=== PATIENT | male | born 1950 | race Caucasian/White ===

== ENCOUNTER → 2016-04-11 | Outpatient (CLI) | payer OTHER ==
[~2016-04-11] MED LIST: ALL300 PO; AMOX500C3 PO; B-COTAB18 PO; CEPH500C PO; CHOL400C10 PO; CITA20TA9 PO; DOXY100C76 PO; FRS/40 PO; IMD/2 PO; INSDGI SC; INSDGIPEN SC; INSU1INJ2 SQ; IRON1CAP2 PO; NVLGI SC; OMEG10007 PO; PANT1TAB48 PO; PEDI-100 PO; POTA20TA16 PO; TIMO0.2534 OPB; TMPOPS15 OPB; TRIA75TA53 PO; VITAMIN B1 PO
[2016-04-11 12:17] LABS: ESTIMATED AVERAGE GLUCOSE 143 mg/dl; HA1C FLAG Normal (Normal)
== END | disposition home or self-care (01) ==
LOC: C.LAB1850 10:06
PROVIDERS: ATTEND Internal Medicine Endocrinology, Diabetes & Metabolism
DX: E11.9 Type 2 diabetes mellitus without complications (principal)

== ENCOUNTER → 2016-04-22 | Outpatient (CLI) | payer OTHER ==
[2016-04-22 11:31] LABS: INR 1.1 (0.9-1.1); PROTHROMBIN TIME (PATIENT) 11.7 SECONDS (9.0-12.0)
[2016-04-22 11:33] LABS: ALT/SGPT 22 U/L (12-78); BLOOD UREA NITROGEN 10 mg/dl (7-18); CALCIUM 8.9 mg/dl (8.5-10.1); CARBON DIOXIDE 28 mmol/L (21-32); CHLORIDE 103 mmol/L (98-107); CREATININE 0.79 mg/dl (0.60-1.40); GLUCOSE 101 mg/dl (70-99); POTASSIUM 4.1 mmol/L (3.5-5.1); SODIUM 139 mmol/L (136-145)
[2016-04-22 11:35] LABS: ALB/GLOB RATIO 0.7 (0.9-2); ALKALINE PHOSPHATASE 92 U/L (45-117); AST/SGOT 28 U/L (15-37)
[2016-04-23 11:53] LABS: AFP TUMOR MARKER SERUM 3.3 NG/ML (<6.1)
== END | disposition home or self-care (01) ==
LOC: C.LAB1850 09:41
PROVIDERS: ATTEND Registered Nurse
DX: K70.30 Alcoholic cirrhosis of liver without ascites (principal); E72.20 Disorder of urea cycle metabolism, unspecified

== ENCOUNTER → 2016-04-28 | Outpatient (CLI) | payer OTHER ==
--- NOTE | 2016-04-28 09:44 | DIAGNOSTIC IMAGING REPORT ---
ABDOMINAL ULTRASOUND, RIGHT UPPER QUADRANT HISTORY: Hyperammonemia. Cirrhosis. COMPARISON: CT of the abdomen and pelvis February 21, 2012 and right upper quadrant ultrasound April 23, 2015. FINDINGS: This exam is significantly compromised by suboptimal penetration. There is coarsening of hepatic echotexture consistent with known cirrhosis. The sensitivity for detection of hepatic lesions is diminished on this exam but none are identified. The pancreas is obscured. Gallstones are noted within the gallbladder. There is no biliary ductal dilatation. No right hydronephrosis is present. Gallbladder wall thickness is at the upper limits of normal. IMPRESSION: 1. Cirrhosis. 2. Cholelithiasis. 3. Exam significantly compromised by suboptimal penetration. Obscured pancreas. Electronically signed by: Renan Fregoso M.D. 04/28/2016 9:42 AM Dictated Date/Time: 04/28/2016 9:35 AM
== END | disposition home or self-care (01) ==
LOC: C.ULTR 08:53
PROVIDERS: ATTEND Registered Nurse
DX: E72.20 Disorder of urea cycle metabolism, unspecified (principal); K74.60 Unspecified cirrhosis of liver; K80.20 Calculus of gallbladder without cholecystitis without obstruction

== ENCOUNTER → 2016-05-01 | Outpatient (CLI) | payer OTHER ==
[~2016-05-01] VITALS: Ht 180.3 cm; Wt 80.0 kg
[2016-05-01 14:31] VITALS: BP 142/83; PULSE 80; Ht 180.3 cm; Wt 80.0 kg
== END | disposition home or self-care (01) ==
LOC: C.NEUR 14:11
PROVIDERS: ATTEND Internal Medicine Pulmonary Disease
DX: G47.33 Obstructive sleep apnea (adult) (pediatric) (principal); G47.61 Periodic limb movement disorder

== ENCOUNTER → 2016-09-24 | Outpatient (CLI) | payer OTHER ==
[2016-09-24 12:43] LABS: ESTIMATED AVERAGE GLUCOSE 120 mg/dl; HA1C FLAG Normal (Normal)
[2016-09-24 12:46] LABS: CHOLESTEROL/HDL RATIO 1.5; THYROID STIMULATING HORMONE 1.79 uIu/ml (0.300-4.500)
== END | disposition home or self-care (01) ==
LOC: C.LAB1850 10:55
PROVIDERS: ATTEND Physician Assistant
DX: Z12.5 Encounter for screening for malignant neoplasm of prostate (principal); E11.9 Type 2 diabetes mellitus without complications; I10 Essential (primary) hypertension

== ENCOUNTER → 2016-10-13 | Outpatient (CLI) | payer OTHER ==
--- NOTE | 2016-10-13 09:04 | DIAGNOSTIC IMAGING REPORT ---
(LIVER) ABDOMEN LIMITED CLINICAL HISTORY: K70.30 Liver cirrhosis, [id number] COMPARISON STUDY: 04/28/2016 FINDINGS: The study is limited from a technical standpoint due to the patient's body habitus and limited acoustic windows. The liver measured 15.5 cm. Liver has a coarsened echotexture consistent with a clinical history of cirrhosis. No masses were identified. Multiple gallstones were visualized. There is no ductal dilatation. The common bile duct measured 6 mm. There is no right-sided hydronephrosis. Evaluation the pancreas was nondiagnostic. IMPRESSION: 1. Technically limited study 2. Coarsened hepatic echotexture consistent with cirrhosis 3. Cholelithiasis 4. Nonvisualization of the pancreas 5. No ductal dilatation Electronically signed by: Drake Zimmerman M.D. 10/13/2016 9:03 AM Dictated Date/Time: 10/13/2016 9:01 AM
== END | disposition home or self-care (01) ==
LOC: C.ULTR 08:35
PROVIDERS: ATTEND Registered Nurse
DX: K70.30 Alcoholic cirrhosis of liver without ascites (principal)

== ENCOUNTER 2016-11-30 13:35 | Emergency (ER) | payer OTHER ==
[~2016-11-30] VITALS: Ht 180.3 cm; Wt 122.6 kg
[~2016-11-30 13:35] MED LIST changes: -AMOX500C3 PO; -B-COTAB18 PO; -CEPH500C PO; -CHOL400C10 PO; -DOXY100C76 PO; -IMD/2 PO; -INSDGIPEN SC; -INSU1INJ2 SQ; -IRON1CAP2 PO; -PEDI-100 PO; -TMPOPS15 OPB
[2016-11-30 13:44] VITALS: TEMP 36.8; Ht 180.3 cm; Wt 122.6 kg
[2016-11-30] MEDS ORDERED: SODIUM CHLORIDE 0.9% 1000ML 1,000 ML IV STA (13:55)
[2016-11-30] MEDS ORDERED: LIDOCAINE/EPINEPHRINE 1% 20 ML VIAL INFIL STA (13:55)
[2016-11-30] MEDS ORDERED: MoRPHine SULFATE 4 MG/ML 1 ML CARP\\VIAL IV STA (13:55)
[2016-11-30] MEDS ORDERED: DIPHTHERIA/TETANUS/PERTUSSIS 0.5 ML SYR/VIAL IM. ONE (14:00)
[2016-11-30] MEDS ORDERED: PEDI-100 PO (14:22)
[2016-11-30] MEDS ORDERED: TMPOPS15 OPB (14:22)
[2016-11-30] MEDS ORDERED: CHOL400C10 PO (14:22)
[2016-11-30] MEDS ORDERED: B-COTAB18 PO (14:22)
[2016-11-30] MEDS ORDERED: IRON1CAP2 PO (14:22)
[2016-11-30] MEDS ORDERED: IMD/2 PO (14:22)
--- NOTE | 2016-11-30 14:24 | EMERGENCY ROOM VISIT NOTE ---
ED Visit Note First contact with patient: 13:51 This Patient was discussed with the physician portfolio assistant, Armand Hughes PA-C. The pertinent historical and physical exam findings were confirmed. I agree with the studies ordered and with the interpretations of these studies. I agree with the disposition and care plan.
[2016-11-30] MEDS ORDERED: INSU1INJ2 SQ (14:25)
[2016-11-30] MEDS ORDERED: INSDGIPEN SC (14:25)
[2016-11-30 14:34] LABS: ISTAT HEMOGLOBIN 15.3 g/dl (14.0-18.0); ISTAT IONIZED CALCIUM 1.11 mmol/l (1.12-1.32)
--- NOTE | 2016-11-30 14:44 | DIAGNOSTIC IMAGING REPORT ---
LEFT TIBIA/FIBULA 2 VIEWS ROUTINE CLINICAL HISTORY: 66 years-old Male presenting with Left distal/medial avila laceration s/p trauma. TECHNIQUE: Frontal and lateral views of the left lower leg were obtained. COMPARISON: None. FINDINGS: The laceration is not radiographically apparent. Tricompartmental degenerative changes in the knee joint with medial joint space loss. Knee joint congruent. Ankle mortise grossly congruent. No acute fracture. Bony spurring at the insertion of the Achilles tendon and origin of the plantar fascia. Atherosclerosis. Multiple phleboliths noted. Diffuse subcutaneous edema in the lower leg. IMPRESSION: No acute osseous injury in the left lower leg. Tricompartmental degenerative changes in the knee, most severe medially with joint space loss. Electronically signed by: Alec Mancilla M.D. 11/30/2016 2:43 PM Dictated Date/Time: 11/30/2016 2:40 PM
[2016-11-30] MEDS ORDERED: CEPHALEXIN 500MG HOME PACK 1 EA BTL PO STA (16:25)
--- NOTE | 2016-11-30 16:29 | EMERGENCY ROOM VISIT NOTE ---
ED Visit Note First contact with patient: 13:51 Chief Complaint: "Cut to leg". History of Present Illness: This patient is a 66-year-old male who presents to the Emergency Department via private vehicle for evaluation of their left lower leg laceration. Patient sustained the laceration while operating a mower, when it began to flip and the clutch pedal struck the medial aspect of his left distal avila causing a laceration. They report a large amount of bleeding initially. They deny any numbness or tingling into the distal extremity. Patient rates his current discomfort as a 0/10. Patient's Tetanus status is not currently up-to-date. Medications: As noted below Allergies: Adhesives, sulfa antibiotics PMH: Diabetes SHx: Patient lives locally with stepson ROS: All pertinent positive and negative review of systems are appropriately documented in the History of Present Illness. Physical Exam: VITAL SIGNS - Vital signs and nursing notes were reviewed. Stable. GENERAL -66-year-old male appearing his stated age who is in no acute distress. Communicates well with provider and answers questions appropriately. SKIN - There is a 18 cm long laceration noted in a V shape with a slight avulsion at the left medial aspect of the distal left avila. The edges gape apart with traction. No foreign bodies appreciated. Upon further examination there are no deep structures including vessel, tendon, or bony structures appreciated. There is no active bleeding noted. MUSCULOSKELETAL -full range of motion noted. There is tenderness to palpation. NEUROLOGIC - Spinothalamic tract was found to be intact with ability to discriminate sharp versus dull sensation. No sensory defects of the dorsal column were appreciated utilizing light touch for evaluation. VASCULAR - Capillary refill was brisk. IMAGING: LEFT TIBIA/FIBULA 2 VIEWS ROUTINE CLINICAL HISTORY: 66 years-old Male presenting with Left distal/medial avila laceration s/p trauma. TECHNIQUE: Frontal and lateral views of the left lower leg were obtained. COMPARISON: None. FINDINGS: The laceration is not radiographically apparent. Tricompartmental degenerative changes in the knee joint with medial joint space loss. Knee joint congruent. Ankle mortise grossly congruent. No acute fracture. Bony spurring at the insertion of the Achilles tendon and origin of the plantar fascia. Atherosclerosis. Multiple phleboliths noted. Diffuse subcutaneous edema in the lower leg. IMPRESSION: No acute osseous injury in the left lower leg. Tricompartmental degenerative changes in the knee, most severe medially with joint space loss. Electronically signed by: Alec Mancilla M.D. 11/30/2016 2:43 PM Dictated Date/Time: 11/30/2016 2:40 PM ED Course: Patient was seen and evaluated by myself. Risks and benefits of performing primary wound closure versus no repair were discussed with the patient who verbalizes understanding. Radiograph was obtained with results as above. No acute fracture. Incidentals discussed with patient. He was given morphine for his pain. Verbal consent was obtained prior to performing the procedure. 8 cc of 1% buffered lidocaine with epinephrine was used to anesthetize the 18 cm laceration. The wound was cleansed and prepped in the typical sterile fashion utilizing normal saline and Betadine. The wound was sterilely draped. Once proper anesthetization was established, the wound was further examined and demonstrated deep involvement, but not involving the bone or muscle. The wound was copiously irrigated with normal saline and Betadine. The RuckPack pulse-a- vac irrigation system was used to irrigate the wound fully. The wound was closed using 3 simple, 4-0 Vicryl sutures as well as 19 simple, 4-0 nylon sutures with the wound edges being well approximated. Patient tolerated the procedure well. No complications were met. The wound was cleansed and dressed with a dry dressing. I-STAT was initially obtained to rule out significant blood loss. He is hemodynamically stable. His sodium was slightly low, he was given 1 L of fluid here as a bolus. He was given Keflex for infection prophylaxis was also educated upon his high risk of infection. He is to follow with his family doctor for recheck later this week of his wound healing progress. He is to return for worsening. His glucose is high, but he is diabetic. He is to follow-up with his family doctor to have basic blood work rechecked. He is to return with worsening. Patient received their Adacel vaccination. Patient educated on worrisome symptoms for return visit to the Emergency Department. Patient discharged to home in good condition. In evaluation treatment this patient the following differential diagnoses were entertained: Fracture, avulsion, open fracture, among others. The patient was also seen by the attending physician. Problem List Medical Problems: (1) Pedroza's esophagus Status: Chronic (2) Current drinker of alcohol Status: Chronic (3) Deep venous thrombosis of lower extremity Status: Chronic (4) Diabetes mellitus type 2 Status: Chronic (5) Diverticular disease of colon Status: Chronic (6) Dyslipidemia Status: Chronic (7) Gastroesophageal reflux disease Status: Chronic (8) Gout Status: Chronic (9) Hypokalemia Status: Resolved (10) Paroxysmal supraventricular tachycardia Status: Resolved Current/Historical Medications Scheduled Allopurinol (Allopurinol), 300 MG PO QAM B-Complex Vitamins (Vitamin B Complex), 1 TAB PO DAILY Cephalexin Monohydrate (Keflex), 500 MG PO TID Cholecalciferol (Vitamin D 400), 800 MG PO DAILY Citalopram Hydrobromide (Celexa), 20 MG PO QAM Insulin Aspart (Novolog Penfill), 6-8 UNITS SQ TIDM Insulin Glargine (Lantus Solostar), 28 UNITS SC QPM Iron Combinations (Iron Complex), 65 MG PO DAILY Pantoprazole (Protonix), 40 MG PO QAM Pediatric Multiple Vitamin W/ (Multivitamin Childrens), 2 TAB PO DAILY Timolol Maleate (Timolol 0.5% Oph Soln 15 Ml), 1 DROP OPB QAM Triamterene/Hctz (Maxzide 75MG/50MG), 1 TAB PO QAM Scheduled PRN Furosemide (Lasix), 40 MG PO DAILY PRN for Fluid Retention Loperamide Hcl (Imodium), 6 MG PO DAILY PRN for Diarrhea Potassium Ext Rel (Klor-Con), 20 MEQ PO DAILY PRN for When Lasix Is Taken Allergies Coded Allergies: Sulfa Antibiotics (Verified Allergy, Unknown, NAUSEA AND VOMITING, 11/30/16 ) Adhesives (Verified Adverse Reaction, Unknown, REDNESS, TAPE WILSON, ) Vital Signs Date Time Temp Pulse Resp B/P (MAP) Pulse Ox O2 Delivery O2 Flow Rate FiO2 11/30/16 16:46 66 16 124/72 98 11/30/16 14:54 16 119/60 100 Room Air 11/30/16 13:44 36.8 87 18 143/81 97 Room Air Laboratory Results Test 11/30/16 14:21 Bedside Hemoglobin 15.3 g/dl (14.0-18.0) Bedside Hematocrit 45 % (42-52) Bedside Sodium 131 mEq/L (135-144) Bedside Potassium 3.6 mEq/L (3.3-5.0) Bedside Chloride 87 mEq/L (101-112) Bedside Total CO2 27 mEq/l (24-31) Anion Gap 21.0 mmol/L (16-25) Bedside Blood Urea Nitrogen 7 mg/dl (7-18) Bedside Creatinine 1.0 mg/dl (0.6-1.3) Bedside Glucose (other) 294 mg/dl (70-99) Bedside Ionized Calcium (Nicol) 1.11 mmol/l (1.12-1.32) Medications Administered Medications (Trade) Dose Ordered Sig/Huy Route Start Time Stop Time Status Last Admin Dose Admin Sodium Chloride 1,000 ml @ 200 mls/hr Q5H STAT IV 11/30/16 13:55 11/30/16 18:27 DC 11/30/16 14:15 200 MLS/HR Morphine Sulfate (MoRPHine SULFATE INJ) 4 mg NOW STAT IV 11/30/16 13:55 11/30/16 13:57 DC 11/30/16 14:16 4 MG Diphtheria/ Pertussis/Tetanus Vacc (Adacel Inj) 0.5 ml ONCE ONCE IM. 11/30/16 14:00 11/30/16 14:01 DC 11/30/16 14:35 0.5 ML Cephalexin Monohydrate (Keflex 500MG Home Pack) 1 homepack NOW STAT PO 11/30/16 16:25 11/30/16 16:27 DC 11/30/16 16:25 1 HOMEPACK Departure Information Impression Primary Impression: Laceration Dispostion Home / Self-Care Condition GOOD Prescriptions Cephalexin Monohydrate (Keflex) 500 Mg Cap 500 MG PO TID for 7 Days, #21 CAP Prov: Armand Hughes PA-C 11/30/16 Referrals Karmen Nichols M.D. (PCP) Patient Instructions My [facility] Additional Instructions Discharge Instructions: You have received 19 sutures on your leg. These sutures are NOT dissolvable and WILL need to be removed by a health care provider in 14 days. You can return to the Emergency Department or contact your Primary Care Provider to have the sutures removed. Please call your family doctor to schedule follow-up regarding today's visit later this week for recheck of your wound. These return sooner for signs of infection. Keflex (antibiotic) every 8 hours for infection prevention. Remainder is at pharmacy for pickup. Proper wound care is essential for adequate wound healing and infection prevention. You can shower and clean the wound with soap and water. Do not scour over the wound, pat dry with a towel. Do not submerse the wound (i.e. bathe or dish wash) until the sutures have been removed. You can use an antibiotic ointment with a dressing over the wound for the next 3-4 days. After this time you may leave the wound dry and open to the air. If crust develops over the wound you can use a Q-tip to apply a 1:1 peroxide:water solution to clean the wound. Look for signs of infection of the wound including: increased pain, swelling, foul discharge, streaking, or increased temperature. If any of these are noticed you should return to the Emergency Department for further assessment and treatment. As with any laceration you may have received nerve damage to the surrounding tissues. This damage may or may not be permanent. You should keep the area covered with sunscreen for the first 6 months to 1 year when at risk for exposure to help minimize scarring. You can also use scar reducing creams or Vitamin E oil to help minimize scarring. For pain control, you can use the following [id number] medicines: - Regular strength (325mg/tab) Tylenol (acetaminophen) 2 tabs every 4-6 hours as needed. Do not exceed 12 tablets in a 24 hour period. Avoid taking more than 3 grams (3000 mg) of Tylenol per day. This includes any other sources of acetaminophen you may take on a regular basis. Return to the emergency department if your symptoms worsen despite treatment course outlined above.
[2016-11-30] MEDS ORDERED: CEPH500C PO (16:35)
[2016-11-30 16:46] VITALS: BP 124/72; PULSE 66; O2SAT 98
[2016-12-15] MEDS ORDERED: DOXY100C76 PO (07:53)
[2016-12-15] MEDS ORDERED: AMOX500C3 PO (07:53)
== END 2016-11-30 16:46 | disposition home or self-care (01) ==
LOC: C.EDB 13:36 → C.EDA 16:46
DX: S81.812A Laceration without foreign body, left lower leg, initial encounter (principal); W45.8XXA Other foreign body or object entering through skin, initial encounter; Y92.89 Other specified places as the place of occurrence of the external cause; E11.9 Type 2 diabetes mellitus without complications; Z86.718 Personal history of other venous thrombosis and embolism; E78.5 Hyperlipidemia, unspecified; K21.9 Gastro-esophageal reflux disease without esophagitis; M10.9 Gout, unspecified; K57.32 Diverticulitis of large intestine without perforation or abscess without bleeding; K22.70 Barrett's esophagus without dysplasia; Z79.4 Long term (current) use of insulin; Z79.899 Other long term (current) drug therapy

== ENCOUNTER → 2017-02-17 | Outpatient (CLI) | payer OTHER ==
[~2017-02-17] MED LIST changes: +B-COTAB18 PO; +CHOL400C10 PO; +IMD/2 PO; -INSDGI SC; +INSDGIPEN SC; +INSU1INJ2 SQ; +IRON1CAP2 PO; -NVLGI SC; -OMEG10007 PO; +PEDI-100 PO; -TIMO0.2534 OPB; +TMPOPS15 OPB; -VITAMIN B1 PO
[2017-02-17 09:58] LABS: ESTIMATED AVERAGE GLUCOSE 131 mg/dl; HA1C FLAG Normal (Normal)
[2017-02-17 10:25] LABS: ALT/SGPT 31 U/L (12-78); AST/SGOT 46 U/L (15-37); BLOOD UREA NITROGEN 6 mg/dl (7-18); BUN/CREATININE RATIO 8.7 (10-20); CALCIUM 8.5 mg/dl (8.5-10.1); CARBON DIOXIDE 29 mmol/L (21-32); CHLORIDE 99 mmol/L (98-107); CREATININE 0.64 mg/dl (0.60-1.40); GLUCOSE 132 mg/dl (70-99); POTASSIUM 3.3 mmol/L (3.5-5.1); SODIUM 134 mmol/L (136-145)
[2017-02-17 10:27] LABS: ALB/GLOB RATIO 0.6 (0.9-2); ALKALINE PHOSPHATASE 119 U/L (45-117)
== END | disposition home or self-care (01) ==
LOC: C.LAB1850 08:33
PROVIDERS: ATTEND Physician Assistant
DX: E11.9 Type 2 diabetes mellitus without complications (principal); Z79.4 Long term (current) use of insulin; Z98.84 Bariatric surgery status

== ENCOUNTER → 2017-04-13 | Day surgery (SDC) | payer OTHER ==
[2017-04-02 12:03] VITALS: Ht 188 cm; Wt 130.4 kg
[~2017-04-13] VITALS: Ht 188 cm; Wt 130.4 kg
[~2017-04-13] MED LIST changes: +500ML BSS 0.3ML EPI 1:1000PF IRRIG ONE; +ACETAMINOPHEN 325 MG TAB PO PRN; +AMVISC PLUS 0.8ML SYRINGE INT OCU ONE; +ATROPINE SULFATE 0.1 MG/ML 5ML SYR IV PRN; +BRIMONIDINE TART 0.2% OP SOLN PER DROP CHARGE ONE; +BSS FLUSH ONE; +ENDOCOAT 0.85ML SYRINGE INT OCU ONE; +EpHEDrine SULFATE INJ 50 MG/ML AMP IV PRN; +EpINEphrine INJ 1MG/ML AMP 1 MG/ML AMP ONE; +LACTATED RINGER'S 1000ML 1,000 ML IV SCH; +LIDOCAINE 4% OP SOLN DROP CHARGE ONE; +LIDOCAINE 4% OP SOLN DROP CHARGE OPL SCH; +LIDOCAINE HCL 1% MPF 2 ML VIAL ONE; +MIDAZOLAM HCL 1 MG/ML 2ML VIAL ONE; +MOXIFLOXACIN OPH SOLN PER DROP CHARGE ONE; +ONDANSETRON INJ 2 MG/ML 2 ML VIAL IV PRN; +PANT1TAB3 PO; -PANT1TAB48 PO; +POVIDONE-IODINE OP SOLN 30 ML BTL ONE; +PROPARACAINE 0.5% OP SOLN PER DROP CHARGE OPL SCH; -TMPOPS15 OPB; +TOBRAMYCIN/DEXAMETHASONE OPH OINT PER APPLN CHARGE ONE
[2017-04-13] MEDS: PHENYLEPHRINE HCL 2.5% OP SOLN PER DROP CHARGE OPL SCH ×2 (10:00→10:05)
[2017-04-13] MEDS: TROPICAMIDE 1% OP SOLN PER DROP CHARGE OPL SCH ×2 (10:01→10:06)
[2017-04-13] MEDS: CYCLOPENTOLATE HCL 1% OP SOLN PER DROP CHARGE OPL SCH ×2 (10:02→10:07)
[2017-04-13] MEDS: KETOROLAC 0.5% OP SOLN PER DROP CHARGE OPL SCH ×2 (10:03→10:08)
[2017-04-13] MEDS: MOXIFLOXACIN OPH SOLN PER DROP CHARGE OPL SCH ×2 (10:04→10:09)
--- NOTE | 2017-04-13 10:54 | History & Physical Bridge - SC ---
H&P Re-Evaluation Bridge Note: I have examined the patient, reviewed the History & Physical and in the interval since the performance of the History & Physical I have noted the following changes of clinical significance: No changes noted
--- NOTE | 2017-04-13 11:22 | [facility] Operative Report ---
Operative Report Operative Date Apr 13, 2017. Pre-Operative Diagnosis Left Eye Cataract Post-Operative Diagnosis Same Procedure(s) Performed Left Cataract Phacoemulsification With Intraocular Lens Implant Surgeon Dr. Kasey Payne Associate Professor Plant Pathology Surgeon(s) None Estimated Blood Loss 0 Findings cataract left eye Fluids (cc crystalloids) see anesthesia record Specimens None Drains none Anesthesia local with sedation Complication(s) None Disposition Recovery Room / PACU Implants [id number] 18.0 Indications decreased vision left eye Description of Procedure After informed consent was obtained in the holding area the patient was wheeled back to the operating room where cardiac monitoring leads and oxygen by nasal cannula was administered by Anesthesia. Gentle IV sedation was given, and the patient's left eye was prepped and draped in usual sterile fashion. A wire lid speculum was placed into the left eye and the operating microscope was swung into position. Using 0.12 forceps and a Supersharp blade a paracentesis port was made 2 o'clock hours away from the 3 o'clock position of the patient's left eye. 1% non-preserved Lidocaine was then injected into the anterior chamber for anesthesia. A 2.0 mm keratotome blade was then used to make a shelved clear corneal incision at the 3 o'clock position of the left eye. Amvisc was injected into the anterior chamber and a cystotome and Utrata forceps were used to perform a curvilinear capsulorrhexis. BSS on a hydrodissection cannula was used to hydrodissect the lens nucleus away from the capsular bag. The phacoemulsification handpiece was then used in a stop and chop fashion to remove the lens nucleus. The irrigation and aspiration handpiece was then used to remove the residual cortical material. Amvisc was injected into the capsular bag and anterior chamber and a [employer]ch [employer] Lomb MX60 18.0 Diopter intraocular lens was injected into the capsular bag. Irrigation and aspiration handpiece was used to remove the residual viscoelastic material. The wounds were hydrated and noted to be watertight. The wire lid speculum was removed from the eye. Vigamox, Brimonidine, and TobraDex ointment were placed on the eye and it was shielded. It should be noted that EndoCoat was used extensively during the case to protect the cornea endothelium. DISPOSITION: The patient tolerated the procedure well and was wheeled to the post anesthesia care unit in stable condition. I attest to the content of the Intraoperative Record and any orders documented therein. Any exceptions are noted below. I attest to the content of the Intraoperative Record and any orders documented therein. Any exceptions are noted below.
--- NOTE | 2017-04-13 11:24 | Discharge Instructions-SurgCtr ---
Discharge Instructions Date of Service Apr 13, 2017. Visit Reason for Visit: Cataract Left Eye Discharge Discharge Diagnosis / Problem: cataract left eye Discharge Goals Goal(s): Improve function Medications Stopped Medications Name(s): had half insulin dose Activity Recommendations Activity Limitations: per Instructions/Follow-up section Lifting Limitations: no more than 5 pounds Anesthesia . Post Anesthesia Instructions: If you have had General Anesthesia or IV Sedation: * Do not drive today. * Resume driving when surgeon permits. * Do not make important decisions or sign legal documents today. * Call surgeon for: 1. Temperature elevations greater than 101 degrees F. 2. Uncontrollable pain. 3. Excessive bleeding. 4. Persistent nausea and vomiting. 5. Medication intolerance (nausea, vomiting or rash). * For nausea and vomiting use only clear liquids such as: tea, soda, bouillon until nausea subsides, then gradually increase diet as tolerated. * If you have any concerns or questions, call your surgeon's office. If physician is unavailable and it is an emergency, call 911 or go to the nearest emergency room. . Instructions / Follow-Up Instructions / Follow-Up ACTIVITY RECOMMENDATIONS: * Light activities * You may walk outside, read, watch television. * Mild irritation and blurred vision are common for the first few days, redness around the white part of the eye is common. MEDICATIONS: Resume previous medications unless instructed otherwise by your surgeon. Eye drops (today and tomorrow): Cipro - one drop in operative eye every 2 hours while awake Prednisolone 1% - one drop in operative eye every 2 hours while awake Bromfenac - one drop in operative eye once daily SPECIAL CARE INSTRUCTIONS: * If any problems or concerns, please call Dr. Payne's office at . * Keep plastic shield taped over eye to sleep at night. * Keep plastic shield taped over eye except to administer eye drops. * Keep plastic shield on until office visit the following day. FOLLOW UP VISIT: Follow-up with Dr. Payne in the [place] office as scheduled. If not already scheduled, please call the office at . Diet Recommendations Home Diet: resume previous diet Procedures Procedures Performed: Left Cataract Phacoemulsification With Intraocular Lens Implant Pending Studies Studies pending at discharge: no Medical Emergencies . Who to Call and When: Medical Emergencies: If at any time you feel your situation is an emergency, please call 911 immediately. . Non-Emergent Contact Non-Emergency issues call your: Instrument Shop Supervisor . . "Provider Documentation" section prepared by Segundo Payne. .
[2017-04-13 11:27] VITALS: TEMP 36.7
[2017-04-13 11:59] VITALS: BP 121/79; PULSE 82; O2SAT 97
--- NOTE | 2017-04-13 12:03 | Anesthesia Progress Nt - [facility] ---
Anesthesia Post Op Note Date & Time Apr 13, 2017 at 12:03 Vital Signs Pain Intensity: 0 Vital Signs Past 12 Hours Date Time Temp Pulse Resp B/P (MAP) Pulse Ox O2 Delivery O2 Flow Rate FiO2 04/13/17 11:59 82 16 121/79 (93) 97 Room Air 04/13/17 11:27 36.7 71 20 132/80 (97) 98 Room Air 04/13/17 09:46 36.8 80 16 114/76 (89) 96 Room Air Notes Mental Status: alert / awake / arousable, participated in evaluation Pt Amnestic to Procedure: Yes Nausea / Vomiting: adequately controlled Pain: adequately controlled Airway Patency, RR, SpO2: stable & adequate BP & HR: stable & adequate Hydration State: stable & adequate Anesthetic Complications: no major complications apparent
== END | disposition home or self-care (01) ==
LOC: X.SURG 08:40
PROVIDERS: ATTEND Ophthalmology
DX: E11.36 Type 2 diabetes mellitus with diabetic cataract (principal); E11.22 Type 2 diabetes mellitus with diabetic chronic kidney disease; N18.9 Chronic kidney disease, unspecified; I10 Essential (primary) hypertension; F32.9 Major depressive disorder, single episode, unspecified; E66.9 Obesity, unspecified; Z88.2 Allergy status to sulfonamides; Z79.899 Other long term (current) drug therapy; Z98.84 Bariatric surgery status

== ENCOUNTER → 2017-05-01 | Outpatient (CLI) | payer OTHER ==
[~2017-05-01] VITALS: Ht 181.6 cm; Wt 137.9 kg
[~2017-05-01] MED LIST changes: -500ML BSS 0.3ML EPI 1:1000PF IRRIG ONE; -ACETAMINOPHEN 325 MG TAB PO PRN; -AMVISC PLUS 0.8ML SYRINGE INT OCU ONE; -ATROPINE SULFATE 0.1 MG/ML 5ML SYR IV PRN; -BRIMONIDINE TART 0.2% OP SOLN PER DROP CHARGE ONE; -BSS FLUSH ONE; -ENDOCOAT 0.85ML SYRINGE INT OCU ONE; -EpHEDrine SULFATE INJ 50 MG/ML AMP IV PRN; -EpINEphrine INJ 1MG/ML AMP 1 MG/ML AMP ONE; -LACTATED RINGER'S 1000ML 1,000 ML IV SCH; -LIDOCAINE 4% OP SOLN DROP CHARGE ONE; -LIDOCAINE 4% OP SOLN DROP CHARGE OPL SCH; -LIDOCAINE HCL 1% MPF 2 ML VIAL ONE; -MIDAZOLAM HCL 1 MG/ML 2ML VIAL ONE; -MOXIFLOXACIN OPH SOLN PER DROP CHARGE ONE; -ONDANSETRON INJ 2 MG/ML 2 ML VIAL IV PRN; -POVIDONE-IODINE OP SOLN 30 ML BTL ONE; -PROPARACAINE 0.5% OP SOLN PER DROP CHARGE OPL SCH; -TOBRAMYCIN/DEXAMETHASONE OPH OINT PER APPLN CHARGE ONE
[2017-05-01 12:41] VITALS: BP 137/78; PULSE 103; Ht 181.6 cm; Wt 137.9 kg
== END | disposition home or self-care (01) ==
LOC: C.NEUR 12:25
PROVIDERS: ATTEND Internal Medicine Pulmonary Disease
DX: G47.30 Sleep apnea, unspecified (principal); Z88.2 Allergy status to sulfonamides; Z88.8 Allergy status to other drugs, medicaments and biological substances

== ENCOUNTER → 2017-05-19 | Outpatient (CLI) | payer OTHER ==
[~2017-05-19] MED LIST changes: +BCTRO; +BCTROWC EXT; +CFT250 PO; +CHOL1TAB76 PO; +LIDO4GEL3 TOP; +NRN600 PO; +XYLG2 EXT
[2017-05-19 13:17] LABS: INR 1.1 (0.9-1.1)
[2017-05-19 13:32] LABS: HEMATOCRIT 36.1 % (42-52); HEMOGLOBIN 13.3 g/dL (14.0-18.0); MEAN CELL VOLUME 85.7 fL (80-100); MEAN CORPUSCULAR HEMOGLOBIN 31.6 pg (25-34); MEAN CORPUSCULAR HGB CONC 36.8 g/dl (32-36); MEAN PLATELET VOLUME 9.8 fL (7.4-10.4); PLATELET COUNT 70 K/uL (130-400); RED CELL DISTRIBUTION WIDTH CV 13.9 % (11.5-14.5); RED CELL DISTRIBUTION WIDTH SD 43.2 fL (36.4-46.3); WHITE BLOOD COUNT 5.79 K/uL (4.8-10.8)
[2017-05-19 13:33] LABS: BASO % 0.5 %; BASO ABS # 0.03 K/uL (0-0.2); EOS ABS # 0.29 K/uL (0-0.5); IG# 0.01 K/uL (0.00-0.02); LYMPH % 17.3 %; MONO ABS # 0.52 K/uL (0.11-0.59); NEUT ABS # 3.94 K/uL (1.4-6.5)
[2017-05-19 13:53] LABS: ALBUMIN 3.1 gm/dl (3.4-5.0); ALT/SGPT 33 U/L (12-78); BLOOD UREA NITROGEN 7 mg/dl (7-18); CALCIUM 8.7 mg/dl (8.5-10.1); CARBON DIOXIDE 33 mmol/L (21-32); CREATININE 0.84 mg/dl (0.60-1.40); GLUCOSE 194 mg/dl (70-99); POTASSIUM 2.8 mmol/L (3.5-5.1); SODIUM 126 mmol/L (136-145)
[2017-05-19 13:54] LABS: HEMOGLOBIN A1C 6.4 % (4.5-5.6)
[2017-05-19 13:57] LABS: ALKALINE PHOSPHATASE 117 U/L (45-117); AST/SGOT 57 U/L (15-37); TOTAL PROTEIN 7.7 gm/dl (6.4-8.2)
== END | disposition home or self-care (01) ==
LOC: C.LAB1850 11:43
PROVIDERS: ATTEND Registered Nurse
DX: K62.5 Hemorrhage of anus and rectum (principal); E11.9 Type 2 diabetes mellitus without complications; K70.30 Alcoholic cirrhosis of liver without ascites

== ENCOUNTER 2017-05-20 22:52 | Inpatient (IN) | payer OTHER ==
[~2017-05-20] VITALS: Ht 180.3 cm; Wt 136.9 kg
[~2017-05-20 22:52] MED LIST changes: -BCTRO; -BCTROWC EXT; -CFT250 PO; -CHOL1TAB76 PO; -LIDO4GEL3 TOP; -NRN600 PO; -XYLG2 EXT
[2017-05-20] MEDS ORDERED: PANTOprazole INJ 80 MG in SYRINGE 0 ML IV ONE (23:15)
--- NOTE | 2017-05-20 23:33 | EMERGENCY ROOM VISIT NOTE ---
History Report prepared by Carter: Cher Contreras Under the Supervision of: Dr. Juan Francisco Taylor M.D. (Cher Contreras) First contact with patient: 23:07 Chief Complaint: RECTAL BLEEDING Stated Complaint: GI BLEED Nursing Triage Summary: Patient started with abdominal pain and rectal bleeding starting Thursday. Tonight patient stood up and was incontient of blood stool. Saw Pat LOREDO with Dr Bill , scheduled for colonoscopy. Denies pain. Drank about 12 beers. Patient also notes his daughter Thursday and today was the . History of Present Illness The patient is a 66 year old male who presents to the Emergency Room with complaints of constant rectal bleeding bleeding on Thursday, three days ago. The patient states his rectal bleeding has acutely worsened today. He notes bright red blood in his stool. The patient was seen by Pat LOREDO with Dr Bill yesterday and was scheduled for colonoscopy next week on 05/26. The patient reports he drank about 12 beers tonight. He denies any abdominal pain, loss of consciousness, lightheadedness, shortness of breath, chest pain, or headache. The patient states he drinks a "couple beers" daily. He denies any drug use or recent falls or injuries. The patient is not on any blood thinners. The patient has a history of diabetes. He reports he did not take his insulin today. The patient also notes his daughter Thursday and today was the . The patient has a history of a gastric bypass. He also has a history of polyps which he has had about 5 colonoscopies for previously. Source of History: patient Onset: three days ago Position: other (rectal) Quality: other (bleeding) Timing: constant Associated Symptoms: No LOC, No chest pain, No SOB, No abdominal pain Review of Systems See HPI for pertinent positives & negatives. A total of 10 systems reviewed and were otherwise negative. Past Medical & Surgical Medical Problems: (1) Pedroza's esophagus (2) Current drinker of alcohol (3) Deep venous thrombosis of lower extremity (4) Diabetes mellitus type 2 (5) Diverticular disease of colon (6) Dyslipidemia (7) Gastroesophageal reflux disease (8) Gout (9) Hypokalemia (10) Pancytopenia (11) Paroxysmal supraventricular tachycardia Family History No pertinent family history Social History Smoking Status: Never Smoker Alcohol Use: occasionally Drug Use: none Marital Status: Housing Status: lives with family Occupation Status: employed Current/Historical Medications Scheduled B-Complex Vitamins (Vitamin B Complex), 1 TAB PO DAILY Cholecalciferol (Vitamin D 400), 800 MG PO DAILY Citalopram Hydrobromide (Celexa), 20 MG PO QAM Insulin Aspart (Novolog Penfill), 6-8 UNITS SQ TIDM Insulin Glargine (Lantus Solostar), 31 UNITS SC QAM Iron Combinations (Iron Complex), 65 MG PO DAILY Pantoprazole (Protonix), 40 MG PO QAM Pediatric Multiple Vitamin W/ (Multivitamin Childrens), 1 TAB PO DAILY Triamterene/Hctz (Maxzide 75MG/50MG), 1 TAB PO QAM Scheduled PRN Furosemide (Lasix), 40 MG PO DAILY PRN for Fluid Retention Loperamide Hcl (Imodium), 6 MG PO DAILY PRN for Diarrhea Potassium Ext Rel (Klor-Con), 20 MEQ PO DAILY PRN for When Lasix Is Taken Allergies Coded Allergies: Sulfa Antibiotics (Verified Adverse Reaction, Intermediate, NAUSEA AND VOMITING, 04/13/17) Adhesives (Verified Adverse Reaction, Mild, REDNESS, TAPE WILSON, 04/13/17) Physical Exam Vital Signs Date Time Temp Pulse Resp B/P (MAP) Pulse Ox O2 Delivery O2 Flow Rate FiO2 05/21/17 01:00 134/83 05/21/17 00:57 100 23 97 Room Air 05/21/17 00:31 133/73 05/21/17 00:27 81 14 05/21/17 00:22 86 21 97 Room Air 05/21/17 00:00 116/65 05/20/17 23:52 76 22 97 Room Air 05/20/17 23:30 124/59 05/20/17 23:22 82 18 98 Room Air 05/20/17 23:10 81 05/20/17 23:00 132/67 05/20/17 22:59 36.5 83 18 142/76 99 Room Air Physical Exam GENERAL: Patient is well appearing and in no acute distress. He is moderately intoxicated and smells of alcohol. HEENT: No acute trauma, normocephalic atraumatic, mucous membranes moist, no nasal congestion, no scleral icterus. NECK: No stridor, no adenopathy, no meningismus, trachea is midline. LUNGS: No dyspnea. Clear to auscultation and equal bilaterally. No wheeze, no rhonchi. HEART: Regular rate and rhythm. No murmurs, rubs, gallops appreciated. ABDOMEN: Old abdominal scarring consistent with gastric bypass. Soft, nontender , bowel sounds positive, no masses appreciated, no peritonitis. BACK: No midline tenderness, no CVA tenderness EXTREMITIES: Normal motion all extremities, no cyanosis, no edema. NEUROLOGIC: Alert and oriented, no acute motor or sensory deficits, no focal weakness, cranial nerves grossly intact. SKIN: No rash, no jaundice, no diaphoresis. RECTAL: Dark black/bloody stool. Medical Decision & Procedures Laboratory Results 05/20/17 23:50 Red Blood Count 3.87, Mean Corpuscular Volume 86.0, Mean Corpuscular Hemoglobin 31.5, Mean Corpuscular Hemoglobin Concent 36.6, Mean Platelet Volume 9.3, Neutrophils (%) (Auto) 49.7, Lymphocytes (%) (Auto) 31.8, Monocytes (%) (Auto) 8.5, Eosinophils (%) (Auto) 8.5, Basophils (%) (Auto) 1.5, Neutrophils # (Auto) 2.00, Lymphocytes # (Auto) 1.28, Monocytes # (Auto) 0.34, Eosinophils # (Auto) 0.34, Basophils # (Auto) 0.06 05/20/17 23:50 Test 05/20/17 23:15 05/20/17 23:50 Urine Color YELLOW Urine Appearance CLOUDY (CLEAR) Urine pH 5.0 (4.5-7.5) Urine Specific [place] 1.005 (1.000-1.030) Urine Protein NEG (NEG) Urine Glucose (UA) NEG (NEG) Urine Ketones NEG (NEG) Urine Occult Blood TRACE (NEG) Urine Nitrite NEG (NEG) Urine Bilirubin NEG (NEG) Urine Urobilinogen NEG (NEG) Urine Leukocyte Esterase LARGE (NEG) Urine WBC (Auto) >30 /hpf (0-5) Urine RBC (Auto) 5-10 /hpf (0-4) Urine Hyaline Casts (Auto) 0 /lpf (0-5) Urine Epithelial Cells (Auto) 0-5 /lpf (0-5) Urine Bacteria (Auto) 1+ (NEG) Urine Opiates Screen NEG (NEG) Urine Methadone, Qualitative NEG (NEG) Urine Barbiturates NEG (NEG) Urine Phencyclidine (PCP) Level NEG (NEG) Ur Amphetamine/Methamphetamine NEG (NEG) MDMA (Ecstasy) Screen NEG (NEG) Urine Benzodiazepines Screen NEG (NEG) Urine Cocaine Metabolite NEG (NEG) Urine Marijuana (THC) NEG (NEG) White Blood Count 4.02 K/uL (4.8-10.8) Red Blood Count 3.87 M/uL (4.7-6.1) Hemoglobin 12.2 g/dL (14.0-18.0) Hematocrit 33.3 % (42-52) Mean Corpuscular Volume 86.0 fL (80-100) Mean Corpuscular Hemoglobin 31.5 pg (25-34) Mean Corpuscular Hemoglobin Concent 36.6 g/dl (32-36) Platelet Count 54 K/uL (130-400) Mean Platelet Volume 9.3 fL (7.4-10.4) Neutrophils (%) (Auto) 49.7 % Lymphocytes (%) (Auto) 31.8 % Monocytes (%) (Auto) 8.5 % Eosinophils (%) (Auto) 8.5 % Basophils (%) (Auto) 1.5 % Neutrophils # (Auto) 2.00 K/uL (1.4-6.5) Lymphocytes # (Auto) 1.28 K/uL (1.2-3.4) Monocytes # (Auto) 0.34 K/uL (0.11-0.59) Eosinophils # (Auto) 0.34 K/uL (0-0.5) Basophils # (Auto) 0.06 K/uL (0-0.2) RDW Standard Deviation 43.3 fL (36.4-46.3) RDW Coefficient of Variation 13.9 % (11.5-14.5) Immature Granulocyte % (Auto) 0.0 % Immature Granulocyte # (Auto) 0.00 K/uL (0.00-0.02) Large Platelets 1+ Prothrombin Time 11.4 SECONDS (9.0-12.0) Prothromb Time International Ratio 1.1 (0.9-1.1) Activated Partial Thromboplast Time 25.0 SECONDS (21.0-31.0) Partial Thromboplastin Ratio 1.0 Anion Gap 8.0 mmol/L (3-11) Est Creatinine Clear Calc Drug Dose 146.5 ml/min Estimated GFR () 114.3 Estimated GFR (Non- 98.6 BUN/Creatinine Ratio 10.8 (10-20) Calcium Level 8.3 mg/dl (8.5-10.1) Magnesium Level 1.7 mg/dl (1.8-2.4) Total Bilirubin 1.6 mg/dl (0.2-1) Direct Bilirubin 0.9 mg/dl (0-0.2) Aspartate Amino Transf (AST/SGOT) 41 U/L (15-37) Alanine Aminotransferase (ALT/SGPT) 29 U/L (12-78) Alkaline Phosphatase 102 U/L (45-117) Troponin I < 0.015 ng/ml (0-0.045) Total Protein 7.1 gm/dl (6.4-8.2) Albumin 2.8 gm/dl (3.4-5.0) Lipase 84 U/L (73-393) Ethyl Alcohol mg/dL 185.4 mg/dl (0-3) Laboratory results as reviewed by me. Medications Administered Medications (Trade) Dose Ordered Sig/Huy Route Start Time Stop Time Status Last Admin Dose Admin Pantoprazole Sodium 80 mg/ Syringe 20 ml @ 5 mls/min NOW ONCE IV 05/20/17 23:15 05/20/17 23:18 DC 05/20/17 23:53 5 MLS/MIN Multivitamins 10 ml/Thiamine HCl 100 mg/Folic Acid 1 mg/Sodium Chloride 1,011.2 ml @ 500 mls/ hr Q2H2M ONCE IV 05/21/17 00:30 05/21/17 02:31 DC 05/21/17 00:59 500 MLS/HR Potassium Chloride 10 meq/ Prmx 100 ml @ 100 mls/hr Q1H IV 05/21/17 00:45 05/21/17 02:44 DC 05/21/17 01:55 100 MLS/HR Potassium Chloride (Klor-Con M10) 40 meq NOW STAT PO 05/21/17 01:00 05/21/17 01:01 DC 05/21/17 01:25 40 MEQ ED Course 2310: The patient was evaluated in room B9. A complete history and physical exam was performed. 0028: On reassessment, the patient has no complaints. He is still moderately intoxicated. His vital signs are stable. I advised the patient to come into the hospital for further work up and he is agreeable. 0035: Discussed the patient's case with Dr. Self. The patient will be evaluated for further treatment and disposition. Medical Decision Differential: Diverticulitis, AVM, Coagulopathy, Colitis, Malignancy, Upper GI bleed, Fissure, Hemorrhoids, amongst other pathologies entertained. 66 yr old diabetic male who drinks regularly and has history of Gastric Bypass and multiple colonic polyps arrives for several days increasing rectal bleeding. Hemodynamically stable on arrival and moderately intoxicated. No anticoagulants and INR OK here. Suspect lower GI source, however with his GB I think it is reasonable to start protonix as give amount of bleeding he clearly needs to come in for monitoring. In addition he has multiple electrolyte abnormalities which will need to be addressed as well. His HgB has dropped about 3 grams from baseline though I do not feel he meets criteria for transfusion at this time. He has no abdominal pain, TTP nor other evidence to suggest need for CT abdo at this time. UA with questionable infection though he denies urinary symptoms thus will hold on abx. K is quite low and replacement started. No suggestion this is variceal bleed at this time. Hospitalist consulted for further work-up and management. Given the low Na will start banana bag but hold on other fluid resus for now. Medication Reconcilliation Current Medication List: was personally reviewed by me Blood Pressure Screening Patient's blood pressure: Normal blood pressure Consults Time Called: 29 Consulting Physician: Dr. Self Returned Call: [phone] Discussed the patient's case with Dr. Self. The patient will be evaluated for further treatment and disposition. Impression Primary Impression: Acute GI bleeding Additional Impressions: Hypokalemia Hyponatremia Alcohol intoxication Scribe Attestation The scribe's documentation has been prepared under my direction and personally reviewed by me in its entirety. I confirm that the note above accurately reflects all work, treatment, procedures, and medical decision making performed by me. Departure Information Dispostion Being Evaluated By Hospitalist Referrals Karmen Nichols M.D. (PCP) Patient Instructions [facility] Problem Qualifiers
[2017-05-21] VITALS (10 sets, daily range): BP systolic 107–131; BP diastolic 58–76; PULSE 75–96; TEMP 36.3–36.8; O2SAT 95–100; Ht 180.3 cm; Wt 136.9 kg
[2017-05-21 00:01] LABS: HEMATOCRIT 33.3 % (42-52); HEMOGLOBIN 12.2 g/dL (14.0-18.0); MEAN CORPUSCULAR HEMOGLOBIN 31.5 pg (25-34); MEAN CORPUSCULAR HGB CONC 36.6 g/dl (32-36); RED CELL DISTRIBUTION WIDTH CV 13.9 % (11.5-14.5); RED CELL DISTRIBUTION WIDTH SD 43.3 fL (36.4-46.3); WHITE BLOOD COUNT 4.02 K/uL (4.8-10.8)
[2017-05-21 00:14] LABS: INR 1.1 (0.9-1.1)
[2017-05-21 00:24] LABS: BASO % 1.5 %; BASO ABS # 0.06 K/uL (0-0.2); EOS % 8.5 %; EOS ABS # 0.34 K/uL (0-0.5); LYMPH % 31.8 %; LYMPH ABS # 1.28 K/uL (1.2-3.4); MEAN PLATELET VOLUME 9.3 fL (7.4-10.4); MONO % 8.5 %; MONO ABS # 0.34 K/uL (0.11-0.59); NEUT % 49.7 %; PLATELET COUNT 54 K/uL (130-400)
[2017-05-21 00:28] LABS: ALBUMIN 2.8 gm/dl (3.4-5.0); ALKALINE PHOSPHATASE 102 U/L (45-117); ALT/SGPT 29 U/L (12-78); AST/SGOT 41 U/L (15-37); BLOOD UREA NITROGEN 8 mg/dl (7-18); CALCIUM 8.3 mg/dl (8.5-10.1); CARBON DIOXIDE 33 mmol/L (21-32); CREATININE 0.72 mg/dl (0.60-1.40); GLUCOSE 170 mg/dl (70-99); LIPASE 84 U/L (73-393); POTASSIUM 2.5 mmol/L (3.5-5.1); SODIUM 126 mmol/L (136-145); TOTAL PROTEIN 7.1 gm/dl (6.4-8.2)
[2017-05-21] MEDS ORDERED: POTASSIUM CHLR 20 MEQ / WTR 20 MEQ in PREMIXED WATER 100 ML IV STA (00:29)
[2017-05-21] MEDS ORDERED: MULTI-VITAMIN INFUSION INJ 10 ML, THIAMINE HCL INJ 100 MG, FoLIC ACID INJ 1 MG in SODIU... IV ONE ×2 (00:30→10:00)
[2017-05-21] MEDS: POTASSIUM CHLR 10MEQ / WTR IV SCH ×2 (00:58→01:55)
[2017-05-21] MEDS ORDERED: POTASSIUM CHLORIDE 10 MEQ TABCR PO STA (01:00)
[2017-05-21] MEDS ORDERED: GLUCOSE 40% GEL 15 GM TUBE PO PRN (02:15)
[2017-05-21] MEDS ORDERED: ACETAMINOPHEN 500 MG TAB PO PRN (02:15)
[2017-05-21] MEDS ORDERED: POLYETHYLENE (MIRALAX) 17 GM PACK PO PRN (02:15)
[2017-05-21] MEDS ORDERED: GLUCAGON FOR INJ 1 MG VIAL SQ PRN (02:15)
[2017-05-21] MEDS ORDERED: DEXTROSE 50% 50 ML SYR IV PRN (02:15)
[2017-05-21] MEDS ORDERED: ONDANSETRON INJ 2 MG/ML 2 ML VIAL IV PRN (02:15)
[2017-05-21] MEDS ORDERED: GLUCOSE 10 TABS/TUBE PO PRN (02:15)
--- NOTE | 2017-05-21 02:32 | History and Physical ---
History & Physical Date & Time of Service: May 21, 2017 at 02:14 Chief Complaint: Gi Bleed Primary Care Physician: Karmen Nichols M.D. History of Present Illness Source: patient, clinic records, hospital records The patient is a 66-year-old alcoholic male who presents to the emergency room with complaints of constant rectal bleeding since 3 days ago. He states his rectal bleeding has been worsened today and he has had to shower multiple times because of the bleeding. The patient is scheduled for colonoscopy next week with Dr. Bill. He recently lost his daughter to an overdose in the last couple of days, and reports drinking 12 beers earlier this evening. He is a chronic alcoholic with a history of cirrhosis. He reports drinking 2-4 beers nightly since 2003. 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 He currently denies any abdominal pain lightheadedness shortness of breath chest pain headache, diarrhea. He denies a history of GI bleeding. He reports tolerating p.o. but does not eat much. He has a history of gastric bypass. He reports noncompliance with multiple medications for the last 2 days. In the ER vital signs were stable with blood pressure 142/76 and a pulse in the 80s. He is afebrile and oxygenating well on room air physical exam was unremarkable including a soft nontender abdomen with positive bowel sounds and no signs of peritonitis. Rectal exam revealed dark black bloody stool. Lab results revealed an H&H of 12 and 33 with a white count of 4000 and a platelet count of 54,000. Sodium was 126 potassium was 2.5 magnesium 1.7. Renal function was normal. The patient was intoxicated upon arrival to the ER. A Protonix drip was started. Past Medical/Surgical History Medical Problems: (1) Alcoholic cirrhosis of liver Status: Chronic (2) Pedroza's esophagus Status: Chronic (3) Current drinker of alcohol Status: Chronic (4) Deep venous thrombosis of lower extremity Status: Chronic (5) Diabetes mellitus type 2 Status: Chronic (6) Diverticular disease of colon Status: Chronic (7) Dyslipidemia Status: Chronic (8) Gastroesophageal reflux disease Status: Chronic (9) Gout Status: Chronic (10) HTN (hypertension) Status: Chronic (11) Hypokalemia Status: Resolved (12) MARILYN on CPAP Status: Chronic (13) Paroxysmal supraventricular tachycardia Status: Resolved (14) Psoriasis Status: Chronic (15) Statin intolerance Status: Chronic Surgical Problems: (1) S/P gastric bypass Permanent Comment: 2002 Status: Chronic Family History FH: CAD (coronary artery disease) BROTHER Social History Smoking Status: Never Smoker Smokeless Tobacco Use: No Alcohol Use: heavy Drug Use: none Marital Status: Housing status: lives alone Occupational Status: employed Immunizations History of Influenza Vaccine: Yes Influenza Vaccine Date: Nov 07, 2016 History of Tetanus Vaccine?: Yes Tetanus Immunization Date: Nov 30, 2016 History of Pneumococcal: Yes Pneumococcal Date: Dec 07, 2011 History of Hepatitis B Vaccine: No Allergies Coded Allergies: Sulfa Antibiotics (Verified Adverse Reaction, Intermediate, NAUSEA AND VOMITING, 04/13/17) Adhesives (Verified Adverse Reaction, Mild, REDNESS, TAPE WILSON, 04/13/17) Home Medications Scheduled B-Complex Vitamins (Vitamin B Complex), 1 TAB PO DAILY Cholecalciferol (Vitamin D 400), 800 MG PO DAILY Citalopram Hydrobromide (Celexa), 20 MG PO QAM Insulin Aspart (Novolog Penfill), 6-8 UNITS SQ TIDM Insulin Glargine (Lantus Solostar), 31 UNITS SC QAM Iron Combinations (Iron Complex), 65 MG PO DAILY Pantoprazole (Protonix), 40 MG PO QAM Pediatric Multiple Vitamin W/ (Multivitamin Childrens), 1 TAB PO DAILY Triamterene/Hctz (Maxzide 75MG/50MG), 1 TAB PO QAM Scheduled PRN Furosemide (Lasix), 40 MG PO DAILY PRN for Fluid Retention Loperamide Hcl (Imodium), 6 MG PO DAILY PRN for Diarrhea Potassium Ext Rel (Klor-Con), 20 MEQ PO DAILY PRN for When Lasix Is Taken Review of Systems At least 10 systems were reviewed and negative except as indicated in HPI. Physical Exam Vital Signs Date Time Temp Pulse Resp B/P (MAP) Pulse Ox O2 Delivery O2 Flow Rate FiO2 05/21/17 01:32 79 17 97 Room Air 05/21/17 01:27 87 17 97 Room Air 05/21/17 01:00 134/83 05/21/17 00:57 100 23 97 Room Air 05/21/17 00:31 133/73 05/21/17 00:27 81 14 3/8/18 00:22 86 21 97 Room Air 05/21/17 00:00 116/65 05/20/17 23:52 76 22 97 Room Air 05/20/17 23:30 124/59 05/20/17 23:22 82 18 98 Room Air 05/20/17 23:10 81 05/20/17 23:00 132/67 05/20/17 22:59 36.5 83 18 142/76 99 Room Air General Appearance: no apparent distress, + obese Head: normocephalic, atraumatic Eyes: normal inspection, PERRL, sclerae normal ENT: pharynx normal, + pertinent finding (Mucous membranes were moist) Neck: supple, no adenopathy, no JVD, trachea midline Respiratory/Chest: chest non-tender, lungs clear, normal breath sounds, no respiratory distress, no accessory muscle use Cardiovascular: regular rate, rhythm, no edema, no gallop, no JVD, no murmur, normal peripheral pulses Abdomen/GI: normal bowel sounds, non tender, soft, no organomegaly Back: normal inspection Extremities/Musculoskelatal: normal inspection, no calf tenderness, no pedal edema, normal range of motion Neurologic/Psych: continuum of care manager II-XII nml as tested, alert, normal mood/affect, oriented x 3, + pertinent finding (Appears intoxicated) Skin: normal color, warm/dry Diagnostics Laboratory Results 05/20/17 23:50 Red Blood Count 3.87, Mean Corpuscular Volume 86.0, Mean Corpuscular Hemoglobin 31.5, Mean Corpuscular Hemoglobin Concent 36.6, Mean Platelet Volume 9.3, Neutrophils (%) (Auto) 49.7, Lymphocytes (%) (Auto) 31.8, Monocytes (%) (Auto) 8.5, Eosinophils (%) (Auto) 8.5, Basophils (%) (Auto) 1.5, Neutrophils # (Auto) 2.00, Lymphocytes # (Auto) 1.28, Monocytes # (Auto) 0.34, Eosinophils # (Auto) 0.34, Basophils # (Auto) 0.06 05/20/17 23:50 Test 05/20/17 23:15 05/20/17 23:50 Urine Color YELLOW Urine Appearance CLOUDY (CLEAR) Urine pH 5.0 (4.5-7.5) Urine Specific [place] 1.005 (1.000-1.030) Urine Protein NEG (NEG) Urine Glucose (UA) NEG (NEG) Urine Ketones NEG (NEG) Urine Occult Blood TRACE (NEG) Urine Nitrite NEG (NEG) Urine Bilirubin NEG (NEG) Urine Urobilinogen NEG (NEG) Urine Leukocyte Esterase LARGE (NEG) Urine WBC (Auto) >30 /hpf (0-5) Urine RBC (Auto) 5-10 /hpf (0-4) Urine Hyaline Casts (Auto) 0 /lpf (0-5) Urine Epithelial Cells (Auto) 0-5 /lpf (0-5) Urine Bacteria (Auto) 1+ (NEG) Urine Opiates Screen NEG (NEG) Urine Methadone, Qualitative NEG (NEG) Urine Barbiturates NEG (NEG) Urine Phencyclidine (PCP) Level NEG (NEG) Ur Amphetamine/Methamphetamine NEG (NEG) MDMA (Ecstasy) Screen NEG (NEG) Urine Benzodiazepines Screen NEG (NEG) Urine Cocaine Metabolite NEG (NEG) Urine Marijuana (THC) NEG (NEG) White Blood Count 4.02 K/uL (4.8-10.8) Red Blood Count 3.87 M/uL (4.7-6.1) Hemoglobin 12.2 g/dL (14.0-18.0) Hematocrit 33.3 % (42-52) Mean Corpuscular Volume 86.0 fL (80-100) Mean Corpuscular Hemoglobin 31.5 pg (25-34) Mean Corpuscular Hemoglobin Concent 36.6 g/dl (32-36) Platelet Count 54 K/uL (130-400) Mean Platelet Volume 9.3 fL (7.4-10.4) Neutrophils (%) (Auto) 49.7 % Lymphocytes (%) (Auto) 31.8 % Monocytes (%) (Auto) 8.5 % Eosinophils (%) (Auto) 8.5 % Basophils (%) (Auto) 1.5 % Neutrophils # (Auto) 2.00 K/uL (1.4-6.5) Lymphocytes # (Auto) 1.28 K/uL (1.2-3.4) Monocytes # (Auto) 0.34 K/uL (0.11-0.59) Eosinophils # (Auto) 0.34 K/uL (0-0.5) Basophils # (Auto) 0.06 K/uL (0-0.2) RDW Standard Deviation 43.3 fL (36.4-46.3) RDW Coefficient of Variation 13.9 % (11.5-14.5) Immature Granulocyte % (Auto) 0.0 % Immature Granulocyte # (Auto) 0.00 K/uL (0.00-0.02) Large Platelets 1+ Prothrombin Time 11.4 SECONDS (9.0-12.0) Prothromb Time International Ratio 1.1 (0.9-1.1) Activated Partial Thromboplast Time 25.0 SECONDS (21.0-31.0) Partial Thromboplastin Ratio 1.0 Anion Gap 8.0 mmol/L (3-11) Est Creatinine Clear Calc Drug Dose 146.5 ml/min Estimated GFR () 114.3 Estimated GFR (Non- 98.6 BUN/Creatinine Ratio 10.8 (10-20) Calcium Level 8.3 mg/dl (8.5-10.1) Magnesium Level 1.7 mg/dl (1.8-2.4) Total Bilirubin 1.6 mg/dl (0.2-1) Direct Bilirubin 0.9 mg/dl (0-0.2) Aspartate Amino Transf (AST/SGOT) 41 U/L (15-37) Alanine Aminotransferase (ALT/SGPT) 29 U/L (12-78) Alkaline Phosphatase 102 U/L (45-117) Troponin I < 0.015 ng/ml (0-0.045) Total Protein 7.1 gm/dl (6.4-8.2) Albumin 2.8 gm/dl (3.4-5.0) Lipase 84 U/L (73-393) Ethyl Alcohol mg/dL 185.4 mg/dl (0-3) Date/Time Source Procedure Growth Status 05/20/17 23:15 Urine , Clean Catch Urine Culture Pending Received Results Past 24 Hours Test 05/20/17 23:15 05/20/17 23:50 Range/Units Urine Color YELLOW Urine Appearance CLOUDY CLEAR Urine pH 5.0 4.5-7.5 Urine Specific [place] 1.005 1.000-1.030 Urine Protein NEG NEG Urine Glucose (UA) NEG NEG Urine Ketones NEG NEG Urine Occult Blood TRACE NEG Urine Nitrite NEG NEG Urine Bilirubin NEG NEG Urine Urobilinogen NEG NEG Urine Leukocyte Esterase LARGE NEG Urine WBC (Auto) >30 0-5 /hpf Urine RBC (Auto) 5-10 0-4 /hpf Urine Hyaline Casts (Auto) 0 0-5 /lpf Urine Epithelial Cells (Auto) 0-5 0-5 /lpf Urine Bacteria (Auto) 1+ NEG Urine Opiates Screen NEG NEG Urine Methadone, Qualitative NEG NEG Urine Barbiturates NEG NEG Urine Phencyclidine (PCP) Level NEG NEG Ur Amphetamine/Methamphetamine NEG NEG MDMA (Ecstasy) Screen NEG NEG Urine Benzodiazepines Screen NEG NEG Urine Cocaine Metabolite NEG NEG Urine Marijuana (THC) NEG NEG White Blood Count 4.02 4.8-10.8 K/uL Red Blood Count 3.87 4.7-6.1 M/uL Hemoglobin 12.2 14.0-18.0 g/dL Hematocrit 33.3 42-52 % Mean Corpuscular Volume 86.0 80-100 fL Mean Corpuscular Hemoglobin 31.5 25-34 pg Mean Corpuscular Hemoglobin Concent 36.6 32-36 g/dl Platelet Count 54 130-400 K/uL Mean Platelet Volume 9.3 7.4-10.4 fL Neutrophils (%) (Auto) 49.7 % Lymphocytes (%) (Auto) 31.8 % Monocytes (%) (Auto) 8.5 % Eosinophils (%) (Auto) 8.5 % Basophils (%) (Auto) 1.5 % Neutrophils # (Auto) 2.00 1.4-6.5 K/uL Lymphocytes # (Auto) 1.28 1.2-3.4 K/uL Monocytes # (Auto) 0.34 0.11-0.59 K/uL Eosinophils # (Auto) 0.34 0-0.5 K/uL Basophils # (Auto) 0.06 0-0.2 K/uL RDW Standard Deviation 43.3 36.4-46.3 fL RDW Coefficient of Variation 13.9 11.5-14.5 % Immature Granulocyte % (Auto) 0.0 % Immature Granulocyte # (Auto) 0.00 0.00-0.02 K/uL Large Platelets 1+ Prothrombin Time 11.4 9.0-12.0 SECONDS Prothromb Time International Ratio 1.1 0.9-1.1 Activated Partial Thromboplast Time 25.0 21.0-31.0 SECONDS Partial Thromboplastin Ratio 1.0 Sodium Level 126 136-145 mmol/L Potassium Level 2.5 3.5-5.1 mmol/L Chloride Level 85 98-107 mmol/L Carbon Dioxide Level 33 21-32 mmol/L Anion Gap 8.0 3-11 mmol/L Blood Urea Nitrogen 8 7-18 mg/dl Creatinine 0.72 0.60-1.40 mg/dl Est Creatinine Clear Calc Drug Dose 146.5 ml/min Estimated GFR () 114.3 Estimated GFR (Non- 98.6 BUN/Creatinine Ratio 10.8 10-20 Random Glucose 170 70-99 mg/dl Calcium Level 8.3 8.5-10.1 mg/dl Magnesium Level 1.7 1.8-2.4 mg/dl Total Bilirubin 1.6 0.2-1 mg/dl Direct Bilirubin 0.9 0-0.2 mg/dl Aspartate Amino Transf (AST/SGOT) 41 15-37 U/L Alanine Aminotransferase (ALT/SGPT) 29 12-78 U/L Alkaline Phosphatase 102 45-117 U/L Troponin I < 0.015 0-0.045 ng/ml Total Protein 7.1 6.4-8.2 gm/dl Albumin 2.8 3.4-5.0 gm/dl Lipase 84 73-393 U/L Ethyl Alcohol mg/dL 185.4 0-3 mg/dl Microbiology Results 05/20/17 Urine Culture, Received Pending Diagnostic Radiology CHEST ONE VIEW PORTABLE CLINICAL HISTORY: GI bleeding. Intoxication. Possible aspiration. COMPARISON STUDY: 06/27/2014 FINDINGS: The cardiac and mediastinal contours are normal. There is no evidence of focal pulmonary consolidation. There is no evidence of failure. No pleural effusions are visualized.[ IMPRESSION: No active disease in the chest EKG SR76 , 1 AVB Impression Assessment and Plan 66-year-old alcoholic male presents with acute GI bleeding for several days. 1. Acute GI bleeding-H&H is stable. Patient is hemodynamically stable; IV fluids and banana bag started. Risk factor for GI bleeding includes heavy alcohol use and h/o polyps. Protonix drip was started. Trend H&H in a.m. Gastroenterology consult placed. Clear liquid diet was continued. 2. Thrombocytopenia-likely secondary to cirrhosis. DVT prophylaxis contraindicated. 3. hypokalemia-likely secondary to alcohol use, poor p.o. intake, and diuretics. Holding diuretics at this time. Replacing IV and p.o. Repeat PRP in a.m. Of note magnesium is also low. 4. Hypomagnesemia-replace IV. Recheck PRP and mag level in a.m. 5. Heavy alcohol use-currently intoxicated, consider withdrawal protocol when patient more alert 6. Type 2 diabetes-continue Lantus and insulin sliding scale while hospitalized. A1c in a.m. 7. History of gastric bypass 8. MARILYN-on CPAP mask 9. Depression-patient on Celexa at baseline and recently lost daughter to an overdose. 10. alcoholic cirrhosis DVT prophylaxis contraindicated, SCDs Full code Disposition-Rahel Zayas DO [facility] Hospitalist Resuscitation Status VTE Prophylaxis Will order VTE Prophylaxis: No Reason for no VTE drug order: Contraindicated Reason no Mechanical VTE Order: Treatment not indicated
[2017-05-21] MEDS ORDERED: PANTOprazole INJ 40 MG in DEXTROSE 5% 100ML IV SCH (02:45)
[2017-05-21] MEDS: POTASSIUM CHLR 10 MEQ / WTR 10 MEQ in PREMIXED WATER 100 ML IV SCH ×6 (04:07→15:59)
[2017-05-21] MEDS: MAGNESIUM SULFATE 1GM / D5W 1 GM in PREMIXED IN D5W 100 ML IV SCH ×2 (04:07→06:04)
[2017-05-21] MEDS ORDERED: SODIUM CHLORIDE 0.9% 1000ML 1,000 ML IV SCH (05:00)
[2017-05-21] MEDS: CEFTRIAXONE SOD INJ 1 GM in DEXTROSE 5% ADD-VANTAGE 50ML 50 ML IV SCH (05:39)
[2017-05-21 05:44] LABS: HEMATOCRIT 32.6 % (42-52); HEMOGLOBIN 11.8 g/dL (14.0-18.0); MEAN CELL VOLUME 86.7 fL (80-100); MEAN CORPUSCULAR HEMOGLOBIN 31.4 pg (25-34); MEAN CORPUSCULAR HGB CONC 36.2 g/dl (32-36); MEAN PLATELET VOLUME 9.4 fL (7.4-10.4); PLATELET COUNT 54 K/uL (130-400); RED CELL DISTRIBUTION WIDTH CV 13.8 % (11.5-14.5); RED CELL DISTRIBUTION WIDTH SD 43.3 fL (36.4-46.3); WHITE BLOOD COUNT 3.55 K/uL (4.8-10.8)
[2017-05-21 06:10] LABS: CALCIUM 7.9 mg/dl (8.5-10.1); CREATININE 0.65 mg/dl (0.60-1.40); POTASSIUM 2.6 mmol/L (3.5-5.1)
--- NOTE | 2017-05-21 06:31 | DIAGNOSTIC IMAGING REPORT ---
CHEST ONE VIEW PORTABLE CLINICAL HISTORY: GI bleeding. Intoxication. Possible aspiration. COMPARISON STUDY: 06/27/2014 FINDINGS: The cardiac and mediastinal contours are normal. There is no evidence of focal pulmonary consolidation. There is no evidence of failure. No pleural effusions are visualized.[ IMPRESSION: No active disease in the chest. Electronically signed by: Drake Zimmerman M.D. 05/21/2017 6:29 AM Dictated Date/Time: 05/21/2017 6:29 AM
[2017-05-21 08:55] LABS: HEMOGLOBIN A1C 6.3 % (4.5-5.6)
[2017-05-21] MEDS ORDERED: INSULIN GLARGINE SOLOSTAR 100 UNITS/ML 3 ML PEN SC SCH ×2 (09:00→22:00)
[2017-05-21] MEDS ORDERED: POTASSIUM CHLORIDE 20 MEQ TABCR PO STA (09:18)
[2017-05-21] MEDS ORDERED: LORAZEPAM 1 MG TAB PO PRN (09:30)
[2017-05-21] MEDS ORDERED: NSS + 20MEQ KCL 1000ML 1,000 ML IV SCH (09:30)
[2017-05-21] MEDS ORDERED: GABAPENTIN 600 MG TAB PO SCH (10:00)
--- NOTE | 2017-05-21 10:12 | Progress Note ---
Medicine Progress Note Date & Time of Visit: May 21, 2017 at 09:56. Subjective seen resting in bed, comfortable states he feels ok today, did not sleep well due to blood draws had 1 BM since admission, this AM, brown/black denies abdominal pain, nausea, tolerated clears this AM no chest pain, dyspnea, dizziness, weakness, palpitations no tremors, hallucinations Objective Last 8 Hrs Date Time Temp Pulse Resp B/P (MAP) Pulse Ox O2 Delivery O2 Flow Rate FiO2 05/21/17 08:15 36.4 75 16 107/58 (74) 98 Room Air 05/21/17 05:54 98 CPAP 05/21/17 02:46 96 98 05/21/17 02:32 36.8 81 16 130/72 98 CPAP 05/21/17 02:31 36.8 81 16 130/72 (91) 96 Room Air 05/21/17 02:07 92 21 Room Air 05/21/17 02:00 136/80 Physical Exam: General-oriented x3, not in distress, speaks in sentences with no effort Head- atraumatic Eyes- PERRL, EOMI, anicteric ENT- oropharynx clear Neck- supple, no JVD, no adenopathy, no thyromegaly; carotids +2/2 Lungs- clear breath sounds bilaterally, no rales/wheezes Heart- regular rhythm; no murmur, normal rate Abdomen- normal bowel sounds, soft, nontender, non distended Extremities- trace pretibial edema, no calf tenderness; peripheral pulses intact Neuro- alert, oriented x 3; no gross focal deficits Skin- warm & dry Laboratory Results: Last 24 Hours Test 05/20/17 23:15 05/20/17 23:50 05/21/17 05:01 05/21/17 08:20 Urine Color YELLOW Urine Appearance CLOUDY Urine pH 5.0 Urine Specific [place] 1.005 Urine Protein NEG Urine Glucose (UA) NEG Urine Ketones NEG Urine Occult Blood TRACE Urine Nitrite NEG Urine Bilirubin NEG Urine Urobilinogen NEG Urine Leukocyte Esterase LARGE Urine WBC (Auto) >30 /hpf Urine RBC (Auto) 5-10 /hpf Urine Hyaline Casts (Auto) 0 /lpf Urine Epithelial Cells (Auto) 0-5 /lpf Urine Bacteria (Auto) 1+ Urine Opiates Screen NEG Urine Methadone, Qualitative NEG Urine Barbiturates NEG Urine Phencyclidine (PCP) Level NEG Ur Amphetamine/Methamphetamine NEG MDMA (Ecstasy) Screen NEG Urine Benzodiazepines Screen NEG Urine Cocaine Metabolite NEG Urine Marijuana (THC) NEG White Blood Count 4.02 K/uL 3.55 K/uL Red Blood Count 3.87 M/uL 3.76 M/uL Hemoglobin 12.2 g/dL 11.8 g/dL Hematocrit 33.3 % 32.6 % Mean Corpuscular Volume 86.0 fL 86.7 fL Mean Corpuscular Hemoglobin 31.5 pg 31.4 pg Mean Corpuscular Hemoglobin Concent 36.6 g/dl 36.2 g/dl Platelet Count 54 K/uL 54 K/uL Mean Platelet Volume 9.3 fL 9.4 fL Neutrophils (%) (Auto) 49.7 % Lymphocytes (%) (Auto) 31.8 % Monocytes (%) (Auto) 8.5 % Eosinophils (%) (Auto) 8.5 % Basophils (%) (Auto) 1.5 % Neutrophils # (Auto) 2.00 K/uL Lymphocytes # (Auto) 1.28 K/uL Monocytes # (Auto) 0.34 K/uL Eosinophils # (Auto) 0.34 K/uL Basophils # (Auto) 0.06 K/uL RDW Standard Deviation 43.3 fL 43.3 fL RDW Coefficient of Variation 13.9 % 13.8 % Immature Granulocyte % (Auto) 0.0 % Immature Granulocyte # (Auto) 0.00 K/uL Large Platelets 1+ Prothrombin Time 11.4 SECONDS Prothromb Time International Ratio 1.1 Activated Partial Thromboplast Time 25.0 SECONDS Partial Thromboplastin Ratio 1.0 Sodium Level 126 mmol/L 129 mmol/L Potassium Level 2.5 mmol/L 2.6 mmol/L Chloride Level 85 mmol/L 90 mmol/L Carbon Dioxide Level 33 mmol/L 32 mmol/L Anion Gap 8.0 mmol/L 7.0 mmol/L Blood Urea Nitrogen 8 mg/dl 7 mg/dl Creatinine 0.72 mg/dl 0.65 mg/dl Est Creatinine Clear Calc Drug Dose 146.5 ml/min 162.3 ml/min Estimated GFR () 114.3 119.2 Estimated GFR (Non- 98.6 102.8 BUN/Creatinine Ratio 10.8 10.3 Random Glucose 170 mg/dl 214 mg/dl Calcium Level 8.3 mg/dl 7.9 mg/dl Magnesium Level 1.7 mg/dl Total Bilirubin 1.6 mg/dl Direct Bilirubin 0.9 mg/dl Aspartate Amino Transf (AST/SGOT) 41 U/L Alanine Aminotransferase (ALT/SGPT) 29 U/L Alkaline Phosphatase 102 U/L Troponin I < 0.015 ng/ml Total Protein 7.1 gm/dl Albumin 2.8 gm/dl Lipase 84 U/L Ethyl Alcohol mg/dL 185.4 mg/dl Estimated Average Glucose 134 mg/dl Hemoglobin A1c 6.3 % Bedside Glucose 229 mg/dl Date/Time Source Procedure Growth Status 05/20/17 23:15 Urine , Clean Catch Urine Culture Pending Received Assessment & Plan 66 year old male with history of GERD, Diverticular Disease, Alcoholism, DM, HTN , DVT, MARILYN, PSVT presenting with rectal bleeding. RECTAL BLEEDING Hg decreased to 11 seems to be subsiding discussed with GI, Colonoscopy in AM clear liquids, then NPO post midnight d/c Protonix continue IV fluids monitor H&H ALCOHOL INTOXICATION ALCOHOLISM HISTORY no signs of active withdrawal so far institute Alc With Protocol- Gabapentin taper and PRN Ativan Banana Bag HYPOKALEMIA K still at 2.5 replete with IV and PO K monitor HYPOMAG replete and monitor DM hold Insulin regimen at home ISS, Pharm Gly Cx HTN hold Triam/HCTZ monitor HISTORY OF DVT lovenox/heparin contraindicated for GI bleed, thrombocytopenia MARILYN use CPAP PSVT monitor electrolytes Disposition anticipate d/c home when medically stable 66-year-old alcoholic male presents with acute GI bleeding for several days. 1. Acute GI bleeding-H&H is stable. Patient is hemodynamically stable; IV fluids and banana bag started. Risk factor for GI bleeding includes heavy alcohol use and h/o polyps. Protonix drip was started. Trend H&H in a.m. Gastroenterology consult placed. Clear liquid diet was continued. 2. Thrombocytopenia-likely secondary to cirrhosis. DVT prophylaxis contraindicated. 3. hypokalemia-likely secondary to alcohol use, poor p.o. intake, and diuretics. Holding diuretics at this time. Replacing IV and p.o. Repeat PRP in a.m. Of note magnesium is also low. 4. Hypomagnesemia-replace IV. Recheck PRP and mag level in a.m. 5. Heavy alcohol use-currently intoxicated, consider withdrawal protocol when patient more alert 6. Type 2 diabetes-continue Lantus and insulin sliding scale while hospitalized. A1c in a.m. 7. History of gastric bypass 8. MARILYN-on CPAP mask 9. Depression-patient on Celexa at baseline and recently lost daughter to an overdose. 10. alcoholic cirrhosis DVT prophylaxis contraindicated, SCDs Full code Disposition-[facility] Angeles Zayas DO [facility] hospitalist Current Inpatient Medications: Current Inpatient Medications Medications (Trade) Dose Ordered Sig/Huy Route Start Time Stop Time Status Last Admin Dose Admin Ceftriaxone Sodium 1 gm/ Dextrose 50 ml @ 100 mls/hr Q24H IV 05/21/17 04:00 05/31/17 03:59 05/21/17 05:39 100 MLS/HR Thiamine HCl (Vitamin B-1 Tab) 100 mg QAM PO 05/21/17 09:00 06/20/17 08:59 Acetaminophen (Tylenol Tab) 500 mg Q6H PRN PO 05/21/17 02:15 06/20/17 02:14 Polyethylene (Miralax Powder Packet) 17 gm DAILY PRN PO 05/21/17 02:15 06/20/17 02:14 Ondansetron HCl (Zofran Inj) 4 mg Q6H PRN IV 05/21/17 02:15 06/20/17 02:14 Insulin Aspart (novoLOG ASPART) SLIDING SCALE If C... ACHS SC 05/21/17 07:00 06/20/17 06:59 Glucose (Glucose 40% Gel) 15-30 GRAMS 15 GRAMS... UD PRN PO 05/21/17 02:15 06/20/17 02:14 Glucose (Glucose Chew Tab) 4-8 Tablets 4 Tabl... UD PRN PO 05/21/17 02:15 06/20/17 02:14 Dextrose (Dextrose 50% 50ML Syringe) 25-50ML OF 50% DW IV FOR... UD PRN IV 05/21/17 02:15 06/20/17 02:14 Glucagon (Glucagon Inj) 1 mg UD PRN SQ 05/21/17 02:15 06/20/17 02:14 Citalopram Hydrobromide (celeXA TAB) 20 mg QAM PO 05/21/17 09:00 06/20/17 08:59 Pantoprazole Sodium 40 mg/ Dextrose 100 ml @ 20 mls/hr Q5H IV 05/21/17 02:45 06/20/17 02:44 05/21/17 05:10 20 MLS/HR Potassium Chloride 10 meq/ Prmx 100 ml @ 100 mls/hr Q1H IV 05/21/17 09:30 05/21/17 13:29 Potassium Chloride/Sodium Chloride 1,000 ml @ 125 mls/hr Q8H IV 05/21/17 09:30 06/20/17 09:29 Multivitamins 10 ml/Thiamine HCl 100 mg/Folic Acid 1 mg/Sodium Chloride 1,011.2 ml @ 500 mls/ hr Q2H2M ONCE IV 05/21/17 10:00 05/21/17 12:01 Lorazepam (Ativan Tab) 1 mg ONE PRN PO 05/21/17 09:30 Gabapentin (Neurontin Tab) 1,200 mg 1000 PO 05/21/17 10:00 05/21/17 10:01
--- NOTE | 2017-05-21 10:13 | Gastrointestinal Consultation ---
Gastrointestinal Consultation Date of Consultation: May 21, 2017 Attending Physician: Gordon Consulting Physician: Hussein Reason for Consultation: GIB History of Present Illness Patient is a 66 year old male w/ history of cirrhosis, obesity s/p RYGB and others listed below who presents to the ED following OP GI clinic appt with [facility] for persistent BRBPR. Pt was seen and evaluated - GI was consulted, [facility] coverage for [facility]. Pt notes he has had painless, rectal bleeding x 3 days. He was evaluated in the office as an OP with stable labs and arranged for an OP colonoscopy early next week. In the meanline, pt noted persistent rectal bleeding which worsened so he went to the ED. Noted 1-2 episodes of BRBPR daily. Notes there is no formed stool. Just passing blood w/ clots. From time to time he can have a black stool, but he is on iron. No nausea , vomiting. No report of coffee ground emesis or hematemesis. He does have cirrhosis and continues to drink ETOH. Most recent EGD was 2 years ago without any evidence of varices. He lost his daughter earlier this week to an overdose and had to bury her yesterday. Is feeling down. Denies thoughts of SI, HI. No fever, chills, lightheadness, dizziness, CP, SOB Diagnosis: Cirrhosis, continues to drink ETOH (2-3 beers daily but yesterday had 12 beers) Decompensations Ascites: none HE: none Varices: none Screenings Varices: due, will suggest OP EGD w/ Dr. Bill HCC: status unknown, suggest continued OP follow up with Dr. Bill Immunizations: status unknown, suggest Hep A Hep B immunity check Past Medical/Surgical History Medical Problems: (1) Acute GI bleeding Status: Acute (2) Alcohol intoxication Status: Acute (3) Hypokalemia Status: Acute (4) Hyponatremia Status: Acute (5) Laceration Status: Acute Past Medical History: T2DM, gout, su's, diverticulosis, dyslipidemia, GERD, psoriasis, ETOH abuse , hx DVT, MARILYN Past Surgical History: EGD, colonoscopy, RYGB Family History FH: CAD (coronary artery disease) BROTHER Social History Smoking Status: Never Smoker Alcohol Use: occasionally Drug Use: none Marital Status: Housing Status: lives with family Occupation Status: employed Allergies Coded Allergies: Sulfa Antibiotics (Verified Adverse Reaction, Intermediate, NAUSEA AND VOMITING, 04/13/17) Adhesives (Verified Adverse Reaction, Mild, REDNESS, TAPE WILSON, 04/13/17) Current Medications Home Meds and Scripts Medications Dose Route/Sig Max Daily Dose Days Date Category Dose Instructions Lantus Solostar (Insulin Glargine) 100 Unit/Ml Inj 31 Units SC QAM 11/30/16 Reported Novolog Penfill (Insulin Aspart) 100 Unit/Ml Inj 6-8 Units SQ TIDM 11/30/16 Reported SLIDING SCALE Iron Complex (Iron Combinations) 1 Cap Cap 65 Mg PO DAILY 11/30/16 Reported Imodium (Loperamide HCl) 2 Mg Cap 6 Mg PO DAILY PRN 11/30/16 Reported Vitamin D 400 (Cholecalciferol) 400 Unit Chw 800 Mg PO DAILY 11/30/16 Reported Multivitamin Childrens (Pediatric Multiple Vitamin W/) 1 Chw Chw 1 Tab PO DAILY 11/30/16 Reported Vitamin B Complex (B-Complex Vitamins) 1 Tab Tab 1 Tab PO DAILY 11/30/16 Reported Klor-Con (Potassium Chloride) 20 Meq Tabcr 20 Meq PO DAILY PRN 03/17/14 Reported Maxzide 75MG/50MG (Triamterene/HCTZ) Tab 1 Tab PO QAM 03/17/14 Reported TAKES WHEN HE REMEMBERS Protonix (Pantoprazole) 40 Mg Tab 40 Mg PO QAM 03/17/14 Reported Celexa (Citalopram Hydrobromide) 20 Mg Tab 20 Mg PO QAM 08/24/11 Reported Lasix (Furosemide) 40 Mg Tab 40 Mg PO DAILY PRN 06/04/11 Reported Review of Systems Constitutional: No fever, No chills, No weight loss, No weakness, No fatigue Respiratory: No cough, No shortness of breath Cardiac: No chest pain, No edema Abdomen: + diarrhea, + GI bleeding, No pain, No nausea, No vomiting, No constipation, No dysphagia, No odynophagia, No acolic stools, No jaundice, No dark urine Skin: No rash, No itch, No color change, No bleeding Physical Exam Date Time Temp Pulse Resp B/P (MAP) Pulse Ox O2 Delivery O2 Flow Rate FiO2 05/21/17 08:15 36.4 75 16 107/58 (74) 98 Room Air 05/21/17 05:54 98 CPAP 05/21/17 02:46 96 98 05/21/17 02:32 36.8 81 16 130/72 98 CPAP 05/21/17 02:31 36.8 81 16 130/72 (91) 96 Room Air 05/21/17 02:07 92 21 Room Air 05/21/17 02:00 136/80 05/21/17 01:37 78 16 97 Room Air 05/21/17 01:32 79 17 97 Room Air 05/21/17 01:27 87 17 97 Room Air 05/21/17 01:00 134/83 05/21/17 00:57 100 23 97 Room Air 05/21/17 00:31 133/73 05/21/17 00:27 81 14 05/21/17 00:22 86 21 97 Room Air 05/21/17 00:00 116/65 05/20/17 23:52 76 22 97 Room Air 05/20/17 23:30 124/59 05/20/17 23:22 82 18 98 Room Air 05/20/17 23:10 81 05/20/17 23:00 132/67 05/20/17 22:59 36.5 83 18 142/76 99 Room Air General Appearance: no apparent distress Eyes: PERRL ENT: hearing grossly normal Neck: supple, trachea midline Respiratory/Chest: lungs clear, normal breath sounds, no respiratory distress, no accessory muscle use Cardiovascular: regular rate, rhythm, no gallop, no JVD Abdomen: normal bowel sounds, non tender, soft, no organomegaly Neurologic/Psych: alert, normal mood/affect, oriented x 3 Skin: normal color, warm/dry, no rash Laboratory Results Last 24 Hours Test 05/20/17 23:15 05/20/17 23:50 05/21/17 05:01 05/21/17 08:20 Urine Color YELLOW Urine Appearance CLOUDY Urine pH 5.0 Urine Specific [place] 1.005 Urine Protein NEG Urine Glucose (UA) NEG Urine Ketones NEG Urine Occult Blood TRACE Urine Nitrite NEG Urine Bilirubin NEG Urine Urobilinogen NEG Urine Leukocyte Esterase LARGE Urine WBC (Auto) >30 /hpf Urine RBC (Auto) 5-10 /hpf Urine Hyaline Casts (Auto) 0 /lpf Urine Epithelial Cells (Auto) 0-5 /lpf Urine Bacteria (Auto) 1+ Urine Opiates Screen NEG Urine Methadone, Qualitative NEG Urine Barbiturates NEG Urine Phencyclidine (PCP) Level NEG Ur Amphetamine/Methamphetamine NEG MDMA (Ecstasy) Screen NEG Urine Benzodiazepines Screen NEG Urine Cocaine Metabolite NEG Urine Marijuana (THC) NEG White Blood Count 4.02 K/uL 3.55 K/uL Red Blood Count 3.87 M/uL 3.76 M/uL Hemoglobin 12.2 g/dL 11.8 g/dL Hematocrit 33.3 % 32.6 % Mean Corpuscular Volume 86.0 fL 86.7 fL Mean Corpuscular Hemoglobin 31.5 pg 31.4 pg Mean Corpuscular Hemoglobin Concent 36.6 g/dl 36.2 g/dl Platelet Count 54 K/uL 54 K/uL Mean Platelet Volume 9.3 fL 9.4 fL Neutrophils (%) (Auto) 49.7 % Lymphocytes (%) (Auto) 31.8 % Monocytes (%) (Auto) 8.5 % Eosinophils (%) (Auto) 8.5 % Basophils (%) (Auto) 1.5 % Neutrophils # (Auto) 2.00 K/uL Lymphocytes # (Auto) 1.28 K/uL Monocytes # (Auto) 0.34 K/uL Eosinophils # (Auto) 0.34 K/uL Basophils # (Auto) 0.06 K/uL RDW Standard Deviation 43.3 fL 43.3 fL RDW Coefficient of Variation 13.9 % 13.8 % Immature Granulocyte % (Auto) 0.0 % Immature Granulocyte # (Auto) 0.00 K/uL Large Platelets 1+ Prothrombin Time 11.4 SECONDS Prothromb Time International Ratio 1.1 Activated Partial Thromboplast Time 25.0 SECONDS Partial Thromboplastin Ratio 1.0 Sodium Level 126 mmol/L 129 mmol/L Potassium Level 2.5 mmol/L 2.6 mmol/L Chloride Level 85 mmol/L 90 mmol/L Carbon Dioxide Level 33 mmol/L 32 mmol/L Anion Gap 8.0 mmol/L 7.0 mmol/L Blood Urea Nitrogen 8 mg/dl 7 mg/dl Creatinine 0.72 mg/dl 0.65 mg/dl Est Creatinine Clear Calc Drug Dose 146.5 ml/min 162.3 ml/min Estimated GFR () 114.3 119.2 Estimated GFR (Non- 98.6 102.8 BUN/Creatinine Ratio 10.8 10.3 Random Glucose 170 mg/dl 214 mg/dl Calcium Level 8.3 mg/dl 7.9 mg/dl Magnesium Level 1.7 mg/dl Total Bilirubin 1.6 mg/dl Direct Bilirubin 0.9 mg/dl Aspartate Amino Transf (AST/SGOT) 41 U/L Alanine Aminotransferase (ALT/SGPT) 29 U/L Alkaline Phosphatase 102 U/L Troponin I < 0.015 ng/ml Total Protein 7.1 gm/dl Albumin 2.8 gm/dl Lipase 84 U/L Ethyl Alcohol mg/dL 185.4 mg/dl Estimated Average Glucose 134 mg/dl Hemoglobin A1c 6.3 % Bedside Glucose 229 mg/dl Impression Patient is a 66 year old male w/ history of obesity s/p RYGB, cirrhosis w/ continued ETOH abuse who presented to [facility] for rectal bleeding x 3 days. Moving his bowels 1-2 times daily, no stool, just blood, BRB w/ clots. Denies abd pain , cramping, pressure or rectal pain. His BUN/[facility] are unelevated, he has not had any evidence of melena, coffee ground emesis or hematemesis. He did not have varices on his last screening EGD. His VSS w/ HGB 12. Differentials: likely UGI bleed as BUN is non-elevated and pt VSS remain stable despite report of BRBPR x 3 days. His HGB is stable at 12. Plan - Ok to D/C PPI drip - Trend H&H - Transfuse PRN - Monitor all BM - Clear liquid diet today - OP colonoscopy with Dr. Bill as scheduled - Cirrhosis Management w/ Dr. Bill - OP EGD - OP HCC screen - OP Hep A and Hep B immunization - ETOH cessation Thank you for this consult, additional recommendations pending results. Pt will need OP follow up with Dr. Bill Attg add: I interviewed and examined pt, reviewed chart and labs. Pt with mod volue bright red rectal bleeding with BM that started this week. Denies Abd pain. H/o heavy alcohol. Exam was difficult because of pain, but he appeared to have an acute midline fissure. Labs show stable hgb, BUN. Will re-examine tomorrow, ideallly with pain medication. No need for inpt cscopy. Can adv diet.
[2017-05-21] MEDS: CITALOPRAM 20 MG TAB PO SCH (10:45)
[2017-05-21] MEDS: THIAMINE HCL 100 MG TAB PO SCH (10:45)
[2017-05-21] MEDS: INSULIN ASPART 100 UNITS/ML 3 ML PEN SC SCH ×4 (10:55→22:36)
[2017-05-21 13:16] LABS: HEMATOCRIT 34.8 % (42-52); HEMOGLOBIN 12.5 g/dL (14.0-18.0)
[2017-05-21 13:35] LABS: CREATININE 0.74 mg/dl (0.60-1.40); POTASSIUM 3.4 mmol/L (3.5-5.1)
[2017-05-21] MEDS ORDERED: POTASSIUM CHLORIDE 20 MEQ TABCR PO ONE (15:00)
[2017-05-21] MEDS: GABAPENTIN 600MG Q6H DOSE PO SCH ×2 (16:18→22:38)
[2017-05-21] MEDS ORDERED: NURSING VERBAL MED ORDER ONE (18:15)
[2017-05-21] MEDS: LORAZEPAM 0.5 MG TAB PO PRN (20:07)
[2017-05-21] MEDS ORDERED: PHARMACY GLYCEMIC MGMT CONSULT PRN (21:45)
--- NOTE | 2017-05-21 21:53 | Pharmacy Progress Note ---
Glycemic: Assessment & Plan Date of Service May 21, 2017. Assessment & Plan Item Value Date Time Bedside Glucose 330 mg/dl H 05/21/17 2054 Bedside Glucose 188 mg/dl H 05/21/17 1709 Bedside Glucose 236 mg/dl H 05/21/17 1237 Bedside Glucose 229 mg/dl H 05/21/17 0820 Hemoglobin A1c 6.3 % H 05/21/17 0501 Reported Home Diabetes Regimen: * Lantus 31 units sq qPM--pt reports he did not take his Lantus dose last evening (05/20/17) * Novolog 6-8 units sq TIDm * Total insulin ~55 units/day, A1c 6.3% In-Patient Diabetes Regimen: * Basal insulin: Will restart home dose Lantus 31 units every PM * Correctional Insulin: Novolog Correction per scale ACHS & 0200 "tightened" Goal Range: Low 120 mg/dL - High 160 mg/dL "tightened" Correction Factor: 20 mg/dL/unit This is based on his home TDD 55 units/day * Prandial insulin: "tightened" carb ratio of 1 unit per 7 grams CHO consumed This is based on his home TDD 55 units/day Pharmacy will continue to monitor patient daily and write orders per [facility] inpatient glycemic control protocol. Thanks. * Please note that the plan above was derived based on current level of insulin resistance and hospital stress. These recommendations are appropriate for inpatient admission only. Plan of care upon discharge will need to be reassessed to avoid potential outpatient hypo/hyperglycemia.
[2017-05-21] MEDS: LIDOCAINE HCL 2% JELLY 30 ML TUBE EXT SCH (22:38)
[2017-05-22 00:18] VITALS: BP 118/72; PULSE 74; TEMP 36.4; O2SAT 96
[2017-05-22 00:20] VITALS: O2SAT 96
[2017-05-22] MEDS ORDERED: INSULIN ASPART 100 UNITS/ML 3 ML PEN SC SCH (02:00)
[2017-05-22] MEDS: CEFTRIAXONE SOD INJ 1 GM in DEXTROSE 5% ADD-VANTAGE 50ML 50 ML IV SCH (04:20)
[2017-05-22] MEDS: GABAPENTIN 600MG Q8H DOSE PO SCH ×2 (05:36→13:35)
[2017-05-22 07:47] LABS: HEMATOCRIT 32.7 % (42-52); HEMOGLOBIN 11.6 g/dL (14.0-18.0); MEAN CELL VOLUME 88.6 fL (80-100); MEAN CORPUSCULAR HEMOGLOBIN 31.4 pg (25-34); MEAN CORPUSCULAR HGB CONC 35.5 g/dl (32-36); RED CELL DISTRIBUTION WIDTH SD 45.3 fL (36.4-46.3)
[2017-05-22 07:56] LABS: MEAN PLATELET VOLUME 9.7 fL (7.4-10.4); PLATELET COUNT 58 K/uL (130-400)
[2017-05-22 08:12] LABS: CALCIUM 7.7 mg/dl (8.5-10.1); CREATININE 0.64 mg/dl (0.60-1.40); POTASSIUM 3.8 mmol/L (3.5-5.1)
[2017-05-22 08:17] LABS: BASO % 0.9 %; BASO ABS # 0.03 K/uL (0-0.2); EOS % 8.8 %; EOS ABS # 0.29 K/uL (0-0.5); LYMPH % 25.2 %; LYMPH ABS # 0.83 K/uL (1.2-3.4); MONO % 10.9 %; MONO ABS # 0.36 K/uL (0.11-0.59); NEUT % 54.2 %; NEUT ABS # 1.79 K/uL (1.4-6.5)
[2017-05-22 08:19] VITALS: BP 131/81; PULSE 77; O2SAT 95
[2017-05-22] MEDS: LIDOCAINE HCL 2% JELLY 30 ML TUBE EXT SCH (09:10)
[2017-05-22] MEDS: THIAMINE HCL 100 MG TAB PO SCH (09:10)
[2017-05-22] MEDS: CITALOPRAM 20 MG TAB PO SCH (09:10)
[2017-05-22] MEDS: LORAZEPAM 0.5 MG TAB PO PRN ×2 (09:10→15:17)
[2017-05-22] MEDS: INSULIN ASPART 100 UNITS/ML 3 ML PEN SC SCH ×3 (09:15→17:58)
--- NOTE | 2017-05-22 09:48 | Gastroenterology Progress Note ---
Progress Note Date of Service: May 22, 2017 Subjective Pt evaluation today including: conversation w/ patient, physical exam, chart review, lab review Pt was seen and evaluated, chart reviewed. ESTRELLA yesterday preformed by Dr. Savage w/ concern of fissure. Pt was started on rectal lidocaine jelly w/ relief. Notes he has improvement of his symptoms. No rectal pain. No BM since yesterday. No rectal bleeding since yesterday. No abd pain. No nausea, vomiting. Tolerating diet. No fever, chills, CP, SOB. Pt was not agreeable to repeat rectal exam to be preformed this AM, he tells me Dr. Savage can preform rectal exam later this afternoon. Diagnosis: Cirrhosis, continues to drink ETOH (2-3 beers daily but yesterday had 12 beers) Decompensations Ascites: none HE: none Varices: none Screenings Varices: due, will suggest OP EGD w/ Dr. Bill HCC: status unknown, suggest continued OP follow up with Dr. Bill Immunizations: status unknown, suggest Hep A Hep B immunity check Review of Systems Constitutional: No fever, No chills, No weakness, No fatigue ENT: No hearing loss, No unusual epistaxis, No sore throat, No tinnitus Respiratory: No cough, No wheezing, No shortness of breath, No hemoptysis Cardiac: No chest pain, No edema, No palpitations Abdomen: No pain, No nausea, No vomiting, No diarrhea, No constipation, No GI bleeding, No dysphagia, No odynophagia Skin: No rash, No itch, No bleeding, No jaundice Medications Current Inpatient Medications Medications (Trade) Dose Ordered Sig/Huy Route Start Time Stop Time Status Last Admin Dose Admin Ceftriaxone Sodium 1 gm/ Dextrose 50 ml @ 100 mls/hr Q24H IV 05/21/17 04:00 05/31/17 03:59 05/22/17 04:20 100 MLS/HR Thiamine HCl (Vitamin B-1 Tab) 100 mg QAM PO 05/21/17 09:00 06/20/17 08:59 05/22/17 09:10 100 MG Acetaminophen (Tylenol Tab) 500 mg Q6H PRN PO 05/21/17 02:15 06/20/17 02:14 Polyethylene (Miralax Powder Packet) 17 gm DAILY PRN PO 05/21/17 02:15 06/20/17 02:14 Ondansetron HCl (Zofran Inj) 4 mg Q6H PRN IV 05/21/17 02:15 06/20/17 02:14 Insulin Aspart (novoLOG ASPART) SLIDING SCALE If C... ACHS SC 05/21/17 07:00 06/20/17 06:59 05/22/17 09:15 11 UNITS Glucose (Glucose 40% Gel) 15-30 GRAMS 15 GRAMS... UD PRN PO 05/21/17 02:15 06/20/17 02:14 Glucose (Glucose Chew Tab) 4-8 Tablets 4 Tabl... UD PRN PO 05/21/17 02:15 06/20/17 02:14 Dextrose (Dextrose 50% 50ML Syringe) 25-50ML OF 50% DW IV FOR... UD PRN IV 05/21/17 02:15 06/20/17 02:14 Glucagon (Glucagon Inj) 1 mg UD PRN SQ 05/21/17 02:15 06/20/17 02:14 Citalopram Hydrobromide (celeXA TAB) 20 mg QAM PO 05/21/17 09:00 06/20/17 08:59 05/22/17 09:10 20 MG Gabapentin (Neurontin Tab) 600 mg Q8H PO 05/22/17 06:00 05/22/17 22:01 05/22/17 05:36 600 MG Gabapentin (Neurontin Tab) 600 mg Q12H PO 05/23/17 10:00 05/23/17 22:01 Gabapentin (Neurontin Tab) 600 mg Q24H PO 05/24/17 22:00 05/24/17 22:01 Lorazepam (Ativan Tab) 0.5 mg Q6H PRN PO 05/21/17 10:00 06/20/17 09:59 05/22/17 09:10 0.5 MG Lidocaine HCl (Xylocaine Jelly 2%) 15 ml BID EXT 05/21/17 21:00 06/20/17 20:59 05/22/17 09:10 15 ML Miscellaneous Information (Consult Glycemic Management Pharmacy) 1 ea UD PRN N/A 05/21/17 21:45 06/20/17 21:44 Insulin Glargine (Lantus Solostar Pen) 31 units HS SC 05/21/17 22:00 06/20/17 21:59 05/21/17 22:37 31 UNITS Objective Vital Signs Date Time Temp Pulse Resp B/P (MAP) Pulse Ox O2 Delivery O2 Flow Rate FiO2 05/22/17 08:19 77 19 131/81 (98) 95 05/22/17 00:20 96 Room Air 05/22/17 00:18 36.4 74 16 118/72 (87) 96 Room Air 05/21/17 23:36 89 97 05/21/17 20:00 36.3 80 18 125/76 (92) 100 Room Air 05/21/17 16:09 36.4 76 20 131/76 (94) 98 Room Air 05/21/17 16:00 98 Room Air Physical Exam General Appearance: no apparent distress Eyes: PERRL ENT: hearing grossly normal Neck: supple, trachea midline Respiratory/Chest: lungs clear, normal breath sounds Cardiovascular: regular rate, rhythm, no gallop, no JVD Abdomen: normal bowel sounds, non tender, soft, no organomegaly Neurologic/Psych: alert, normal mood/affect, oriented x 3 Skin: normal color, no jaundice Laboratory Results Last 24 Hours Test 05/21/17 12:37 05/21/17 12:57 05/21/17 17:09 05/21/17 20:54 Bedside Glucose 236 mg/dl 188 mg/dl 330 mg/dl Hemoglobin 12.5 g/dL Hematocrit 34.8 % Sodium Level 130 mmol/L Potassium Level 3.4 mmol/L Chloride Level 93 mmol/L Carbon Dioxide Level 32 mmol/L Anion Gap 5.0 mmol/L Blood Urea Nitrogen 6 mg/dl Creatinine 0.74 mg/dl Est Creatinine Clear Calc Drug Dose 142.5 ml/min Estimated GFR () 113.0 Estimated GFR (Non- 97.5 BUN/Creatinine Ratio 8.2 Random Glucose 223 mg/dl Calcium Level 8.0 mg/dl Magnesium Level 2.0 mg/dl Test 05/22/17 02:06 05/22/17 07:32 Bedside Glucose 161 mg/dl White Blood Count 3.30 K/uL Red Blood Count 3.69 M/uL Hemoglobin 11.6 g/dL Hematocrit 32.7 % Mean Corpuscular Volume 88.6 fL Mean Corpuscular Hemoglobin 31.4 pg Mean Corpuscular Hemoglobin Concent 35.5 g/dl Platelet Count 58 K/uL Mean Platelet Volume 9.7 fL Neutrophils (%) (Auto) 54.2 % Lymphocytes (%) (Auto) 25.2 % Monocytes (%) (Auto) 10.9 % Eosinophils (%) (Auto) 8.8 % Basophils (%) (Auto) 0.9 % Neutrophils # (Auto) 1.79 K/uL Lymphocytes # (Auto) 0.83 K/uL Monocytes # (Auto) 0.36 K/uL Eosinophils # (Auto) 0.29 K/uL Basophils # (Auto) 0.03 K/uL RDW Standard Deviation 45.3 fL RDW Coefficient of Variation 14.0 % Immature Granulocyte % (Auto) 0.0 % Immature Granulocyte # (Auto) 0.00 K/uL Sodium Level 132 mmol/L Potassium Level 3.8 mmol/L Chloride Level 99 mmol/L Carbon Dioxide Level 28 mmol/L Anion Gap 6.0 mmol/L Blood Urea Nitrogen 6 mg/dl Creatinine 0.64 mg/dl Est Creatinine Clear Calc Drug Dose 164.8 ml/min Estimated GFR () 119.9 Estimated GFR (Non- 103.5 BUN/Creatinine Ratio 8.9 Random Glucose 173 mg/dl Calcium Level 7.7 mg/dl Magnesium Level 2.0 mg/dl Assessment and Plan Patient is a 66 year old male w/ history of obesity s/p RYGB, cirrhosis w/ continued ETOH abuse who presented to [facility] for rectal bleeding x 3 days. Moving his bowels 1-2 times daily, no stool, just blood, BRB w/ clots. Denies abd pain , cramping, pressure or rectal pain. His BUN/GARAGE HELPER are unelevated, he has not had any evidence of melena, coffee ground emesis or hematemesis. He did not have varices on his last screening EGD. His VSS w/ HGB 12. Rectal exam yesterday performed by Dr. Savage w/ evidence of anal fissure , started on lidocaine jelly w/ great relief - No role for PPI drip - Trend H&H - Transfuse PRN - Monitor all BM - Diet as tolerated - OP colonoscopy with Dr. Bill as scheduled - Cirrhosis Management w/ Dr. Bill - OP EGD - OP HCC screen - OP Hep A and Hep B immunization - ETOH cessation GI to sign off. No GI contraindication to discharge.
--- NOTE | 2017-05-22 14:21 | Pharmacy Progress Note ---
Pharmacy Glycemic Short Note 2 Date of Service May 22, 2017. OUTPATIENT ANTIDIABETIC REGIMEN: * Lantus 31 units sq qPM--pt reports he did not take his Lantus dose on 05/20/17 * Novolog 6-8 units sq TIDm * Total insulin ~55 units/day, A1c 6.3% Test 05/21/17 17:09 05/21/17 20:54 05/22/17 02:06 05/22/17 07:32 Bedside Glucose 188 mg/dl (70-99) 330 mg/dl (70-99) 161 mg/dl (70-99) Random Glucose 173 mg/dl (70-99) Test 05/22/17 11:46 Bedside Glucose 262 mg/dl (70-99) ASSESSMENT: * 66 year old male type 2 diabetic admitted with GI Bleed and hyperglycemia d/t missing dose of Lantus 05/20. * Blood sugars looking better today, rising from breakfast to lunch, will further tighten CF and CR. * Blood sugars stable overnight after being corrected to goal, will continue Lantus at home dose at this time. * Tighten goal range for non-critically ill patient and A1c at goal. PLAN FOR INPATIENT GLYCEMIC CONTROL: * Basal insulin * Lantus 31 units SQ HS * Bolus insulin * NovoLog per scale ACHS or Q6hrs while NPO * CHANGE: Goal Range: Low 110 mg/dL - High 140 mg/dL * TIGHTEN: Correction Factor: 18 mg/dL/unit * TIGHTEN: Nutritional / Prandial insulin per carb ratio of 1 unit per 6 grams CHO consumed PLAN FOR DISCHARGE: * A1c at goal, no changes unless pt is having hypoglycemia at night
[2017-05-22 15:03] VITALS: BP 127/77; PULSE 78; TEMP 36.6; O2SAT 98
--- NOTE | 2017-05-22 17:51 | Progress Note ---
Medicine Progress Note Date & Time of Visit: May 22, 2017 at 17:39. Subjective seen resting in bed, comfortable states he feels better overall had 1 normal BM today, no bleeding/melena less pain on his rectum denies dizziness, headache, chest pain, dyspnea, palpitations ambulating with no problems denies tremors, hallucinations no other symptoms Objective Last 8 Hrs Date Time Temp Pulse Resp B/P (MAP) Pulse Ox O2 Delivery O2 Flow Rate FiO2 05/22/17 15:03 36.6 78 19 127/77 (94) 98 Room Air Physical Exam: General-oriented x3, not in distress, speaks in sentences with no effort Head- atraumatic Eyes- PERRL, EOMI, anicteric ENT- oropharynx clear Neck- supple, no JVD, no adenopathy, no thyromegaly; carotids +2/2 Lungs- clear breath sounds bilaterally, no rales/wheezes Heart- regular rhythm; no murmur, normal rate Abdomen- normal bowel sounds, soft, nontender, non distended Extremities- trace pretibial edema, no calf tenderness; peripheral pulses intact Neuro- alert, oriented x 3; no gross focal deficits Skin- warm & dry Laboratory Results: Last 24 Hours Test 05/21/17 20:54 05/22/17 02:06 05/22/17 07:32 05/22/17 08:17 Bedside Glucose 330 mg/dl 161 mg/dl 166 mg/dl White Blood Count 3.30 K/uL Red Blood Count 3.69 M/uL Hemoglobin 11.6 g/dL Hematocrit 32.7 % Mean Corpuscular Volume 88.6 fL Mean Corpuscular Hemoglobin 31.4 pg Mean Corpuscular Hemoglobin Concent 35.5 g/dl Platelet Count 58 K/uL Mean Platelet Volume 9.7 fL Neutrophils (%) (Auto) 54.2 % Lymphocytes (%) (Auto) 25.2 % Monocytes (%) (Auto) 10.9 % Eosinophils (%) (Auto) 8.8 % Basophils (%) (Auto) 0.9 % Neutrophils # (Auto) 1.79 K/uL Lymphocytes # (Auto) 0.83 K/uL Monocytes # (Auto) 0.36 K/uL Eosinophils # (Auto) 0.29 K/uL Basophils # (Auto) 0.03 K/uL RDW Standard Deviation 45.3 fL RDW Coefficient of Variation 14.0 % Immature Granulocyte % (Auto) 0.0 % Immature Granulocyte # (Auto) 0.00 K/uL Sodium Level 132 mmol/L Potassium Level 3.8 mmol/L Chloride Level 99 mmol/L Carbon Dioxide Level 28 mmol/L Anion Gap 6.0 mmol/L Blood Urea Nitrogen 6 mg/dl Creatinine 0.64 mg/dl Est Creatinine Clear Calc Drug Dose 164.8 ml/min Estimated GFR () 119.9 Estimated GFR (Non- 103.5 BUN/Creatinine Ratio 8.9 Random Glucose 173 mg/dl Calcium Level 7.7 mg/dl Magnesium Level 2.0 mg/dl Vitamin B12 Level 1259 pg/mL Folate 12.96 ng/mL Test 05/22/17 11:46 Bedside Glucose 262 mg/dl Assessment & Plan 66 year old male with history of GERD, Diverticular Disease, Alcoholism, DM, HTN , DVT, MARILYN, PSVT presenting with rectal bleeding. RECTAL BLEEDING, from ANAL FISSURE? Hg remained at 11-12 bleeding resolved evaluated by GI Dr. Savage/NAIDA Woody recommend to keep appointment for Colonoscopy on Thursday PRN Lidocaine Jelly ALCOHOL INTOXICATION ALCOHOLISM HISTORY no signs of active withdrawal while inpatient placed on Alc With Protocol- Gabapentin taper and PRN Ativan finish Gabapentin taper x 2 more days advised alcohol cessation HYPOKALEMIA K on admission 2.5 repleted with IV and PO K has history of gastric bypass surgery, also on diuretics GI losses may also have contributed will try K 40 meqs in AM and 20 meqs in PM advised to eat K rich foods as well repeat K on Thursday05/25/17 HYPOMAG repleted, resolved monitor DM A1c 6.3 continue Insulin regimen HISTORY OF DVT lovenox/heparin contraindicated for GI bleed, thrombocytopenia MARILYN use CPAP PSVT monitor electrolytes THROMBOCYTOPENIA likely from Alcoholism monitor CBC as outpatient Disposition d/c home Colonoscopy on Thursday next week c/o Dr. Bill ff up with Dr. Karmen Nichols on next week Current Inpatient Medications: Current Inpatient Medications Medications (Trade) Dose Ordered Sig/Huy Route Start Time Stop Time Status Last Admin Dose Admin Ceftriaxone Sodium 1 gm/ Dextrose 50 ml @ 100 mls/hr Q24H IV 05/21/17 04:00 05/31/17 03:59 05/22/17 04:20 100 MLS/HR Thiamine HCl (Vitamin B-1 Tab) 100 mg QAM PO 05/21/17 09:00 06/20/17 08:59 05/22/17 09:10 100 MG Acetaminophen (Tylenol Tab) 500 mg Q6H PRN PO 05/21/17 02:15 06/20/17 02:14 Polyethylene (Miralax Powder Packet) 17 gm DAILY PRN PO 05/21/17 02:15 06/20/17 02:14 Ondansetron HCl (Zofran Inj) 4 mg Q6H PRN IV 05/21/17 02:15 06/20/17 02:14 Insulin Aspart (novoLOG ASPART) SLIDING SCALE If C... ACHS SC 05/21/17 07:00 06/20/17 06:59 05/22/17 13:37 19 UNITS Glucose (Glucose 40% Gel) 15-30 GRAMS 15 GRAMS... UD PRN PO 05/21/17 02:15 06/20/17 02:14 Glucose (Glucose Chew Tab) 4-8 Tablets 4 Tabl... UD PRN PO 05/21/17 02:15 06/20/17 02:14 Dextrose (Dextrose 50% 50ML Syringe) 25-50ML OF 50% DW IV FOR... UD PRN IV 05/21/17 02:15 06/20/17 02:14 Glucagon (Glucagon Inj) 1 mg UD PRN SQ 05/21/17 02:15 06/20/17 02:14 Citalopram Hydrobromide (celeXA TAB) 20 mg QAM PO 05/21/17 09:00 06/20/17 08:59 05/22/17 09:10 20 MG Gabapentin (Neurontin Tab) 600 mg Q8H PO 05/22/17 06:00 05/22/17 22:01 05/22/17 13:35 600 MG Gabapentin (Neurontin Tab) 600 mg Q12H PO 05/23/17 10:00 05/23/17 22:01 Gabapentin (Neurontin Tab) 600 mg Q24H PO 05/24/17 22:00 05/24/17 22:01 Lorazepam (Ativan Tab) 0.5 mg Q6H PRN PO 05/21/17 10:00 06/20/17 09:59 3/9/18 15:17 0.5 MG Lidocaine HCl (Xylocaine Jelly 2%) 15 ml BID EXT 05/21/17 21:00 06/20/17 20:59 05/22/17 09:10 15 ML Miscellaneous Information (Consult Glycemic Management Pharmacy) 1 ea UD PRN N/A 05/21/17 21:45 06/20/17 21:44 Insulin Glargine (Lantus Solostar Pen) 31 units HS SC 05/21/17 22:00 06/20/17 21:59 05/21/17 22:37 31 UNITS Mupirocin (Bactroban 2% Oint) 1 appln BID EXT 05/22/17 21:00 06/21/17 20:59
[2017-05-22] MEDS ORDERED: CEFUROXIME AXETIL 250 MG TAB PO ONE (18:00)
[2017-05-22] MEDS ORDERED: POTASSIUM CHLORIDE 20 MEQ TABCR PO ONE (18:00)
[2017-05-22] MEDS ORDERED: POTA20TA16 PO (18:01)
[2017-05-22] MEDS ORDERED: NRN600 PO (18:01)
[2017-05-22] MEDS ORDERED: BCTRO (18:01)
[2017-05-22] MEDS ORDERED: CFT250 PO ×2 (18:01→18:11)
[2017-05-22] MEDS ORDERED: XYLG2 EXT (18:01)
--- NOTE | 2017-05-22 18:06 | Discharge Instructions ---
Discharge Instructions Date of Service May 22, 2017. Admission Reason for Admission: Acute Gi Bleed Discharge Discharge Diagnosis / Problem: RECTAL BLEEDING, POSSIBLY FROM ANAL FISSURE Discharge Goals Goal(s): Diagnostic testing, Therapeutic intervention Activity Recommendations Activity Limitations: as noted below (NO HEAVY EXERTION UNTIL RE-EVALUATED BY PRIMARY CARE PHYSICIAN) Lifting Limitations: until after follow-up appointment Exercise/Sports Limitations: until after follow-up appointment . Instructions / Follow-Up Instructions / Follow-Up PLEASE REVIEW YOUR NEW MEDICATION LIST AND FOLLOW INSTRUCTIONS CAREFULLY. DO NOT CONSUME ALCOHOL WHILE TAKING GABAPENTIN. EAT POTASSIUM RICH FOODS DAILY- BANANA, ORANGE, TOMATO. DO NOT TAKE NSAIDS LIKE ASPIRIN, IBUPROFEN, NAPROXEN, ETC. CALL PRIMARY CARE PHYSICIAN OR RETURN TO THE ER IMMEDIATELY IF WITH RECURRENCE OF SYMPTOMS, FATIGUE, MUSCLE WEAKNESS, FEVER/CHILLS, ABDOMINAL PAIN, PROBLEMS WITH URINATION, DIARRHEA. REPEAT BLOODWORK ON Thursday05/25/17. KEEP YOUR APPOINTMENT FOR COLONOSCOPY ON THURSDAY NEXT WEEK. FOLLOW UP WITH DR. SUMAYA RIOS ON MAY 27, 2017 AT 9:40AM Current Hospital Diet Patient's current hospital diet: Diabetes Type 2 Diet Discharge Diet Recommended Diet: Diabetes Type 2 Diet Procedures Procedures Performed: CHEST XRAY Pending Studies Studies pending at discharge: yes List of pending studies: REPEAT BLOOD WORK ON 05/24/17 Laboratory Results Hemoglobin A1c Test 05/21/17 05:01 Range/Units Estimated Average Glucose 134 mg/dl Hemoglobin A1c 6.3 H 4.5-5.6 % Medical Emergencies . Who to Call and When: Medical Emergencies: If at any time you feel your situation is an emergency, please call 911 immediately. . Non-Emergent Contact Non-Emergency issues call your: Primary Care Provider, International Recruiter Call Non-Emergent contact if: you have a fever, your pain is not controlled, your pain is worsening, you have any medication questions . . "Provider Documentation" section prepared by Jamie Leyva. .
--- NOTE | 2017-05-22 18:21 | Discharge Summary ---
Discharge Summary Date of Service May 22, 2017. Discharge Summary Admission Date: May 21, 2017 at 01:20 Discharge Date: May 22, 2017 Discharge Disposition: Home Principal Diagnosis: RECTAL BLEEDING, from ANAL FISSURE? Secondary Diagnoses/Problems: PLEASE REFER TO HOSPITAL COURSE BELOW. Procedures: CHEST ONE VIEW PORTABLE CLINICAL HISTORY: GI bleeding. Intoxication. Possible aspiration. COMPARISON STUDY: 06/27/2014 FINDINGS: The cardiac and mediastinal contours are normal. There is no evidence of focal pulmonary consolidation. There is no evidence of failure. No pleural effusions are visualized.[ IMPRESSION: No active disease in the chest. Consultations: GASTRO DR. CASANOVA Pending Studies/Follow-Up: PLEASE REFER TO HOSPITAL COURSE BELOW. Medication Reconciliation New Medications: Mupirocin (Bactroban Nasal) 1 Gm Oint 1 TUBE NA UD for 5 Days, #5 TUBE 0 Refills Approximately one-half of the ointment from the single-use tube should be applied into one nostril and the other half into the other nostril twice daily (morning and evening) Cefuroxime Axetil (Cefuroxime Axetil) 250 Mg Tab 250 MG PO BID for 5 Days, #10 TAB 0 Refills Gabapentin (Gabapentin) 600 Mg Tab 600 MG PO UD for 3 Days, #3 TAB 0 Refills may 23, 2017: take 1 tablet orally twice a day, then may 24, 2017: take 1 tablet orally then STOP Lidocaine HCl (Lidocaine HCl Jelly) 30 Ml Gel 15 ML EXT BID PRN for rectal pain for 7 Days Changed Medications: Potassium Ext Rel (Klor-Con) 20 Meq Tabcr 20 MEQ PO UD for 30 Days, TAB (Changed from: DAILY; Removed Reason) take 2 tablets in the morning, and take 1 tablet in the evening Continued Medications: B-Complex Vitamins (Vitamin B Complex) 1 Tab Tab 1 TAB PO DAILY Cholecalciferol (Vitamin D 400) 400 Unit Chw 800 MG PO DAILY Citalopram Hydrobromide (Celexa) 20 Mg Tab 20 MG PO QAM, TAB Furosemide (Lasix) 40 Mg Tab 40 MG PO DAILY PRN for Fluid Retention Insulin Aspart (Novolog Penfill) 100 Unit/Ml Inj 6-8 UNITS SQ TIDM SLIDING SCALE Insulin Glargine (Lantus Solostar) 100 Unit/Ml Inj 31 UNITS SC PM, PEN Iron Combinations (Iron Complex) 1 Cap Cap 65 MG PO DAILY Loperamide Hcl (Imodium) 2 Mg Cap 6 MG PO DAILY PRN for Diarrhea, CAP Pantoprazole (Protonix) 40 Mg Tab 40 MG PO QAM, TAB Pediatric Multiple Vitamin W/ (Multivitamin Childrens) 1 Chw Chw 1 TAB PO DAILY Triamterene/Hctz (Maxzide 75MG/50MG) Tab 1 TAB PO QAM, TAB TAKES WHEN HE REMEMBERS Admission Information HPI (per Admitting provider): The patient is a 66-year-old alcoholic male who presents to the emergency room with complaints of constant rectal bleeding since 3 days ago. He states his rectal bleeding has been worsened today and he has had to shower multiple times because of the bleeding. The patient is scheduled for colonoscopy next week with Dr. Bill. He recently lost his daughter to an overdose in the last couple of days, and reports drinking 12 beers earlier this evening. He is a chronic alcoholic with a history of cirrhosis. He reports drinking 2-4 beers nightly since 2003. 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 He currently denies any abdominal pain lightheadedness shortness of breath chest pain headache, diarrhea. He denies a history of GI bleeding. He reports tolerating p.o. but does not eat much. He has a history of gastric bypass. He reports noncompliance with multiple medications for the last 2 days. In the ER vital signs were stable with blood pressure 142/76 and a pulse in the 80s. He is afebrile and oxygenating well on room air physical exam was unremarkable including a soft nontender abdomen with positive bowel sounds and no signs of peritonitis. Rectal exam revealed dark black bloody stool. Lab results revealed an H&H of 12 and 33 with a white count of 4000 and a platelet count of 54,000. Sodium was 126 potassium was 2.5 magnesium 1.7. Renal function was normal. The patient was intoxicated upon arrival to the ER. A Protonix drip was started. Physical Exam (per Admitting): General Appearance: no apparent distress, + obese Head: normocephalic, atraumatic Eyes: normal inspection, PERRL, sclerae normal ENT: pharynx normal, + pertinent finding (Mucous membranes were moist) Neck: supple, no adenopathy, no JVD, trachea midline Respiratory/Chest: chest non-tender, lungs clear, normal breath sounds, no respiratory distress, no accessory muscle use Cardiovascular: regular rate, rhythm, no edema, no gallop, no JVD, no murmur , normal peripheral pulses Abdomen/GI: normal bowel sounds, non tender, soft, no organomegaly Back: normal inspection Extremities/Musculoskelatal: normal inspection, no calf tenderness, no pedal edema, normal range of motion Neurologic/Psych: 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 RECTAL BLEEDING, from ANAL FISSURE? Hg remained at 11-12 bleeding resolved evaluated by GI Dr. Casanova/NAIDA Woody recommend to keep appointment for Colonoscopy on Thursday PRN Lidocaine Jelly ALCOHOL INTOXICATION ALCOHOLISM HISTORY no signs of active withdrawal while inpatient placed on Alc With Protocol- Gabapentin taper and PRN Ativan finish Gabapentin taper x 2 more days advised alcohol cessation HYPOKALEMIA K on admission 2.5 repleted with IV and PO K has history of gastric bypass surgery, also on diuretics GI losses may also have contributed will try K 40 meqs in AM and 20 meqs in PM advised to eat K rich foods as well repeat K on Thursday05/25/17 HYPOMAG repleted, resolved monitor E COLI UTI Urine culture (+) E coli, pansensitive received Ceftri IV X 2 days Cefuroxime x 5 more days NASAL MRSA Mupirocin ointment nasally x 5 days DM A1c 6.3 continue Insulin regimen HISTORY OF DVT lovenox/heparin contraindicated for GI bleed, thrombocytopenia MARILYN use CPAP PSVT monitor electrolytes THROMBOCYTOPENIA likely from Alcoholism monitor CBC as outpatient Disposition d/c home Colonoscopy on Thursday next week c/o Dr. Bill ff up with Dr. Sumaya Nichols on next Total time spent on discharge = 50 minutes This includes examination of the patient, discharge planning, medication reconciliation, and communication with other providers. Discharge Instructions Discharge Instructions Date of Service May 22, 2017. Admission Reason for Admission: Acute Gi Bleed Discharge Discharge Diagnosis / Problem: RECTAL BLEEDING, POSSIBLY FROM ANAL FISSURE Discharge Goals Goal(s): Diagnostic testing, Therapeutic intervention Activity Recommendations Activity Limitations: as noted below (NO HEAVY EXERTION UNTIL RE-EVALUATED BY PRIMARY CARE PHYSICIAN) Lifting Limitations: until after follow-up appointment Exercise/Sports Limitations: until after follow-up appointment . Instructions / Follow-Up Instructions / Follow-Up PLEASE REVIEW YOUR NEW MEDICATION LIST AND FOLLOW INSTRUCTIONS CAREFULLY. DO NOT CONSUME ALCOHOL WHILE TAKING GABAPENTIN. EAT POTASSIUM RICH FOODS DAILY- BANANA, ORANGE, TOMATO. DO NOT TAKE NSAIDS LIKE ASPIRIN, IBUPROFEN, NAPROXEN, ETC. CALL PRIMARY CARE PHYSICIAN OR RETURN TO THE ER IMMEDIATELY IF WITH RECURRENCE OF SYMPTOMS, FATIGUE, MUSCLE WEAKNESS, FEVER/CHILLS, ABDOMINAL PAIN, PROBLEMS WITH URINATION, DIARRHEA. REPEAT BLOODWORK ON Thursday05/25/17. KEEP YOUR APPOINTMENT FOR COLONOSCOPY ON THURSDAY NEXT WEEK. FOLLOW UP WITH DR. SUMAYA NICHOLS ON MAY 27, 2017 AT 9:40AM [facility] Diet Patient's current hospital diet: Diabetes Type 2 Diet Discharge Diet Recommended Diet: Diabetes Type 2 Diet Procedures Procedures Performed: CHEST XRAY Pending Studies Studies pending at discharge: yes List of pending studies: REPEAT BLOOD WORK ON 05/24/17 Laboratory Results Hemoglobin A1c Test 05/21/17 05:01 Range/Units Estimated Average Glucose 134 mg/dl Hemoglobin A1c 6.3 H 4.5-5.6 % Medical Emergencies . Who to Call and When: Medical Emergencies: If at any time you feel your situation is an emergency, please call 911 immediately. . Non-Emergent Contact Non-Emergency issues call your: Primary Care Provider, Milanese Knitting Machine Operator Call Non-Emergent contact if: you have a fever, your pain is not controlled, your pain is worsening, you have any medication questions . . "Provider Documentation" section prepared by Jamie Leyva. .
[2017-05-22 18:27] VITALS: BP 127/77; PULSE 78; TEMP 36.6; O2SAT 98
[2017-05-22] MEDS ORDERED: MUPIROCIN 2% OINT 22 GM TUBE EXT SCH (21:00)
[2017-05-23] MEDS ORDERED: GABAPENTIN 600MG Q12H DOSE PO SCH (10:00)
[2017-05-24] MEDS ORDERED: GABAPENTIN 600MG X1 DOSE PO SCH (22:00)
[2017-05-25] MEDS ORDERED: CHOL1TAB76 PO (12:58)
[2017-05-25] MEDS ORDERED: BCTROWC EXT (12:58)
[2017-05-25] MEDS ORDERED: POTA20TA16 PO (12:58)
[2017-05-25] MEDS ORDERED: LIDO4GEL3 TOP (12:58)
== END 2017-05-22 19:22 | disposition home or self-care (01) | DRG 394 ==
LOC: EDBD 22:52 → C.EDB 22:53 → C.MSN 05-21 01:20 → EDBEDREQ 05-21 01:23 → ENRESERV 05-21 01:45
PROVIDERS: ADMIT Hospitalist; ATTEND Internal Medicine
DX: K60.0 Acute anal fissure (principal); K62.5 Hemorrhage of anus and rectum; N39.0 Urinary tract infection, site not specified; Z68.41 Body mass index [BMI] 40.0-44.9, adult; B96.20 Unspecified Escherichia coli [E. coli] as the cause of diseases classified elsewhere; J01.90 Acute sinusitis, unspecified; B95.62 Methicillin resistant Staphylococcus aureus infection as the cause of diseases classified elsewhere; D69.59 Other secondary thrombocytopenia; E87.6 Hypokalemia; E83.42 Hypomagnesemia; T50.2X5A Adverse effect of carbonic-anhydrase inhibitors, benzothiadiazides and other diuretics, initial encounter; F10.229 Alcohol dependence with intoxication, unspecified; E11.65 Type 2 diabetes mellitus with hyperglycemia; Z91.14 Patient's other noncompliance with medication regimen; I10 Essential (primary) hypertension; G47.33 Obstructive sleep apnea (adult) (pediatric); F32.9 Major depressive disorder, single episode, unspecified; K70.30 Alcoholic cirrhosis of liver without ascites; K21.9 Gastro-esophageal reflux disease without esophagitis; E66.9 Obesity, unspecified; Z86.718 Personal history of other venous thrombosis and embolism; Z86.79 Personal history of other diseases of the circulatory system; Z98.84 Bariatric surgery status; Z86.010 Personal history of colon polyps; Z79.4 Long term (current) use of insulin; Z79.899 Other long term (current) drug therapy; Z88.2 Allergy status to sulfonamides; Z91.048 Other nonmedicinal substance allergy status; Z82.49 Family history of ischemic heart disease and other diseases of the circulatory system

== ENCOUNTER → 2017-05-26 | Day surgery (SDC) | payer OTHER ==
[2017-05-25 13:00] VITALS: Ht 188 cm; Wt 133.2 kg
[~2017-05-26] VITALS: Ht 188 cm; Wt 133.2 kg
[~2017-05-26] MED LIST changes: -ALL300 PO; +BCTROWC EXT; +CHOL1TAB76 PO; -CHOL400C10 PO; +LIDO4GEL3 TOP; +LIDOCAINE HCL 2% 2 ML VIAL (20MG/ML) ONE; -PANT1TAB3 PO; +PROPOFOL IV EMULSION 10 MG/ML 20 ML VIAL IV ONE; +SODIUM CHLORIDE 0.9% 500ML 500 ML IV ONE
--- NOTE | 2017-05-26 09:42 | Endo History and Physical ---
History & Physical Date of Service: May 26, 2017. Chief Complaint: rectal bleeding Referring Physician: Dr. Karmen Nichols History of Present Illness 55 yo CM who presents for colonoscopy secondary to rectal bleeding. Past Medical History Diabetes, Glaucoma, Sleep Apnea, Thrombophlebitis, Liver Disease Past Surgical History Hx Cardiac Surgery: No Hx Internal Defibrillator: No Hx Pacemaker: No Hx Abdominal Surgery: Yes (GASTRIC BYPASS-2002) Hx of Implantable Prosthesis: No Hx Post-Op Nausea and Vomiting: No Hx Cancer Surgery: No Hx Thoracic Surgery: No Hx Orthopedic: No Hx Urinary Tract Surgery: Yes (CYSTOSCOPY) Family History None Social History Smoking Status: Never Smoker Hx Substance Use: No Hx Alcohol Use: Yes (3 BEERS/DAY) Allergies Coded Allergies: Sulfa Antibiotics (Verified Adverse Reaction, Intermediate, NAUSEA AND VOMITING, 05/25/17) Adhesives (Verified Adverse Reaction, Mild, REDNESS, TAPE WILSON, 05/25/17) Uncoded Allergies: JEWELRY (Allergy, Unknown, RASH, 05/25/17) Current Medications Reported Home Medications Medications Dose Route/Sig Max Daily Dose Days Date Category Dose Instructions Topicaine 5 (Lidocaine (Anorectal)) 5 % Gel 1 Dose TOP UD 05/25/17 Reported Bactroban 2% Oint (Mupirocin) 66 Appln/22 Gm Oint 1 Appln EXT UD 05/25/17 Reported Klor-Con (Potassium Chloride) 20 Meq Tabcr 3 Tabs PO UD 05/25/17 Reported 2 TABS IN AM 1 TAB IN PM D 2000 (Cholecalciferol) 2,000 Unit Tab 1 Tab PO DAILY 05/25/17 Reported Lantus Solostar (Insulin Glargine) 100 Unit/Ml Inj 31 Units SC QAM 11/30/16 Reported Novolog Penfill (Insulin Aspart) 100 Unit/Ml Inj 6-8 Units SQ TIDM 11/30/16 Reported SLIDING SCALE Iron Complex (Iron Combinations) 1 Cap Cap 65 Mg PO DAILY 11/30/16 Reported Imodium (Loperamide HCl) 2 Mg Cap 6 Mg PO QAM 11/30/16 Reported Multivitamin Childrens (Pediatric Multiple Vitamin W/) 1 Chw Chw 1 Tab PO DAILY 11/30/16 Reported Vitamin B Complex (B-Complex Vitamins) 1 Tab Tab 1 Tab PO DAILY 11/30/16 Reported Maxzide 75MG/50MG (Triamterene/HCTZ) Tab 1 Tab PO QAM 03/17/14 Reported Celexa (Citalopram Hydrobromide) 20 Mg Tab 20 Mg PO QAM 08/24/11 Reported Lasix (Furosemide) 40 Mg Tab 40 Mg PO DAILY PRN 06/04/11 Reported Vital Signs Weight (Kilograms): 133.18 Height (Feet): 6 Height (Inches): 2 Date Time Temp Pulse Resp B/P (MAP) Pulse Ox O2 Delivery O2 Flow Rate FiO2 05/26/17 09:17 36.8 77 20 124/81 (95) 99 Room Air Physical Exam General Appearance: WD/WN, no apparent distress Respiratory/Chest: Auscultation: breath sounds normal Cardiovascular: Heart Auscultation: RRR Abdomen: Bowel Sounds: normal Inspection & Palpation: soft, non-distended, no tenderness, guarding & rebound Assessment and Plan Assessment: 55 yo CM who presents for colonoscopy secondary to rectal bleeding. Plan: Proceed with colonoscopy.
--- NOTE | 2017-05-26 10:12 | GI REPORT ---
Procedure Date: 05/26/2017 9:30 AM Procedure: Colonoscopy Indications: Rectal bleeding Medicines: Monitored Anesthesia Care Complications: No immediate complications. Estimated Blood Loss: Estimated blood loss: none. Procedure: Pre-Anesthesia Assessment: - Prior to the procedure, a History and Physical was performed, and patient medications and allergies were reviewed. The patient's tolerance of previous anesthesia was also reviewed. The risks and benefits of the procedure and the sedation options and risks were discussed with the patient. All questions were answered, and informed consent was obtained. Prior Anticoagulants: The patient has taken no previous anticoagulant or antiplatelet agents. ASA Grade Assessment: III - A patient with severe systemic disease. After reviewing the risks and benefits, the patient was deemed in satisfactory condition to undergo the procedure. After I obtained informed consent, the scope was passed under direct vision. Throughout the procedure, the patient's blood pressure, pulse, and oxygen saturations were monitored continuously. The scope was introduced through the anus with the intention of advancing to the ileum. The scope was advanced to the transverse colon before the procedure was aborted. Medications were given. The colonoscopy was performed without difficulty. The patient tolerated the procedure well. The quality of the bowel preparation was poor. The rectum was photographed. Findings: The perianal and digital rectal examinations were normal. A large amount of solid stool was found in the rectum, in the sigmoid colon, in the descending colon and in the transverse colon. Non-bleeding internal hemorrhoids were found during retroflexion. The hemorrhoids were small. Impression: - Preparation of the colon was poor. - Stool in the rectum, in the sigmoid colon, in the descending colon and in the transverse colon. - Non-bleeding internal hemorrhoids. - No specimens collected. Recommendation: - Resume previous diet. - Continue present medications. - Repeat colonoscopy in 3 months because the bowel preparation was poor. - Return to primary care physician as previously scheduled. Obdulio Bill DO 05/26/2017 10:11:18 AM This report has been signed electronically. Note Initiated On: 05/26/2017 9:30 AM I attest to the content of the Intraoperative Record and orders documented therein, exceptions below
--- NOTE | 2017-05-26 10:22 | Discharge Instructions ---
Endoscopy Patient Instructions Date / Procedure(s) Performed May 26, 2017. Colonoscopy Allergy Information Coded Allergies: Sulfa Antibiotics (Verified Adverse Reaction, Intermediate, NAUSEA AND VOMITING, 05/25/17) Adhesives (Verified Adverse Reaction, Mild, REDNESS, TAPE WILSON, 05/25/17) Uncoded Allergies: JEWELRY (Allergy, Unknown, RASH, 05/25/17) Discharge Date / Findings May 26, 2017. Poor bowel prep Internal hemorrhoids Medication Instructions Stopped Medication(s): told not to take any meds today OK to resume all medications today as prescribed Reported Home Medications Medications Dose Route/Sig Max Daily Dose Days Date Category Dose Instructions Topicaine 5 (Lidocaine (Anorectal)) 5 % Gel 1 Dose TOP UD 05/25/17 Reported Bactroban 2% Oint (Mupirocin) 66 Appln/22 Gm Oint 1 Appln EXT UD 05/25/17 Reported Klor-Con (Potassium Chloride) 20 Meq Tabcr 3 Tabs PO UD 05/25/17 Reported 2 TABS IN AM 1 TAB IN PM D 2000 (Cholecalciferol) 2,000 Unit Tab 1 Tab PO DAILY 05/25/17 Reported Lantus Solostar (Insulin Glargine) 100 Unit/Ml Inj 31 Units SC QAM 11/30/16 Reported Novolog Penfill (Insulin Aspart) 100 Unit/Ml Inj 6-8 Units SQ TIDM 11/30/16 Reported SLIDING SCALE Iron Complex (Iron Combinations) 1 Cap Cap 65 Mg PO DAILY 11/30/16 Reported Imodium (Loperamide HCl) 2 Mg Cap 6 Mg PO QAM 11/30/16 Reported Multivitamin Childrens (Pediatric Multiple Vitamin W/) 1 Chw Chw 1 Tab PO DAILY 11/30/16 Reported Vitamin B Complex (B-Complex Vitamins) 1 Tab Tab 1 Tab PO DAILY 11/30/16 Reported Maxzide 75MG/50MG (Triamterene/HCTZ) Tab 1 Tab PO QAM 03/17/14 Reported Celexa (Citalopram Hydrobromide) 20 Mg Tab 20 Mg PO QAM 08/24/11 Reported Lasix (Furosemide) 40 Mg Tab 40 Mg PO DAILY PRN 06/04/11 Reported Provider Instructions Activity Restrictions - No exercising or heavy lifting for 24 hours. - Do not drink alcohol the day of the procedure. - Do not drive a car or operate machinery until the day after the procedure. - Do not make any important decisions or sign important papers in 24 hours after the procedure. Following Day: - Return to full activity which may include returning to work/school. Diet Start your diet with liquids and light foods (jello, soup, juice, toast). Then eat your usual diet if not nauseated. Treatment For Common After Affects For mild abdominal pain, bloating, or excessive gas: - Rest - Eat lightly - Lie on right side Follow-Up Information Follow-up with Dr. Karmen Nichols as scheduled Anesthesia Information What You Should Know You have had a procedure that required some medicine to reduce anxiety and discomfort. This treatment is called moderate sedation. After receiving the treatment, you may be sleepy, but you will be able to breathe on your own. The effects of the treatment may last for several hours. Follow these instructions along with Activity/Diet recommendations noted above: * Do NOT do anything where dizziness or clumsiness would be dangerous. * Rest quietly at home today, then you can be up and about tomorrow. * Have a responsible person stay with you the rest of today. * You may have had an I.V. today. If so, you may take the dressing off later today. Recommendations Call your doctor if: * Trouble breathing * Continuous vomiting for more than 24 hours * Temperature above 101 degrees * Severe abdominal pain or bloating * Pain not relieved by pain medicine ordered * There is increased drainage or redness from any incision * A large amount of rectal bleeding greater than 2-3 tablespoons. (If you had a polyp/s removed or have hemorrhoids, a small amount of blood - from the rectum is to be expected.) * You have any unanswered questions or concerns. IN THE EVENT OF A SERIOUS EMERGENCY, GO TO THE NEAREST EMERGENCY ROOM Your discharge instructions were prepared by provider Obdulio Bill. Patient Instructions Signature Page Juan Francisco Bliss Patient (or Guardian) Signature/Date: I have read and understand the instructions given to me by my caregivers. Caregiver/RN/Doctor Signature/Date: The above-named patient and/or guardian has received patient instructions on this date. + Original Patient Signature Page (only) stays with chart. Please make copy for patient.
[2017-05-26 10:38] VITALS: BP 124/63; PULSE 72; O2SAT 98
--- NOTE | 2017-05-26 12:58 | Anesthesiology Progress Note ---
Anesthesia Post Op Note Date & Time May 26, 2017 at 12:58 Vital Signs Pain Intensity: 0 Vital Signs Past 12 Hours Date Time Temp Pulse Resp B/P (MAP) Pulse Ox O2 Delivery O2 Flow Rate FiO2 05/26/17 10:38 72 16 124/63 (83) 98 Room Air 05/26/17 10:23 70 16 122/67 (85) 99 Room Air 05/26/17 10:08 36.8 70 16 112/66 (81) 97 Room Air 05/26/17 09:17 36.8 77 20 124/81 (95) 99 Room Air Notes Mental Status: alert / awake / arousable, participated in evaluation Pt Amnestic to Procedure: Yes Nausea / Vomiting: adequately controlled Pain: adequately controlled Airway Patency, RR, SpO2: stable & adequate BP & HR: stable & adequate Hydration State: stable & adequate Anesthetic Complications: no major complications apparent
== END | disposition home or self-care (01) ==
LOC: C.GI 08:41
PROVIDERS: ATTEND Internal Medicine
DX: K62.5 Hemorrhage of anus and rectum (principal); K64.8 Other hemorrhoids; H40.9 Unspecified glaucoma; M10.9 Gout, unspecified; E11.9 Type 2 diabetes mellitus without complications; F32.9 Major depressive disorder, single episode, unspecified; G47.33 Obstructive sleep apnea (adult) (pediatric); Z98.84 Bariatric surgery status; Z68.38 Body mass index [BMI] 38.0-38.9, adult; E66.9 Obesity, unspecified; Z88.2 Allergy status to sulfonamides; Z79.4 Long term (current) use of insulin; Z79.899 Other long term (current) drug therapy

== ENCOUNTER 2018-11-12 14:51 | Inpatient (IN) ==
[2018-11-12 15:40] LABS: Hematocrit (blood only) 28.2 % (42-52); Mean Corpuscular Hemoglobin 25.3 pg (25-34); Mean Corpuscular Hgb Conc 31.9 g/dL (32-36); Mean Corpuscular Volume 79.2 fL (80-100); RDW Coefficient of Variation 17.7 % (11.5-14.5); RDW Standard Deviation 51.4 fL (36.4-46.3); Red Blood Count 3.56 M/uL (4.7-6.1); White Blood Count 2.47 K/uL (4.8-10.8)
[2018-11-12 15:43] LABS: Appearance Urine Clear (Clear); Bacteria Urine Automated Negative (Negative); Bilirubin Urine Negative (Negative); Blood Urine Negative (Negative); Color Urine Yellow; Glucose Urine UA Negative (Negative); Ketones Urine Negative (Negative); Leukocyte Esterase Urine Trace (Negative); Nitrite Urine Negative (Negative); Protein Urine Negative (Negative); RBC Urine Automated 0-4 /hpf (0-4); Specific Gravity Urine 1.012 (1.000-1.030); Urobilinogen Urine Negative (Negative)
[2018-11-12 15:52] LABS: Alanine Aminotransferase 17 U/L (12-78); Albumin Level 2.1 gm/dl (3.4-5.0); Aspartate Aminotransferase 26 U/L (15-37); BUN Creatinine Ratio 15.5 (10-20); Blood Urea Nitrogen 13 mg/dl (7-18); Calcium 8.2 mg/dl (8.5-10.1); Carbon Dioxide 35 mmol/L (21-32); Chloride 90 mmol/L (98-107); Creatinine Clr Calc Pharmacy 130.5 ml/min; Est GFR (African American) 105.2; Est GFR (Non-African American) 90.8; Glucose 69 mg/dl (70-99); Magnesium 1.6 mg/dl (1.8-2.4); Potassium 3.1 mmol/L (3.5-5.1); Sodium 130 mmol/L (136-145)
--- NOTE | 2018-11-12 15:54 | XRay Report ---
XR chest 1V portable CLINICAL HISTORY: weakness dyspnea COMPARISON STUDY: 09/23/2018 FINDINGS: Interval development of a left pleural effusion. Mild stable cardiomegaly. Lungs otherwise appear clear. IMPRESSION: Interval development of a small left pleural effusion. The above report was generated using voice recognition software. It may contain grammatical, syntax or spelling errors. Electronically signed by: Phil Rossi M.D. 11/12/2018 3:53 PM
[2018-11-12 16:00] LABS: Mean Platelet Volume 9.2 fL (7.4-10.4); Platelet Count 66 K/uL (130-400)
[2018-11-12 16:12] LABS: Basophils # (auto) 0.03 K/uL (0-0.2); Basophils % (auto) 1.2 %; Eosinophils # (auto) 0.04 K/uL (0-0.5); Eosinophils % (auto) 1.6 %; Giant Platelets 1+; Hypochromasia Present; Lymphocytes % (auto) 20.2 %; Monocytes # (auto) 0.28 K/uL (0.11-0.59); Monocytes % (auto) 11.3 %; Neutrophils # (auto) 1.62 K/uL (1.4-6.5); Neutrophils % (auto) 65.7 %
[2018-11-12] MEDS ORDERED: MAGNESIUM OXIDE 400 MG TAB PO STA (16:13)
[2018-11-12] MEDS ORDERED: POTASSIUM CHLORIDE PWD 20 MEQ PACK PO STA (16:17)
[2018-11-12 16:35] LABS: Albumin Globulin Ratio 0.4 (0.9-2); Alkaline Phosphatase 78 U/L (45-117); Bilirubin,Total 1.7 mg/dl (0.2-1); Globulin 5.4 gm/dl (2.5-4.0); NT Pro B Type Natriuretic Pept 506 pg/ml (0-900); Total Protein 7.5 gm/dl (6.4-8.2); Troponin I < 0.015 ng/ml (0-0.045)
--- NOTE | 2018-11-12 16:37 | Ultrasound Report ---
US venous doppler LE LT CLINICAL HISTORY: 68 years-old Male presenting with calf pain, LE edema. TECHNIQUE: Real-time grayscale and color and spectral Doppler ultrasound imaging of the veins of the left lower extremity was performed. Compression and augmentation were also utilized. COMPARISON: 09/23/2018. FINDINGS: LEFT: Common femoral vein: Patent. Greater saphenous vein (superficial): Patent. Deep femoral vein: Patent. Femoral vein: Patent. Popliteal vein: Patent. Calf veins: Limited visualization secondary to subcutaneous edema. Other: Subcutaneous edema evident in the leg a heterogeneously hypoechoic mass in the posterior knee measuring 2.5 x 5.1 x 1.9 cm is similar to prior exam and may represent a cyst. IMPRESSION: 1. No evidence of deep venous thrombosis allowing for limited visualization of the calf veins. 2. Left lower extremity subcutaneous edema. 3. Suspected left popliteal cyst. Electronically signed by: Alec Mancilla M.D. 11/12/2018 4:35 PM
[2018-11-12 16:47] LABS: T4 Free Thyroxine 1.17 ng/dl (0.8-1.6)
[2018-11-12] MEDS ORDERED: POTASSIUM CHLORIDE 20 MEQ TABCR PO STA (17:08)
[2018-11-12] MEDS ORDERED: POLYETHYLENE (MIRALAX) 17 GM PACK PO PRN (19:13)
[2018-11-12] MEDS ORDERED: ACETAMINOPHEN 325 MG TAB PO PRN (19:13)
[2018-11-12] MEDS ORDERED: MAGNESIUM HYDROXIDE SUSP 30 ML UDC PO PRN (19:13)
--- NOTE | 2018-11-12 20:36 | Emergency Department Note ---
Entered by Alyssa Bryson acting as a scribe for Maury Fitch MD History of Present Illness General Chief complaint: Swelling/Edema to Extremity Stated complaint: EDEMA TO LEGS Time Seen by Provider: 11/12/18 14:54 Source: patient History of Present Illness Provider complaint: Swelling/ Edema to Extremity Onset (ago): day(s) 2 Location: lower extremity Pain Consistency: + constant Maximum Pain Intensity: 4 Current Pain Intensity: 4 Associated symptoms: + denies other symptoms (Chest Pain); no shortness of breath The patient is a 68 year old white male w/ PMHx of a colon cancer, SVT, diabetes, alcohol abuse, and gastric bypass surgery who presents to the ED w/ CC of constant swelling/edema of his lower extremities that began 2 days prior. The patient reports the pain is a 4/10 in severity. The patient states his legs have been swollen since his previous visit on 09/23/2018 and the patient's in home nurse told him to come to the ED. The patient denies any chest pain or SOB. The patient mentions he has been experiencing frequent falls and has not been great about taking his medications. Home Medications Home Medications Medication Instructions Recorded Confirmed Type Novolog U-100 Insulin aspart 6 - 8 unit SUBCUT AC 02/14/18 11/12/18 History citalopram 20 mg PO QAM 02/14/18 11/12/18 History potassium chloride 20 meq PO BID 04/26/18 11/12/18 History torsemide 20 mg tablet 40 mg PO BID tab 09/14/18 11/12/18 History insulin NPH isoph U-100 human 24 units SQ QAM 11/12/18 11/12/18 History [Novolin N NPH U-100 Insulin] Allergies Allergy/AdvReac Type Severity Reaction Status Date / Time Sulfa (Sulfonamide AdvReac Intermediate NAUSEA AND Verified 11/12/18 15:18 Antibiotics) VOMITING adhesive AdvReac Mild REDNESS, Verified 11/12/18 15:18 TAPE WILSON JEWELRY Allergy Unknown RASH Uncoded 11/12/18 15:18 Past Med/Surg History Medical History Tubular adenoma of colon (Acute) Pseudogynecomastia (Acute) Paroxysmal supraventricular tachycardia (Acute) Panniculitis (Acute) Pancytopenia (Acute) Obesity (Acute) Hyperammonemia (Acute) Glaucoma (Acute) Diabetic neuropathy (Acute) Diabetes mellitus with insulin therapy (Acute) Bilateral edema of lower extremity (Acute) Benign prostatic hyperplasia with urinary obstruction (Acute) Pedroza's esophagus (Acute) Anal ulceration (Acute) Alcoholic cirrhosis of liver (Chronic) Cervical spinal stenosis (Chronic) Depression (Chronic) Diabetes (Chronic) Gout (Chronic) HLD (hyperlipidemia) (Chronic) HTN (hypertension) (Chronic) MARILYN on CPAP (Chronic) Psoriasis (Chronic) Splenomegaly (Chronic) Statin intolerance (Chronic) T2DM (type 2 diabetes mellitus) (Chronic) Thrombocytopenia (Chronic) Bleeding ulcer (Resolved) Bright red rectal bleeding (Resolved) Infected sebaceous cyst (Resolved) Intertrigo (Resolved) Skin tear of lower leg without complication (Resolved) Cervical spinal stenosis Surgical History S/P gastric bypass (Chronic) "2003" H/O gastric bypass (Resolved) History of cataract extraction (Resolved) Family History Father Cancer Lung disease Brother Brain cancer Diabetes Overdose Daughter , age 29 Overdose Suicide Unknown Cancer Hypertension Diabetes Heart disease Social History Preferred Language: South African Communication Ability: Effective 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 Beliefs That Will Affect Care: Protestant Protestant Beliefs: Taoism marital status: Single marital status details: has, "lady friend" Current Living Situation: Other Current Living Situation Comment: own home, step-son, Randy, lives there 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 and A total of 10 systems reviewed and were otherwise negative Physical Exam Vital Signs Vital Signs - 24 hr 11/12/18 14:52 11/12/18 15:30 11/12/18 15:34 Temperature 36.8 C Temperature Source Oral Sepsis Recent Fever Within 48 Hours No Sepsis New/Unexplained Change in Mental Status No Sepsis Action Taken by Nursing No Action Required Pulse Rate 120 H Pulse Rate [Left Finger] 94 H Respiratory Rate 15 20 Respiratory Effort / Characteristics Non-Labored Non-Labored Respiratory Depth Normal Normal Respiratory Pattern Regular Regular Blood Pressure 119/70 Blood Pressure [Left Arm] 108/63 Blood Pressure Mean 86 Blood Pressure Mean [Left Arm] 78 Pulse Oximetry 98 97 96 Oxygen Delivery Method Room Air Room Air Room Air 11/12/18 16:58 11/12/18 18:55 Temperature Temperature Source Sepsis Recent Fever Within 48 Hours Sepsis New/Unexplained Change in Mental Status Sepsis Action Taken by Nursing Pulse Rate Pulse Rate [Left Finger] 105 H 94 H Respiratory Rate 20 19 Respiratory Effort / Characteristics Non-Labored Respiratory Depth Normal Respiratory Pattern Regular Blood Pressure Blood Pressure [Left Arm] 107/76 120/80 Blood Pressure Mean Blood Pressure Mean [Left Arm] 86 93 Pulse Oximetry 98 96 Oxygen Delivery Method Room Air Room Air GENERAL: Well appearing, well nourished, Mild distress, non-toxic. Obese. Tremulous. Foul smelling. Feces present on body. EYE EXAM: Normal conjunctiva. PERRL, no anisocoria and EOM's grossly intact w/o pain. OROPHARYNX: Dry mucous membranes. No exudate, posterior pharynx is clear, no tonsillar/uvular deviation or swelling. NECK: Supple, no nuchal rigidity, no adenopathy, non-tender. No signs of meningismus. LUNGS: Clear to auscultation. Normal chest wall mechanics. HEART: NSR, no MRG. ABDOMEN: Abdomen soft, non-tender, normo-active bowel sounds, no masses, no rebound or guarding. Extensive abdomen scarring from previous surgery. BACK: No CVA TTP. SKIN: No rashes and no bruising. UPPER EXTREMITIES: Ecchymotic in all extremities. Healing small lacerations on both upper extremities. LOWER EXTREMITIES: Lower extremity 4+ edema past the knee. Tenderness to palpation of left calf greater than right calf. NEURO EXAM: A&O x3, cranial nerves II-XII grossly intact, normal speech, [5/5 strength throughout, no sensory deficits, good finger to nose, no pronator drift], moves all 4 extremities on command w/o issue. Course 1500: Past medical records reviewed. The patient was evaluated in room C03. A complete history and physical exam was performed. 1630: I reevaluated the patient and discussed the results with him. The patient is resting comfortably. 1754: I spoke with Dr. Heath- Hospitalist about the patient's case and he will accept the patient. Administered Medications Discontinued Medications Magnesium Oxide (Mag-Ox) 400 mg PO NOW STA Stop: 11/12/18 16:14 Last Admin: 11/12/18 16:46 Dose: 400 mg Documented by: [id number] Potassium Chloride (Klor-Con Pwd) 40 meq PO NOW STA Stop: 11/12/18 16:18 Last Admin: 11/12/18 17:15 Dose: Not Given Documented by: [id number] Potassium Chloride (Klor-Con M20) 40 meq PO NOW STA Stop: 11/12/18 17:09 Last Admin: 11/12/18 17:19 Dose: 40 meq Documented by: [id number] Medical Decision Making Differential Diagnosis Differential Diagnosis includes but is not limited to dehydration, stroke, anemia, hypoglycemia, hyponatremia, hypernatremia, urinary tract infection, pneumonia, bronchitis, sepsis, gastroenteritis, additional abdominal pathology, metabolic abnormalities and infections. Medical Records Attestation: I reviewed the patient's medical records. Home Medications Current Medication List: was personally reviewed by me Laboratory Data Attestation: I reviewed the patient's lab results. Result diagrams: 11/12/18 15:15 11/12/18 15:15 Lab Results 11/12/18 11/12/18 11/12/18 Range/Units 15:15 15:15 15:30 WBC 2.47 L (4.8-10.8) K/uL RBC 3.56 L (4.7-6.1) M/uL Hgb 9.0 L (14.0-18.0) g/dL Hct 28.2 L (42-52) % MCV 79.2 L (80-100) fL MCH 25.3 (25-34) pg MCHC 31.9 L (32-36) g/dL RDW Std Deviation 51.4 H (36.4-46.3) fL RDW Coeff of Santiago 17.7 H (11.5-14.5) % Plt Count 66 L (130-400) K/uL MPV 9.2 (7.4-10.4) fL Immature Gran % (Auto) 0.0 % Neut % (Auto) 65.7 % Lymph % (Auto) 20.2 % [place] % (Auto) 11.3 % Eos % (Auto) 1.6 % Baso % (Auto) 1.2 % Immature Gran # (Auto) 0.00 (0.00-0.02) K/uL Neut # (Auto) 1.62 (1.4-6.5) K/uL Lymph # (Auto) 0.50 L (1.2-3.4) K/uL [place] # (Auto) 0.28 (0.11-0.59) K/uL Eos # (Auto) 0.04 (0-0.5) K/uL Baso # (Auto) 0.03 (0-0.2) K/uL Giant Platelets 1+ Hypochromasia Present Sodium 130 L (136-145) mmol/L Potassium 3.1 L (3.5-5.1) mmol/L Chloride 90 L (98-107) mmol/L Carbon Dioxide 35 H (21-32) mmol/L Anion Gap 4.0 (3-11) BUN 13 (7-18) mg/dl Creatinine 0.85 (0.6-1.4) mg/dl Est Cr Clr Drug Dosing 130.5 ml/min Est GFR ( Amer) 105.2 Est GFR (Non-Af Amer) 90.8 BUN/Creatinine Ratio 15.5 (10-20) Glucose 69 L (70-99) mg/dl POC Glucose (70-99) Calcium 8.2 L (8.5-10.1) mg/dl Magnesium 1.6 L (1.8-2.4) mg/dl Total Bilirubin 1.7 H (0.2-1) mg/dl AST 26 (15-37) U/L ALT 17 (12-78) U/L Alkaline Phosphatase 78 (45-117) U/L Ammonia (11-32) umol/L Troponin I < 0.015 (0-0.045) ng/ml NT-Pro-B Natriuret Pep 506 (0-900) pg/ml Total Protein 7.5 (6.4-8.2) gm/dl Albumin 2.1 L (3.4-5.0) gm/dl Globulin 5.4 H (2.5-4.0) gm/dl Albumin/Globulin Ratio 0.4 L (0.9-2) TSH 6.310 H (0.300-4.500) uIu/ml Free T4 1.17 (0.8-1.6) ng/dl Urine Color Yellow Urine Appearance Clear (Clear) Urine pH 5.0 (4.5-7.5) Ur Specific [place] 1.012 (1.000-1.030) Urine Protein Negative (Negative) Urine Glucose (UA) Negative (Negative) Urine Ketones Negative (Negative) Urine Blood Negative (Negative) Urine Nitrite Negative (Negative) Urine Bilirubin Negative (Negative) Urine Urobilinogen Negative (Negative) Ur Leukocyte Esterase Trace H (Negative) Urine WBC (Auto) 1-5 (0-5) /hpf Urine RBC (Auto) 0-4 (0-4) /hpf U Hyaline Cast (Auto) 1-5 (0-5) /lpf U Epithel Cells (Auto) 5-10 H (0-5) /lpf Urine Bacteria (Auto) Negative (Negative) Ethyl Alcohol mg/dL (0-3) mg/dl 11/12/18 11/12/18 11/12/18 Range/Units 15:45 15:48 17:11 WBC (4.8-10.8) K/uL RBC (4.7-6.1) M/uL Hgb (14.0-18.0) g/dL Hct (42-52) % MCV (80-100) fL MCH (25-34) pg MCHC (32-36) g/dL RDW Std Deviation (36.4-46.3) fL RDW Coeff of Santiago (11.5-14.5) % Plt Count (130-400) K/uL MPV (7.4-10.4) fL Immature Gran % (Auto) % Neut % (Auto) % Lymph % (Auto) % [place] % (Auto) % Eos % (Auto) % Baso % (Auto) % Immature Gran # (Auto) (0.00-0.02) K/uL Neut # (Auto) (1.4-6.5) K/uL Lymph # (Auto) (1.2-3.4) K/uL [place] # (Auto) (0.11-0.59) K/uL Eos # (Auto) (0-0.5) K/uL Baso # (Auto) (0-0.2) K/uL Giant Platelets Hypochromasia Sodium (136-145) mmol/L Potassium (3.5-5.1) mmol/L Chloride (98-107) mmol/L Carbon Dioxide (21-32) mmol/L Anion Gap (3-11) BUN (7-18) mg/dl Creatinine (0.6-1.4) mg/dl Est Cr Clr Drug Dosing ml/min Est GFR ( Amer) Est GFR (Non-Af Amer) BUN/Creatinine Ratio (10-20) Glucose (70-99) mg/dl POC Glucose 103 H (70-99) Calcium (8.5-10.1) mg/dl Magnesium (1.8-2.4) mg/dl Total Bilirubin (0.2-1) mg/dl AST (15-37) U/L ALT (12-78) U/L Alkaline Phosphatase (45-117) U/L Ammonia 35.0 H (11-32) umol/L Troponin I (0-0.045) ng/ml NT-Pro-B Natriuret Pep (0-900) pg/ml Total Protein (6.4-8.2) gm/dl Albumin (3.4-5.0) gm/dl Globulin (2.5-4.0) gm/dl Albumin/Globulin Ratio (0.9-2) TSH (0.300-4.500) uIu/ml Free T4 (0.8-1.6) ng/dl Urine Color Urine Appearance (Clear) Urine pH (4.5-7.5) Ur Specific [place] (1.000-1.030) Urine Protein (Negative) Urine Glucose (UA) (Negative) Urine Ketones (Negative) Urine Blood (Negative) Urine Nitrite (Negative) Urine Bilirubin (Negative) Urine Urobilinogen (Negative) Ur Leukocyte Esterase (Negative) Urine WBC (Auto) (0-5) /hpf Urine RBC (Auto) (0-4) /hpf U Hyaline Cast (Auto) (0-5) /lpf U Epithel Cells (Auto) (0-5) /lpf Urine Bacteria (Auto) (Negative) Ethyl Alcohol mg/dL < 3.0 (0-3) mg/dl Imaging Data Radiologist's Impression: Radiology results as stated below per my review and the radiologist's interpretation: US venous doppler LE LT CLINICAL HISTORY: 68 years-old Male presenting with calf pain, LE edema. TECHNIQUE: Real-time grayscale and color and spectral Doppler ultrasound imaging of the veins of the left lower extremity was performed. Compression and augmentation were also utilized. COMPARISON: 09/23/2018. FINDINGS: LEFT: Common femoral vein: Patent. Greater saphenous vein (superficial): Patent. Deep femoral vein: Patent. Femoral vein: Patent. Popliteal vein: Patent. Calf veins: Limited visualization secondary to subcutaneous edema. Other: Subcutaneous edema evident in the leg a heterogeneously hypoechoic mass in the posterior knee measuring 2.5 x 5.1 x 1.9 cm is similar to prior exam and may represent a cyst. IMPRESSION: 1. No evidence of deep venous thrombosis allowing for limited visualization of the calf veins. 2. Left lower extremity subcutaneous edema. 3. Suspected left popliteal cyst. Electronically signed by: Alec Mancilla M.D. 11/12/2018 4:35 PM XR chest 1V portable CLINICAL HISTORY: weakness dyspnea COMPARISON STUDY: 09/23/2018 FINDINGS: Interval development of a left pleural effusion. Mild stable cardiomegaly. Lungs otherwise appear clear. IMPRESSION: Interval development of a small left pleural effusion. The above report was generated using voice recognition software. It may contain grammatical, syntax or spelling errors. Electronically signed by: Phil Rossi M.D. 11/12/2018 3:53 PM ECG Data Attestation: I personally reviewed and interpreted this ECG as follows: Indication: other (Swelling of lower extremity ) Rate (beats per minute): 78 Rhythm: sinus rhythm Findings: + other (Normal QSR holiness), + 1st degree AV block and + left axis deviation; no acute ischemic change Blood Pressure Blood Pressure Findings: Normal blood pressure Blood Pressure Disposition: further management by hospitalist [facility] Narrative The patient is a 68 year old white male w/ PMHx of a colon cancer, SVT, diabetes, alcohol abuse, and gastric bypass surgery who presents to the ED w/ CC of constant swelling/edema of his lower extremities that began 2 days prior. Patient was seen and evaluated the bedside after being seen and evaluated by the resident physician. The patient does have multiple medical comorbidities including alcohol abuse and cirrhosis. Patient was presenting with lower extremity edema. Patient does have a past history of medical noncompliance. Patient's blood work does show some mild electrolyte abnormalities which are likely related to the patient's history of cirrhosis as well as his diuretics. The patient does have some issues with his living situation. I did speak with the transplant case manager in order to try and arrange rehab placement today. Unfortunately she is unable to be accomplished to the resident speak with the on-call hospitalist agreed to further evaluate treat the patient. Patient was admitted to the medicine service. Impression & Plan Edema, Cirrhosis, Hypokalemia, Hypomagnesemia, Localized swelling of both lower legs Discharge Plan Visit Data Chief Complaint: Swelling/Edema to Extremity Stated Complaint: EDEMA TO LEGS ED Provider: Maury Fitch Discharge Problem: Edema, Cirrhosis, Hypokalemia, Hypomagnesemia, Localized swelling of both lower legs Patient Disposition: Being Evaluated by Hospitalist Discharge Instructions Interventions: ED Discharge Assessment Last Done: 11/12/18 20:05 The scribe's documentation has been prepared under my direction and personally reviewed by me in its entirety. I confirm that the note above accurately reflects all work, treatment, procedures, and medical decision making performed by me.
[2018-11-12] MEDS ORDERED: NSS + 20MEQ KCL 20 MEQ/1,000 ML BAG IV SCH (20:45)
[2018-11-12] MEDS ORDERED: ENOXAPARIN INJ 40 MG/0.4 ML SYR SQ SCH (21:00)
[2018-11-12] MEDS ORDERED: PHARMACY GLYCEMIC MGMT CONSULT PRN (21:21)
[2018-11-12] MEDS ORDERED: GLUCOSE 10 TABS/TUBE PO PRN (22:00)
[2018-11-12] MEDS ORDERED: GLUCOSE 40% GEL 15 GM TUBE PO PRN (22:00)
[2018-11-12] MEDS ORDERED: DEXTROSE 50% 50 ML SYRINGE IV PRN (22:00)
[2018-11-12] MEDS ORDERED: CARBOHYDRATES FOR HYPOGLYCEMIA PO PRN (22:00)
[2018-11-12] MEDS ORDERED: GLUCAGON FOR INJ 1 MG VIAL IM PRN (22:00)
--- NOTE | 2018-11-12 22:01 | History & Physical Report ---
Date of Service November 12, 2018 Assessment & Plan (1) Cirrhosis: Admit to PCU telemetry Appears to be combination of alcohol abuse and morbid obesity. Vital signs every 4 hours Bumex 1 mg IV twice daily Liver sono pending and for evaluation of ascites. PT/INR Consult GI Hepatitis panel CMP every 8 for hyponatremia and hypokalemia reversal. Strict in and out Daily weight Restrict p.o. fluids to 1000 Repeat BNP Echocardiogram to rule out diastolic cardiac failure Meld score 20 points, 90 days mortality 3 to 4% DVT prophylaxis not indicated since patient has platelets of only 66. Full code Present on Admission?: Yes (2) Hypokalemia: Monitor potassium and magnesium and replenish daily as needed. Present on Admission?: Yes (3) Hypomagnesemia: As the above (4) Hyperammonemia: Check ammonia level daily, started lactulose 30 g p.o. twice daily CT scan for hepatic encephalopathy pending Present on Admission?: Yes (5) Diabetes mellitus with insulin therapy: Accu-Cheks before meals and at bedtime Glycemic control per pharmacy consult Present on Admission?: Yes (6) Thrombocytopenia: Monitor platelets -at this point 66. No signs of internal or external bleeding. Whole body evaluated there is no ecchymosis or bruising. Present on Admission?: Yes History of Present Illness Chief Complaint: Frequent falls Primary Care Provider: Florencio Kapoor MD Patient is a 68 years old male with past medical history of congestive heart failure, liver cirrhosis, chronic anemia, obstructive sleep apnea, BPH, alcohol abuse who presents to the emergency room with a complaint of frequent falls and swelling of his lower extremities in the past several weeks. Patient denies any fall when he injured his head or has had any kind of fracture. Patient does not appear having wounds on his body. His lower extremities all up until nail pinedo are extremely swollen. Patient said he consumes approximately 3 beers per day. Patient denies fever chills headache chest pain shortness of breath abdominal pain frequency urgency he reports a weight gain possibly 10 to 20 pounds. From review of patient's chart it is visible that since November 2016 patient has decreased number of platelets in the range of 70-66, he also has chronic anemia with decreased hemoglobin/hematocrit to 9/28, his INR is elevated 1.5, his Albumin is decreased to 2.1, he has hyponatremia since June 2018 in the range of 133 now 130, his potassium is also low now 3.1, his magnesium was low 1.6, his bilirubin is elevated to 1.7, his AST and ALT are normal 26 and 17, his ammonia level are mildly elevated to 35, his TSH is also elevated 6.31 but his T4 is normal 1.70. Blood alcohol level pending. Urine tox pending. With nose Doppler show no evidence of deep Raynaud's thrombosis. Left lower extremity subcutaneous edema. Suspected left popliteal cyst. Chest x-rays showed small left pleural effusion. Mild stable cardiomegaly lungs otherwise appear clear. Decision was made to admit patient for further observation and treatment to PCU telemetry. Allergies Allergy/AdvReac Type Severity Reaction Status Date / Time Uuaddqy-Lgv-Aje Reductase Allergy Unknown Verified 11/12/18 21:09 Inhibitor Sulfa (Sulfonamide AdvReac Intermediate NAUSEA AND Verified 11/12/18 15:18 Antibiotics) VOMITING adhesive AdvReac Mild REDNESS, Verified 11/12/18 15:18 TAPE WILSON JEWELRY Allergy Unknown RASH Uncoded 11/12/18 15:18 Home Medications Home Medications Medication Instructions Recorded Confirmed Type Novolog U-100 Insulin aspart 6 - 8 unit SUBCUT AC 02/14/18 11/12/18 History citalopram 20 mg PO QAM 02/14/18 11/12/18 History potassium chloride 20 meq PO BID 04/26/18 11/12/18 History torsemide 20 mg tablet 40 mg PO BID tab 09/14/18 11/12/18 History insulin NPH isoph U-100 human 24 units SQ QAM 11/12/18 11/12/18 History [Novolin N NPH U-100 Insulin] Past Med/Surg History Medical History Tubular adenoma of colon (Acute) Pseudogynecomastia (Acute) Paroxysmal supraventricular tachycardia (Acute) Panniculitis (Acute) Pancytopenia (Acute) Obesity (Acute) Hyperammonemia (Acute) Glaucoma (Acute) Diabetic neuropathy (Acute) Diabetes mellitus with insulin therapy (Acute) Bilateral edema of lower extremity (Acute) Benign prostatic hyperplasia with urinary obstruction (Acute) Pedroza's esophagus (Acute) Anal ulceration (Acute) Alcoholic cirrhosis of liver (Chronic) Cervical spinal stenosis (Chronic) Depression (Chronic) Diabetes (Chronic) Gout (Chronic) HLD (hyperlipidemia) (Chronic) HTN (hypertension) (Chronic) MARILYN on CPAP (Chronic) Psoriasis (Chronic) Splenomegaly (Chronic) Statin intolerance (Chronic) T2DM (type 2 diabetes mellitus) (Chronic) Thrombocytopenia (Chronic) Bleeding ulcer (Resolved) Bright red rectal bleeding (Resolved) Infected sebaceous cyst (Resolved) Intertrigo (Resolved) Skin tear of lower leg without complication (Resolved) Cervical spinal stenosis Surgical History S/P gastric bypass (Chronic) "2003" H/O gastric bypass (Resolved) History of cataract extraction (Resolved) Family History Father Cancer Lung disease Brother Brain cancer Diabetes Overdose Daughter , age 29 Overdose Suicide Unknown Cancer Hypertension Diabetes Heart disease Social History Preferred Language: Sudanese Communication Ability: Effective 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 Beliefs That Will Affect Care: None marital status: Single marital status details: has, "lady friend" Current Living Situation: Alone Current Living Situation Comment: own home, step-son, Randy, lives there 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 Other Information That Helps Us Care for You: No Feels Safe at Home: Yes Smoking Status: Current every day smoker Tobacco Type: cigarettes ; Cigarettes Per Day: 1 can snuff a week ; Do You Dip or Chew Tobacco: Yes ; Second Hand Exposure: Yes ; Tobacco Cessation Education Requested by Patient: Yes Hx Alcohol Use: Yes Alcohol type: beer Hx Substance Use: No Review of Systems Review of Systems: All systems reviewed & are unremarkable except as noted in HPI & below Physical Exam Constitutional: WD/WN, vitals as above well developed and + morbidly obese Eyes: PERRL, conjunctivae normal, anicteric sclerae ENMT: external ear and nose normal, oropharynx normal Neck: trachea midline, no thyromegaly Respiratory: normal respiratory effort, lungs clear to auscultation Cardiovascular: Heart Sounds: normal S1 and normal S2 Palpation: + palpable S3 Bilateral lower extremity edema 3+,anasarca Chest (Breasts): Additional Comments: gynecomastia-bilateral Gastrointestinal (Abdomen): Percussion/Palpation: + hepatomegaly and + fluid wave Abdomen distended , dullness to percussion soft nontender distended Skin: + dry skin Neurologic: patellar DTR's 2+ bilat, sensation intact Psychiatric: Alert and oriented but poor judgment Results & Data Vital Signs (Past 12 Hours) Vital Signs Temp Pulse Pulse Resp BP BP BP 11/12/18 20:45 36.9 C 98 H 18 129/76 11/12/18 19:57 95 H 18 120/72 11/12/18 18:55 94 H 19 120/80 11/12/18 16:58 105 H 20 107/76 11/12/18 15:34 11/12/18 15:30 94 H 20 108/63 11/12/18 14:52 36.8 C 120 H 15 119/70 Pulse Ox 11/12/18 20:45 98 11/12/18 19:57 98 11/12/18 18:55 96 11/12/18 16:58 98 11/12/18 15:34 96 11/12/18 15:30 97 11/12/18 14:52 98 Code Status & VTE Plan Code Status Full code VTE Prophylaxis Plan VTE Prophylaxis will be ordered: No PG Care Time/CCT Total # of Minutes Spent Total Time Spent with Patient: Total time spent is greater than 50% in co ordination of care (as documented) at patient's floor/unit and/or counseling patient: (1) Cirrhosis Ascites presence: unspecified Hepatic cirrhosis type: unspecified hepatic cirrhosis Qualified Code(s): K74.60 - Unspecified cirrhosis of liver
[2018-11-12] MEDS ORDERED: cefTRIAXone SODIUM 2,000 MG in DEXTROSE 5% 50 ML IV SCH (23:00)
[2018-11-12 23:01] LABS: Albumin Level 1.9 gm/dl (3.4-5.0); BUN Creatinine Ratio 15.5 (10-20); Calcium 7.9 mg/dl (8.5-10.1); Creatinine Clr Calc Pharmacy 123.2 ml/min; Est GFR (African American) 102.8; Est GFR (Non-African American) 88.7; Potassium 3.2 mmol/L (3.5-5.1)
[2018-11-12 23:04] LABS: Albumin Globulin Ratio 0.4 (0.9-2); Bilirubin,Total 1.3 mg/dl (0.2-1); Globulin 4.9 gm/dl (2.5-4.0); Total Protein 6.8 gm/dl (6.4-8.2)
[2018-11-12] MEDS: INSULIN ASPART 100 UNITS/ML 3 ML PEN SC SCH (23:31)
[2018-11-13] MEDS: POTASSIUM CHLORIDE 10 MEQ TABCR PO SCH ×3 (00:09→20:20)
[2018-11-13] MEDS: BUMETANIDE 1 MG in SYRINGE 0 ML IV SCH ×3 (00:09→17:40)
[2018-11-13] MEDS: LACTULOSE SYRUP 30 GM/45 ML UDP PO SCH ×2 (00:09→07:42)
[2018-11-13 00:19] LABS: Amphetamines+Metham, Urine Neg (Neg); Barbiturates, Urine Neg (Neg); Benzodiazepine, Urine Neg (Neg); Cocaine, Urine Neg (Neg); MDMA (Ecstacy), Urine Neg (Neg); Methadone, Urine Neg (Neg); Opiate, Urine Neg (Neg); Phencyclidine, Urine Neg (Neg)
--- NOTE | 2018-11-13 05:50 | CT Scan Report ---
CT head/brain wo con CLINICAL HISTORY: 68 years-old Male presenting with confusion. TECHNIQUE: Multidetector CT imaging of the head was performed without the use of intravenous contrast . IV contrast: None. One or more dose lowering techniques were used consistent with the principles of ALARA (as low as reasonably achievable), including automatic exposure control, mA or kV adjustment t o individual patient size, and/or use of iterative reconstruction. COMPARISON: 02/14/2018. CT DOSE (mGy.cm): The estimated cumulative dose is 691.05 mGy.cm. 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 Ventricles and sulci normal in size. No hemorrhage. Periventricular and subcortical white matter hypo attenuation, nonspecific but likely indicative of chronic small vessel ischemic change. No acute terr itorial infarct. No mass effect or midline shift. No extra-axial fluid collection. Paranasal sinuses and mastoid air cells clear. Calvarium intact. IMPRESSION: 1. Chronic small vessel ischemic change. No acute intracranial abnormality. Electronically signed by: Alec Mancilla M.D. 11/13/2018 5:49 AM
[2018-11-13 06:28] LABS: Hematocrit (blood only) 25.2 % (42-52); Mean Corpuscular Hemoglobin 25.3 pg (25-34); Mean Corpuscular Hgb Conc 31.7 g/dL (32-36); Mean Corpuscular Volume 79.7 fL (80-100); RDW Coefficient of Variation 17.8 % (11.5-14.5); RDW Standard Deviation 52.3 fL (36.4-46.3); Red Blood Count 3.16 M/uL (4.7-6.1); White Blood Count 2.18 K/uL (4.8-10.8)
[2018-11-13 06:33] LABS: Platelet Count 57 K/uL (130-400)
[2018-11-13] MEDS: MAGNESIUM SULFATE / D5W 1 GM/100 ML BAG IV SCH ×2 (06:33→07:40)
[2018-11-13 06:55] LABS: Albumin Level 1.8 gm/dl (3.4-5.0); BUN Creatinine Ratio 16.7 (10-20); Calcium 7.9 mg/dl (8.5-10.1); Creatinine Clr Calc Pharmacy 138.8 ml/min; Est GFR (African American) 107.9; Est GFR (Non-African American) 93.1; Magnesium 1.5 mg/dl (1.8-2.4); Potassium 3.4 mmol/L (3.5-5.1)
--- NOTE | 2018-11-13 06:55 | Ultrasound Report ---
US liver CLINICAL HISTORY: 68 years-old Male presenting with liver cirrhosis. TECHNIQUE: Real-time grayscale and limited color Doppler ultrasound imaging of the abdomen limited to the right upper quadrant was performed. COMPARISON: 05/26/2018. FINDINGS: Pancreas: Largely obscured due to overlying bowel gas. Liver: Nodular contour with hyperechogenic parenchyma and heterogeneous echotexture, consistent with cirrhosis. The liver measures 15.3 cm in maximal sagittal dimension. No sonographic evidence of hepat ic mass. Main portal vein patent with normal directional flow. Biliary: No intrahepatic biliary ductal dilatation. Common bile duct measures up to 3 mm in diameter. Gallbladder: Decompressed. Questionable hyperechogenic intraluminal contents though no posterior shad owing to suggest gallstones. No evidence of pericholecystic fluid or inflammatory change. Sonographic Doan's sign negative. Right kidney: Normal in appearance without evidence of hydronephrosis. Ascites: Large volume simple appearing ascites.. Other: None. IMPRESSION: Cirrhosis with ascites. Electronically signed by: Alec Mancilla M.D. 11/13/2018 6:54 AM
[2018-11-13 06:56] LABS: Basophils # (auto) 0.03 K/uL (0-0.2); Basophils % (auto) 1.4 %; Eosinophils # (auto) 0.08 K/uL (0-0.5); Eosinophils % (auto) 3.7 %; Giant Platelets 1+; Lymphocytes # (auto) 0.62 K/uL (1.2-3.4); Lymphocytes % (auto) 28.4 %; Microcytosis Present; Monocytes # (auto) 0.33 K/uL (0.11-0.59); Monocytes % (auto) 15.1 %; Neutrophils # (auto) 1.12 K/uL (1.4-6.5); Neutrophils % (auto) 51.4 %
[2018-11-13 07:00] LABS: Albumin Globulin Ratio 0.4 (0.9-2); Bilirubin,Total 1.3 mg/dl (0.2-1); Globulin 4.3 gm/dl (2.5-4.0); Total Protein 6.1 gm/dl (6.4-8.2)
[2018-11-13] MEDS ORDERED: NON-FORMULARY MEDICATION (Insulin Aspart Per Unit 0 UNITS) SQ SCH (07:30)
[2018-11-13] MEDS: CITALOPRAM 20 MG TAB PO SCH (07:42)
[2018-11-13 08:27] LABS: Hepatitis B Surface Ab Quant < 3.10 mIU/mL (>or=10mIU/mL Immune); Hepatitis B Surface Antibody Non-Immune
[2018-11-13] MEDS: INSULIN ASPART 100 UNITS/ML 3 ML PEN SC SCH ×4 (08:35→20:22)
[2018-11-13 08:38] LABS: Hepatitis B Surface Antigen Neg (Neg)
[2018-11-13] MEDS ORDERED: INSULIN NPH ISOPH U HUMAN SQ SCH (09:00)
--- NOTE | 2018-11-13 09:03 | History & Physical Report ---
Date of Service November 13, 2018 History of Present Illness Chief Complaint: Frequent Falls Lower extremity edema Primary Care Provider: Florencio Kapoor MD 68 yo male with a history of htn, hl, type 2 diabetes, reported chf, marilyn, admitted through the ED for frequent falls and lower extremity edema. Drinks 3 beers daily reportedly, still drinking. Workup in ED showed panctyopenia, low na, low ca, low mg, CT head negative, abd karen showing cirrhosis with ascites, patent vessels. This morning without any acute complaints. He knows where he is and who he is. Allergies Allergy/AdvReac Type Severity Reaction Status Date / Time Eeawzqi-Oyr-Sjp Reductase Allergy Unknown Verified 11/12/18 21:09 Inhibitor Sulfa (Sulfonamide AdvReac Intermediate NAUSEA AND Verified 11/12/18 15:18 Antibiotics) VOMITING adhesive AdvReac Mild REDNESS, Verified 11/12/18 15:18 TAPE WILSON JEWELRY Allergy Unknown RASH Uncoded 11/12/18 15:18 Home Medications Home Medications Medication Instructions Recorded Confirmed Type Novolog U-100 Insulin aspart 6 - 8 unit SUBCUT AC 02/14/18 11/12/18 History citalopram 20 mg PO QAM 02/14/18 11/12/18 History potassium chloride 20 meq PO BID 04/26/18 11/12/18 History torsemide 20 mg tablet 40 mg PO BID tab 09/14/18 11/12/18 History insulin NPH isoph U-100 human 24 units SQ QAM 11/12/18 11/12/18 History [Novolin N NPH U-100 Insulin] Past Med/Surg History Medical History Tubular adenoma of colon (Acute) Pseudogynecomastia (Acute) Paroxysmal supraventricular tachycardia (Acute) Panniculitis (Acute) Pancytopenia (Acute) Obesity (Acute) Hyperammonemia (Acute) Glaucoma (Acute) Diabetic neuropathy (Acute) Diabetes mellitus with insulin therapy (Acute) Bilateral edema of lower extremity (Acute) Benign prostatic hyperplasia with urinary obstruction (Acute) Pedroza's esophagus (Acute) Anal ulceration (Acute) Alcoholic cirrhosis of liver (Chronic) Cervical spinal stenosis (Chronic) Depression (Chronic) Diabetes (Chronic) Gout (Chronic) HLD (hyperlipidemia) (Chronic) HTN (hypertension) (Chronic) MARILYN on CPAP (Chronic) Psoriasis (Chronic) Splenomegaly (Chronic) Statin intolerance (Chronic) T2DM (type 2 diabetes mellitus) (Chronic) Thrombocytopenia (Chronic) Bleeding ulcer (Resolved) Bright red rectal bleeding (Resolved) Infected sebaceous cyst (Resolved) Intertrigo (Resolved) Skin tear of lower leg without complication (Resolved) Cervical spinal stenosis Surgical History S/P gastric bypass (Chronic) "2002" H/O gastric bypass (Resolved) History of cataract extraction (Resolved) Family History Father Cancer Lung disease Brother Brain cancer Diabetes Overdose Daughter , age 29 Overdose Suicide Unknown Cancer Hypertension Diabetes Heart disease Social History Preferred Language: Georgian Communication Ability: Effective Colorist Required: No Beliefs That Will Affect Care: None marital status: Single marital status details: has, "lady friend" Current Living Situation: Alone Current Living Situation Comment: own home, step-son, Randy, lives there 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 [employer] Other Information That Helps Us Care for You: No Feels Safe at Home: Yes Smoking Status: Current every day smoker Tobacco Type: cigarettes ; Cigarettes Per Day: 1 can snuff a week ; Do You Dip or Chew Tobacco: Yes ; Second Hand Exposure: Yes ; Tobacco Cessation Education Requested by Patient: Yes Hx Alcohol Use: Yes Alcohol type: beer Hx Substance Use: No Review of Systems All systems reviewed & are unremarkable except as noted in HPI & below Physical Exam Physical Exam: Disheveled white male in nad Eyes: PERRL, conjunctivae normal, anicteric sclerae Respiratory: normal respiratory effort, lungs clear to auscultation Gastrointestinal (Abdomen): normal bowel sounds, soft, nontender, no hepatosplenomegaly Results & Data Vital Signs (Past 12 Hours) Vital Signs Temp Pulse Pulse Resp BP Pulse Ox 11/13/18 07:22 36.8 C 93 H 18 101/57 L 97 11/13/18 04:21 36.7 C 79 18 92/48 L 96 11/12/18 23:25 36.7 C 87 19 104/65 97 11/12/18 22:25 77 11/12/18 22:14 36.9 C 98 H 18 129/76 98 11/12/18 21:02 94 H Labs reviewed Meld sendy 10 driven by INR and Na (Na 133, INR 1.5, Cr 0.8, TB 1.3) Ast/ALT normal depite drinking reviewed abd karen and doppler Chronic microcytic anemia Code Status & VTE Plan VTE Prophylaxis Plan VTE Prophylaxis will be ordered: No Supervising Physician Co-Signing Physician Notes 68 yo male with a history of htn, hl, type 2 dm, alcohol use, admitted with frequent falls and lower leg swelling. imaging c/w cirrhosis and ascites. Etiology- ?cardiac versus alcohol use. Lab parameters indicating no evidence of alcoholic hepaitis. MELD sendy 10. Would correct electrolytes. Low dose diuretics (lasix 20, aldactone 50) when electrolytes are repleted. He will need outpatient egd/colon for chronic microctyic anemia- would check iron studies. Alcohol cessation is highly recommended for him. Diagnostic tap fo ascites with calculated saag and total protein could determine etiology of cirrhosis (if saag less than 1.1 and total protein less than 2.5 more likely cirrhosis from intrinisic liver disease). He can have outpatient hepatology follow-up in 2-[address] Decker with GI. Last colon per [facility] records in was in 2018 with poor prep. Last egd in 2008.
[2018-11-13 09:06] LABS: Hepatitis C IgG 13Yrs+Old_Rflx Neg (Neg)
[2018-11-13] MEDS ORDERED: PERFLUTREN LIPID MICROSPHERE (DEFINITY) IV ONE (09:52)
--- NOTE | 2018-11-13 10:12 | Pharmacy Report ---
Pharmacy Glycemic Short Note 2 - Date of Service November 13, 2018 - Glycemic Short BSG Results (Last 24 hours): 11/12/18 11/12/18 11/12/18 15:15 17:11 22:33 Glucose 69 L 119 H POC Glucose 103 H 11/12/18 11/13/18 11/13/18 23:26 06:11 07:25 Glucose 103 H POC Glucose 121 H 167 H OUTPATIENT ANTIDIABETIC REGIMEN: * NPH 24 units sq qAM + Novolog 6-8 units AC * A1c = 5.1% 06/17/18 ASSESSMENT: * 68 yr old T2DM male admitted through the ED for frequent falls and lower extremity edema. * Pt has demonstrated good glycemic control since time of admission. He is on a combination of NPH + novolog at home and this will be continued during his stay. No significant risk factors for hyperglycemia at this time. * I have ordered a reduced dose of basal insulin for day 1. Will titrate to home dose as appropriate. PLAN FOR INPATIENT GLYCEMIC CONTROL: * Basal insulin * NPH 18 units SQ qAM * Bolus insulin * NovoLog per scale ACHS or Q6hrs while NPO * Goal Range: Low 110 mg/dL - High 140 mg/dL * Correction Factor: 20 mg/dL/unit * Nutritional / Prandial insulin per carb ratio of 1 unit per 7 grams CHO consumed PLAN FOR DISCHARGE: * A1c of 5.1% indicates excellent glyemic control * Continue current outpatient regimen
[2018-11-13] MEDS: INSULIN HUMAN NPH SC SCH (11:02)
--- NOTE | 2018-11-13 17:40 | Cardiology Consultation ---
Date of Consultation November 13, 2018 Assessment & Plan (1) Edema: Suspect the patient significant lower extremity edema is related to his hypoalbuminemia from his chronic liver disease. He does demonstrate left ventricular hypertrophy and evidence of diastolic dysfunction on his echocardiog yasmine. This may also be a contributing factor to his hypervolemia. (2) LVH (left ventricular hypertrophy): Mild left ventricle hypertrophy noted on his current echocardiogram. He also has evidence of diastolic dysfunction. (3) Diastolic dysfunction: As above, his diastolic dysfunction could be a factor in his hypervolemia. (4) Cirrhosis: Suspect his hypo albuminemia is a major cause of his lower extremity edema. Agree with aggressive diuresis. History of Present Illness Attending Physician: Brayan Serna, History of Present Illness The patient is a 68-year-old male admitted yesterday with significant hypervolemia. This consultation was order to assistance management. The patient is symptoms began 6-12 months ago. He began to note progressive lower extremity edema, however, this has progressed more rapidly over the last 4-6 weeks. This has also made ambulation difficult and he has had several falls. He presented to the emergency room for further care. The patient has been diagnosed with alcoholic cirrhosis, and continues to drink on a daily basis. The patient has never experienced exertional chest pain or limiting dyspnea. He further denies syncope, presyncope, PND, orthopnea, palpitations, and claudication. Currently, patient is resting comfortably in bed without complaints. We have discussed results of his echocardiogram which noted normal left ventricular systolic function. Past medical and surgical history 1. Hypertension 2. Paroxysmal SVT 3. Diabetes mellitus 4. Morbid obesity 5. Obstructive sleep apnea 6. Gastric bypass surgery-2002 7. Alcoholic cirrhosis 8. GERD 9. Pedroza's esophagus 10. Cervical spinal DJD 11. Psoriasis 12. BPH 13. Depression 14. Gout 15. Glaucoma 16. History DVT Social history , lives alone Currently on disability No tobacco Three beers every day Family history Father at 67 from a carcinoma Mother in her 80s of old age. Review of systems A 10 point review of systems was undertaken and negative except for that described above. Allergies Allergy/AdvReac Type Severity Reaction Status Date / Time Kccphzf-Idu-Lmv Reductase Allergy Unknown Verified 11/12/18 21:09 Inhibitor Sulfa (Sulfonamide AdvReac Intermediate NAUSEA AND Verified 11/12/18 15:18 Antibiotics) VOMITING adhesive AdvReac Mild REDNESS, Verified 11/12/18 15:18 TAPE WILSON JEWELRY Allergy Unknown RASH Uncoded 11/12/18 15:18 Home Medications Home Medications Medication Instructions Recorded Confirmed Type Novolog U-100 Insulin aspart 6 - 8 unit SUBCUT AC 02/14/18 11/12/18 History citalopram 20 mg PO QAM 02/14/18 11/12/18 History potassium chloride 20 meq PO BID 04/26/18 11/12/18 History torsemide 20 mg tablet 40 mg PO BID tab 09/14/18 11/12/18 History insulin NPH isoph U-100 human 24 units SQ QAM 11/12/18 11/12/18 History [Novolin N NPH U-100 Insulin] Patient History Medical History Tubular adenoma of colon (Acute) Pseudogynecomastia (Acute) Paroxysmal supraventricular tachycardia (Acute) Panniculitis (Acute) Pancytopenia (Acute) Obesity (Acute) Hyperammonemia (Acute) Glaucoma (Acute) Diabetic neuropathy (Acute) Diabetes mellitus with insulin therapy (Acute) Bilateral edema of lower extremity (Acute) Benign prostatic hyperplasia with urinary obstruction (Acute) Pedroza's esophagus (Acute) Anal ulceration (Acute) Alcoholic cirrhosis of liver (Chronic) Cervical spinal stenosis (Chronic) Depression (Chronic) Diabetes (Chronic) Gout (Chronic) HLD (hyperlipidemia) (Chronic) HTN (hypertension) (Chronic) MARILYN on CPAP (Chronic) Psoriasis (Chronic) Splenomegaly (Chronic) Statin intolerance (Chronic) T2DM (type 2 diabetes mellitus) (Chronic) Thrombocytopenia (Chronic) Bleeding ulcer (Resolved) Bright red rectal bleeding (Resolved) Infected sebaceous cyst (Resolved) Intertrigo (Resolved) Skin tear of lower leg without complication (Resolved) Cervical spinal stenosis Surgical History S/P gastric bypass (Chronic) "2002" H/O gastric bypass (Resolved) History of cataract extraction (Resolved) Family History Father Cancer Lung disease Brother Brain cancer Diabetes Overdose Daughter , age 29 Overdose Suicide Unknown Cancer Hypertension Diabetes Heart disease Social History Preferred Language: Bhutanese Communication Ability: Effective Material Handler Required: No Beliefs That Will Affect Care: None marital status: Single marital status details: has, "lady friend" Current Living Situation: Alone Current Living Situation Comment: own home, step-son, Randy, lives there 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 HEENT exam is negative. Neck is supple with full carotid upstrokes. No carotid bruits. Jugular venous pressure is flat at 90 degrees. There is no thyromegaly. Cardiovascular exam reveals a regular rhythm with a normal S1 and S2. Heart sounds are distant. No obvious murmurs. Lungs note decreased breath sounds at the bases but no rales, rhonchi, or wheezes. Abdomen is obese without bruits. Extremities reveal 3+ pitting edema distal to the knee. 2+ thigh edema is noted. Results & Data Vital Signs (Past 12 Hours) Vital Signs Temp Pulse Resp BP Pulse Ox 11/13/18 15:05 36.8 C 78 18 111/63 97 11/13/18 11:50 36.8 C 110 H 18 93/62 L 96 11/13/18 07:22 36.8 C 93 H 18 101/57 L 97 Laboratory Results CBC notes a hemoglobin 8.0, hematocrit 25.2, white count 2.18, [place] [address]. Electrolytes noted sodium 133, potassium 3.4, chloride 94, bicarb 36, BUN 3, creatinine 0.8, and glucose of 103. BNP is 900 75. TSH is elevated at 6.31. Albumin is significant lead decreased at 1.8. Diagnostic Findings EKG notes sinus rhythm with first-degree AV block, left axis deviation, and poor R-wave progression across the anterior precordium. Chest x-ray notes cardiomegaly and left-sided pleural effusion. Echocardiogram notes normal left ventricular systolic function with ejection fraction of 65-70 percent. There is mild LVH and evidence of diastolic dysfunction. PG Care Time/CCT Total # of Minutes Spent Total Time Spent with Patient: Total time spent is greater than 50% in coordination of care (as documented) at patient's floor/unit and/or counseling patient: (1) Edema Edema type: unspecified Qualified Code(s): R60.9 - Edema, unspecified (2) Cirrhosis Ascites presence: unspecified Hepatic cirrhosis type: unspecified hepatic cirrhosis Qualified Code(s): K74.60 - Unspecified cirrhosis of liver
[2018-11-13] MEDS ORDERED: POTASSIUM CHLORIDE 20 MEQ TABCR PO ONE (19:00)
[2018-11-13] MEDS: MAGNESIUM OXIDE 400 MG TAB PO SCH (20:19)
--- NOTE | 2018-11-13 22:10 | Family Medicine Progress Note ---
Date of Service November 13, 2018 Assessment & Plan (1) Edema: Juan Francisco Weathers is a 68 year old man with a history of alcohol abuse and alcoholic cirrhosis (With probable NAFLD/GIORDANO contributing with history of poorly controlled diabetes). He presents with failure to thrive and multiple falls at home and largely edematous lower extremity edema. Failure to thrive Primary issue, patient is not functioning at home Not able to walk around home without falling, arms covered in bruises patient found by home nursing covered in own feces. Due to difficulty getting to bathroom patient has not been taking his diuretic medication and his swelling has gotten worse. Patient needs rehabilitation and possible biology intern assisted living as he has progressive liver cirrhosis without hope for transplant as he continues to drink. PT/OT ordered Lower extremity edema Secondary to cirrhosis, hypoalbuminemia, immobility and not taking his prescribed torsemide and aldactone I think this is very unlikely to be cardiac related. GI consulted Will give bumex IV and continue to monitor volume status Will try to get patient stronger through rehab so he is able to ambulate and use his diuretics at home Doppler negative BNP negative on admission Hypokalemia Back up to 3.4 this morning Will continue to monitor and replete as needed Hypomagnesemia 1.5 this morning Patient on Mag Ox 400 mg Will continue to monitor and replete as needed Anemia GI recommending outpatient scope for chronic microcytic anemia Will order iron studies at this time Diabetes Pharmacy consulted on sliding scale Hypoglycemia this morning doing better now. THrombocytopenia chronic and stable at 68 currently will continue to monitor DVT PPx not indicated with thrombocytopenia F/E/N: Low sodium diabetic diet Dispo: Med-Surg (2) Cirrhosis: (3) Ascites: Supervising Physician Co-Signing Physician Notes I personally examined the patient and verified all olivarez points of history and exam, discussed case, and agree with decision making with Dr Gusman. Biggest problem is just weakness. Relates weakness to worsening edema. No other new complaints. Would like to go to rehab. Vitals noted, in general he is awake and alert pleasant no distress. HEENT normocephalic atraumatic mucous membranes moist. Breathing unlabored no accessory muscle use good effort. Skin shows no rashes no pallor or icterus. Diffuse edema. Weaknessseems to be deconditioning plus edema (likely from back pressure from ascites) making his legs have you are making it harder to walk. PT/OT eval and treat. Stable for medical. Otherwise as above. Subjective Juan Francisco Bliss is resting comfortably this morning watching football. He has no concerns at the present time other than wanting to get some physical therapy and rehab. He does not endorse any pain or discomfort Review of Systems Review of Systems: All systems reviewed & are unremarkable except as noted in HPI & below Physical Exam Constitutional: + obese, cooperative, comfortable, + overweight and + e dematous; no acute distress Eyes: PERRL, conjunctivae normal, anicteric sclerae Respiratory: normal respiratory effort, lungs clear to auscultation Cardiovascular: Rate/Rhythm: regular rate and regular rhythm Heart Sounds: normal S1 and normal S2; no click, no gallop, no murmur and no cardiac rub Extremities: + edema (3+ pitting edema bilaterally to knee) Results & Data Vital Signs (Past 12 Hours) Vital Signs Temp Pulse Resp BP Pulse Ox 11/13/18 15:05 36.8 C 78 18 111/63 97 11/13/18 11:50 36.8 C 110 H 18 93/62 L 96 PG Care Time/CCT Total # of Minutes Spent Total Time Spent with Patient: Total time spent is greater than 50% in coordination of care (as documented) at patient's floor/unit and/or counseling patient: Resident Activity Tracking Resident Involvement: Resident Care Provided Care Provided: Adult Hospital Medicine
[2018-11-14] MEDS ORDERED: MICONAZOLE NITRATE POWDER 43 GM EXT PRN (05:52)
[2018-11-14 06:01] LABS: Hematocrit (blood only) 24.3 % (42-52); Hemoglobin 7.6 g/dL (14.0-18.0); Mean Corpuscular Hemoglobin 25.2 pg (25-34); Mean Corpuscular Hgb Conc 31.3 g/dL (32-36); Mean Corpuscular Volume 80.5 fL (80-100); RDW Standard Deviation 53.3 fL (36.4-46.3); Red Blood Count 3.02 M/uL (4.7-6.1); White Blood Count 2.53 K/uL (4.8-10.8)
[2018-11-14 06:03] LABS: Mean Platelet Volume 9.1 fL (7.4-10.4); Platelet Count 57 K/uL (130-400)
[2018-11-14 06:39] LABS: Basophils # (auto) 0.03 K/uL (0-0.2); Basophils % (auto) 1.2 %; Eosinophils # (auto) 0.09 K/uL (0-0.5); Eosinophils % (auto) 3.6 %; Giant Platelets 1+; Hypochromasia Present; Lymphocytes # (auto) 0.61 K/uL (1.2-3.4); Lymphocytes % (auto) 24.1 %; Monocytes # (auto) 0.35 K/uL (0.11-0.59); Monocytes % (auto) 13.8 %; Neutrophils # (auto) 1.45 K/uL (1.4-6.5); Neutrophils % (auto) 57.3 %
[2018-11-14 06:42] LABS: BUN Creatinine Ratio 16.9 (10-20); Calcium 7.5 mg/dl (8.5-10.1); Creatinine Clr Calc Pharmacy 144.2 ml/min; Est GFR (African American) 109.6; Est GFR (Non-African American) 94.6; Magnesium 1.6 mg/dl (1.8-2.4); Potassium 3.1 mmol/L (3.5-5.1)
[2018-11-14] MEDS: MAGNESIUM OXIDE 400 MG TAB PO SCH ×2 (07:58→21:02)
[2018-11-14] MEDS: POTASSIUM CHLORIDE 10 MEQ TABCR PO SCH (07:58)
[2018-11-14] MEDS: CITALOPRAM 20 MG TAB PO SCH (07:58)
[2018-11-14] MEDS: BUMETANIDE 1 MG in SYRINGE 0 ML IV SCH ×2 (07:59→17:29)
[2018-11-14] MEDS: INSULIN HUMAN NPH SC SCH (08:20)
[2018-11-14] MEDS ORDERED: POTASSIUM CHLORIDE 20 MEQ TABCR PO STA (08:28)
[2018-11-14] MEDS: INSULIN ASPART 100 UNITS/ML 3 ML PEN SC SCH ×4 (08:41→21:08)
--- NOTE | 2018-11-14 10:02 | Gastroenterology Progress Note ---
Date of Service November 14, 2018 Supervising Physician Co-Signing Physician Notes 68 yo male with chf, cirrhosis (presumably espinosa versus cardiogenic), admitted with falls and lower leg edema. Being diuresed. Would ensure electrolytes are repleted. Diagnostic tap with saag and total protein would be beneficial. MELD labs daily. Limit tylenol to less than 2 grams daily and also salt to less than 2 grams daily Slighty downtrend in hgb but likely from diuresis as no signs of overt gi bleeding. Subjective No acute complaints Just finished breakfast Moved to the 4th floor Seen by cardiology- getting diuresed Review of Systems Review of Systems: All systems reviewed & are unremarkable except as noted in HPI & below Physical Exam Physical Exam: Elderly male lying in bed in no acute distress Eyes: PERRL, conjunctivae normal, anicteric sclerae Gastrointestinal (Abdomen): Distended abdomen but not tight, +bs Results & Data Vital Signs (Past 12 Hours) Vital Signs Temp Pulse Resp BP Pulse Ox 11/14/18 08:00 36.8 C 76 20 95/58 L 97 11/13/18 22:42 36.8 C 84 20 141/66 H 97 Labs reviewed MELD sendy stable
[2018-11-14] MEDS ORDERED: MAGNESIUM OXIDE 400 MG TAB PO STA (12:01)
--- NOTE | 2018-11-14 12:21 | Family Medicine Progress Note ---
Date of Service November 14, 2018 Assessment & Plan (1) Edema: Juan Francisco Weathers is a 68 year old man with a history of alcohol abuse and alcoholic cirrhosis (With probable NAFLD/GIORDANO contributing with history of poorly controlled diabetes). He presents with failure to thrive and multiple falls at home and largely edematous lower extremity edema. Failure to thrive Primary issue, patient is not functioning at home Not able to walk around home without falling, arms covered in bruises patient f ound by home nursing covered in own feces. Due to difficulty getting to bathroom patient has not been taking his diuretic medication and his swelling has gotten worse. Patient needs rehabilitation and possible [facility] assisted [facility] as he has progressive liver cirrhosis without hope for transplant as he continues to drink. Patient today tells me that he will finally give up drinking completely. PT/OT ordered awaiting input on need for rehab placement Lower extremity edema Secondary to cirrhosis, hypoalbuminemia, immobility and not taking his prescribed torsemide and aldactone I think this is very unlikely to be cardiac related, cards consulted by admitting provider and is in agreement Will give bumex IV and continue to monitor volume status Will try to get patient stronger through rehab so he is able to ambulate and use his diuretics at home Doppler negative BNP negative on admission Hypokalemia Potassium 3.1 this morning Will continue to monitor and replete as needed Hypomagnesemia 1.6 this morning Patient on Mag Ox 400 mg BID Gave extra 200 mg today Will continue to monitor and replete as needed Anemia GI recommending outpatient scope for chronic microcytic anemia Will order iron studies at this time Diabetes Pharmacy consulted on sliding scale Hypoglycemia this morning doing better now. THrombocytopenia chronic and stable at 68 currently will continue to monitor DVT PPx not indicated with thrombocytopenia F/E/N: Low sodium diabetic diet Dispo: Med-Surg (2) Cirrhosis: (3) Ascites: Supervising Physician Co-Signing Physician Notes I personally examined the patient and verified all olivarez points of history and exam, discussed case, and agree with decision making with Dr Gusman. No new complaints or issues. Edema about the same. Hoping to go to rehab tomorrow. Vitals noted, in general he is awake and alert pleasant no distress. HEENT normocephalic atraumatic mucous membranes moist. Breathing unlabored no accessory muscle use good effort. Skin shows no rashes no pallor or icterus. Diffuse edema bilateral lower extremities, visible ascites.. Weaknessseems to be deconditioning plus edema (likely from back pressure from ascites) making his legs heavier and thereby making it harder to walk. PT/OT eval and treat. Hopefully rehab placement once it can be arranged Subjective Juan Francisco Bliss feels the same, continues to feel too weak to function at home, eagerly awaiting physical therapy. Swollen legs remain problematic. No pain or discomfort this morning. Review of Systems Review of Systems: All systems reviewed & are unremarkable except as noted in HPI & below Physical Exam Constitutional: + obese, cooperative, comfortable, + overweight and + edematous; no acute distress Eyes: PERRL, conjunctivae normal, anicteric sclerae Respiratory: normal respiratory effort, lungs clear to auscultation Cardiovascular: Rate/Rhythm: regular rate and regular rhythm Heart Sounds: normal S1 and normal S2; no click, no gallop, no murmur and no cardiac rub Extremities: + edema (3+ pitting edema bilaterally to knee) Results & Data Vital Signs (Past 12 Hours) Vital Signs Temp Pulse Resp BP Pulse Ox 11/14/18 08:00 36.8 C 76 20 95/58 L 97 PG Care Time/CCT Total # of Minutes Spent Total Time Spent with Patient: Total time spent is greater than 50% in coordination of care (as documented) at patient's floor/unit and/or counseling patient: Resident Activity Tracking Resident Involvement: Resident Care Provided Care Provided: Adult Hospital Medicine
--- NOTE | 2018-11-14 14:48 | Pharmacy Report ---
Pharmacy Glycemic Short Note 2 - Date of Service November 14, 2018 - Glycemic Short BSG Results (Last 24 hours): 11/13/18 11/13/18 11/14/18 16:23 19:49 05:35 Glucose 80 POC Glucose 71 141 H 11/14/18 11/14/18 08:22 11:41 Glucose POC Glucose 90 140 H OUTPATIENT ANTIDIABETIC REGIMEN: * NPH 24 units sq qAM + Novolog 6-8 units AC * A1c = 5.1% 06/17/18 ASSESSMENT: 11/14: * Mr. Bliss has displayed excellent glycemic control over the past 24 hours. He received 39 units of insulin on 11/13. * Fasting BSG is at goal, however I will decrease NPH by 16% due to dinner BSG of 71 mg/dL yesterday. * Of note, patient did not receive reduced dose of NPH today due to back order clerk error. First dose will be given 9/2 AM. Extra BSG check with coverage has been added for midnight incase BSGs would start to trend up. 11/13: * 68 yr old T2DM male admitted through the ED for frequent falls and lower extremity edema. * Pt has demonstrated good glycemic control since time of admission. He is on a combination of NPH + novolog at home and this will be continued during his stay. No significant risk factors for hyperglycemia at this time. * I have ordered a reduced dose of basal insulin for day 1. Will titrate to home dose as appropriate. PLAN FOR INPATIENT GLYCEMIC CONTROL: * Basal insulin - decrease * NPH 15 units SQ qAM * Bolus insulin * NovoLog per scale ACHS or Q6hrs while NPO * Goal Range: Low 110 mg/dL - High 140 mg/dL * Correction Factor: 20 mg/dL/unit * Nutritional / Prandial insulin per carb ratio of 1 unit per 7 grams CHO consumed PLAN FOR DISCHARGE: * A1c of 5.1% indicates excellent glyemic control * Continue current outpatient regimen
[2018-11-14 21:46] LABS: Ferritin 36.3 ng/ml (8-388)
[2018-11-15] MEDS ORDERED: INSULIN ASPART 100 UNITS/ML 3 ML PEN SC SCH
[2018-11-15 06:15] LABS: Hematocrit (blood only) 23.9 % (42-52); Hemoglobin 7.5 g/dL (14.0-18.0); Mean Corpuscular Hemoglobin 25.7 pg (25-34); Mean Corpuscular Hgb Conc 31.4 g/dL (32-36); Mean Corpuscular Volume 81.8 fL (80-100); RDW Coefficient of Variation 18.2 % (11.5-14.5); RDW Standard Deviation 54.8 fL (36.4-46.3); Red Blood Count 2.92 M/uL (4.7-6.1)
[2018-11-15 06:24] LABS: Mean Platelet Volume 8.8 fL (7.4-10.4); Platelet Count 56 K/uL (130-400)
[2018-11-15 06:39] LABS: Basophils # (auto) 0.04 K/uL (0-0.2); Basophils % (auto) 1.7 %; Eosinophils # (auto) 0.12 K/uL (0-0.5); Lymphocytes # (auto) 0.65 K/uL (1.2-3.4); Lymphocytes % (auto) 27.1 %; Monocytes # (auto) 0.35 K/uL (0.11-0.59); Monocytes % (auto) 14.6 %; Neutrophils # (auto) 1.24 K/uL (1.4-6.5); Neutrophils % (auto) 51.6 %; RBC Morphology Unremarkable
[2018-11-15 06:53] LABS: BUN Creatinine Ratio 17.2 (10-20); Calcium 7.8 mg/dl (8.5-10.1); Creatinine Clr Calc Pharmacy 133.7 ml/min; Est GFR (African American) 106.3; Est GFR (Non-African American) 91.7; Magnesium 1.7 mg/dl (1.8-2.4); Potassium 3.7 mmol/L (3.5-5.1)
[2018-11-15] MEDS: CITALOPRAM 20 MG TAB PO SCH (08:24)
[2018-11-15] MEDS: MAGNESIUM OXIDE 400 MG TAB PO SCH ×2 (08:24→21:22)
[2018-11-15] MEDS: INSULIN ASPART 100 UNITS/ML 3 ML PEN SC SCH ×4 (08:25→21:23)
[2018-11-15] MEDS: INSULIN HUMAN NPH SC SCH (08:25)
[2018-11-15] MEDS: BUMETANIDE 1 MG in SYRINGE 0 ML IV SCH ×2 (08:25→18:14)
[2018-11-15] MEDS: ALUMINUM/MAGNESIUM SUSP 30 ML UDC PO PRN (08:31)
--- NOTE | 2018-11-15 09:35 | Gastroenterology Progress Note ---
Date of Service November 15, 2018 Supervising Physician Co-Signing Physician Notes 68 yo male with cirrhosis unclear etiology. ? espinosa versus cardiac. Diuresing given lower leg swelling and ascites. Labs tolerating it tho slight downtrend in hgb. Would still consider diagnostic tap (if saag greater than 1.1 and total protein, more likely etiology to cirrhosis and presumably espinosa). Low MELD. He will need outpt hepatology follow-up in 4 weeks. Subjective No acute complaints Diuresing Review of Systems Review of Systems: All systems reviewed & are unremarkable except as noted in HPI & below Physical Exam Physical Exam: Sitting in bed in no acute distress, eating lunch Eyes: PERRL, conjunctivae normal, anicteric sclerae Respiratory: normal respiratory effort, lungs clear to auscultation Cardiovascular: RRR, no murmur, no edema Gastrointestinal (Abdomen): normal bowel sounds, soft, nontender, no hepatosplenomegaly Distended Results & Data Vital Signs (Past 12 Hours) Vital Signs Temp Pulse Pulse Resp BP Pulse Ox 11/15/18 07:29 36.7 C 75 16 107/63 96 11/14/18 23:29 89 18 98 11/14/18 23:00 36.7 C 71 20 102/59 L 100 Labs reviewed- slight down trend in hgb but no bun rise, suspect this is from diuresis WBC 2.4/hgb 7.5/Hct 23.9/plt56 INR 1.5 Na 137/K3.7/Cl97/C0235/Bun14/Cr 0.83 TB 1.3
--- NOTE | 2018-11-15 15:39 | Family Medicine Progress Note ---
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 He presents with failure to thrive and multiple falls at home and largely edematous lower extremity edema. Failure to thrive -concern about functionality at home -difficulty with bathroom ambulation, falls, hygiene -rehab needed/[facility] assisted living as he has progressive liver cirrhosis without hope for transplant as he continues to drink. -wants to stop drinking -PT/OT ordered -appreciate recs Lower extremity edema -Likely secondary to cirrhosis, hypoalbuminemia, immobility and noncompliance with torsemide and aldactone -Less likely cardiac cause -continue bumex IV -continue to monitor volume status Hypokalemia/Hypomag -Will continue to monitor and replete as needed Anemia -Iron studies ordered -GI recommending outpatient scope for chronic microcytic anemia Diabetes Pharmacy consulted on sliding scale Appreciate recs Thrombocytopenia -chronic and stable -will continue to monitor DVT PPx: not indicated with thrombocytopenia F/E/N: Low sodium diabetic diet Dispo: Med-Surg (2) Cirrhosis: (3) Ascites: Supervising Physician Co-Signing Physician Notes I personally examined the patient and verified all olivarez points of history and exam, discussed case, and agree with decision making with Dr Gusman. complains about the food. "i'm sick of you guys starving me with this ___ ____ restricted diet! i'm sick of having to have people bring me in food so i can get enough to eat!" no other physical complaints Vitals noted, in general he is awake and alert and in no distress sitting in the chair next to his bed, tray in front of him, having eaten the entirety of his meal except for green beans and one small piece of chicken appearing to be a bone with breading on it. HEENT normocephalic atraumatic mucous membranes moist. Breathing unlabored no accessory muscle use good effort. Skin shows no rashes no pallor or icterus. Diffuse edema bilateral lower extremities, visible ascites.. Weaknessseems to be deconditioning plus edema (likely from back pressure from ascites) making his legs heavier and thereby making it harder to walk. for rehab hopefully tomorrow cirrhosis w ascites - stable for outpt w/u in this regard. agree w GI plan, if he's not able to be discharged to rehab tomorrow would proceed w elective diagnostic tap then, otherwise would do so after d/c. otherwise as above Subjective Mr. Bliss was doing well this AM. Requested a change to his diet. Review of Systems Review of Systems: All systems reviewed & are unremarkable except as noted in HPI & below Physical Exam Physical Exam: General: Alert, oriented. No acute distress HEENT: NC/AT, PERRLA, EOMI, oropharynx moist. Chest: Nontender to palpation. CV: RRR, Normal s1, s2. No murmurs appreciated Resp: Breath sounds clear bilaterally, no increased effort of breathing. No cr ackles/rhonchi/rales. Abdomen: Soft, nontender, nondistended. No guarding. No organomegaly appreciated. Results & Data Vital Signs (Past 12 Hours) Vital Signs Temp Pulse Resp BP Pulse Ox 11/15/18 15:29 36.9 C 80 16 105/63 96 11/15/18 07:29 36.7 C 75 16 107/63 96 Laboratory Results Laboratory Results - last 24 hr 11/14/18 11/14/18 11/14/18 05:35 16:30 21:05 WBC RBC Hgb Hct MCV MCH MCHC RDW Std Deviation RDW Coeff of Santiago Plt Count MPV Immature Gran % (Auto) Neut % (Auto) Lymph % (Auto) Bullock % (Auto) Eos % (Auto) Baso % (Auto) Immature Gran # (Auto) Neut # (Auto) Lymph # (Auto) Bullock # (Auto) Eos # (Auto) Baso # (Auto) RBC Morphology Sodium Potassium Chloride Carbon Dioxide Anion Gap BUN Creatinine Est Cr Clr Drug Dosing Est GFR ( Amer) Est GFR (Non-Af Amer) BUN/Creatinine Ratio Glucose POC Glucose 126 H 125 H Calcium Magnesium Iron 26 L TIBC 230 L Transferrin 148 L Ferritin 36.3 11/15/18 11/15/18 11/15/18 00:18 06:00 06:00 WBC 2.40 L RBC 2.92 L Hgb 7.5 L Hct 23.9 L MCV 81.8 MCH 25.7 MCHC 31.4 L RDW Std Deviation 54.8 H RDW Coeff of Santiago 18.2 H Plt Count 56 L MPV 8.8 Immature Gran % (Auto) 0.0 Neut % (Auto) 51.6 Lymph % (Auto) 27.1 Bullock % (Auto) 14.6 Eos % (Auto) 5.0 Baso % (Auto) 1.7 Immature Gran # (Auto) 0.00 Neut # (Auto) 1.24 L Lymph # (Auto) 0.65 L Bullock # (Auto) 0.35 Eos # (Auto) 0.12 Baso # (Auto) 0.04 RBC Morphology Unremarkable Sodium 137 Potassium 3.7 D Chloride 97 L Carbon Dioxide 35 H Anion Gap 4.0 BUN 14 Creatinine 0.83 Est Cr Clr Drug Dosing 133.7 Est GFR ( Amer) 106.3 Est GFR (Non-Af Amer) 91.7 BUN/Creatinine Ratio 17.2 Glucose 127 H POC Glucose 146 H Calcium 7.8 L Magnesium 1.7 L Iron TIBC Transferrin Ferritin 11/15/18 11/15/18 07:51 11:41 WBC RBC Hgb Hct MCV MCH MCHC RDW Std Deviation RDW Coeff of Santiago Plt Count MPV Immature Gran % (Auto) Neut % (Auto) Lymph % (Auto) Bullock % (Auto) Eos % (Auto) Baso % (Auto) Immature Gran # (Auto) Neut # (Auto) Lymph # (Auto) Bullock # (Auto) Eos # (Auto) Baso # (Auto) RBC Morphology Sodium Potassium Chloride Carbon Dioxide Anion Gap BUN Creatinine Est Cr Clr Drug Dosing Est GFR ( Amer) Est GFR (Non-Af Amer) BUN/Creatinine Ratio Glucose POC Glucose 139 H 176 H Calcium Magnesium Iron TIBC Transferrin Ferritin Medications Administered Home Medications Novolog U-100 Insulin aspart 6 - 8 unit SUBCUT AC 02/14/18 [History Confirmed 11/12/18] citalopram 20 mg PO QAM 02/14/18 [History Confirmed 11/12/18] potassium chloride 20 meq PO BID 04/26/18 [History Confirmed 11/12/18] torsemide 20 mg tablet 40 mg PO BID tab 09/14/18 [History Confirmed 11/12/18] insulin NPH isoph U-100 human [Novolin N NPH U-100 Insulin] 24 units SQ QAM 11/12/18 [History Confirmed 11/12/18] Active Medications Al Hydrox/Mg Hydrox/Simethicone (Maalox) 15 ml PO Q4H PRN PRN Reason: Dyspepsia Stop: 12/12/18 19:12 Last Admin: 11/15/18 08:31 Dose: 15 ml Documented by: Citalopram Hydrobromide (Celexa) 20 mg PO QAM [facility] Stop: 12/13/18 08:59 Last Admin: 11/15/18 08:24 Dose: 20 mg Documented by: Dextrose (Dextrose 50%) 25 - 50 ml IV UD PRN; Protocol PRN Reason: Hypoglycemia Protocol Stop: 12/12/18 21:59 Glucagon (Glucagen) 1 mg IM UD PRN; Protocol PRN Reason: Hypoglycemia Protocol Stop: 12/12/18 21:59 Glucose (Glucose 40%) 15 - 30 gm PO UD PRN; Protocol PRN Reason: Hypoglycemia Protocol Stop: 12/12/18 21:59 Glucose (Dex4 Glucose) 4 - 8 tabs PO UD PRN; Protocol PRN Reason: Hypoglycemia Protocol Stop: 12/12/18 21:59 Bumetanide 1 mg/ Syringe 4 mls @ 4 mls/min IV DAILY@0900,1700 [facility] Stop: 12/12/18 22:59 Last Admin: 11/15/18 08:25 Dose: 4 mls/min Documented by: Insulin Aspart (Novolog Flexpen) 0 units SC ACHS [facility] Stop: 12/12/18 21:59 Last Admin: 11/15/18 12:19 Dose: 13 units Documented by: Insulin Human NPH (Novolin N Nph) 15 units SC QDB [facility] Stop: 12/15/18 07:29 Last Admin: 11/15/18 08:25 Dose: 15 units Documented by: Magnesium Hydroxide (Milk Of Magnesia) 30 ml PO Q12H PRN PRN Reason: Constipation Stop: 12/12/18 19:12 Magnesium Oxide (Mag-Ox) 400 mg PO BID [facility] Stop: 12/13/18 20:59 Last Admin: 11/15/18 08:24 Dose: 400 mg Documented by: Miconazole Nitrate (Desenex) 1 appln EXT PRN PRN PRN Reason: Affected Skin Folds Stop: 12/14/18 05:51 Miscellaneous (Carbohydrates For Hypoglycemia) 15 - 30 gm PO UD PRN PRN Reason: Hypoglycemia Treatment Stop: 12/12/18 21:59 Miscellaneous Information (Consult Glycemic Management Pharmacy) 1 ea N/A UD PRN PRN Reason: Consult Stop: 12/12/18 21:20 Polyethylene Glycol (Miralax Powder Packet) 17 gm PO DAILY PRN PRN Reason: Constipation Stop: 12/12/18 19:12 Zolpidem Tartrate (Ambien) 5 mg PO HS PRN PRN Reason: Sleep Stop: 12/12/18 19:12 PG Care Time/CCT Total # of Minutes Spent Total Time Spent with Patient: Total time spent is greater than 50% in coordination of care (as documented) at patient's floor/unit and/or counseling patient: Resident Activity Tracking Resident Involvement: Resident Care Provided Care Provided: Adult Hospital Medicine
[2018-11-16] MEDS ORDERED: ACETAMINOPHEN 325 MG TAB PO PRN (01:09)
[2018-11-16] MEDS: ZOLPIDEM TARTRATE 5 MG TAB PO PRN ×2 (01:20→03:53)
[2018-11-16] MEDS ORDERED: TRAMADOL HCL 50 MG TABLET PO STA (04:01)
[2018-11-16] MEDS ORDERED: ALUMINUM/MAGNESIUM SUSP 30 ML UDC PO STA (04:01)
[2018-11-16 06:26] LABS: Hematocrit (blood only) 23.1 % (42-52); Hemoglobin 7.3 g/dL (14.0-18.0); Mean Corpuscular Hemoglobin 25.8 pg (25-34); Mean Corpuscular Hgb Conc 31.6 g/dL (32-36); Mean Corpuscular Volume 81.6 fL (80-100); RDW Standard Deviation 54.8 fL (36.4-46.3); Red Blood Count 2.83 M/uL (4.7-6.1); White Blood Count 2.68 K/uL (4.8-10.8)
[2018-11-16 06:39] LABS: Mean Platelet Volume 9.4 fL (7.4-10.4); Platelet Count 64 K/uL (130-400)
[2018-11-16 06:59] LABS: BUN Creatinine Ratio 19.1 (10-20); Calcium 7.6 mg/dl (8.5-10.1); Creatinine Clr Calc Pharmacy 119.4 ml/min; Est GFR (African American) 98.8; Est GFR (Non-African American) 85.2; Magnesium 1.7 mg/dl (1.8-2.4); Potassium 3.7 mmol/L (3.5-5.1)
[2018-11-16 07:28] LABS: Basophils # (auto) 0.04 K/uL (0-0.2); Basophils % (auto) 1.5 %; Eosinophils # (auto) 0.13 K/uL (0-0.5); Eosinophils % (auto) 4.9 %; Giant Platelets 1+; Lymphocytes # (auto) 0.76 K/uL (1.2-3.4); Lymphocytes % (auto) 28.4 %; Monocytes # (auto) 0.41 K/uL (0.11-0.59); Monocytes % (auto) 15.3 %; Neutrophils # (auto) 1.34 K/uL (1.4-6.5); Neutrophils % (auto) 49.9 %
[2018-11-16] MEDS: MAGNESIUM OXIDE 400 MG TAB PO SCH ×2 (07:45→21:10)
[2018-11-16] MEDS: BUMETANIDE 1 MG in SYRINGE 0 ML IV SCH ×2 (07:45→17:59)
[2018-11-16] MEDS: CITALOPRAM 20 MG TAB PO SCH (07:45)
[2018-11-16] MEDS: INSULIN HUMAN NPH SC SCH (08:17)
[2018-11-16] MEDS: INSULIN ASPART 100 UNITS/ML 3 ML PEN SC SCH ×4 (08:18→21:13)
[2018-11-16 08:38] LABS: Hepatitis A Antibody IgM NON-REACTIVE (NON-REACTIVE)
--- NOTE | 2018-11-16 08:42 | Gastroenterology Progress Note ---
Date of Service November 16, 2018 Assessment & Plan (1) Cirrhosis: 68 year old male with cirrhosis, etiology unclear admitted w/ failure to thrive, weakness, volume overload tolerating diuresis No ETOH Less than 2G tylenol if using Low NA diet, less than 2 OP EGD/Colon OP hep follow up Continue diuresis as tolerated Would recommend diagnostic paracentesis w/ SAAG score Thank you for allowing us to participate in the care of this patient. Please call with any acute changes, questions or concerns. Please see addendum below with additional recommendation from my supervising physician. Present on Admission?: Yes Supervising Physician Co-Signing Physician Notes Attending attestation I have seen, examined this patient, and agree with the findings and above by our mid-level provider RAJIV Morales, with the following additions -Known cirrhotic who follows with Dr. Bill. Admitted with volume overload. Improved since admission. Continue gentle diuresis as well as monitoring of electrolytes, Dr. Bill will return tomorrow for further recommendations. Subjective Pt was seen and evaluated, chart reviewed. Completed 100% tray this AM Only concern is that he did not receive oxycodone last night for his chronic pain No abd pain but notes abd tightness No nausea, vomiting Moving bowels Denies any black or bloody stools Review of Systems Constitutional: no fever, no chills and no fatigue Respiratory: no cough, no dyspnea and no wheezing Cardiovascular: no chest pain, no radiating jaw, neck or arm pain and no dyspnea on exertion Gastrointestinal: no abdominal pain, no belching, no coffee ground emesis, no hematemesis, no blood in stools and no melena Physical Exam Constitutional: no acute distress Neck: trachea midline Respiratory: normal respiratory effort; no respiratory distress Cardiovascular: Rate/Rhythm: regular rate and regular rhythm Extremities: + edema (bilat lower) Gastrointestinal (Abdomen): normal bowel sounds, soft, nontender, no hepatosplenomegaly Skin: no rashes, warm and dry Results & Data Vital Signs (Past 12 Hours) Vital Signs Temp Pulse Resp BP Pulse Ox 11/16/18 07:04 36.4 C L 77 20 106/67 95 Laboratory Results 11/16/18 11/16/18 11/16/18 Range/Units 07:56 05:48 05:48 WBC 2.68 L (4.8-10.8) K/uL RBC 2.83 L (4.7-6.1) M/uL Hgb 7.3 L (14.0-18.0) g/dL Hct 23.1 L (42-52) % MCV 81.6 (80-100) fL MCH 25.8 (25-34) pg MCHC 31.6 L (32-36) g/dL RDW Std Deviation 54.8 H (36.4-46.3) fL RDW Coeff of Santiago 18.0 H (11.5-14.5) % Plt Count 64 L (130-400) K/uL MPV 9.4 (7.4-10.4) fL Immature Gran % (Auto) 0.0 % Neut % (Auto) 49.9 % Lymph % (Auto) 28.4 % Rogers % (Auto) 15.3 % Eos % (Auto) 4.9 % Baso % (Auto) 1.5 % Immature Gran # (Auto) 0.00 (0.00-0.02) K/uL Neut # (Auto) 1.34 L (1.4-6.5) K/uL Lymph # (Auto) 0.76 L (1.2-3.4) K/uL Rogers # (Auto) 0.41 (0.11-0.59) K/uL Eos # (Auto) 0.13 (0-0.5) K/uL Baso # (Auto) 0.04 (0-0.2) K/uL Giant Platelets 1+ Sodium 136 (136-145) mmol/L Potassium 3.7 (3.5-5.1) mmol/L Chloride 96 L (98-107) mmol/L Carbon Dioxide 34 H (21-32) mmol/L Anion Gap 6.0 (3-11) BUN 18 (7-18) mg/dl Creatinine 0.93 (0.6-1.4) mg/dl Est Cr Clr Drug Dosing 119.4 ml/min Est GFR ( Amer) 98.8 Est GFR (Non-Af Amer) 85.2 BUN/Creatinine Ratio 19.1 (10-20) Glucose 131 H (70-99) mg/dl POC Glucose 157 H (70-99) Calcium 7.6 L (8.5-10.1) mg/dl Magnesium 1.7 L (1.8-2.4) mg/dl Tumor Marker AFP (<6.1) NG/ML Hepatitis A IgM Ab (NON-REACTIVE) 11/15/18 11/15/18 11/15/18 Range/Units 20:21 16:50 11:41 WBC (4.8-10.8) K/uL RBC (4.7-6.1) M/uL Hgb (14.0-18.0) g/dL Hct (42-52) % MCV (80-100) fL MCH (25-34) pg MCHC (32-36) g/dL RDW Std Deviation (36.4-46.3) fL RDW Coeff of Santiago (11.5-14.5) % Plt Count (130-400) K/uL MPV (7.4-10.4) fL Immature Gran % (Auto) % Neut % (Auto) % Lymph % (Auto) % Rogers % (Auto) % Eos % (Auto) % Baso % (Auto) % Immature Gran # (Auto) (0.00-0.02) K/uL Neut # (Auto) (1.4-6.5) K/uL Lymph # (Auto) (1.2-3.4) K/uL Rogers # (Auto) (0.11-0.59) K/uL Eos # (Auto) (0-0.5) K/uL Baso # (Auto) (0-0.2) K/uL Giant Platelets Sodium (136-145) mmol/L Potassium (3.5-5.1) mmol/L Chloride (98-107) mmol/L Carbon Dioxide (21-32) mmol/L Anion Gap (3-11) BUN (7-18) mg/dl Creatinine (0.6-1.4) mg/dl Est Cr Clr Drug Dosing ml/min Est GFR ( Amer) Est GFR (Non-Af Amer) BUN/Creatinine Ratio (10-20) Glucose (70-99) mg/dl POC Glucose 243 H 161 H 176 H (70-99) Calcium (8.5-10.1) mg/dl Magnesium (1.8-2.4) mg/dl Tumor Marker AFP (<6.1) NG/ML Hepatitis A IgM Ab (NON-REACTIVE) 11/13/18 Range/Units 06:11 WBC (4.8-10.8) K/uL RBC (4.7-6.1) M/uL Hgb (14.0-18.0) g/dL Hct (42-52) % MCV (80-100) fL MCH (25-34) pg MCHC (32-36) g/dL RDW Std Deviation (36.4-46.3) fL RDW Coeff of Santiago (11.5-14.5) % Plt Count (130-400) K/uL MPV (7.4-10.4) fL Immature Gran % (Auto) % Neut % (Auto) % Lymph % (Auto) % Rogers % (Auto) % Eos % (Auto) % Baso % (Auto) % Immature Gran # (Auto) (0.00-0.02) K/uL Neut # (Auto) (1.4-6.5) K/uL Lymph # (Auto) (1.2-3.4) K/uL Rogers # (Auto) (0.11-0.59) K/uL Eos # (Auto) (0-0.5) K/uL Baso # (Auto) (0-0.2) K/uL Giant Platelets Sodium (136-145) mmol/L Potassium (3.5-5.1) mmol/L Chloride (98-107) mmol/L Carbon Dioxide (21-32) mmol/L Anion Gap (3-11) BUN (7-18) mg/dl Creatinine (0.6-1.4) mg/dl Est Cr Clr Drug Dosing ml/min Est GFR ( Amer) Est GFR (Non-Af Amer) BUN/Creatinine Ratio (10-20) Glucose (70-99) mg/dl POC Glucose (70-99) Calcium (8.5-10.1) mg/dl Magnesium (1.8-2.4) mg/dl Tumor Marker AFP 2.0 (<6.1) NG/ML Hepatitis A IgM Ab NON-REACTIVE (NON-REACTIVE)
--- NOTE | 2018-11-16 11:50 | Family Medicine Progress Note ---
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 He presents with failure to thrive and multiple f alls at home and largely edematous lower extremity edema. Awaiting placement at either [facility], [facility] (currently no beds) or [facility]. Failure to thrive -concern about functionality at home -difficulty with bathroom ambulation, falls, hygiene -rehab needed/[facility] assisted living as he has progressive liver cirrhosis without hope for transplant as he continues to drink. -wants to stop drinking -PT/OT ordered -appreciate recs Lower extremity edema -Likely secondary to cirrhosis, hypoalbuminemia, immobility and noncompliance with torsemide and aldactone -Less likely cardiac cause -continue bumex IV -continue to monitor volume status Hypokalemia/Hypomag -Will continue to monitor and replete as needed Anemia -Iron studies ordered -GI recommending outpatient scope for chronic microcytic anemia Diabetes Pharmacy consulted on sliding scale Appreciate recs Thrombocytopenia -chronic and stable -will continue to monitor Back Pain -tramadol prn -will follow up on home meds for pain DVT PPx: not indicated with thrombocytopenia F/E/N: Low sodium diabetic diet Dispo: Med-Surg Supervising Physician Co-Signing Physician Notes I personally examined the patient and verified all olivarez points of history and exam, discussed case, and agree with decision making with Dr Wayne. Feeling about the same. Friend present. Asks a lot of good questions, with the patient's permission I answer all questions to the best of my ability and to patient/friend satisfaction. Unfortunately it appears there is no hope of getting rehab approved today, as we are still waiting on a slow insurance process, since they were not open for several days in spite of the fact that there patients would be in a hospital setting and possibly in need of further care during that time. Vitals noted, in general he is awake and alert and in no distress sitting in the chair next to his bed, tray in front of him, having eaten the entirety of his meal except for green beans and one small piece of chicken appearing to be a bone with breading on it. HEENT normocephalic atraumatic mucous membranes moist. Breathing unlabored no accessory muscle use good effort. Skin shows no rashes no pallor or icterus. Diffuse edema bilateral lower extremities, visible ascites.. Weaknessseems to be deconditioning plus edema (likely from back pressure from ascites) making his legs heavier and thereby making it harder to walk. Still waiting on rehab approval. Fortunately he has not suffered a healthcare associated infection related to his insurance delay induced increased time in the hospital. Unfortunately I would suspect that deconditioning would be worse. cirrhosis w ascites - stable for outpt w/u in this regard. However, since his current stay seems to be fairly open ended to due to insurance issues, we will proceed with a diagnostic and therapeutic paracentesis in the morning. I applauded him yet again on his decision to quit drinking. otherwise as above Subjective Mr. Weathers required use of tramadol overnight for his back pain. Review of Systems Review of Systems: All systems reviewed & are unremarkable except as noted in HPI & below Physical Exam Physical Exam: General: Alert, oriented. No acute distress HEENT: NC/AT, PERRLA, EOMI, oropharynx moist. Chest: Nontender to palpation. CV: RRR, Normal s1, s2. No murmurs appreciated Resp: Breath sounds clear bilaterally, no increased effort of breathing. No crackles/rhonchi/rales. Abdomen: Soft, nontender, nondistended. No guarding. No organomegaly appreciated. Results & Data Vital Signs (Past 12 Hours) Vital Signs Temp Pulse Resp BP Pulse Ox 11/16/18 07:04 36.4 C L 77 20 106/67 95 Laboratory Results Laboratory Results - last 24 hr 11/13/18 11/15/18 11/15/18 06:11 16:50 20:21 WBC RBC Hgb Hct MCV MCH MCHC RDW Std Deviation RDW Coeff of Santiago Plt Count MPV Immature Gran % (Auto) Neut % (Auto) Lymph % (Auto) School[place] % (Auto) Eos % (Auto) Baso % (Auto) Immature Gran # (Auto) Neut # (Auto) Lymph # (Auto) [place] # (Auto) Eos # (Auto) Baso # (Auto) Giant Platelets Sodium Potassium Chloride Carbon Dioxide Anion Gap BUN Creatinine Est Cr Clr Drug Dosing Est GFR ( Amer) Est GFR (Non-Af Amer) BUN/Creatinine Ratio Glucose POC Glucose 161 H 243 H Calcium Magnesium Tumor Marker AFP 2.0 Hepatitis A IgM Ab NON-REACTIVE 11/16/18 11/16/18 11/16/18 05:48 05:48 07:56 WBC 2.68 L RBC 2.83 L Hgb 7.3 L Hct 23.1 L MCV 81.6 MCH 25.8 MCHC 31.6 L RDW Std Deviation 54.8 H RDW Coeff of Santiago 18.0 H Plt Count 64 L MPV 9.4 Immature Gran % (Auto) 0.0 Neut % (Auto) 49.9 Lymph % (Auto) 28.4 Schoolcraft % (Auto) 15.3 Eos % (Auto) 4.9 Baso % (Auto) 1.5 Immature Gran # (Auto) 0.00 Neut # (Auto) 1.34 L Lymph # (Auto) 0.76 L Schoolcraft # (Auto) 0.41 Eos # (Auto) 0.13 Baso # (Auto) 0.04 Giant Platelets 1+ Sodium 136 Potassium 3.7 Chloride 96 L Carbon Dioxide 34 H Anion Gap 6.0 BUN 18 Creatinine 0.93 Est Cr Clr Drug Dosing 119.4 Est GFR ( Amer) 98.8 Est GFR (Non-Af Amer) 85.2 BUN/Creatinine Ratio 19.1 Glucose 131 H POC Glucose 157 H Calcium 7.6 L Magnesium 1.7 L Tumor Marker AFP Hepatitis A IgM Ab Medications Administered Home Medications Novolog U-100 Insulin aspart 6 - 8 unit SUBCUT AC 02/14/18 [History Confirmed 11/12/18] citalopram 20 mg PO QAM 02/14/18 [History Confirmed 11/12/18] potassium chloride 20 meq PO BID 04/26/18 [History Confirmed 11/12/18] torsemide 20 mg tablet 40 mg PO BID tab 09/14/18 [History Confirmed 11/12/18] insulin NPH isoph U-100 human [Novolin N NPH U-100 Insulin] 24 units SQ QAM 11/12/18 [History Confirmed 11/12/18] Active Medications Acetaminophen (Tylenol) 650 mg PO Q4H PRN PRN Reason: Pain Stop: 12/16/18 01:08 Al Hydrox/Mg Hydrox/Simethicone (Maalox) 15 ml PO Q4H PRN PRN Reason: Dyspepsia Stop: 12/12/18 19:12 Last Admin: 11/15/18 08:31 Dose: 15 ml Documented by: Citalopram Hydrobromide (Celexa) 20 mg PO QAM [facility] Stop: 12/13/18 08:59 Last Admin: 11/16/18 07:45 Dose: 20 mg Documented by: Dextrose (Dextrose 50%) 25 - 50 ml IV UD PRN; Protocol PRN Reason: Hypoglycemia Protocol Stop: 12/12/18 21:59 Glucagon (Glucagen) 1 mg IM UD PRN; Protocol PRN Reason: Hypoglycemia Protocol Stop: 12/12/18 21:59 Glucose (Glucose 40%) 15 - 30 gm PO UD PRN; Protocol PRN Reason: Hypoglycemia Protocol Stop: 12/12/18 21:59 Glucose (Dex4 Glucose) 4 - 8 tabs PO UD PRN; Protocol PRN Reason: Hypoglycemia Protocol Stop: 12/12/18 21:59 Bumetanide 1 mg/ Syringe 4 mls @ 4 mls/min IV DAILY@0900,1700 [facility] Stop: 12/12/18 22:59 Last Admin: 11/16/18 07:45 Dose: 4 mls/min Documented by: Insulin Aspart (Novolog Flexpen) 0 units SC ACHS [facility] Stop: 12/12/18 21:59 Last Admin: 11/16/18 08:18 Dose: 8 units Documented by: Insulin Human NPH (Novolin N Nph) 15 units SC QDB [facility] Stop: 12/15/18 07:29 Last Admin: 11/16/18 08:17 Dose: 15 units Documented by: Magnesium Hydroxide (Milk Of Magnesia) 30 ml PO Q12H PRN PRN Reason: Constipation Stop: 12/12/18 19:12 Magnesium Oxide (Mag-Ox) 400 mg PO BID [facility] Stop: 12/13/18 20:59 Last Admin: 11/16/18 07:45 Dose: 400 mg Documented by: Miconazole Nitrate (Desenex) 1 appln EXT PRN PRN PRN Reason: Affected Skin Folds Stop: 12/14/18 05:51 Miscellaneous (Carbohydrates For Hypoglycemia) 15 - 30 gm PO UD PRN PRN Reason: Hypoglycemia Treatment Stop: 12/12/18 21:59 Miscellaneous Information (Consult Glycemic Management Pharmacy) 1 ea N/A UD PRN PRN Reason: Consult Stop: 12/12/18 21:20 Polyethylene Glycol (Miralax Powder Packet) 17 gm PO DAILY PRN PRN Reason: Constipation Stop: 12/12/18 19:12 Zolpidem Tartrate (Ambien) 5 mg PO HS PRN PRN Reason: Sleep Stop: 12/12/18 19:12 Last Admin: 11/16/18 03:53 Dose: 5 mg Documented by: PG Care Time/CCT Total # of Minutes Spent Total Time Spent with Patient: Total time spent is greater than 50% in coordi nation of care (as documented) at patient's floor/unit and/or counseling patient: Resident Activity Tracking Resident Involvement: Resident Care Provided Care Provided: Adult Hospital Medicine
[2018-11-16] MEDS: OXYCODONE HCL IR 5 MG TAB (IMMEDIATE RELEASE) PO PRN (21:10)
[2018-11-17] MEDS: OXYCODONE HCL IR 5 MG TAB (IMMEDIATE RELEASE) PO PRN ×2 (03:24→17:32)
[2018-11-17 07:02] LABS: Hematocrit (blood only) 28.5 % (42-52); Hemoglobin 8.8 g/dL (14.0-18.0); Mean Corpuscular Hemoglobin 25.2 pg (25-34); Mean Corpuscular Hgb Conc 30.9 g/dL (32-36); Mean Corpuscular Volume 81.7 fL (80-100); RDW Coefficient of Variation 18.3 % (11.5-14.5); RDW Standard Deviation 54.3 fL (36.4-46.3); Red Blood Count 3.49 M/uL (4.7-6.1); White Blood Count 2.49 K/uL (4.8-10.8)
[2018-11-17 07:16] LABS: INR 1.2 (0.9-1.1); Partial Thromboplastin Ratio 1.1; Partial Thromboplastin Time 28.5 Seconds (21.0-31.0); Prothrombin Time 12.1 Seconds (9.0-12.0)
[2018-11-17 07:26] LABS: Mean Platelet Volume 9.4 fL (7.4-10.4); Platelet Count 67 K/uL (130-400)
[2018-11-17 07:36] LABS: Basophils # (auto) 0.05 K/uL (0-0.2); Eosinophils # (auto) 0.15 K/uL (0-0.5); Giant Platelets 2+; Lymphocytes # (auto) 0.64 K/uL (1.2-3.4); Lymphocytes % (auto) 25.7 %; Monocytes # (auto) 0.25 K/uL (0.11-0.59); Neutrophils % (auto) 56.3 %
[2018-11-17 07:39] LABS: BUN Creatinine Ratio 17.5 (10-20); Calcium 7.9 mg/dl (8.5-10.1); Creatinine Clr Calc Pharmacy 99.8 ml/min; Est GFR (African American) 78.9; Est GFR (Non-African American) 68.1; Magnesium 1.8 mg/dl (1.8-2.4); Potassium 3.4 mmol/L (3.5-5.1)
[2018-11-17] MEDS: INSULIN HUMAN NPH SC SCH ×2 (08:22→08:47)
[2018-11-17] MEDS: INSULIN ASPART 100 UNITS/ML 3 ML PEN SC SCH ×4 (08:39→21:21)
[2018-11-17] MEDS: BUMETANIDE 1 MG in SYRINGE 0 ML IV SCH ×2 (08:47→17:22)
[2018-11-17] MEDS: MAGNESIUM OXIDE 400 MG TAB PO SCH ×2 (08:47→21:20)
[2018-11-17] MEDS: CITALOPRAM 20 MG TAB PO SCH (08:47)
--- NOTE | 2018-11-17 10:22 | Gastroenterology Progress Note ---
Date of Service November 17, 2018 Assessment & Plan (1) Ascites: (2) Cirrhosis: (3) Edema: (4) Alcohol abuse: (5) Hepatic encephalopathy: 1. Await fluid studies as ordered from paracentesis today. 2. Continue Bumex 1 mg daily. 3. Add Aldactone 100 mg daily. 3. Strict alcohol avoidance. Recommend consideration of inpatient/outpatient alcohol treatment. 4. 2 g sodium restricted diet. 5. Resume Xifaxan 550 mg BID. Do not recommend you operate a motor vehicle. 6. Reinforced the importance of medication adherence. 7. Ongoing outpatient follow up for routine disease surveillance. Supervising Physician Co-Signing Physician Notes Agree with RAJIV Lopez as above Abd: Soft, NT, ND, +BS Continue current therapy No evidence of SBP Discussed with patient the need for medical compliance in the care of his chronic medical condition. Subjective Patient s/p therapeutic and diagnostic paracentesis. Fluid studies pending. Reports significant improvement in abdominal distention after paracentesis. Denies any fevers or chills, abdominal pain, n/v, or confusion. + BLE edema. Reports last alcoholic beverage was 5 days ago. Reports desire to stop drinking alcohol. Remains on 1 mg Bumex daily. Aldactone was stopped by patient and not resumed on admission. Review of Systems Constitutional: as per Subjective / HPI Respiratory: no cough and no dyspnea Cardiovascular: no chest pain and no palpitations Gastrointestinal: as per Subjective / HPI Genitourinary: no problem reported Musculoskeletal: as per Subjective / HPI Neurologic: as per Subjective / HPI Hematologic / Lymphatic: + easy bruising Physical Exam Constitutional: WD/WN, vitals as above Respiratory: normal respiratory effort Auscultation: + diminished lung sounds (bases) Cardiovascular: Rate/Rhythm: regular rate and regular rhythm Gastrointestinal (Abdomen): Inspection/Auscultation: + abdomen distended, normal bowel sounds and + significant pannus Percussion/Palpation: abdomen soft and + fluid wave; abdomen nontender Musculoskeletal: 3+ BLE edema with associated erythema Psychiatric: A+Ox3, euthymic affect Results & Data Vital Signs (Past 12 Hours) Vital Signs Temp Pulse Resp BP Pulse Ox 11/17/18 10:15 36.7 C 90 18 117/73 97 11/17/18 10:00 36.7 C 88 18 112/70 100 11/17/18 07:21 36.7 C 81 18 114/68 95 11/16/18 22:52 36.5 C 84 16 112/71 97 Laboratory Results Abnormal lab results 11/16/18 11/16/18 11/16/18 Range/Units 11:55 16:37 20:05 WBC (4.8-10.8) K/uL RBC (4.7-6.1) M/uL Hgb (14.0-18.0) g/dL Hct (42-52) % MCHC (32-36) g/dL RDW Std Deviation (36.4-46.3) fL RDW Coeff of Santiago (11.5-14.5) % Plt Count (130-400) K/uL Lymph # (Auto) (1.2-3.4) K/uL PT (9.0-12.0) Seconds INR (0.9-1.1) Potassium (3.5-5.1) mmol/L Chloride (98-107) mmol/L BUN (7-18) mg/dl Glucose (70-99) mg/dl POC Glucose 141 H 131 H 138 H (70-99) Calcium (8.5-10.1) mg/dl 11/16/18 11/17/18 11/17/18 Range/Units 23:40 06:30 06:30 WBC 2.49 L (4.8-10.8) K/uL RBC 3.49 L (4.7-6.1) M/uL Hgb 8.8 L (14.0-18.0) g/dL Hct 28.5 L (42-52) % MCHC 30.9 L (32-36) g/dL RDW Std Deviation 54.3 H (36.4-46.3) fL RDW Coeff of Santiago 18.3 H (11.5-14.5) % Plt Count 67 L (130-400) K/uL Lymph # (Auto) 0.64 L (1.2-3.4) K/uL PT (9.0-12.0) Seconds INR (0.9-1.1) Potassium 3.4 L (3.5-5.1) mmol/L Chloride 96 L (98-107) mmol/L BUN 20 H (7-18) mg/dl Glucose 188 H (70-99) mg/dl POC Glucose 154 H (70-99) Calcium 7.9 L (8.5-10.1) mg/dl 11/17/18 11/17/18 Range/Units 06:30 07:59 WBC (4.8-10.8) K/uL RBC (4.7-6.1) M/uL Hgb (14.0-18.0) g/dL Hct (42-52) % MCHC (32-36) g/dL RDW Std Deviation (36.4-46.3) fL RDW Coeff of Santiago (11.5-14.5) % Plt Count (130-400) K/uL Lymph # (Auto) (1.2-3.4) K/uL PT 12.1 H (9.0-12.0) Seconds INR 1.2 H (0.9-1.1) Potassium (3.5-5.1) mmol/L Chloride (98-107) mmol/L BUN (7-18) mg/dl Glucose (70-99) mg/dl POC Glucose 187 H (70-99) Calcium (8.5-10.1) mg/dl PG Care Time/CCT Total # of Minutes Spent Total Time Spent with Patient: Total time spent is greater than 50% in coordination of care (as documented) at patient's floor/unit and/or counseling patient:
[2018-11-17] MEDS: SPIRONOLACTONE 100 MG TAB PO SCH (10:44)
[2018-11-17 11:29] LABS: Appearance Peritoneal Fluid HAZY; Color Peritoneal Fluid YELLOW; Mononuclear WBC Peritoneal 85.7 %; Polynuclear WBC Peritoneal 14.3 %; RBC Peritoneal Fluid (A) < 3000 /uL; WBC Peritoneal Fluid (A) 66 /ul (0-300)
[2018-11-17 11:33] LABS: Albumin Peritoneal Fluid 0.6 g/dl; Total Protein Peritoneal Fluid 1.6 g/dl
--- NOTE | 2018-11-17 11:35 | Ultrasound Report ---
PARACENTESIS UNDER ULTRASOUND GUIDANCE CLINICAL HISTORY: Cirrhosis and ascites. COMPARISON STUDY: Abdominal ultrasound dated 11/13/2018. PROCEDURE: The risks, benefits, and alternatives to the procedure were discussed with the patient who voiced understanding. Written informed consent was obtained. Following real-time ultrasound localiza tion of a suitable pocket of fluid in the left lower quadrant, the abdomen was prepped and draped in the usual sterile fashion. The skin and soft tissues were anesthetized with 1% lidocaine. The sheathe d paracentesis needle was inserted and approximately 4 liters of straw-colored ascitic fluid was kortney ranjan by vacuum suction. The procedure was well tolerated and without immediate complication. The patie nt left the department in satisfactory condition. IMPRESSION: Successful ultrasound-guided paracentesis with removal of approximately 4 liters of ascit ic fluid. Electronically signed by: Zion Conrad M.D. 11/17/2018 11:34 AM
--- NOTE | 2018-11-17 13:58 | Pharmacy Report ---
Pharmacy Glycemic Short Note 2 - Date of Service November 17, 2018 - Glycemic Short BSG Results (Last 24 hours): 11/16/18 11/16/18 11/16/18 16:37 20:05 23:40 Glucose POC Glucose 131 H 138 H 154 H 11/17/18 11/17/18 11/17/18 06:30 07:59 11:49 Glucose 188 H POC Glucose 187 H 204 H OUTPATIENT ANTIDIABETIC REGIMEN: * NPH 24 units sq qAM + Novolog 6-8 units AC * A1c = 5.1% 06/17/18 ASSESSMENT: 11/17: * Patient received 46 units of insulin yesterday, of which 15 units were NPH * BSGs well controlled yesterday / all within range, continue same CF/CR this AM * Fasting higher this AM at 187 mg/dL - will increase NPH to 17 units daily (home dose is 24 units) * Lunchtime BSG remains unchanged, slightly higher - will tighten CR PLAN FOR INPATIENT GLYCEMIC CONTROL: * Basal insulin - increase * NPH 17 units SQ qAM * Bolus insulin - tighten * NovoLog per scale ACHS or Q6hrs while NPO * Goal Range: Low 110 mg/dL - High 140 mg/dL * Correction Factor: 20 mg/dL/unit * Nutritional / Prandial insulin per carb ratio of 1 unit per 6 grams CHO consumed
--- NOTE | 2018-11-17 14:12 | Family Medicine Progress Note ---
Date of Service November 17, 2018 Assessment & Plan (1) Cirrhosis: Juan Francisco Weathers is a 68 year old man with a history of alcohol abuse and alcoholic cirrhosis who presented with failure to thrive and multiple falls at home and largely edematous lower extremity edema. Awaiting placement at either [facility], [facility] (currently no beds) or [facility]. Failure to thrive -concern about functionality at home -difficulty with bathroom ambulation, falls, hygiene -rehab needed/[facility] assisted living as he has progressive liver cirrhosis without hope for transplant as he continues to drink. -wants to stop drinking -PT/OT ordered -appreciate recs Lower extremity edema -Likely secondary to cirrhosis, hypoalbuminemia, immobility and noncompliance with torsemide and aldactone -Less likely cardiac cause -continue bumex IV -continue to monitor volume status Hypokalemia/Hypomag -Will continue to monitor and replete as needed Anemia -Iron studies ordered -GI recommending outpatient scope for chronic microcytic anemia Diabetes Pharmacy consulted on sliding scale Appreciate recs Thrombocytopenia -chronic and stable -will continue to monitor Back Pain -tramadol prn -will follow up on home meds for pain Hx of cirrhosis/Ascites -s/p therapuetic tap on 11/16 -per GI, appreciate recs: -". Await fluid studies as ordered from paracentesis today. 2. Continue Bumex 1 mg daily. 3. Add Aldactone 100 mg daily. 3. Strict alcohol avoidance. Recommend consideration of inpatient/outpatient alcohol treatment. 4. 2 g sodium restricted diet. 5. Resume Xifaxan 550 mg BID. Do not recommend you operate a motor vehicle. 6. Reinforced the importance of medication adherence. 7. Ongoing outpatient follow up for routine disease surveillance." -will continue to monitor DVT PPx: not indicated with thrombocytopenia F/E/N: Low sodium diabetic diet Dispo: Med-Surg Supervising Physician Co-Signing Physician Notes I personally examined the patient and verified all olivarez points of history and exam, discussed case, and agree with decision making with Dr Wayne. no new issues. Vitals noted, in general he is awake and alert and in no distress sitting in the chair next to his bed, breathing unlabored no accessory muscle use good effort. Weaknessseems to be deconditioning plus edema (likely from back pressure from ascites) making his legs heavier and thereby making it harder to walk. Astoundingly still waiting on rehab approval. It does appear that his insurance companies unbelievable delay in decision making for his disposition may be making his sacral ulcer at least hurt worse, if not be worse, given that we are not able to do the degree of therapy that he requires here. Fortunately it does not yet appear infected, we have ongoing wound care, but I do believe that this now working on 6-day delay in approval for rehab has the potential to cause him at least a degree of harm. cirrhosis w ascites - stable for outpt w/u in this regard. Paracentesis done and noted otherwise as above Subjective Pt seen this AM, and states that he has been feeling very tired. S/p paracentesis. Denies VERDE, chest pain, palps, SOB, N/V, abd pain. Review of Systems Review of Systems: All systems reviewed & are unremarkable except as noted in HPI & below Physical Exam Physical Exam: General: Alert, oriented. No acute distress HEENT: NC/AT, PERRLA, EOMI, oropharynx moist. Chest: Nontender to palpation. CV: RRR, Normal s1, s2.Blowing murmur appreciated today. Resp: Breath sounds decreased bilaterally. Abdomen: Soft, nontender, distended. No guarding. No organomegaly appreciated. Results & Data Vital Signs (Past 12 Hours) Vital Signs Temp Pulse Resp BP Pulse Ox 11/17/18 12:15 36.5 C 78 18 112/66 100 11/17/18 11:45 37.1 C 92 H 18 106/65 100 11/17/18 11:15 36.6 C 79 18 104/64 100 11/17/18 10:45 36.6 C 79 18 105/68 100 11/17/18 10:15 36.7 C 90 18 117/73 97 11/17/18 10:00 36.7 C 88 18 112/70 100 11/17/18 07:21 36.7 C 81 18 114/68 95 Laboratory Results Laboratory Results - last 24 hr 11/16/18 11/16/18 11/16/18 16:37 20:05 23:40 WBC RBC Hgb Hct MCV MCH MCHC RDW Std Deviation RDW Coeff of Santiago Plt Count MPV Immature Gran % (Auto) Neut % (Auto) Lymph % (Auto) [place] % (Auto) Eos % (Auto) Baso % (Auto) Immature Gran # (Auto) Neut # (Auto) Lymph # (Auto) [place] # (Auto) Eos # (Auto) Baso # (Auto) Giant Platelets PT INR APTT PTT Ratio Sodium Potassium Chloride Carbon Dioxide Anion Gap BUN Creatinine Est Cr Clr Drug Dosing Est GFR ( Amer) Est GFR (Non-Af Amer) BUN/Creatinine Ratio Glucose POC Glucose 131 H 138 H 154 H Calcium Magnesium Peritoneal Color Peritoneal Appearance Peritoneal WBC Peritoneal RBC Mononuclear WBCs % Polynuclear WBCs % Peritoneal Tot Protein Peritoneal Albumin Peritoneal LDH Peritoneal Glucose 11/17/18 11/17/18 11/17/18 06:30 06:30 06:30 WBC 2.49 L RBC 3.49 L Hgb 8.8 L Hct 28.5 L MCV 81.7 MCH 25.2 MCHC 30.9 L RDW Std Deviation 54.3 H RDW Coeff of Santiago 18.3 H Plt Count 67 L MPV 9.4 Immature Gran % (Auto) 0.0 Neut % (Auto) 56.3 Lymph % (Auto) 25.7 [place] % (Auto) 10.0 Eos % (Auto) 6.0 Baso % (Auto) 2.0 Immature Gran # (Auto) 0.00 Neut # (Auto) 1.40 Lymph # (Auto) 0.64 L [place] # (Auto) 0.25 Eos # (Auto) 0.15 Baso # (Auto) 0.05 Giant Platelets 2+ PT 12.1 H INR 1.2 H APTT 28.5 PTT Ratio 1.1 Sodium 137 Potassium 3.4 L Chloride 96 L Carbon Dioxide 32 Anion Gap 9.0 BUN 20 H Creatinine 1.12 Est Cr Clr Drug Dosing 99.8 Est GFR ( Amer) 78.9 Est GFR (Non-Af Amer) 68.1 BUN/Creatinine Ratio 17.5 Glucose 188 H POC Glucose Calcium 7.9 L Magnesium 1.8 Peritoneal Color Peritoneal Appearance Peritoneal WBC Peritoneal RBC Mononuclear WBCs % Polynuclear WBCs % Peritoneal Tot Protein Peritoneal Albumin Peritoneal LDH Peritoneal Glucose 11/17/18 11/17/18 11/17/18 07:59 11:49 Unknown WBC RBC Hgb Hct MCV MCH MCHC RDW Std Deviation RDW Coeff of [place] Plt Count MPV Immature Gran % (Auto) Neut % (Auto) Lymph % (Auto) [place] % (Auto) Eos % (Auto) Baso % (Auto) Immature Gran # (Auto) Neut # (Auto) Lymph # (Auto) [place] # (Auto) Eos # (Auto) Baso # (Auto) Giant Platelets PT INR APTT PTT Ratio Sodium Potassium Chloride Carbon Dioxide Anion Gap BUN Creatinine Est Cr Clr Drug Dosing Est GFR ( Amer) Est GFR (Non-Af Amer) BUN/Creatinine Ratio Glucose POC Glucose 187 H 204 H Calcium Magnesium Peritoneal Color Peritoneal Appearance Peritoneal WBC Peritoneal RBC Mononuclear WBCs % Polynuclear WBCs % Peritoneal Tot Protein 1.6 Peritoneal Albumin 0.6 Peritoneal LDH 52 Peritoneal Glucose 172 11/17/18 11/17/18 11/17/18 Unknown Unknown Unknown WBC RBC Hgb Hct MCV MCH MCHC RDW Std Deviation RDW Coeff of [place] Plt Count MPV Immature Gran % (Auto) Neut % (Auto) Lymph % (Auto) [place] % (Auto) Eos % (Auto) Baso % (Auto) Immature Gran # (Auto) Neut # (Auto) Lymph # (Auto) [place] # (Auto) Eos # (Auto) Baso # (Auto) Giant Platelets PT INR APTT PTT Ratio Sodium Potassium Chloride Carbon Dioxide Anion Gap BUN Creatinine Est Cr Clr Drug Dosing Est GFR ( Amer) Est GFR (Non-Af Amer) BUN/Creatinine Ratio Glucose POC Glucose Calcium Magnesium Peritoneal Color YELLOW Peritoneal Appearance HAZY Peritoneal WBC 66 Peritoneal RBC < 3000 Mononuclear WBCs % 85.7 Polynuclear WBCs % 14.3 Peritoneal Tot Protein Peritoneal Albumin Peritoneal LDH Cancelled Peritoneal Glucose Cancelled 11/17/18 Unknown WBC RBC Hgb Hct MCV MCH MCHC RDW Std Deviation RDW Coeff of [place] Plt Count MPV Immature Gran % (Auto) Neut % (Auto) Lymph % (Auto) [place] % (Auto) Eos % (Auto) Baso % (Auto) Immature Gran # (Auto) Neut # (Auto) Lymph # (Auto) [place] # (Auto) Eos # (Auto) Baso # (Auto) Giant Platelets PT INR APTT PTT Ratio Sodium Potassium Chloride Carbon Dioxide Anion Gap BUN Creatinine Est Cr Clr Drug Dosing Est GFR ( Amer) Est GFR (Non-Af Amer) BUN/Creatinine Ratio Glucose POC Glucose Calcium Magnesium Peritoneal Color Peritoneal Appearance Peritoneal WBC Peritoneal RBC Mononuclear WBCs % Polynuclear WBCs % Peritoneal Tot Protein Cancelled Peritoneal Albumin Peritoneal LDH Peritoneal Glucose Medications Administered Home Medications Novolog U-100 Insulin aspart 6 - 8 unit SUBCUT AC 02/14/18 [History Confirmed 11/12/18] citalopram 20 mg PO QAM 02/14/18 [History Confirmed 11/12/18] potassium chloride 20 meq PO BID 04/26/18 [History Confirmed 11/12/18] torsemide 20 mg tablet 40 mg PO BID tab 09/14/18 [History Confirmed 11/12/18] insulin NPH isoph U-100 human [Novolin N NPH U-100 Insulin] 24 units SQ QAM 11/12/18 [History Confirmed 11/12/18] Active Medications Acetaminophen (Tylenol) 650 mg PO Q4H PRN PRN Reason: Pain Stop: 12/16/18 01:08 Al Hydrox/Mg Hydrox/Simethicone (Maalox) 15 ml PO Q4H PRN PRN Reason: Dyspepsia Stop: 12/12/18 19:12 Last Admin: 11/15/18 08:31 Dose: 15 ml Documented by: Citalopram Hydrobromide (Celexa) 20 mg PO QAM [facility] Stop: 12/13/18 08:59 Last Admin: 11/17/18 08:47 Dose: 20 mg Documented by: Dextrose (Dextrose 50%) 25 - 50 ml IV UD PRN; Protocol PRN Reason: Hypoglycemia Protocol Stop: 12/12/18 21:59 Glucagon (Glucagen) 1 mg IM UD PRN; Protocol PRN Reason: Hypoglycemia Protocol Stop: 12/12/18 21:59 Glucose (Glucose 40%) 15 - 30 gm PO UD PRN; Protocol PRN Reason: Hypoglycemia Protocol Stop: 12/12/18 21:59 Glucose (Dex4 Glucose) 4 - 8 tabs PO UD PRN; Protocol PRN Reason: Hypoglycemia Protocol Stop: 12/12/18 21:59 Bumetanide 1 mg/ Syringe 4 mls @ 4 mls/min IV DAILY@0900,1700 [facility] Stop: 12/12/18 22:59 Last Admin: 11/17/18 08:47 Dose: 4 mls/min Documented by: Insulin Aspart (Novolog Flexpen) 0 units SC ACHS [facility] Stop: 12/12/18 21:59 Last Admin: 11/17/18 12:34 Dose: 17 units Documented by: Insulin Human NPH (Novolin N Nph) 17 units SC QDB [facility] Stop: 12/17/18 07:59 Last Admin: 11/17/18 08:47 Dose: 17 units Documented by: Magnesium Hydroxide (Milk Of Magnesia) 30 ml PO Q12H PRN PRN Reason: Constipation Stop: 12/12/18 19:12 Magnesium Oxide (Mag-Ox) 400 mg PO BID [facility] Stop: 12/13/18 20:59 Last Admin: 11/17/18 08:47 Dose: 400 mg Documented by: Miconazole Nitrate (Desenex) 1 appln EXT PRN PRN PRN Reason: Affected Skin Folds Stop: 12/14/18 05:51 Miscellaneous (Carbohydrates For Hypoglycemia) 15 - 30 gm PO UD PRN PRN Reason: Hypoglycemia Treatment Stop: 12/12/18 21:59 Miscellaneous Information (Consult Glycemic Management Pharmacy) 1 ea N/A UD PRN PRN Reason: Consult Stop: 12/12/18 21:20 Oxycodone HCl (Roxicodone Immediate Rel) 5 mg PO Q6H PRN PRN Reason: Pain Stop: 11/30/18 13:48 Last Admin: 11/17/18 03:24 Dose: 5 mg Documented by: Polyethylene Glycol (Miralax Powder Packet) 17 gm PO DAILY PRN PRN Reason: Constipation Stop: 12/12/18 19:12 Rifaximin (Xifaxan) 550 mg PO BID [facility] Stop: 12/17/18 20:59 Spironolactone (Aldactone) 100 mg PO QAM [facility] Stop: 12/17/18 10:29 Last Admin: 11/17/18 10:44 Dose: 100 mg Documented by: Zolpidem Tartrate (Ambien) 5 mg PO HS PRN PRN Reason: Sleep Stop: 12/12/18 19:12 Last Admin: 11/16/18 03:53 Dose: 5 mg Documented by: PG Care Time/CCT Total # of Minutes Spent Total Time Spent with Patient: Total time spent is greater than 50% in coordination of care (as documented) at patient's floor/unit and/or counseling patient: Resident Activity Tracking Resident Involvement: Resident Care Provided Care Provided: Adult Hospital Medicine
[2018-11-17] MEDS ORDERED: POTASSIUM CHLORIDE 20 MEQ TABCR PO STA (20:55)
[2018-11-17] MEDS: RIFAXIMIN 550 MG TABLET PO SCH (21:20)
[2018-11-18 07:25] LABS: Creatinine Clr Calc Pharmacy 118.7 ml/min; Est GFR (African American) 102.8; Est GFR (Non-African American) 88.7
[2018-11-18] MEDS: RIFAXIMIN 550 MG TABLET PO SCH ×2 (08:08→20:32)
[2018-11-18] MEDS: SPIRONOLACTONE 100 MG TAB PO SCH (08:08)
[2018-11-18] MEDS: MAGNESIUM OXIDE 400 MG TAB PO SCH ×2 (08:09→20:32)
[2018-11-18] MEDS: CITALOPRAM 20 MG TAB PO SCH (08:09)
[2018-11-18] MEDS: BUMETANIDE 1 MG in SYRINGE 0 ML IV SCH ×2 (08:12→16:38)
[2018-11-18] MEDS: OXYCODONE HCL IR 5 MG TAB (IMMEDIATE RELEASE) PO PRN ×2 (08:12→18:36)
[2018-11-18] MEDS: INSULIN HUMAN NPH SC SCH (08:23)
[2018-11-18] MEDS: INSULIN ASPART 100 UNITS/ML 3 ML PEN SC SCH ×4 (08:25→20:42)
--- NOTE | 2018-11-18 10:11 | Gastroenterology Progress Note ---
Date of Service November 18, 2018 Assessment & Plan (1) Ascites: (2) Cirrhosis: (3) Edema: (4) Alcohol abuse: (5) Hepatic encephalopathy: 1. No SBP from fluid studies yesterday. 2. Continue Bumex 1 mg daily. 3. Continue Aldactone 100 mg daily. 3. Strict alcohol avoidance. 4. 2 g sodium restricted diet. 5. Continue Xifaxan 550 mg BID. Do not recommend you operate a motor vehicle. 6. Reinforced the importance of medication adherence. 7. Patient awaiting transfer to SNF. Will sign off at this time. Patient to continue outpatient management/follow up. Supervising Physician Co-Signing Physician Notes Agree with RAJIV Lopez as above Abd: Soft, Distended, NT Continue supportive care Continue current therapy Awaiting SNF bed Subjective Patient reports feeling well today. Denies any abdominal pain, n/v, or overt GIB symptoms. VSS. Patient s/p paracentesis with removal of 4 liters. Remains on Bumex and Aldactone. Review of Systems Constitutional: + fatigue Respiratory: no cough and no dyspnea Cardiovascular: no chest pain and no palpitations Gastrointestinal: as per Subjective / HPI Musculoskeletal: + swelling Physical Exam Constitutional: WD/WN, vitals as above Respiratory: normal respiratory effort Auscultation: + diminished lung sounds (bases) Cardiovascular: Rate/Rhythm: regular rate and regular rhythm Gastrointestinal (Abdomen): Inspection/Auscultation: + abdomen distended, normal bowel sounds and + significant pannus Percussion/Palpation: + ascites; abdomen nontender Psychiatric: A+Ox3, euthymic affect Results & Data Vital Signs (Past 12 Hours) Vital Signs Temp Pulse Resp BP Pulse Ox 11/18/18 07:13 36.4 C L 86 19 109/65 96 11/17/18 23:04 36.8 C 88 16 102/61 96 PG Care Time/CCT Total # of Minutes Spent Total Time Spent with Patient: Total time spent is greater than 50% in coordination of care (as documented) at patient's floor/unit and/or counseling patient:
[2018-11-18] MEDS: ALUMINUM/MAGNESIUM SUSP 30 ML UDC PO PRN (13:12)
--- NOTE | 2018-11-18 20:41 | Hospitalist Progress Note ---
Date of Service November 18, 2018 Results & Data Vital Signs (Past 12 Hours) Vital Signs Temp Pulse Resp BP Pulse Ox 11/18/18 15:00 98.2 F 84 18 119/73 100 PG Care Time/CCT Total # of Minutes Spent Total Time Spent with Patient: Total time spent is greater than 50% in coordination of care (as documented) at patient's floor/unit and/or counseling patient:
[2018-11-18 23:18] VITALS: TEMP 97.5
[2018-11-19] MEDS: OXYCODONE HCL IR 5 MG TAB (IMMEDIATE RELEASE) PO PRN ×2 (00:59→09:17)
[2018-11-19 07:06] VITALS: BP 105/60; O2SAT 97
[2018-11-19 07:30] LABS: Hematocrit (blood only) 23.2 % (42-52); Hemoglobin 7.4 g/dL (14.0-18.0); Mean Corpuscular Hgb Conc 31.9 g/dL (32-36); Mean Corpuscular Volume 81.4 fL (80-100); RDW Coefficient of Variation 18.3 % (11.5-14.5); RDW Standard Deviation 54.7 fL (36.4-46.3); Red Blood Count 2.85 M/uL (4.7-6.1); White Blood Count 2.07 K/uL (4.8-10.8)
[2018-11-19] MEDS ORDERED: INSULIN HUMAN NPH SC SCH (07:30)
[2018-11-19 07:57] LABS: Basophils # (auto) 0.05 K/uL (0-0.2); Basophils % (auto) 2.4 %; Eosinophils # (auto) 0.13 K/uL (0-0.5); Eosinophils % (auto) 6.3 %; Lymphocytes # (auto) 0.58 K/uL (1.2-3.4); Mean Platelet Volume 9.2 fL (7.4-10.4); Monocytes % (auto) 9.7 %; Neutrophils # (auto) 1.11 K/uL (1.4-6.5); Neutrophils % (auto) 53.6 %; Platelet Count 59 K/uL (130-400); Platelet Estimate Decreased (Normal)
[2018-11-19 08:00] LABS: Albumin Level 1.6 gm/dl (3.4-5.0); BUN Creatinine Ratio 20.2 (10-20); Calcium 7.6 mg/dl (8.5-10.1); Creatinine Clr Calc Pharmacy 121.5 ml/min; Est GFR (African American) 103.7; Est GFR (Non-African American) 89.5
[2018-11-19 08:04] LABS: Albumin Globulin Ratio 0.4 (0.9-2); Bilirubin,Total 0.9 mg/dl (0.2-1); Globulin 4.2 gm/dl (2.5-4.0); Total Protein 5.8 gm/dl (6.4-8.2)
--- NOTE | 2018-11-19 08:34 | Pharmacy Report ---
Glycemic Control Progress Note - Date of Service November 19, 2018 - Scope Glycemic Pharmacist consulted for glycemic control to write orders per [facility] inpatient glycemic control protocol. - Objective Accuchecks BSG(last 24 hours):: 11/18/18 11/18/18 11/18/18 08:21 11:55 17:06 Glucose POC Glucose 122 H 168 H 258 H 11/18/18 11/19/18 11/19/18 20:40 07:08 08:05 Glucose 164 H POC Glucose 196 H 164 H - Recent Pertinent Medications The patient is currently receiving: * Basal insulin: NPH 20 units every 24 hours * Correctional Insulin: Novolog Correction per scale ACHS Goal Range: Low 110 mg/dL - High 140 mg/dL Correction Factor: 20 mg/dL/unit * Prandial insulin: Per carb ratio of 1 unit per 6 grams CHO consumed - Outpatient Anti-Diabetic Meds NPH 24 units daily plus Novolog 6-8 units with meals - Assessment & Plan ASSESSMENT: * See progress note from 11/13/18 for more background info, in short: * Pt receiving SQ basal bolus insulin regimen for hyperglycemia secondary to baseline DM (outpatient regimen on hold). * Patient is currently receiving an average of 50 units of insulin per day * 17 units of basal insulin * 33 units of prandial/correctional insulin * BSGs ranging 122 - 258 mg/dl over the past 24hrs * Changes needed to insulin regimen: * AM Fasting BSG = 164 mg/dl. This is slightly above goal range for patient based on inpatient targets and co-morbidities. Therefore Basal insulin will be increased slightly to 20 units. * Post-prandial BSGs are elevated/BSGs rise throughout the day therefore need to tighten CF/CR. Patient's regimen is currently bolus heavy. Will attempt to decrease increasing BSGs with a little more basal insulin first. * Total daily dose = ~50-60 units. PLAN FOR INPATIENT GLYCEMIC CONTROL: * Increasing NPH to 24 units SQ qAM * Continuing correction factor to 20 mg/dl/unit * Continuing carb ratio of 1 unit per 6 grams CHO consumed * Continuing goal range of Low 110 mg/dL - High 140 mg/dL RECOMMENDATIONS FOR DISCHARGE: * HBA1C PENDING - FURTHER DISCHARGE INSTRUCTIONS PER THIS RECOMMENDATION HOWEVER PATIENT APPEARS STABLE WITH * NPH 20 UNITS DAILY * NOVOLOG 8 UNITS WITH BREAKFAST; 15 UNITS WITH LUNCH; 8 UNITS WITH DINNER * Please note that the plan above was derived based on current level of insulin resistance and hospital stress. These recommendations are appropriate for inpatient admission only. Plan of care upon discharge will need to be reassessed to avoid potential outpatient hypo/hyperglycemia. Thank you.
[2018-11-19] MEDS ORDERED: POTASSIUM CHLORIDE 20 MEQ TABCR PO SCH (09:00)
[2018-11-19] MEDS ORDERED: BUMETANIDE 1 MG TAB PO SCH (09:00)
[2018-11-19] MEDS: SPIRONOLACTONE 100 MG TAB PO SCH (09:08)
[2018-11-19] MEDS: MAGNESIUM OXIDE 400 MG TAB PO SCH (09:08)
[2018-11-19] MEDS: CITALOPRAM 20 MG TAB PO SCH (09:09)
[2018-11-19] MEDS: RIFAXIMIN 550 MG TABLET PO SCH (09:09)
[2018-11-19] MEDS: INSULIN ASPART 100 UNITS/ML 3 ML PEN SC SCH ×2 (09:15→12:50)
[2018-11-19] MEDS: ALUMINUM/MAGNESIUM SUSP 30 ML UDC PO PRN (09:17)
[2018-11-19 09:37] LABS: Estimated Average Glucose 80 mg/dl; Hemoglobin A1C 4.4 % (4.5-5.6)
--- NOTE | 2018-11-19 09:58 | Discharge Summary ---
Date of Service November 19, 2018 Admission HPI Per Admitting Provider Patient is a 68 years old male with past medical history of congestive heart failure, liver cirrhosis, chronic anemia, obstructive sleep apnea, BPH, alcohol abuse who presents to the emergency room with a complaint of frequent falls and swelling of his lower extremities in the past several weeks. Patient denies any fall when he injured his head or has had any kind of fracture. Patient does not appear having wounds on his body. His lower extremities all up until nail pinedo are extremely swollen. Patient said he consumes approximately 3 beers per day. Patient denies fever chills headache chest pain shortness of breath abdominal pain frequency urgency he reports a weight gain possibly 10 to 20 pounds. From review of patient's chart it is visible that since November 2016 patient has decreased number of platelets in the range of 70-66, he also has chronic anemia with decreased hemoglobin/hematocrit to 9/28, his INR is elevated 1.5, his Albumin is decreased to 2.1, he has hyponatremia since June 2018 in the range of 133 now 130, his potassium is also low now 3.1, his magnesium was low 1.6, his bilirubin is elevated to 1.7, his AST and ALT are normal 26 and 17, his ammonia level are mildly elevated to 35, his TSH is also elevated 6.31 but his T4 is normal 1.70. Blood alcohol level pending. Urine tox pending. With nose Doppler show no evidence of deep Raynaud's thrombosis. Left lower extr emity subcutaneous edema. Suspected left popliteal cyst. Chest x-rays showed small left pleural effusion. Mild stable cardiomegaly lungs otherwise appear clear. Decision was made to admit patient for further observation and treatment to PCU telemetry. Admission Exam Per Admitting Provider Constitutional: WD/WN, vitals as above well developed and + morbidly obese Eyes: PERRL, conjunctivae normal, anicteric sclerae ENMT: external ear and nose normal, oropharynx normal Neck: trachea midline, no thyromegaly Respiratory: normal respiratory effort, lungs clear to auscultation Cardiovascular: Heart Sounds: normal S1 and normal S2 Palpation: + palpable S3 Bilateral lower extremity edema 3+,anasarca Chest (Breasts): Additional Comments: gynecomastia-bilateral Gastrointestinal (Abdomen): Percussion/Palpation: + hepatomegaly and + fluid wave Abdomen distended , dullness to percussion soft nontender distended Skin: + dry skin Neurologic: patellar DTR's 2+ bilat, sensation intact Psychiatric: Alert and oriented but poor judgment Principal Diagnosis Ascites, Liver Cirrhosis, Failure to Thrive Discharge Exam Constitutional cooperative and comfortable; no acute distress Respiratory normal respiratory effort, lungs clear to auscultation Cardiovascular Rate/Rhythm: regular rate and regular rhythm Extremities: + edema (bilat lower) Gastrointestinal (Abdomen) Inspection/Auscultation: + abdomen distended Percussion/Palpation: abdomen soft; abdomen nontender Psychiatric A+Ox3, euthymic affect Discharge Data Allergies Allergy/AdvReac Type Severity Reaction Status Date / Time Wdxvvrx-Mps-Pdy Reductase Allergy Unknown Verified 11/12/18 21:09 Inhibitor Sulfa (Sulfonamide AdvReac Intermediate NAUSEA AND Verified 11/12/18 15:18 Antibiotics) VOMITING adhesive AdvReac Mild REDNESS, Verified 11/12/18 15:18 TAPE WILSON JEWELRY Allergy Unknown RASH Uncoded 11/12/18 15:18 Consultations 11/12/18 18:46 ED Decision to Admit Stat 11/12/18 22:46 Consult Gastroenterology Routine 11/12/18 22:56 Consult Cardiology Routine 11/15/18 08:43 Consult Case Management - Discharge Planning Routine Ordered Studies 11/12/18 15:15 US venous doppler LE LT Stat 11/12/18 21:47 CT head/brain wo con Urgent 11/13/18 22:12 US liver Stat 11/17/18 19:29 US paracentesis abd w/image Routine Hospital Course (1) Cirrhosis: Mr. Weathers is a 68 year old man with a history of alcohol abuse and alcoholic cirrhosis who presented with failure to thrive and multiple falls at home and largely edematous lower extremity edema. Failure to thrive -concern about functionality at home -difficulty with bathroom ambulation, falls, hygiene -rehab needed/[facility] assisted living as he has progressive liver cirrhosis without hope for transplant as he continues to drink. -has recently expressed desire to stop drinking -PT/OT ordered - recommended continued inpatient rehab -> pt discharged to [facility] Lower extremity edema -Likely secondary to cirrhosis, hypoalbuminemia, immobility and noncompliance with torsemide and aldactone -Less likely cardiac cause -> patient had echo completed while in the hospital, showing an ejection fraction of 65 to 70%, with no regional wall motion abnormalities. Patient does have grade 1 diastolic dysfunction. Hx of cirrhosis/Ascites -Tested negative for hepatitis A, B and C -s/p paracentesis on 11/17 with removal of 4L of fluid -GI following: -> no SBP noted on ascitic fluid -> Continue Bumex 1 mg daily and Aldactone 100 mg daily. -> 2 g sodium restricted diet. -> Resume Xifaxan 550 mg BID. Do not recommend operating a motor vehicle. AMS -pt with waxing and waning confusion - neurological examination normal, ammonia slightly elevated at 53 -suspect related to delirium in the setting of prolonged hospital stay, narcotic use and lack of sleep -recommend judicious use of narcotics - pt was receiving 5mg oxycodone bid for chronic pain while in the hospital Hypokalemia/Hypomagmesemia -discharged with daily supplementation Anemia/Thrombocytopenia/Leukopenia -chronic, stable -no signs or symptoms of bleeding -GI recommending outpatient scope for chronic microcytic anemia Diabetes -Hgb A1c 4.4% -continue home insulin regimen Total Time Total Time Spent Total Time Spent (In Minutes): <30 Discharge Plan Discharge Items Patient Disposition: Transfer Half-Way Fac Reason For Visit: HYPONATREMIA Discharge Diagnosis: weakness related to cirrhosis/ascites Discharge Goals: Decrease discomfort, Improve disease control, Improve function, Increase independence and Improve nutritional status Activity: Resume your previous activity Non-emergency contact: Primary Care Provider Call non-emergency contact if: your symptoms worsen and you have a fever Follow-up/Referrals: Florencio Kapoor III, MD [Primary Care Provider] - Diet: Heart Healthy and Low Sodium (2gm) Addtl Provider Instructions: Mr. Juan Francisco Bliss is a 68yo man with a PMHx significant for history of alcohol abuse, alcoholic cirrhosis, CHF, chronic anemia, MARILYN, BPH who presented from home for FTT and the complaint of multiple falls at home with lower extremity swelling. He was admitted on Nov 12 2018 and discharged on November 19, 2018. Has a hx of being seen by home nursing but functionality has continued to decline, requiring an escalation of care. Failure to thrive -concern about functionality at home -difficulty with bathroom ambulation, falls, hygiene (was found by home nursing covered in his feces) -alcoholic rehab/help needed as he has progressive liver cirrhosis without hope for transplant as he continues to drink. -does report that he wants to stop drinking -inpatient physical rehab also needed as pt is significantly below baseline in terms of functionality. -PT/OT ordered while hospitalized-recommended continued PT after discharge. -pt discharged to [facility] for this reason. Ascites/Liver Cirrhosis -s/p paracentesis on 11/17 with removal of 4 L of fluid -Ascitic fluid did not reveal SBP -GI recommends a 2g sodium restricted diet, and the addition of rifaximin 550 mg twice daily -torsemide discontinued in favor of bumex, and aldactone added to medication re gimen AMS -pt with waxing and waning confusion - neurological examination normal, ammonia slightly elevated at 53 -suspect related to delirium in the setting of prolonged hospital stay, narcotic use and lack of sleep -recommend judicious use of narcotics - pt was receiving 5mg oxycodone bid for chronic pain while in the hospital Lower extremity edema -Likely secondary to cirrhosis, hypoalbuminemia, immobility and noncompliance with torsemide and aldactone -Less likely cardiac cause -continue fluid restriction Hypokalemia/Hypomagnesemia -monitored and repleted as needed -> daily magnesium and potassium supplementation prescribed Anemia/thrombocytopenia/Leukopenia -chronic. Possible MDS? -Iron studies ordered- Fe, TIBC, transferrin low with ferritin of 38 (very low normal). -GI recommending outpatient scope for chronic microcytic anemia -levels stable on discharge, with WCC of 2.07, Hgb of 7.4, Plts of 59 DMII -HgA1c 4.4% -in the hospital, patient had been receiving -> NPH 20 units daily -> NOVOLOG 3-17 units with meals -> pharmacy recommended novolog 8 units with breakfast, 15 with lunch and 8 with dinner Prescriptions: New Xifaxan 550 mg Tablet 550 mg PO BID 30 Days Qty: 60 RF: 0 spironolactone 100 mg Tablet 100 mg PO QAM Qty: 30 RF: 0 magnesium oxide 400 mg (241.3 mg magnesium) Tablet 400 mg PO BID Qty: 30 RF: 0 bumetanide 1 mg Tablet 1 mg PO QAM Qty: 30 RF: 0 Continued citalopram 20 mg Tablet 20 mg PO QAM RF: 0 Novolog U-100 Insulin aspart 100 unit/mL Solution 6 - 8 unit SUBCUT AC RF: 0 potassium chloride 10 mEq capsule, extended release 20 meq PO BID RF: 0 Novolin N NPH U-100 Insulin 100 unit/mL suspension 24 units SQ QAM RF: 0 Discontinued torsemide 20 mg tablet 40 mg PO BID RF: 0 Stand-Alone Forms: [facility] Discharge Orders: Discharge Order (Routine); Ordered 11/19/18 Ordered By: Jerrica Hughes Skilled Items Patient informed of condition?: Yes DNR: No Discharge Level of Care: Skilled Communicable Disease: No Discharge Prognosis: Stable Admission Data Admit Date/Time: 11/12/18 19:08 Attending Provider: Brayan Serna Admit Provider: Tabby Heath Primary Care Provider: Florencio Kapoor III Other Providers: Tabby Heath ; Obdulio Bill ; Ildefonso Angel Service: Medical Other Interventions: Discharge Summary Assessment (RN) Last Done: 11/19/18 12:04 DC Date/Time DO NOT enter until pt leaves facility: 11/19/18 13:21 Supervising Physician Co-Signing Physician Notes I personally examined the patient and verified all olivarez points of history and exam, discussed case, and agree with decision making with Dr Hughes. Little bit confused this morning. Assessed. He has back pain with movement. He does note however, that he still feels good enough that he would very much like to get rehabbing today. No other new complaints. Vitals noted, in general he is awake and alert although reasonably easily confused, but appears in no distress. HEENT normocephalic atraumatic mucous members are moist. Breathing is unlabored no accessory muscle use good effort. Abdomen is soft nondistended nontender to even deep palpation, no guar ding/rebound/rigidity. Back shows his sacral wound dressed, no tracking erythema. Extremities show ongoing 3+ edema. Weaknessseems to be deconditioning plus edema (likely from back pressure from a scites) making his legs heavier and thereby making it harder to walk. Astoundingly took basically a week for SNF/rehab approval. His insurance companies delay in this regard probably caused him worse deconditioning as we are unable in the hospital setting to provide the therapy that he really would benefit from. Further, the prolonged stay seem to have been at least partially contributory to a delirium (see below) although fortunately not one severe enough to delay getting him to the rehab he will benefit from Deliriumseems to be mild metabolic encephalopathy/toxic encephalopathymost lik rajeev related to a combination of pain/pain medications/hospital environment. Fortunately he is still quite coherent, and is very desirous to finally go to rehab. I reached out to the physician at SNF to inform him of this current status. cirrhosis w ascites - stable for outpt w/u in this regard. Paracentesis done and noted. No SBP at that time. otherwise as above
[2018-11-19 12:28] VITALS: PULSE 76
--- NOTE | 2018-11-19 19:56 | Hospitalist Progress Note ---
Date of Service November 18, 2018 Assessment & Plan (1) Cirrhosis: Continue med management. Continue outpatient follow-up. Status post paracentesis. (2) Ascites: Status post paracentesis. No SBP (3) Edema: Appears to be related to the cirrhosis causing more back pressure exacerbating venous insufficiency. Mostly what he needs however is movement/walking/PT/OT. Awaiting insurance approval in this regard (4) Frequent falls: Weakness/deconditioningas above. Awaiting insurance approval for some form of rehab. Subjective Patient seen. GI present at the same time. No new complaints or problems. Still awaiting placement. Review of Systems Review of Systems: All systems reviewed & are unremarkable except as noted in HPI & below Physical Exam Physical Exam: In general he is awake alert pleasant no distress. HEENT normocephalic atraumatic mucous membranes are moist. Breathing unlabored no accessory muscle use good effort. Skin shows no rashes no pallor, does have icterus. No focal neuro deficits. Results & Data Vital Signs (Past 12 Hours) Vital Signs Temp Pulse Pulse Resp BP Pulse Ox 11/19/18 12:04 97.5 F L 76 84 19 105/60 97 PG Care Time/CCT Total # of Minutes Spent Total Time Spent with Patient: Total time spent is greater than 50% in coordination of care (as documented) at patient's floor/unit and/or counseling patient:
== END 2018-11-19 13:21 | DRG 433 ==
LOC: ED 14:51 → SUATTDRO 19:08 → 2E 19:08 → 4W 11-13 16:52

== ENCOUNTER 2018-12-03 18:08 | Inpatient (IN) ==
--- NOTE | 2018-12-03 19:51 | XRay Report ---
XR chest 1V portable CLINICAL HISTORY: 68 years-old Male presenting with weakness. TECHNIQUE: Portable upright AP view of the chest was obtained. COMPARISON: 11/12/2018. FINDINGS: Atherosclerosis of the aortic arch. Cardiac silhouette borderline enlarged. Low lung volumes with hyp oventilatory changes as on prior exam. Persistent left basilar opacity with obscuration of the left h emidiaphragm. Right lung and pleural space grossly clear. No pneumothorax. IMPRESSION: 1. Borderline cardiomegaly with persistent left basilar opacity, likely small left pleural effusion and atelectasis. Underlying infection not excluded. No zachariah pulmonary edema or evidence of congestiv e change. Electronically signed by: Alec Mancilla M.D. 12/03/2018 7:50 PM
[2018-12-03 19:53] LABS: Appearance Urine Clear (Clear); Bacteria Urine Automated Negative (Negative); Bilirubin Urine Negative (Negative); Blood Urine 1+ (Negative); Color Urine Yellow; Glucose Urine UA Negative (Negative); Ketones Urine Negative (Negative); Leukocyte Esterase Urine Negative (Negative); Nitrite Urine Negative (Negative); Protein Urine Negative (Negative); Specific Gravity Urine 1.015 (1.000-1.030); Urobilinogen Urine Negative (Negative)
[2018-12-03 20:39] LABS: Hematocrit (blood only) 27.5 % (42-52); Hemoglobin 8.9 g/dL (14.0-18.0); Mean Corpuscular Hemoglobin 26.3 pg (25-34); Mean Corpuscular Hgb Conc 32.4 g/dL (32-36); Mean Corpuscular Volume 81.1 fL (80-100); RDW Coefficient of Variation 18.2 % (11.5-14.5); RDW Standard Deviation 54.3 fL (36.4-46.3); Red Blood Count 3.39 M/uL (4.7-6.1); White Blood Count 3.21 K/uL (4.8-10.8)
[2018-12-03 21:08] LABS: Alanine Aminotransferase 29 U/L (12-78); Aspartate Aminotransferase 38 U/L (15-37); BUN Creatinine Ratio 16.9 (10-20); Blood Urea Nitrogen 17 mg/dl (7-18); Calcium 8.1 mg/dl (8.5-10.1); Carbon Dioxide 31 mmol/L (21-32); Chloride 104 mmol/L (98-107); Creatinine Clr Calc Pharmacy 108.1 ml/min; Est GFR (African American) 90.5; Est GFR (Non-African American) 78.1; Glucose 56 mg/dl (70-99); Magnesium 1.8 mg/dl (1.8-2.4); Potassium 3.3 mmol/L (3.5-5.1); Sodium 140 mmol/L (136-145)
[2018-12-03 21:13] LABS: Platelet Count 89 K/uL (130-400)
[2018-12-03 21:15] LABS: Basophils # (auto) 0.03 K/uL (0-0.2); Basophils % (auto) 0.9 %; Eosinophils # (auto) 0.18 K/uL (0-0.5); Eosinophils % (auto) 5.6 %; Monocytes # (auto) 0.31 K/uL (0.11-0.59); Monocytes % (auto) 9.7 %; Neutrophils # (auto) 1.79 K/uL (1.4-6.5); Neutrophils % (auto) 55.8 %
[2018-12-03 21:18] LABS: Albumin Globulin Ratio 0.4 (0.9-2); Alkaline Phosphatase 132 U/L (45-117); Bilirubin,Total 0.9 mg/dl (0.2-1); Globulin 5.3 gm/dl (2.5-4.0); Total Protein 7.3 gm/dl (6.4-8.2); Troponin I < 0.015 ng/ml (0-0.045)
--- NOTE | 2018-12-03 21:24 | Ultrasound Report ---
US venous doppler LE CLINICAL HISTORY: 68 years-old Male presenting with bilateral lower extremity swelling. TECHNIQUE: Real-time grayscale and color and spectral Doppler ultrasound imaging of the veins of the bilateral lower extremities was performed. Compression and augmentation were also utilized. COMPARISON: None. FINDINGS: RIGHT: Common femoral vein: Patent. Greater saphenous vein (superficial): Patent. Deep femoral vein: Patent. Femoral vein: Patent. Popliteal vein: Patent. Calf veins: Patent. LEFT: Common femoral vein: Patent. Greater saphenous vein (superficial): Patent. Deep femoral vein: Patent. Femoral vein: Patent. Popliteal vein: Patent. Calf veins: Patent. Other: Hypoechoic complex collection in the left popliteal fossa measuring 4.4 x 2.6 x 2.1 cm. Subcut aneous edema is noted throughout the lower extremities. IMPRESSION: 1. No evidence of deep venous thrombosis. 2. Lower extremity subcutaneous edema. 3. Suspected left popliteal cyst. Electronically signed by: Alec Mancilla M.D. 12/03/2018 9:22 PM
[2018-12-03 21:30] LABS: T4 Free Thyroxine 1.19 ng/dl (0.8-1.6)
[2018-12-03] MEDS ORDERED: cefTRIAXone SODIUM 2,000 MG/70 ML BAG IV STA (21:41)
[2018-12-03 21:48] LABS: INR 1.2 (0.9-1.1); Prothrombin Time 11.7 Seconds (9.0-12.0)
[2018-12-03] MEDS ORDERED: FUROSEMIDE 40 MG/4 ML VIAL IV ONE (21:52)
[2018-12-03] MEDS: FUROSEMIDE 40 MG in SYRINGE 0 ML IV ONE ×2 (21:58→22:32)
[2018-12-03] MEDS ORDERED: POTASSIUM CHLORIDE 20 MEQ TABCR PO STA (22:47)
--- NOTE | 2018-12-03 23:16 | Emergency Department Note ---
Entered by Melo Quinn acting as a scribe for Zion Willard MD History of Present Illness General Chief complaint: Swelling/Edema to Extremity Time Seen by Provider: 12/03/18 19:16 Source: patient History of Present Illness Onset (ago): month(s) 1 Location: lower extremity (right leg swelling) Pain Consistency: + other (worsening) Relieved By: + none Associated symptoms: + denies other symptoms (leg pain) and + other (abdominal bloating); no fever/chills, no nausea/vomiting and no shortness of breath The patient is a 68 year old M who presents to the Emergency Room with compl aints of worsening right leg swelling that started 1 month ago. He notes that his leg swelling is due to fluid buildup from his liver after a history of cirrhosis. He adds that he quit drinking alcohol 1 month ago. He notes that he lives alone but is treated by home healthcare. He states that he just got discharged from [facility] in [place], [place], 1 week ago, after finishing rehabilitation. He adds that today, home healthcare called his PCP who referred him to the ED. He states that he was brought to the ED by ambulance. He adds that he has been in the ED in the past for the same problem. He states that he is currently experiencing abdominal bloating. He notes that he is on a water pill and is taking it normally. He denies that he is currently experiencing leg pain, fevers, shortness of breath, and vomiting. He adds that he is urinating normally. He denies being on blood thinners. Home Medications Home Medications Medication Instructions Recorded Confirmed Type Novolog U-100 Insulin aspart 6 - 8 unit SUBCUT AC 02/14/18 12/03/18 History Novolin N NPH U-100 Insulin 21 units SQ QAM 11/12/18 12/03/18 History magnesium oxide 400 mg PO BID #30 tab 11/19/18 12/03/18 Rx spironolactone 100 mg PO QAM #30 tab 11/19/18 12/03/18 Rx citalopram 20 mg tablet 20 mg PO QAM 11/23/18 12/03/18 History cyanocobalamin (vit B-12) 1,000 1,000 mcg IM MONTHLY ml 11/23/18 12/03/18 History mcg/mL injection solution pediatric multivitamin no.76 1 tab PO DAILY 11/23/18 12/03/18 History chewable tablet potassium chloride ER 10 mEq 10 - 20 meq PO DAILY 11/23/18 12/03/18 History capsule,extended release oxycodone 5 mg PO DAILY PRN 12/03/18 12/03/18 History rifaximin [Xifaxan] 0 mg PO UD 12/03/18 12/03/18 History torsemide [Demadex] 40 mg PO BID 12/03/18 12/03/18 History Allergies Allergy/AdvReac Type Severity Reaction Status Date / Time Oegmwid-Jmc-Nes Reductase Allergy Unknown Verified 11/29/18 14:01 Inhibitor Sulfa (Sulfonamide AdvReac Intermediate NAUSEA AND Verified 11/29/18 14:01 Antibiotics) VOMITING adhesive AdvReac Mild REDNESS, Verified 11/29/18 14:01 TAPE WILSON JEWELRY Allergy Unknown RASH Uncoded 11/29/18 14:01 Past Med/Surg History Social History Preferred Language: Marshallese Communication Ability: Effective 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 Beliefs That Will Affect Care: None marital status: Single marital status details: has, "lady friend" Current Living Situation: Alone Current Living Situation Comment: own home, step-son, Randy, lives there 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 and A total of 10 systems reviewed and were otherwise negative Physical Exam Vital Signs Vital Signs - 24 hr 12/03/18 18:18 12/03/18 19:30 12/03/18 21:12 Temperature 36.9 C Temperature Source Oral Sepsis Recent Fever Within 48 Hours No Sepsis Action Taken by Nursing No Action Required Pulse Rate 91 H Pulse Rate [Apical] 100 H 83 Pulse Rhythm Regular Pulse Strength Normal Respiratory Rate 20 18 18 Respiratory Effort / Characteristics Non-Labored Spontaneous Respiratory Depth Normal Respiratory Pattern Regular Blood Pressure 123/70 Blood Pressure [Left Arm] 123/70 109/63 Blood Pressure Mean 87 Blood Pressure Mean [Left Arm] 87 78 Pulse Oximetry 99 97 98 Oxygen Delivery Method Room Air Room Air Room Air 12/03/18 22:08 Temperature Temperature Source Sepsis Recent Fever Within 48 Hours Sepsis Action Taken by Nursing Pulse Rate Pulse Rate [Apical] 94 H Pulse Rhythm Pulse Strength Respiratory Rate 18 Respiratory Effort / Characteristics Respiratory Depth Respiratory Pattern Blood Pressure Blood Pressure [Left Arm] 99/59 L Blood Pressure Mean Blood Pressure Mean [Left Arm] 72 Pulse Oximetry 95 Oxygen Delivery Method Room Air GENERAL: Patient is in no acute distress. HEENT: No acute trauma, normocephalic atraumatic, mucous membranes dry, no nasal congestion, no scleral icterus. NECK: No stridor, no adenopathy, no meningismus, trachea is midline. LUNGS: Clear to auscultation bilaterally, no wheeze, no rhonchi, breath sounds equal. HEART: 2/6 systolic murmur, regular rate and rhythm. ABDOMEN: Soft, nontender, bowel sounds positive, no hernias, no peritonitis. Abdominal distention noted. EXTREMITIES: No cyanosis, full range of motion of all the joints without pain or difficulty, no signs for acute trauma. Bilateral pedal edema, worse on right, erythema and warmth to both lower extremities, no gross deformities. NEUROLOGIC: Oriented x 3, no acute motor or sensory deficits, no focal weakness. SKIN: No rash, no jaundice, no diaphoresis. Course 1916: The patient was evaluated in room C6. A complete history and physical exam was performed. 2146: I reviewed the patient's case with Dr. Evans Bocanegra, [facility] Hospitalist. He will evaluate the patient for further management. Consultations Consultation #1: I reviewed the patient's case with Dr. Evans Bocanegra, [facility] Hospitalist. He will evaluate the patient for further management. Time: 21:47 Administered Medications Discontinued Medications Furosemide (Lasix) Confirm Administered Dose 40 mg IV .STTicket [employer]-MED ONE Stop: 12/03/18 21:53 Last Admin: 12/03/18 21:58 Dose: Not Given Documented by: [id number] Ceftriaxone Sodium (Rocephin) 2,000 mg in 70 mls @ 140 mls/hr IV NOW STA Stop: 12/03/18 22:10 Last Admin: 12/03/18 21:58 Dose: 140 mls/hr Documented by: [id number] Furosemide 40 mg/ Syringe 4 mls @ 4 mls/min IV ONE ONE Stop: 12/03/18 21:42 Last Admin: 12/03/18 22:32 Dose: 4 mls/min Documented by: [id number] Potassium Chloride (Klor-Con M20) 40 meq PO NOW STA Stop: 12/03/18 22:48 Last Admin: 12/03/18 22:56 Dose: 40 meq Documented by: [id number] Medical Decision Making Differential Diagnosis Differential diagnosis includes: liver failure, renal failure, electrolyte imbalance, CHF, anemia, DVT, fluid overload, cellulitis, ascites Medical Records Attestation: I reviewed the patient's medical records. Home Medications Current Medication List: was personally reviewed by me Laboratory Data Attestation: I reviewed the patient's lab results. Result diagrams: 12/03/18 20:25 12/03/18 20:25 Lab Results 12/03/18 12/03/18 12/03/18 Range/Units 18:37 20:25 20:25 WBC 3.21 L (4.8-10.8) K/uL RBC 3.39 L (4.7-6.1) M/uL Hgb 8.9 L (14.0-18.0) g/dL Hct 27.5 L (42-52) % MCV 81.1 (80-100) fL MCH 26.3 (25-34) pg MCHC 32.4 (32-36) g/dL RDW Std Deviation 54.3 H (36.4-46.3) fL RDW Coeff of Santiago 18.2 H (11.5-14.5) % Plt Count 89 L (130-400) K/uL MPV 10.0 (7.4-10.4) fL Immature Gran % (Auto) 0.0 % Neut % (Auto) 55.8 % Lymph % (Auto) 28.0 % [place] % (Auto) 9.7 % Eos % (Auto) 5.6 % Baso % (Auto) 0.9 % Immature Gran # (Auto) 0.00 (0.00-0.02) K/uL Neut # (Auto) 1.79 (1.4-6.5) K/uL Lymph # (Auto) 0.90 L (1.2-3.4) K/uL [place] # (Auto) 0.31 (0.11-0.59) K/uL Eos # (Auto) 0.18 (0-0.5) K/uL Baso # (Auto) 0.03 (0-0.2) K/uL PT Cancelled INR Cancelled APTT Cancelled PTT Ratio Cancelled Sodium (136-145) mmol/L Potassium (3.5-5.1) mmol/L Chloride (98-107) mmol/L Carbon Dioxide (21-32) mmol/L Anion Gap (3-11) BUN (7-18) mg/dl Creatinine (0.6-1.4) mg/dl Est Cr Clr Drug Dosing ml/min Est GFR ( Amer) Est GFR (Non-Af Amer) BUN/Creatinine Ratio (10-20) Glucose (70-99) mg/dl Calcium (8.5-10.1) mg/dl Magnesium (1.8-2.4) mg/dl Total Bilirubin (0.2-1) mg/dl AST (15-37) U/L ALT (12-78) U/L Alkaline Phosphatase (45-117) U/L Ammonia (11-32) umol/L Troponin I (0-0.045) ng/ml Total Protein (6.4-8.2) gm/dl Albumin (3.4-5.0) gm/dl Globulin (2.5-4.0) gm/dl Albumin/Globulin Ratio (0.9-2) TSH (0.300-4.500) uIu/ml Free T4 (0.8-1.6) ng/dl Urine Color Yellow Urine Appearance Clear (Clear) Urine pH 5.0 (4.5-7.5) Ur Specific Dendron 1.015 (1.000-1.030) Urine Protein Negative (Negative) Urine Glucose (UA) Negative (Negative) Urine Ketones Negative (Negative) Urine Blood 1+ H (Negative) Urine Nitrite Negative (Negative) Urine Bilirubin Negative (Negative) Urine Urobilinogen Negative (Negative) Ur Leukocyte Esterase Negative (Negative) Urine WBC (Auto) 1-5 (0-5) /hpf Urine RBC (Auto) 5-10 H (0-4) /hpf U Hyaline Cast (Auto) 1-5 (0-5) /lpf U Epithel Cells (Auto) 10-20 H (0-5) /lpf Urine Bacteria (Auto) Negative (Negative) 12/03/18 12/03/18 12/03/18 Range/Units 20:25 20:25 21:26 WBC (4.8-10.8) K/uL RBC (4.7-6.1) M/uL Hgb (14.0-18.0) g/dL Hct (42-52) % MCV (80-100) fL MCH (25-34) pg MCHC (32-36) g/dL RDW Std Deviation (36.4-46.3) fL RDW Coeff of Santiago (11.5-14.5) % Plt Count (130-400) K/uL MPV (7.4-10.4) fL Immature Gran % (Auto) % Neut % (Auto) % Lymph % (Auto) % [place] % (Auto) % Eos % (Auto) % Baso % (Auto) % Immature Gran # (Auto) (0.00-0.02) K/uL Neut # (Auto) (1.4-6.5) K/uL Lymph # (Auto) (1.2-3.4) K/uL [place] # (Auto) (0.11-0.59) K/uL Eos # (Auto) (0-0.5) K/uL Baso # (Auto) (0-0.2) K/uL PT 11.7 INR 1.2 H APTT 26.0 PTT Ratio 1.0 Sodium 140 (136-145) mmol/L Potassium 3.3 L (3.5-5.1) mmol/L Chloride 104 (98-107) mmol/L Carbon Dioxide 31 (21-32) mmol/L Anion Gap 5.0 (3-11) BUN 17 (7-18) mg/dl Creatinine 1.00 (0.6-1.4) mg/dl Est Cr Clr Drug Dosing 108.1 ml/min Est GFR ( Amer) 90.5 Est GFR (Non-Af Amer) 78.1 BUN/Creatinine Ratio 16.9 (10-20) Glucose 56 L (70-99) mg/dl Calcium 8.1 L (8.5-10.1) mg/dl Magnesium 1.8 (1.8-2.4) mg/dl Total Bilirubin 0.9 (0.2-1) mg/dl AST 38 H (15-37) U/L ALT 29 (12-78) U/L Alkaline Phosphatase 132 H (45-117) U/L Ammonia 23.6 (11-32) umol/L Troponin I < 0.015 (0-0.045) ng/ml Total Protein 7.3 (6.4-8.2) gm/dl Albumin 2.0 L (3.4-5.0) gm/dl Globulin 5.3 H (2.5-4.0) gm/dl Albumin/Globulin Ratio 0.4 L (0.9-2) TSH 6.840 H (0.300-4.500) uIu/ml Free T4 1.19 (0.8-1.6) ng/dl Urine Color Urine Appearance (Clear) Urine pH (4.5-7.5) Ur Specific Dendron (1.000-1.030) Urine Protein (Negative) Urine Glucose (UA) (Negative) Urine Ketones (Negative) Urine Blood (Negative) Urine Nitrite (Negative) Urine Bilirubin (Negative) Urine Urobilinogen (Negative) Ur Leukocyte Esterase (Negative) Urine WBC (Auto) (0-5) /hpf Urine RBC (Auto) (0-4) /hpf U Hyaline Cast (Auto) (0-5) /lpf U Epithel Cells (Auto) (0-5) /lpf Urine Bacteria (Auto) (Negative) Imaging Data Radiologist's Impression: Radiology results as stated below per my review and the radiologist's interpretation: US venous doppler LE CLINICAL HISTORY: 68 years-old Male presenting with bilateral lower extremity swelling. TECHNIQUE: Real-time grayscale and color and spectral Doppler ultrasound imaging of the veins of the bilateral lower extremities was performed. Compression and augmentation were also utilized. COMPARISON: None. FINDINGS: RIGHT: Common femoral vein: Patent. Greater saphenous vein (superficial): Patent. Deep femoral vein: Patent. Femoral vein: Patent. Popliteal vein: Patent. Calf veins: Patent. LEFT: Common femoral vein: Patent. Greater saphenous vein (superficial): Patent. Deep femoral vein: Patent. Femoral vein: Patent. Popliteal vein: Patent. Calf veins: Patent. Other: Hypoechoic complex collection in the left popliteal fossa measuring 4.4 x 2.6 x 2.1 cm. Subcutaneous edema is noted throughout the lower extremities. IMPRESSION: 1. No evidence of deep venous thrombosis. 2. Lower extremity subcutaneous edema. 3. Suspected left popliteal cyst. Electronically signed by: Alec Mancilla M.D. 12/03/2018 9:22 PM XR chest 1V portable CLINICAL HISTORY: 68 years-old Male presenting with weakness. TECHNIQUE: Portable upright AP view of the chest was obtained. COMPARISON: 11/12/2018. FINDINGS: Atherosclerosis of the aortic arch. Cardiac silhouette borderline enlarged. Low lung volumes with hypoventilatory changes as on prior exam. Persistent left basilar opacity with obscuration of the left hemidiaphragm. Right lung and pleural space grossly clear. No pneumothorax. IMPRESSION: 1. Borderline cardiomegaly with persistent left basilar opacity, likely small left pleural effusion and atelectasis. Underlying infection not excluded. No zachariah pulmonary edema or evidence of congestive change. Electronically signed by: Alec Mancilla M.D. 12/03/2018 7:50 PM ECG Data Attestation: I personally reviewed and interpreted this ECG as follows: Indication: weakness Rate (beats per minute): 84 Rhythm: sinus rhythm Findings: + other (QTc 460) and + 1st degree AV block; no ST elevation and no acute ischemic change Blood Pressure Blood Pressure Findings: Normal blood pressure Blood Pressure Disposition: did not require urgent referral MDM Narrative There is a pancytopenia, this is baseline for the patient. No worrisome coagulopathy. No significant electrolyte abnormality or kidney failure. Liver enzymes were slightly elevated, this is chronic for the patient. Ammonia level was not elevated. The patient did have an elevation to the TSH however, the T4 was normal. Urinalysis did not show infection. Chest film showed some chronic findings and possibly a small left pleural effusion. There was no CHF. Bilateral lower extremity ultrasound did not show evidence for DVT. EKG showed a sinus rhythm, no acute ischemia. Cardiac enzyme testing x1 is not consistent with acute cardiac injury. The patient was given IV ceftriaxone as antibiotic coverage for the presumed lower extremity cellulitis. He was given IV Lasix for the edema and fluid overload. He is currently resting comfortably. The patient presents with fluid overload, leg swelling, ascites, bilateral lower extremity cellulitis. He is quite weak. He has failed care at home. He was sent in by home health and his family doctor's office. The patient's presentation is similar to his recent hospitalization. I do think a repeat hospital stay is warranted. I spoke to the patient and case management. The on-call hospitalist was consulted. Impression & Plan Bilateral lower leg cellulitis, Pancytopenia, Immunocompromised, Liver disease, Fluid overload Discharge Plan Visit Data *Final* Discharge Date/Time: 12/03/18 23:15 Chief Complaint: Swelling/Edema to Extremity ED Provider: Zion Willard Discharge Problem: Bilateral lower leg cellulitis, Pancytopenia, Immunocompromised, Liver disease, Fluid overload Patient Disposition: Admitted As Inpatient Discharge Instructions Interventions: ED Discharge Assessment Last Done: 12/03/18 23:15 Discharge Problem: Fluid overload Qualifiers: Hypervolemia type: unspecified Qualified Code(s): E87.70 - Fluid overload, unspecified The scribe's documentation has been prepared under my direction and personally reviewed by me in its entirety. I confirm that the note above accurately reflects all work, treatment, procedures, and medical decision making performed by me.
--- NOTE | 2018-12-03 23:29 | History & Physical Report ---
Date of Service December 03, 2018 Assessment & Plan (1) Bilateral lower leg cellulitis: Placed on vancomycin IV and ceftriaxone IV. Consult wound care Present on Admission?: Yes (2) Cirrhosis: Liver cirrhosis/ascites/generalized edema/medical noncompliance- No signs of hepatic encephalopathy. He was given Lasix 40 mg IV in the ED, that we will add 25 g of albumin IV. Albumin 25 g IV with Lasix 40 mg IV every 6 hours x 4. Continue spironolactone 100 mg every morning. Increase potassium chloride supplement. Follow serial BMP and magnesium levels. Present on Admission?: Yes (3) Ascites: See above Present on Admission?: Yes (4) Edema: See above Present on Admission?: Yes (5) Diabetes mellitus with insulin therapy: Continue usual dose of Novolin N 21 units subcu every morning. Placed on Accu-Cheks before meals and at bedtime with NovoLog coverage per scale. Present on Admission?: Yes History of Present Illness Chief Complaint: Patient presents to the emergency department with gradually worsening lower extremity swelling, shortness of breath and general decline. Primary Care Provider: Florencio Kapoor MD Patient is a 68-year-old male most recently admitted to [facility] from 11/12-11/19/2018, then discharged to [facility], and has been home for about 1 week with home health care. When seen today by home health care, they called his physician, we then advised to come to the emergency department for assessment. Patient has a history of medical noncompliance. Allergies Allergy/AdvReac Type Severity Reaction Status Date / Time Vgzuxyc-Afj-Xkv Reductase Allergy Unknown Verified 11/29/18 14:01 Inhibitor Sulfa (Sulfonamide AdvReac Intermediate NAUSEA AND Verified 11/29/18 14:01 Antibiotics) VOMITING adhesive AdvReac Mild REDNESS, Verified 11/29/18 14:01 TAPE WILSON JEWELRY Allergy Unknown RASH Uncoded 11/29/18 14:01 Home Medications Home Medications Medication Instructions Recorded Confirmed Type Novolog U-100 Insulin aspart 6 - 8 unit SUBCUT AC 02/14/18 12/03/18 History Novolin N NPH U-100 Insulin 21 units SQ QAM 11/12/18 12/03/18 History magnesium oxide 400 mg PO BID #30 tab 11/19/18 12/03/18 Rx spironolactone 100 mg PO QAM #30 tab 11/19/18 12/03/18 Rx citalopram 20 mg tablet 20 mg PO QAM 11/23/18 12/03/18 History cyanocobalamin (vit B-12) 1,000 1,000 mcg IM MONTHLY ml 11/23/18 12/03/18 History mcg/mL injection solution pediatric multivitamin no.76 1 tab PO DAILY 11/23/18 12/03/18 History chewable tablet potassium chloride ER 10 mEq 10 - 20 meq PO DAILY 11/23/18 12/03/18 History capsule,extended release oxycodone 5 mg PO DAILY PRN 12/03/18 12/03/18 History rifaximin [Xifaxan] 0 mg PO UD 12/03/18 12/03/18 History torsemide [Demadex] 40 mg PO BID 12/03/18 12/03/18 History Past Med/Surg History Social History Preferred Language: Turkish Communication Ability: Effective Land Lease Information Clerk Required: No Beliefs That Will Affect Care: None marital status: Single marital status details: has, "lady friend" Current Living Situation: Alone Current Living Situation Comment: own home, step-son, Randy, lives there 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 Other Information That Helps Us Care for You: No Feels Safe at Home: Yes Safety Concerns: Feels Safe At This Time Smoking Status: Current every day smoker Tobacco Type: cigarettes ; Cigarettes Per Day: 1 can snuff a week ; Do You Dip or Chew Tobacco: Yes ; Second Hand Exposure: Yes ; Tobacco Cessation Education Requested by Patient: No Hx Alcohol Use: Yes Alcohol type: beer Hx Substance Use: No Review of Systems Review of Systems: The patient denies chest pain, palpitations, sore throat, fevers, chills, sweats, nausea, vomiting, diarrhea , constipation, abdominal pain, pelvic pain, blood in urine or stool, dysuria, urinary frequency or urgency, loss of consciousness, rash, abnormal bruising or bleeding, imbalance, focal weakness, numbness or tingling in arms, generalized arthralgias or myalgias, back or neck pain, or night sweats. The review of systems is otherwise negative other than for that already noted above, and at least 10 systems have been reviewed. Physical Exam Physical Exam: The patient is awake, alert and oriented 3, normocephalic and atraumatic, lying in bed and in no acute distress. HEENT--PERRL, EOMI, mucous membranes and oropharynx normal. Neck--supple. No JVD. No bruits. Thyroid normal, trachea midline, no adenopathy. Heart--normal S1 and S2. No murmurs, rubs or gallops. Lungs--decreased breath sounds throughout Abdomen--normal bowel sounds and soft. Nontender. Nondistended. Morbidly obese Extremities--3+ pretibial pitting edema on the right, and 2+ on the left. Dermatologic--moderate erythema and warmth bilaterally right greater than left Neurologic--cranial nerves II through XII grossly intact. Rheumatologic-limited by body size Psychiatric--normal affect. Results & Data Vital Signs (Past 12 Hours) Vital Signs Temp Pulse Pulse Resp BP BP Pulse Ox 12/03/18 23:04 88 20 110/74 94 12/03/18 22:08 94 H 18 99/59 L 95 12/03/18 21:12 83 18 109/63 98 12/03/18 19:30 100 H 18 123/70 97 12/03/18 18:18 98.4 F 91 H 20 123/70 99 Laboratory Results Laboratory Results WBC 3.21 K/uL (4.8-10.8) L 12/03/18 20:25 RBC 3.39 M/uL (4.7-6.1) L 12/03/18 20:25 Hgb 8.9 g/dL (14.0-18.0) L 12/03/18 20:25 Hct 27.5 % (42-52) L 12/03/18 20:25 MCV 81.1 fL (80-100) 12/03/18 20:25 MCH 26.3 pg (25-34) 12/03/18 20:25 MCHC 32.4 g/dL (32-36) 12/03/18 20:25 RDW Std Deviation 54.3 fL (36.4-46.3) H 12/03/18 20:25 RDW Coeff of Santiago 18.2 % (11.5-14.5) H 12/03/18 20:25 Plt Count 89 K/uL (130-400) L 12/03/18 20:25 MPV 10.0 fL (7.4-10.4) 12/03/18 20:25 Immature Gran % (Auto) 0.0 % 12/03/18 20:25 Neut % (Auto) 55.8 % 12/03/18 20:25 Lymph % (Auto) 28.0 % 12/03/18 20:25 [place] % (Auto) 9.7 % 12/03/18 20:25 Eos % (Auto) 5.6 % 12/03/18 20:25 Baso % (Auto) 0.9 % 12/03/18 20:25 Immature Gran # (Auto) 0.00 K/uL (0.00-0.02) 12/03/18 20: Neut # (Auto) 1.79 K/uL (1.4-6.5) 12/03/18 20:25 Lymph # (Auto) 0.90 K/uL (1.2-3.4) L 12/03/18 20:25 [place] # (Auto) 0.31 K/uL (0.11-0.59) 12/03/18 20:25 Eos # (Auto) 0.18 K/uL (0-0.5) 12/03/18 20:25 Baso # (Auto) 0.03 K/uL (0-0.2) 12/03/18 20:25 PT 11.7 Seconds (9.0-12.0) 12/03/18 21:26 INR 1.2 (0.9-1.1) H 12/03/18 21:26 APTT 26.0 Seconds (21.0-31.0) 12/03/18 21: PTT Ratio 1.0 12/03/18 21:26 Sodium 140 mmol/L (136-145) 12/03/18 20:25 Potassium 3.3 mmol/L (3.5-5.1) L 12/03/18 20:25 Chloride 104 mmol/L (98-107) 12/03/18 20:25 Carbon Dioxide 31 mmol/L (21-32) 12/03/18 20:25 Anion Gap 5.0 (3-11) 12/03/18 20:25 BUN 17 mg/dl (7-18) 12/03/18 20:25 Creatinine 1.00 mg/dl (0.6-1.4) 12/03/18 20:25 Est Cr Clr Drug Dosing 108.1 ml/min 12/03/18 20:25 Est GFR ( Amer) 90.5 12/03/18 20:25 Est GFR (Non-Af Amer) 78.1 12/03/18 20:25 BUN/Creatinine Ratio 16.9 (10-20) 12/03/18 20:25 Glucose 56 mg/dl (70-99) L 12/03/18 20:25 Calcium 8.1 mg/dl (8.5-10.1) L 12/03/18 20:25 Magnesium 1.8 mg/dl (1.8-2.4) 12/03/18 20:25 Total Bilirubin 0.9 mg/dl (0.2-1) 12/03/18 20:25 AST 38 U/L (15-37) H 12/03/18 20:25 ALT 29 U/L (12-78) 12/03/18 20:25 Alkaline Phosphatase 132 U/L (45-117) H 12/03/18 20:25 Ammonia 23.6 umol/L (11-32) 12/03/18 20:25 Troponin I < 0.015 ng/ml (0-0.045) 12/03/18 20:25 Total Protein 7.3 gm/dl (6.4-8.2) 12/03/18 20:25 Albumin 2.0 gm/dl (3.4-5.0) L 12/03/18 20:25 Globulin 5.3 gm/dl (2.5-4.0) H 12/03/18 20:25 Albumin/Globulin Ratio 0.4 (0.9-2) L 12/03/18 20:25 TSH 6.840 uIu/ml (0.300-4.500) H 12/03/18 20:25 Free T4 1.19 ng/dl (0.8-1.6) 12/03/18 20:25 Urine Color Yellow 12/03/18 18:37 Urine Appearance Clear (Clear) 12/03/18 18:37 Urine pH 5.0 (4.5-7.5) 12/03/18 18:37 Ur Specific [place] 1.015 (1.000-1.030) 12/03/18 18:37 Urine Protein Negative (Negative) 12/03/18 18:37 Urine Glucose (UA) Negative (Negative) 12/03/18 18:37 Urine Ketones Negative (Negative) 12/03/18 18:37 Urine Blood 1+ (Negative) H 12/03/18 18:37 Urine Nitrite Negative (Negative) 12/03/18 18:37 Urine Bilirubin Negative (Negative) 12/03/18 18:37 Urine Urobilinogen Negative (Negative) 12/03/18 18:37 Ur Leukocyte Esterase Negative (Negative) 12/03/18 18:37 Urine WBC (Auto) 1-5 /hpf (0-5) 12/03/18 18:37 Urine RBC (Auto) 5-10 /hpf (0-4) H 12/03/18 18:37 U Hyaline Cast (Auto) 1-5 /lpf (0-5) 12/03/18 18:37 U Epithel Cells (Auto) 10-20 /lpf (0-5) H 12/03/18 18:37 Urine Bacteria (Auto) Negative (Negative) 12/03/18 18:37 Diagnostic Findings [place], [place] [phone] Ultrasound Report Patient: GUNNER BLACK EAdmit Date: 12/03/18 MR#: [id number]: [address] [place] [address] Acct ID:[id number]: Date: 1950[facility] Zip: [place] [address] Age: 68Location: ED Sex: M Room/Bed: Att Phy:Diagnosis: EXTREMITY SWELLING Giselle Phy: Florencio Kapoor III, MDService Date: 12/03/18 Fam Phy:Interpreting Phy: Alec Mancilla MD Admit Phy: Ordering Phy: Zion Willard M.D. cc: ~ US venous doppler LE CLINICAL HISTORY: 68 years-old Male presenting with bilateral lower extremity swelling. TECHNIQUE: Real-time grayscale and color and spectral Doppler ultrasound imaging of the veins of the bilateral lower extremities was performed. Compression and augmentation were also utilized. COMPARISON: None. FINDINGS: RIGHT: Common femoral vein: Patent. Greater saphenous vein (superficial): Patent. Deep femoral vein: Patent. Femoral vein: Patent. Popliteal vein: Patent. Calf veins: Patent. LEFT: Common femoral vein: Patent. Greater saphenous vein (superficial): Patent. Deep femoral vein: Patent. Femoral vein: Patent. Popliteal vein: Patent. Calf veins: Patent. Other: Hypoechoic complex collection in the left popliteal fossa measuring 4.4 x 2.6 x 2.1 cm. Subcutaneous edema is noted throughout the lower extremities. IMPRESSION: 1. No evidence of deep venous thrombosis. 2. Lower extremity subcutaneous edema. 3. Suspected left popliteal cyst. Electronically signed by: Alec Mancilla M.D. 12/03/2018 9:22 PM Dictated: 12/03/182120 Transcribed: 12/03/182120 [place], [place] [phone] XRay Report Patient: GUNNER BLACK EAdmit Date: 12/03/18 MR#: [id number]: [address] [place] [address] Acct ID:[id number]: Date: [address] [place] [address] Zip: [place] [address] Age: 68Location: ED Sex: M Room/Bed: Att Phy:Diagnosis: EXTREMITY SWELLING Giselle Phy: Florencio Kapoor, III, MDService Date: 12/03/18 Fam Phy:Interpreting Phy: Alec Mancilla MD Admit Phy: Ordering Phy: Zion Willard M.D. cc: ~ XR chest 1V portable CLINICAL HISTORY: 68 years-old Male presenting with weakness. TECHNIQUE: Portable upright AP view of the chest was obtained. COMPARISON: 11/12/2018. FINDINGS: Atherosclerosis of the aortic arch. Cardiac silhouette borderline enlarged. Low lung volumes with hypoventilatory changes as on prior exam. Persistent left basilar opacity with obscuration of the left hemidiaphragm. Right lung and pleural space grossly clear. No pneumothorax. IMPRESSION: 1. Borderline cardiomegaly with persistent left basilar opacity, likely small left pleural effusion and atelectasis. Underlying infection not excluded. No zachariah pulmonary edema or evidence of congestive change. Electronically signed by: Alec Mancilla M.D. 12/03/2018 7:50 PM Dictated: 12/03/181947 Transcribed: 12/03/181947 Code Status & VTE Plan Code Status full code VTE Prophylaxis Plan VTE Prophylaxis will be ordered: Yes PG Care Time/CCT Total # of Minutes Spent Total Time Spent with Patient: Total time spent is greater than 50% in coordination of care (as documented) at patient's floor/unit and/or counseling patient:
[2018-12-03] MEDS ORDERED: ALBUMIN 25% 50 ML IV ONE (23:41)
[2018-12-03] MEDS ORDERED: ONDANSETRON INJ 2 MG/ML 2 ML VIAL IV PRN (23:41)
[2018-12-03] MEDS ORDERED: VANCOMYCIN CONSULT ACTIVE PRN (23:41)
[2018-12-03] MEDS ORDERED: ALUMINUM/MAGNESIUM SUSP 30 ML UDC PO PRN (23:41)
[2018-12-03] MEDS ORDERED: GLUCOSE 10 TABS/TUBE PO PRN (23:41)
[2018-12-03] MEDS ORDERED: MAGNESIUM HYDROXIDE SUSP 30 ML UDC PO PRN (23:41)
[2018-12-03] MEDS ORDERED: GLUCOSE 40% GEL 15 GM TUBE PO PRN (23:41)
[2018-12-03] MEDS ORDERED: GLUCAGON FOR INJ 1 MG VIAL SQ PRN (23:41)
[2018-12-03] MEDS ORDERED: CARBOHYDRATES FOR HYPOGLYCEMIA PO PRN (23:41)
[2018-12-03] MEDS ORDERED: DEXTROSE 50% 50 ML SYRINGE IV PRN (23:41)
[2018-12-04] MEDS ORDERED: VANCOMYCIN HCL 2,750 MG in SODIUM CHLORIDE 0.9% 500 ML IV SCH (00:30)
[2018-12-04] MEDS: RIFAXIMIN 550 MG TABLET PO SCH ×3 (00:37→21:12)
[2018-12-04] MEDS: MAGNESIUM OXIDE 400 MG TAB PO SCH ×3 (00:37→21:11)
[2018-12-04] MEDS: POTASSIUM CHLORIDE 10 MEQ TABCR PO SCH ×3 (00:38→21:11)
[2018-12-04] MEDS: ALBUMIN 25% 50 ML with FUROSEMIDE 40 MG IV SCH ×3 (05:06→17:05)
[2018-12-04] MEDS: HEPARIN SOD 5,000 UNIT/0.5 ML VIAL SQ SCH ×3 (05:07→21:13)
[2018-12-04] MEDS: FLINTSTONES COMPLETE CHEWABLE TAB PO SCH (08:13)
[2018-12-04] MEDS: CITALOPRAM 20 MG TAB PO SCH (08:13)
[2018-12-04] MEDS: SPIRONOLACTONE 100 MG TAB PO SCH (08:13)
[2018-12-04] MEDS: INSULIN ASPART 100 UNITS/ML 3 ML PEN SC SCH ×4 (08:15→21:14)
[2018-12-04] MEDS: INSULIN HUMAN NPH SQ SCH (08:16)
[2018-12-04] MEDS ORDERED: VANCOMYCIN HCL 1,000 MG in SODIUM CHLORIDE 0.9% 250 ML IV SCH (09:00)
--- NOTE | 2018-12-04 09:10 | Pharmacy Report ---
Pharmacy Abx Initial Consult - Date of Service December 04, 2018 - Pharmacy Dosing Scope Date of Consult: 12/03/18 Consultation requested by: Dr. Bocanegra Pharmacy is consulted to initiate VANCOMYCIN IV dosing therapy, order appropriate labs and adjust drug dose/frequency. - Subjective The patient is a 68 year old M admitted on 12/03/18 22:46. - Objective Height: 6 ft Weight: 143.7 kg Vital Signs (Past 12hrs): Vital Signs Temp Pulse Pulse Resp BP Pulse Ox 12/04/18 07:45 36.6 C 80 18 101/78 98 12/04/18 03:36 36.4 C L 81 20 103/66 97 12/03/18 23:43 36.3 C L 90 18 123/80 100 12/03/18 23:04 88 20 110/74 94 12/03/18 22:08 94 H 18 99/59 L 95 12/03/18 21:12 83 18 109/63 98 Lab Results (24hrs): Laboratory Tests (24 Hours) 12/03/18 12/03/18 20:25 20:25 WBC 3.21 L Neut # (Auto) 1.79 Creatinine 1.00 Est Cr Clr Drug Dosing 108.1 Micro Results: 12/03/18 19:22 Aerobic Blood Culture - Pending Blood Anaerobic Blood Culture - Pending 12/03/18 20:21 Aerobic Blood Culture - Pending Blood Anaerobic Blood Culture - Pending - Risk Factors for Resistance * Resident in a retirement or extended-care facility (Temporary post [facility] discharge) * Hospitalization for 48 hours or more within the past 90 days ([facility] 11/12 - 11/19) * Antimicrobial use within the last 90 days. - Assessment & Plan Assessment 68 year old M admitted with B/L LE cellulitis. Plan VANCOMYCIN / ROCEPHIN for treatment of B/L LE cellulitis. Vancomycin IV * Estimated PK Parameters: Vd 0.54 L/kg, Josef 0.094 hr-1, t1/2 ~8 hr * Loading dose: VANCOMYCIN 2750mg (~19 mg/kg) * Maintenance dose: 1750mg IV (~12.5 mg/kg) every 10 hours * Goal trough level for SST : 15 to 20 mcg/mL * Trough level ordered for 12/05/18 @ 0530 * Will monitor level closely due to likelihood of drug accumulation in obese patient. Pharmacy will continue to follow and will adjust dose/frequency as necessary. Thank you.
[2018-12-04] MEDS: VANCOMYCIN HCL 1,750 MG in SODIUM CHLORIDE 0.9% 500 ML IV SCH ×2 (10:45→21:08)
--- NOTE | 2018-12-04 16:07 | Hospitalist Progress Note ---
Date of Service December 04, 2018 Assessment & Plan (1) Bilateral lower leg cellulitis: continue vancomycin IV and ceftriaxone IV leg is a little less erythematous, minimally tender, still warm continue compression repeat WBC in the morning will need at least 14 days total of antibiotics, transition to PO in a few days (2) Cirrhosis: Liver cirrhosis/ascites/generalized edema/medical noncompliance- No signs of hepatic encephalopathy. Albumin 25 g IV with Lasix 40 mg IV every 6 hours x 4 doses, still with profound edema and ascites Continue spironolactone 100 mg every morning. continue Rifaximin repeat BMP in the AM consider US paracentesis on Thursday, will check US tomorrow to assess for amount of ascites follows with Dr. Bill (3) Ascites: See above check US to see about paracentesis (4) Edema: due to cirrhosis continue Lasix and Spironolactone (5) Diabetes mellitus with insulin therapy: Continue usual dose of Novolin N 21 units subcu every morning. Placed on Accu-Cheks before meals and at bedtime with NovoLog coverage per scale. monitor for hypoglycemia, no episodes (6) Pancytopenia: likely due to poor nutrition, cirrhosis monitor counts Subjective patient says his right leg looks about the same, erythema, shiny no pain, says that the SCD make his legs feel good having some fluid leak from the legs no fever or chills breathing stable, no chest pain has distended, fluid filled stomach, says he feels like he needs tapped again eating okay reviewed chart since admission Review of Systems Review of Systems: All systems reviewed & are unremarkable except as noted in HPI & below Constitutional: + fatigue and + weakness; no fever, no chills and no sweats Respiratory: + dyspnea on exertion; no cough Cardiovascular: + edema; no chest pain, no palpitations and no syncope Gastrointestinal: + problem reported (distended, filled with ascites); no abdominal pain, no nausea, no vomiting, no constipation and no diarrhea/loose stools Integumentary: + erythema (right lower leg) Physical Exam Constitutional: WD/WN, vitals as above Eyes: PERRL, conjunctivae normal, anicteric sclerae ENMT: external ear and nose normal, oropharynx normal Neck: trachea midline, no thyromegaly Respiratory: normal respiratory effort; no respiratory distress Auscultation: + diminished lung sounds (in bases); no crackles, no rales and no wheezes Cardiovascular: Rate/Rhythm: regular rate and regular rhythm Heart Sounds: normal S1 and normal S2; no murmur Vessels: no JVD Extremities: normal capillary refill and + edema (pitting in legs bilaterally to thighs); no calf tenderness Gastrointestinal (Abdomen): Inspection/Auscultation: + abdomen distended, normal bowel sounds and + abdominal edema Percussion/Palpation: abdomen soft and + ascites (fluid wave); abdomen nontender and no guarding Musculoskeletal: no cyanosis or clubbing, extremities motor strength 5/5 Skin: + erythema (right lower leg, warm to touch, skin shiny) Neurologic: patellar DTR's 2+ bilat, sensation intact and PERRL, EOMI, accommodation nl, no face palsy, no dysarthria Psychiatric: A+Ox3, euthymic affect Lymphatic: no cervical or axillary lymphadenopathy Results & Data Vital Signs (Past 12 Hours) Vital Signs Temp Pulse Pulse Resp BP Pulse Ox 12/04/18 15:34 36.6 C 89 18 124/76 96 12/04/18 12:16 36.5 C 76 19 105/61 98 12/04/18 08:00 107 H 12/04/18 07:45 36.6 C 80 18 101/78 98 Laboratory Results Laboratory Results - last 24 hr 12/03/18 12/03/18 12/03/18 18:37 20:25 20:25 WBC 3.21 L RBC 3.39 L Hgb 8.9 L Hct 27.5 L MCV 81.1 MCH 26.3 MCHC 32.4 RDW Std Deviation 54.3 H RDW Coeff of [place] 18.2 H Plt Count 89 L MPV 10.0 Immature Gran % (Auto) 0.0 Neut % (Auto) 55.8 Lymph % (Auto) 28.0 [place] % (Auto) 9.7 Eos % (Auto) 5.6 Baso % (Auto) 0.9 Immature Gran # (Auto) 0.00 Neut # (Auto) 1.79 Lymph # (Auto) 0.90 L [place] # (Auto) 0.31 Eos # (Auto) 0.18 Baso # (Auto) 0.03 PT Cancelled INR Cancelled APTT Cancelled PTT Ratio Cancelled Sodium Potassium Chloride Carbon Dioxide Anion Gap BUN Creatinine Est Cr Clr Drug Dosing Est GFR ( Amer) Est GFR (Non-Af Amer) BUN/Creatinine Ratio Glucose POC Glucose Calcium Magnesium Total Bilirubin AST ALT Alkaline Phosphatase Ammonia Troponin I Total Protein Albumin Globulin Albumin/Globulin Ratio TSH Free T4 Urine Color Yellow Urine Appearance Clear Urine pH 5.0 Ur Specific [place] 1.015 Urine Protein Negative Urine Glucose (UA) Negative Urine Ketones Negative Urine Blood 1+ H Urine Nitrite Negative Urine Bilirubin Negative Urine Urobilinogen Negative Ur Leukocyte Esterase Negative Urine WBC (Auto) 1-5 Urine RBC (Auto) 5-10 H U Hyaline Cast (Auto) 1-5 U Epithel Cells (Auto) 10-20 H Urine Bacteria (Auto) Negative Nasal Screen MRSA (PCR) 12/03/18 12/03/18 12/03/18 20:25 20:25 21:26 WBC RBC Hgb Hct MCV MCH MCHC RDW Std Deviation RDW Coeff of [place] Plt Count MPV Immature Gran % (Auto) Neut % (Auto) Lymph % (Auto) [place] % (Auto) Eos % (Auto) Baso % (Auto) Immature Gran # (Auto) Neut # (Auto) Lymph # (Auto) [place] # (Auto) Eos # (Auto) Baso # (Auto) PT 11.7 INR 1.2 H APTT 26.0 PTT Ratio 1.0 Sodium 140 Potassium 3.3 L Chloride 104 Carbon Dioxide 31 Anion Gap 5.0 BUN 17 Creatinine 1.00 Est Cr Clr Drug Dosing 108.1 Est GFR ( Amer) 90.5 Est GFR (Non-Af Amer) 78.1 BUN/Creatinine Ratio 16.9 Glucose 56 L POC Glucose Calcium 8.1 L Magnesium 1.8 Total Bilirubin 0.9 AST 38 H ALT 29 Alkaline Phosphatase 132 H Ammonia 23.6 Troponin I < 0.015 Total Protein 7.3 Albumin 2.0 L Globulin 5.3 H Albumin/Globulin Ratio 0.4 L TSH 6.840 H Free T4 1.19 Urine Color Urine Appearance Urine pH Ur Specific [place] Urine Protein Urine Glucose (UA) Urine Ketones Urine Blood Urine Nitrite Urine Bilirubin Urine Urobilinogen Ur Leukocyte Esterase Urine WBC (Auto) Urine RBC (Auto) U Hyaline Cast (Auto) U Epithel Cells (Auto) Urine Bacteria (Auto) Nasal Screen MRSA (PCR) 12/04/18 12/04/18 12/04/18 07:14 11:45 Unknown WBC RBC Hgb Hct MCV MCH MCHC RDW Std Deviation RDW Coeff of [place] Plt Count MPV Immature Gran % (Auto) Neut % (Auto) Lymph % (Auto) [place] % (Auto) Eos % (Auto) Baso % (Auto) Immature Gran # (Auto) Neut # (Auto) Lymph # (Auto) [place] # (Auto) Eos # (Auto) Baso # (Auto) PT INR APTT PTT Ratio Sodium Potassium Chloride Carbon Dioxide Anion Gap BUN Creatinine Est Cr Clr Drug Dosing Est GFR ( Amer) Est GFR (Non-Af Amer) BUN/Creatinine Ratio Glucose POC Glucose 91 138 H Calcium Magnesium Total Bilirubin AST ALT Alkaline Phosphatase Ammonia Troponin I Total Protein Albumin Globulin Albumin/Globulin Ratio TSH Free T4 Urine Color Urine Appearance Urine pH Ur Specific [place] Urine Protein Urine Glucose (UA) Urine Ketones Urine Blood Urine Nitrite Urine Bilirubin Urine Urobilinogen Ur Leukocyte Esterase Urine WBC (Auto) Urine RBC (Auto) U Hyaline Cast (Auto) U Epithel Cells (Auto) Urine Bacteria (Auto) Nasal Screen MRSA (PCR) Pending Medications Administered Current Inpatient Medications Al Hydrox/Mg Hydrox/Simethicone (Maalox) 15 ml PO Q4H PRN PRN Reason: Dyspepsia Stop: 01/02/19 23:40 Citalopram Hydrobromide (Celexa) 20 mg PO QAM KATELYN Stop: 01/03/19 08:59 Last Admin: 12/04/18 08:13 Dose: 20 mg Documented by: Dextrose (Dextrose 50%) 25 - 50 ml IV UD PRN; Protocol PRN Reason: Hypoglycemia Protocol Stop: 01/02/19 23:40 Diphenhydramine HCl (Benadryl Capsule) 25 mg PO HSZ PRN PRN Reason: Anxiety/Insomnia Stop: 01/03/19 00:33 Last Admin: 12/04/18 00:45 Dose: 25 mg Documented by: Diphenhydramine HCl (Benadryl Capsule) 25 mg PO Q8 PRN PRN Reason: Itching Stop: 01/03/19 16:06 Glucagon (Glucagen) 1 mg SQ UD PRN; Protocol PRN Reason: Hypoglycemia Protocol Stop: 01/02/19 23:40 Glucose (Glucose 40%) 15 - 30 gm PO UD PRN; Protocol PRN Reason: Hypoglycemia Protocol Stop: 01/02/19 23:40 Glucose (Dex4 Glucose) 4 - 8 tabs PO UD PRN; Protocol PRN Reason: Hypoglycemia Protocol Stop: 01/02/19 23:40 Heparin Sodium (Porcine) (Heparin Sodium (Porcine)) 5,000 units SQ Q8 KATELYN Stop: 01/03/19 05:59 Last Admin: 12/04/18 15:04 Dose: 5,000 units Documented by: Furosemide 40 mg/ Albumin (Human) 54 mls @ 54 mls/hr IV Q6H KATELYN Stop: 12/04/18 23:59 Last Infusion: 12/04/18 11:51 Dose: Infused Documented by: Ceftriaxone Sodium 2,000 mg/ (Dextrose) 70 mls @ 100 mls/hr IV Q24H KATELYN; Protocol Stop: 12/12/18 21:41 Vancomycin HCl 1,750 mg/ (Sodium Chloride) 535 mls @ 200 mls/hr IV Q10H [facility] Stop: 12/14/18 09:59 Last Infusion: 12/04/18 13:41 Dose: Infused Documented by: Insulin Aspart (Novolog Flexpen) 0 units SC ACHS KATELYN Stop: 01/03/19 07:29 Last Admin: 12/04/18 12:22 Dose: 4 units Documented by: Insulin Human NPH (Novolin N Nph) 21 units SQ QAM KATELYN Stop: 01/03/19 08:59 Last Admin: 12/04/18 08:16 Dose: 21 units Documented by: Magnesium Hydroxide (Milk Of Magnesia) 30 ml PO Q12H PRN PRN Reason: Constipation Stop: 01/02/19 23:40 Magnesium Oxide (Mag-Ox) 400 mg PO BID [facility] Stop: 01/02/19 23:40 Last Admin: 12/04/18 08:14 Dose: 400 mg Documented by: Miscellaneous (Carbohydrates For Hypoglycemia) 15 - 30 gm PO UD PRN PRN Reason: Hypoglycemia Treatment Stop: 01/02/19 23:40 Miscellaneous Information (Consult) 1 ea N/A UD PRN PRN Reason: Consult Stop: 01/02/19 23:40 Multivitamins/Folic Acid/Vitamin C (Flintstones Complete Chew Tab) 1 tab PO DAILY [facility] Stop: 01/03/19 08:59 Last Admin: 12/04/18 08:13 Dose: 1 tab Documented by: Ondansetron HCl (Zofran) 4 mg IV Q6H PRN PRN Reason: Nausea Stop: 01/02/19 23:40 Potassium Chloride (Klor-Con M10) 40 meq PO BID [facility] Stop: 01/02/19 23:40 Last Admin: 12/04/18 08:14 Dose: 40 meq Documented by: Rifaximin (Xifaxan) 550 mg PO BID [facility] Stop: 01/02/19 23:40 Last Admin: 12/04/18 08:13 Dose: 550 mg Documented by: Spironolactone (Aldactone) 100 mg PO QAM [facility] Stop: 01/03/19 08:59 Last Admin: 12/04/18 08:13 Dose: 100 mg Documented by: PG Care Time/CCT Total # of Minutes Spent Total Time Spent with Patient: Total time spent is greater than 50% in coor dination of care (as documented) at patient's floor/unit and/or counseling patient:
[2018-12-04] MEDS: cefTRIAXone SODIUM 2,000 MG in DEXTROSE 5% 50 ML IV SCH (22:00)
[2018-12-04] MEDS ORDERED: ACETAMINOPHEN 325 MG TAB PO PRN (22:31)
[2018-12-04] MEDS ORDERED: KETOROLAC TROMETHAMINE 15 MG/ML VIAL IV ONE (22:34)
[2018-12-05] MEDS: ALBUMIN 25% 50 ML with FUROSEMIDE 40 MG IV SCH (00:52)
[2018-12-05] MEDS ORDERED: VANCOMYCIN TROUGH ONE (05:30)
[2018-12-05] MEDS: HEPARIN SOD 5,000 UNIT/0.5 ML VIAL SQ SCH ×3 (06:08→21:46)
[2018-12-05] MEDS: VANCOMYCIN HCL 1,750 MG in SODIUM CHLORIDE 0.9% 500 ML IV SCH (06:26)
[2018-12-05 06:50] LABS: Hematocrit (blood only) 22.5 % (42-52); Hemoglobin 7.2 g/dL (14.0-18.0); Mean Corpuscular Hemoglobin 25.7 pg (25-34); Mean Corpuscular Volume 80.4 fL (80-100); RDW Coefficient of Variation 18.4 % (11.5-14.5); RDW Standard Deviation 54.3 fL (36.4-46.3); White Blood Count 2.25 K/uL (4.8-10.8)
[2018-12-05 06:59] LABS: INR 1.2 (0.9-1.1); Mean Platelet Volume 10.3 fL (7.4-10.4); Platelet Count 72 K/uL (130-400); Prothrombin Time 12.4 Seconds (9.0-12.0)
[2018-12-05 07:26] LABS: Albumin Globulin Ratio 0.5 (0.9-2); Bilirubin,Total 0.8 mg/dl (0.2-1); Calcium 7.8 mg/dl (8.5-10.1); Creatinine Clr Calc Pharmacy 99.9 ml/min; Est GFR (African American) 83.4; Globulin 4.1 gm/dl (2.5-4.0); Potassium 3.8 mmol/L (3.5-5.1); Total Protein 6.1 gm/dl (6.4-8.2)
[2018-12-05] MEDS ORDERED: FUROSEMIDE 40 MG in SYRINGE 0 ML IV ONE (07:45)
[2018-12-05 07:49] LABS: Basophils # (auto) 0.02 K/uL (0-0.2); Basophils % (auto) 0.9 %; Eosinophils # (auto) 0.22 K/uL (0-0.5); Eosinophils % (auto) 9.8 %; Lymphocytes # (auto) 0.64 K/uL (1.2-3.4); Lymphocytes % (auto) 28.4 %; Monocytes # (auto) 0.27 K/uL (0.11-0.59); Neutrophils % (auto) 48.9 %; RBC Morphology Unremarkable
[2018-12-05] MEDS: FLINTSTONES COMPLETE CHEWABLE TAB PO SCH (07:53)
[2018-12-05] MEDS: SPIRONOLACTONE 100 MG TAB PO SCH (07:53)
[2018-12-05] MEDS: MAGNESIUM OXIDE 400 MG TAB PO SCH ×2 (07:54→20:24)
[2018-12-05] MEDS: CITALOPRAM 20 MG TAB PO SCH (07:54)
[2018-12-05] MEDS: RIFAXIMIN 550 MG TABLET PO SCH ×2 (07:54→20:22)
[2018-12-05] MEDS: INSULIN ASPART 100 UNITS/ML 3 ML PEN SC SCH ×4 (07:55→20:25)
[2018-12-05] MEDS: INSULIN HUMAN NPH SQ SCH (07:58)
[2018-12-05] MEDS: POTASSIUM CHLORIDE 10 MEQ TABCR PO SCH ×2 (08:01→20:24)
[2018-12-05] MEDS: OXYCODONE HCL IR 5 MG TAB (IMMEDIATE RELEASE) PO PRN ×2 (12:32→23:24)
[2018-12-05] MEDS: FUROSEMIDE 40 MG in SYRINGE 0 ML IV SCH ×2 (14:45→21:47)
--- NOTE | 2018-12-05 15:39 | Hospitalist Progress Note ---
Date of Service December 05, 2018 Assessment & Plan (1) Bilateral lower leg cellulitis: treated with vancomycin IV and ceftriaxone IV initially will stop Vanco due to really high levels, continue Rocephin add Doxycycline for MRSA coverage leg continues to improve slowly, less erythematous, minimally tender, still warm WBC low at 2 will need at least 14 days total of antibiotics (2) Cirrhosis: Liver cirrhosis/ascites/generalized edema/medical noncompliance- No signs of hepatic encephalopathy. Albumin 25 g IV with Lasix 40 mg IV every 6 hours x 4 doses, still with profound edema and ascites Continue spironolactone 100 mg every morning will start Lasix 40mg BID, may need to increase dose, monitor renal function continue Rifaximin, mental status clear repeat BMP in the AM US paracentesis on Thursday, therapeutic, order placed would need albumin after if he does get tapped follows with Dr. Bill as outpatient (3) Ascites: See above plan for paracentesis tomorrow give albumin after if he is able to get the procedure (4) Edema: due to cirrhosis continue Lasix 40mg BID and Spironolactone 100mg daily monitor renal function (5) Diabetes mellitus with insulin therapy: Continue usual dose of Novolin N 21 units subcu every morning. Placed on Accu-Cheks before meals and at bedtime with NovoLog coverage per scale. monitor for hypoglycemia, no episodes (6) Pancytopenia: likely due to poor nutrition, cirrhosis Hb down to 7.2, WBC is 2, platelets 72 repeat tomorrow Subjective patient doing fine, his major complaint is that he wants butter in the AM with his toast he is breathing well, still with edema in legs has redness in right leg but a little better, had to take off the TEDs last night, itching no abdominal pain but his belly feels big, a lot of fluid on board reviewed labs, all counts low BMP shows Cr of 1.0 and K is 3.8 LFT normal, Albumin low at 2.0 patient requesting paracentesis, discussed that this would happen tomorrow Review of Systems Review of Systems: All systems reviewed & are unremarkable except as noted in HPI & below Constitutional: + fatigue and + weakness; no fever Respiratory: + dyspnea on exertion; no cough and no dyspnea Cardiovascular: + edema; no chest pain, no palpitations and no syncope Gastrointestinal: + problem reported (ascites); no abdominal pain, no nausea, no vomiting, no constipation and no diarrhea/loose stools Physical Exam Constitutional: WD/WN, vitals as above Eyes: PERRL, conjunctivae normal, anicteric sclerae ENMT: external ear and nose normal, oropharynx normal Neck: trachea midline, no thyromegaly Respiratory: normal respiratory effort; no respiratory distress Auscultation: + diminished lung sounds (in bases); no crackles, no rales and no wheezes Cardiovascular: Rate/Rhythm: regular rate and regular rhythm Heart Sounds: normal S1 and normal S2; no murmur Vessels: no JVD Extremities: normal capillary refill and + edema (pitting in legs bilaterally to thighs); no calf tenderness Gastrointestinal (Abdomen): Inspection/Auscultation: + abdomen distended, normal bowel sounds and + abdominal edema Percussion/Palpation: abdomen soft and + ascites (fluid wave); abdomen nontender and no guarding Musculoskeletal: no cyanosis or clubbing, extremities motor strength 5/5 Skin: + erythema (right lower leg, warm to touch, skin shiny) Neurologic: patellar DTR's 2+ bilat, sensation intact and PERRL, EOMI, accommodation nl, no face palsy, no dysarthria Psychiatric: A+Ox3, euthymic affect Lymphatic: no cervical or axillary lymphadenopathy Results & Data Vital Signs (Past 12 Hours) Vital Signs Temp Pulse Resp BP Pulse Ox 12/05/18 15:29 36.7 C 75 20 104/70 100 12/05/18 08:00 36.6 C 83 18 103/63 96 Laboratory Results Laboratory Results - last 24 hr 12/04/18 12/04/18 12/05/18 16:46 Unknown 06:14 WBC RBC Hgb Hct MCV MCH MCHC RDW Std Deviation RDW Coeff of [place] Plt Count MPV Immature Gran % (Auto) Neut % (Auto) Lymph % (Auto) [place] % (Auto) Eos % (Auto) Baso % (Auto) Immature Gran # (Auto) Neut # (Auto) Lymph # (Auto) [place] # (Auto) Eos # (Auto) Baso # (Auto) RBC Morphology PT INR Sodium 140 Potassium 3.8 D Chloride 105 Carbon Dioxide 29 Anion Gap 5.0 BUN 19 H Creatinine 1.07 Est Cr Clr Drug Dosing 99.9 Est GFR ( Amer) 83.4 Est GFR (Non-Af Amer) 72.0 BUN/Creatinine Ratio 18.0 Glucose 112 H POC Glucose 113 H Calcium 7.8 L Total Bilirubin 0.8 AST 34 ALT 24 Alkaline Phosphatase 106 Total Protein 6.1 L Albumin 2.0 L Globulin 4.1 H Albumin/Globulin Ratio 0.5 L Nasal Screen MRSA (PCR) Negative Vancomycin Trough 12/05/18 12/05/18 12/05/18 06:14 06:14 06:14 WBC 2.25 L RBC 2.80 L Hgb 7.2 L Hct 22.5 L MCV 80.4 MCH 25.7 MCHC 32.0 RDW Std Deviation 54.3 H RDW Coeff of [place] 18.4 H Plt Count 72 L MPV 10.3 Immature Gran % (Auto) 0.0 Neut % (Auto) 48.9 Lymph % (Auto) 28.4 [place] % (Auto) 12.0 Eos % (Auto) 9.8 Baso % (Auto) 0.9 Immature Gran # (Auto) 0.00 Neut # (Auto) 1.10 L Lymph # (Auto) 0.64 L [place] # (Auto) 0.27 Eos # (Auto) 0.22 Baso # (Auto) 0.02 RBC Morphology Unremarkable PT 12.4 H INR 1.2 H Sodium Potassium Chloride Carbon Dioxide Anion Gap BUN Creatinine Est Cr Clr Drug Dosing Est GFR ( Amer) Est GFR (Non-Af Amer) BUN/Creatinine Ratio Glucose POC Glucose Calcium Total Bilirubin AST ALT Alkaline Phosphatase Total Protein Albumin Globulin Albumin/Globulin Ratio Nasal Screen MRSA (PCR) Vancomycin Trough 24.4 12/05/18 12/05/18 07:46 11:37 WBC RBC Hgb Hct MCV MCH MCHC RDW Std Deviation RDW Coeff of [place] Plt Count MPV Immature Gran % (Auto) Neut % (Auto) Lymph % (Auto) [place] % (Auto) Eos % (Auto) Baso % (Auto) Immature Gran # (Auto) Neut # (Auto) Lymph # (Auto) [place] # (Auto) Eos # (Auto) Baso # (Auto) RBC Morphology PT INR Sodium Potassium Chloride Carbon Dioxide Anion Gap BUN Creatinine Est Cr Clr Drug Dosing Est GFR ( Amer) Est GFR (Non-Af Amer) BUN/Creatinine Ratio Glucose POC Glucose 115 H 149 H Calcium Total Bilirubin AST ALT Alkaline Phosphatase Total Protein Albumin Globulin Albumin/Globulin Ratio Nasal Screen MRSA (PCR) Vancomycin Trough Medications Administered Current Inpatient Medications Acetaminophen (Tylenol) 650 mg PO Q4H PRN PRN Reason: Pain Stop: 01/03/19 22:30 Al Hydrox/Mg Hydrox/Simethicone (Maalox) 15 ml PO Q4H PRN PRN Reason: Dyspepsia Stop: 01/02/19 23:40 Citalopram Hydrobromide (Celexa) 20 mg PO QAM KATELYN Stop: 01/03/19 08:59 Last Admin: 12/05/18 07:54 Dose: 20 mg Documented by: Dextrose (Dextrose 50%) 25 - 50 ml IV UD PRN; Protocol PRN Reason: Hypoglycemia Protocol Stop: 01/02/19 23:40 Diphenhydramine HCl (Benadryl Capsule) 25 mg PO HSZ PRN PRN Reason: Anxiety/Insomnia Stop: 01/03/19 00:33 Last Admin: 12/05/18 03:26 Dose: 25 mg Documented by: Diphenhydramine HCl (Benadryl Capsule) 25 mg PO Q8 PRN PRN Reason: Itching Stop: 01/03/19 16:06 Last Admin: 12/04/18 16:30 Dose: 25 mg Documented by: Glucagon (Glucagen) 1 mg SQ UD PRN; Protocol PRN Reason: Hypoglycemia Protocol Stop: 01/02/19 23:40 Glucose (Glucose 40%) 15 - 30 gm PO UD PRN; Protocol PRN Reason: Hypoglycemia Protocol Stop: 01/02/19 23:40 Glucose (Dex4 Glucose) 4 - 8 tabs PO UD PRN; Protocol PRN Reason: Hypoglycemia Protocol Stop: 01/02/19 23:40 Heparin Sodium (Porcine) (Heparin Sodium (Porcine)) 5,000 units SQ Q8 KATELYN Stop: 01/03/19 05:59 Last Admin: 12/05/18 14:37 Dose: 5,000 units Documented by: Ceftriaxone Sodium 2,000 mg/ (Dextrose) 70 mls @ 100 mls/hr IV Q24H KATELYN; Protocol Stop: 12/12/18 21:41 Last Infusion: 12/04/18 22:47 Dose: Infused Documented by: Furosemide 40 mg/ Syringe 4 mls @ 4 mls/min IV Q8 KATELYN Stop: 01/04/19 13:59 Last Admin: 12/05/18 14:45 Dose: 4 mls/min Documented by: Insulin Aspart (Novolog Flexpen) 0 units SC ACHS [facility] Stop: 01/03/19 07:29 Last Admin: 12/05/18 12:30 Dose: 4 units Documented by: Insulin Human NPH (Novolin N Nph) 21 units SQ QAM KATELYN Stop: 01/03/19 08:59 Last Admin: 12/05/18 07:58 Dose: 21 units Documented by: Magnesium Hydroxide (Milk Of Magnesia) 30 ml PO Q12H PRN PRN Reason: Constipation Stop: 01/02/19 23:40 Magnesium Oxide (Mag-Ox) 400 mg PO BID [facility] Stop: 01/02/19 23:40 Last Admin: 12/05/18 07:54 Dose: 400 mg Documented by: Miscellaneous (Carbohydrates For Hypoglycemia) 15 - 30 gm PO UD PRN PRN Reason: Hypoglycemia Treatment Stop: 01/02/19 23:40 Multivitamins/Folic Acid/Vitamin C (Flintstones Complete Chew Tab) 1 tab PO DAILY [facility] Stop: 01/03/19 08:59 Last Admin: 12/05/18 07:53 Dose: 1 tab Documented by: Ondansetron HCl (Zofran) 4 mg IV Q6H PRN PRN Reason: Nausea Stop: 01/02/19 23:40 Oxycodone HCl (Roxicodone Immediate Rel) 5 mg PO Q6 PRN PRN Reason: Pain Stop: 12/19/18 11:08 Last Admin: 12/05/18 12:32 Dose: 5 mg Documented by: Potassium Chloride (Klor-Con M10) 40 meq PO BID KATELYN Stop: 01/02/19 23:40 Last Admin: 12/05/18 08:01 Dose: 40 meq Documented by: Rifaximin (Xifaxan) 550 mg PO BID [facility] Stop: 01/02/19 23:40 Last Admin: 12/05/18 07:54 Dose: 550 mg Documented by: Spironolactone (Aldactone) 100 mg PO QAM [facility] Stop: 01/03/19 08:59 Last Admin: 12/05/18 07:53 Dose: 100 mg Documented by: PG Care Time/CCT Total # of Minutes Spent Total Time Spent with Patient: Total time spent is greater than 50% in coordination of care (as documented) at patient's floor/unit and/or counseling patient:
[2018-12-05] MEDS: cefTRIAXone SODIUM 2,000 MG in DEXTROSE 5% 50 ML IV SCH (20:25)
[2018-12-05] MEDS: DOXYCYCLINE HYCLATE 100 MG CAP PO SCH (20:27)
[2018-12-06] MEDS ORDERED: PHENAZOPYRIDINE HCL 200 MG TAB PO PRN (00:55)
[2018-12-06] MEDS: HEPARIN SOD 5,000 UNIT/0.5 ML VIAL SQ SCH ×3 (05:18→21:00)
[2018-12-06] MEDS: FUROSEMIDE 40 MG in SYRINGE 0 ML IV SCH ×3 (05:22→21:01)
[2018-12-06] MEDS: OXYCODONE HCL IR 5 MG TAB (IMMEDIATE RELEASE) PO PRN ×3 (05:29→21:08)
[2018-12-06 07:54] LABS: Hematocrit (blood only) 23.6 % (42-52); Hemoglobin 7.4 g/dL (14.0-18.0); Mean Corpuscular Hemoglobin 25.3 pg (25-34); Mean Corpuscular Hgb Conc 31.4 g/dL (32-36); Mean Corpuscular Volume 80.8 fL (80-100); RDW Coefficient of Variation 18.7 % (11.5-14.5); Red Blood Count 2.92 M/uL (4.7-6.1); White Blood Count 2.43 K/uL (4.8-10.8)
[2018-12-06 07:56] LABS: Mean Platelet Volume 10.1 fL (7.4-10.4); Platelet Count 70 K/uL (130-400)
[2018-12-06 07:58] LABS: INR 1.2 (0.9-1.1)
[2018-12-06] MEDS: INSULIN ASPART 100 UNITS/ML 3 ML PEN SC SCH ×4 (08:19→20:26)
[2018-12-06] MEDS: FLINTSTONES COMPLETE CHEWABLE TAB PO SCH (08:20)
[2018-12-06] MEDS: RIFAXIMIN 550 MG TABLET PO SCH ×2 (08:20→21:01)
[2018-12-06 08:21] LABS: Albumin Level 1.9 gm/dl (3.4-5.0); BUN Creatinine Ratio 19.1 (10-20); Creatinine Clr Calc Pharmacy 95.5 ml/min; Est GFR (African American) 78.9; Est GFR (Non-African American) 68.1
[2018-12-06] MEDS: POTASSIUM CHLORIDE 10 MEQ TABCR PO SCH ×2 (08:21→21:01)
[2018-12-06] MEDS: SPIRONOLACTONE 100 MG TAB PO SCH (08:21)
[2018-12-06] MEDS: MAGNESIUM OXIDE 400 MG TAB PO SCH ×2 (08:21→21:01)
[2018-12-06] MEDS: DOXYCYCLINE HYCLATE 100 MG CAP PO SCH ×2 (08:22→21:01)
[2018-12-06] MEDS: CITALOPRAM 20 MG TAB PO SCH (08:22)
[2018-12-06 08:24] LABS: Albumin Globulin Ratio 0.4 (0.9-2); Bilirubin,Total 0.8 mg/dl (0.2-1); Globulin 4.3 gm/dl (2.5-4.0); Total Protein 6.2 gm/dl (6.4-8.2)
[2018-12-06] MEDS: INSULIN HUMAN NPH SQ SCH (08:28)
[2018-12-06 08:37] LABS: Basophils # (auto) 0.03 K/uL (0-0.2); Basophils % (auto) 1.2 %; Eosinophils # (auto) 0.18 K/uL (0-0.5); Eosinophils % (auto) 7.4 %; Immature Granulocytes # (auto) 0.01 K/uL (0.00-0.02); Immature Granulocytes % (auto) 0.4 %; Lymphocytes % (auto) 28.8 %; Monocytes # (auto) 0.29 K/uL (0.11-0.59); Monocytes % (auto) 11.9 %; Neutrophils # (auto) 1.22 K/uL (1.4-6.5); Neutrophils % (auto) 50.3 %; RBC Morphology Unremarkable
--- NOTE | 2018-12-06 11:15 | Ultrasound Report ---
ULTRASOUND GUIDED THERAPEUTIC PARACENTESIS CLINICAL HISTORY: Ascites. COMPARISON STUDY: Ultrasound guided paracentesis November 17, 2018. PROCEDURE: The risks, benefits, and alternatives to the procedure were discussed with the patient inc luding the risk of bleeding, infection and injury to adjacent structures. The patient agreed to the procedure and informed written consent was obtained. Following real-time ultrasound localization, the skin of the left lower quadrant was prepped and draped. Following local anesthesia with Xylocaine, t he sheath paracentesis needle was inserted and approximately 4 liters of straw-colored fluid was kortney ranjan by vacuum suction. The patient tolerated the procedure well and no immediate complications were evident. IMPRESSION: Ultrasound-guided paracentesis with removal of 4 liters of ascites. Electronically signed by: Renan Fregoso M.D. 12/06/2018 11:13 AM
[2018-12-06] MEDS: ALBUMIN 25% 50 ML IV SCH ×2 (12:12→14:01)
[2018-12-06] MEDS: LEVOTHYROXINE SODIUM 25 MCG TABLET PO SCH (12:27)
[2018-12-06 15:03] LABS: Appearance Peritoneal Fluid HAZY; Color Peritoneal Fluid YELLOW; Mononuclear WBC Peritoneal 86.4 %; Polynuclear WBC Peritoneal 13.6 %; RBC Peritoneal Fluid (A) < 3000 /uL; WBC Peritoneal Fluid (A) 71 /ul (0-300)
--- NOTE | 2018-12-06 19:30 | Hospitalist Progress Note ---
Date of Service December 06, 2018 Assessment & Plan (1) Bilateral lower leg cellulitis: improved. cont rocephin. cont doxy. can likely transition to PO abx next 1-2 days. (2) Cirrhosis: follows with Dr Bill. decompensated but volume status improving with IV lasix and aldactone. cont such. s/p paracentesis today - 4 L removed - no evidence of SBP. no evidence of hepatic encephalopathy. cont rifaximin. (3) Ascites: s/p paracentesis give 25 gm of 25% albumin post-paracentesis cont diuretics (4) Diabetes mellitus with insulin therapy: Continue current insulin regimen. Control acceptable at this time. (5) Pancytopenia: 2nd to cirrhosis b12/folate wnl mild hypothyroidism can contribute to this CBC am (6) Morbid obesity with BMI of 40.0-44.9, adult: BMI 43 (7) Hypothyroidism: last 2 TSHs high. start synthroid 25mcg daily. repeat TSH 6 weeks. (8) DVT prophylaxis: heparin TID progressing PT eval Subjective patient underwent successful paracentesis this am 4 liters removed abdominal bloating feels better denies nausea/emesis/pain eating ok states LE edema is improved denies dyspnea denies orthopnea Review of Systems Constitutional: no fever and no chills Respiratory: no cough Cardiovascular: no chest pain Physical Exam Constitutional: + morbidly obese; no acute distress ENMT: external ear and nose normal, oropharynx normal Respiratory: normal respiratory effort, lungs clear to auscultation Auscultation: + diminished lung sounds (bases) Cardiovascular: Rate/Rhythm: regular rate and regular rhythm Heart Sounds: normal S1 and normal S2 Vessels: posterior tibial pulses present and dorsalis pedis pulses present; no JVD Extremities: + edema (2+ b/l ) Gastrointestinal (Abdomen): Inspection/Auscultation: + abdomen distended Percussion/Palpation: abdomen soft and + ascites; abdomen nontender and no hepat osplenomegaly Skin: + ecchymosis (limbs, other regions) left lower abdomen - dressing intact from paracentesis b/l legs with very mild pink erythema distally; no abscess Neurologic: Motor/Sensory: no asterixis Psychiatric: A+Ox3, euthymic affect Results & Data Vital Signs (Past 12 Hours) Vital Signs Temp Pulse Resp BP Pulse Ox 12/06/18 16:28 36.8 C 85 16 93/60 L 98 12/06/18 12:08 36.7 C 73 20 95/62 L 100 Laboratory Results Laboratory Results - last 24 hr 12/05/18 12/06/18 12/06/18 19:59 06:59 06:59 WBC 2.43 L RBC 2.92 L Hgb 7.4 L Hct 23.6 L MCV 80.8 MCH 25.3 MCHC 31.4 L RDW Std Deviation 55.0 H RDW Coeff of [place] 18.7 H Plt Count 70 L MPV 10.1 Immature Gran % (Auto) 0.4 Neut % (Auto) 50.3 Lymph % (Auto) 28.8 [place] % (Auto) 11.9 Eos % (Auto) 7.4 Baso % (Auto) 1.2 Immature Gran # (Auto) 0.01 Neut # (Auto) 1.22 L Lymph # (Auto) 0.70 L [place] # (Auto) 0.29 Eos # (Auto) 0.18 Baso # (Auto) 0.03 RBC Morphology Unremarkable PT INR Sodium 138 Potassium 4.0 Chloride 105 Carbon Dioxide 27 Anion Gap 7.0 BUN 21 H Creatinine 1.12 Est Cr Clr Drug Dosing 95.5 Est GFR ( Amer) 78.9 Est GFR (Non-Af Amer) 68.1 BUN/Creatinine Ratio 19.1 Glucose 127 H POC Glucose 130 H Calcium 8.0 L Total Bilirubin 0.8 AST 43 H ALT 28 Alkaline Phosphatase 113 Total Protein 6.2 L Albumin 1.9 L Globulin 4.3 H Albumin/Globulin Ratio 0.4 L Peritoneal Color Peritoneal Appearance Peritoneal WBC Peritoneal RBC Mononuclear WBCs % Polynuclear WBCs % Peritoneal Albumin Peritoneal Glucose 12/06/18 12/06/18 12/06/18 06:59 07:50 12:02 WBC RBC Hgb Hct MCV MCH MCHC RDW Std Deviation RDW Coeff of [place] Plt Count MPV Immature Gran % (Auto) Neut % (Auto) Lymph % (Auto) [place] % (Auto) Eos % (Auto) Baso % (Auto) Immature Gran # (Auto) Neut # (Auto) Lymph # (Auto) [place] # (Auto) Eos # (Auto) Baso # (Auto) RBC Morphology PT 12.0 INR 1.2 H Sodium Potassium Chloride Carbon Dioxide Anion Gap BUN Creatinine Est Cr Clr Drug Dosing Est GFR ( Amer) Est GFR (Non-Af Amer) BUN/Creatinine Ratio Glucose POC Glucose 152 H 137 H Calcium Total Bilirubin AST ALT Alkaline Phosphatase Total Protein Albumin Globulin Albumin/Globulin Ratio Peritoneal Color Peritoneal Appearance Peritoneal WBC Peritoneal RBC Mononuclear WBCs % Polynuclear WBCs % Peritoneal Albumin Peritoneal Glucose 12/06/18 12/06/18 12/06/18 15:55 Unknown Unknown WBC RBC Hgb Hct MCV MCH MCHC RDW Std Deviation RDW Coeff of [place] Plt Count MPV Immature Gran % (Auto) Neut % (Auto) Lymph % (Auto) [place] % (Auto) Eos % (Auto) Baso % (Auto) Immature Gran # (Auto) Neut # (Auto) Lymph # (Auto) [place] # (Auto) Eos # (Auto) Baso # (Auto) RBC Morphology PT INR Sodium Potassium Chloride Carbon Dioxide Anion Gap BUN Creatinine Est Cr Clr Drug Dosing Est GFR ( Amer) Est GFR (Non-Af Amer) BUN/Creatinine Ratio Glucose POC Glucose 152 H Calcium Total Bilirubin AST ALT Alkaline Phosphatase Total Protein Albumin Globulin Albumin/Globulin Ratio Peritoneal Color YELLOW Peritoneal Appearance HAZY Peritoneal WBC 71 Peritoneal RBC < 3000 Mononuclear WBCs % 86.4 Polynuclear WBCs % 13.6 Peritoneal Albumin < 0.6 Peritoneal Glucose 12/06/18 Unknown WBC RBC Hgb Hct MCV MCH MCHC RDW Std Deviation RDW Coeff of [place] Plt Count MPV Immature Gran % (Auto) Neut % (Auto) Lymph % (Auto) [place] % (Auto) Eos % (Auto) Baso % (Auto) Immature Gran # (Auto) Neut # (Auto) Lymph # (Auto) [place] # (Auto) Eos # (Auto) Baso # (Auto) RBC Morphology PT INR Sodium Potassium Chloride Carbon Dioxide Anion Gap BUN Creatinine Est Cr Clr Drug Dosing Est GFR ( Amer) Est GFR (Non-Af Amer) BUN/Creatinine Ratio Glucose POC Glucose Calcium Total Bilirubin AST ALT Alkaline Phosphatase Total Protein Albumin Globulin Albumin/Globulin Ratio Peritoneal Color Peritoneal Appearance Peritoneal WBC Peritoneal RBC Mononuclear WBCs % Polynuclear WBCs % Peritoneal Albumin Peritoneal Glucose 154 PG Care Time/CCT Total # of Minutes Spent Total Time Spent with Patient: Total time spent is greater than 50% in coordination of care (as documented) at patient's floor/unit and/or counseling patient: (1) Ascites Ascites type: other type Qualified Code(s): R18.8 - Other ascites (2) Cirrhosis Hepatic cirrhosis type: unspecified hepatic cirrhosis Ascites presence: with ascites Qualified Code(s): K74.60 - Unspecified cirrhosis of liver; R18.8 - Other ascites (3) Hypothyroidism Hypothyroidism type: acquired Qualified Code(s): E03.9 - Hypothyroidism, unspecified
[2018-12-06] MEDS: cefTRIAXone SODIUM 2,000 MG in DEXTROSE 5% 50 ML IV SCH (20:13)
[2018-12-07] MEDS: OXYCODONE HCL IR 5 MG TAB (IMMEDIATE RELEASE) PO PRN ×3 (04:54→21:05)
[2018-12-07] MEDS: FUROSEMIDE 40 MG in SYRINGE 0 ML IV SCH ×3 (05:53→21:07)
[2018-12-07] MEDS: HEPARIN SOD 5,000 UNIT/0.5 ML VIAL SQ SCH ×3 (05:54→21:04)
[2018-12-07] MEDS: LEVOTHYROXINE SODIUM 25 MCG TABLET PO SCH (07:21)
[2018-12-07 08:09] LABS: Hematocrit (blood only) 23.1 % (42-52); Hemoglobin 7.2 g/dL (14.0-18.0); Mean Corpuscular Hemoglobin 25.3 pg (25-34); Mean Corpuscular Hgb Conc 31.2 g/dL (32-36); Mean Corpuscular Volume 81.1 fL (80-100); RDW Coefficient of Variation 18.6 % (11.5-14.5); RDW Standard Deviation 55.5 fL (36.4-46.3); Red Blood Count 2.85 M/uL (4.7-6.1); White Blood Count 2.23 K/uL (4.8-10.8)
[2018-12-07 08:10] LABS: Mean Platelet Volume 9.5 fL (7.4-10.4); Platelet Count 64 K/uL (130-400)
[2018-12-07] MEDS: INSULIN ASPART 100 UNITS/ML 3 ML PEN SC SCH ×4 (08:35→21:04)
[2018-12-07 08:37] LABS: BUN Creatinine Ratio 18.2 (10-20); Calcium 8.1 mg/dl (8.5-10.1); Creatinine Clr Calc Pharmacy 89.9 ml/min; Est GFR (African American) 73.3; Est GFR (Non-African American) 63.3; Potassium 3.8 mmol/L (3.5-5.1)
[2018-12-07] MEDS: INSULIN HUMAN NPH SQ SCH (08:37)
[2018-12-07] MEDS: FLINTSTONES COMPLETE CHEWABLE TAB PO SCH (09:11)
[2018-12-07] MEDS: CITALOPRAM 20 MG TAB PO SCH (09:11)
[2018-12-07] MEDS: SPIRONOLACTONE 100 MG TAB PO SCH (09:11)
[2018-12-07] MEDS: RIFAXIMIN 550 MG TABLET PO SCH ×2 (09:11→21:07)
[2018-12-07] MEDS: MAGNESIUM OXIDE 400 MG TAB PO SCH ×2 (09:12→21:06)
[2018-12-07] MEDS: POTASSIUM CHLORIDE 10 MEQ TABCR PO SCH ×2 (09:12→21:06)
[2018-12-07] MEDS: DOXYCYCLINE HYCLATE 100 MG CAP PO SCH ×2 (10:32→21:06)
--- NOTE | 2018-12-07 20:52 | Hospitalist Progress Note ---
Date of Service December 07, 2018 Assessment & Plan (1) Bilateral lower leg cellulitis: improved. cont rocephin. cont doxy. can likely transition to PO abx solely tomorrow. (2) Cirrhosis: follows with Dr Bill. decompensated but volume status cont to improve with IV lasix and aldactone with stable BUN and Cr. cont such. s/p paracentesis yesterday - 4 L removed - no evidence of SBP. transudative fluid on fluid studies. culture negative. no evidence of hepatic encephalopathy. cont rifaximin. (3) Ascites: s/p paracentesis 12/06/18 cont diuretics (4) Diabetes mellitus with insulin therapy: Continue current insulin regimen. Control cont to be acceptable at this time. (5) Pancytopenia: 2nd to cirrhosis b12/folate wnl mild hypothyroidism can contribute to this CBC today again with low counts all cell lines but stable (6) Morbid obesity with BMI of 40.0-44.9, adult: BMI 43 (7) Hypothyroidism: last 2 TSHs high. started synthroid 25mcg daily. repeat TSH 6 weeks. (8) DVT prophylaxis: heparin TID progressing PT eval completed - cleared for return home at discharge if paracentesis site continues to leak may need suture placed in meantime - place ostomy bag to catch leaking fluid Subjective patient w/o any new complaints except that the site where paracentesis was done yesterday is leaking fluid constantly - soaking his gown. denies any abd pain, dyspnea. LE edema is improving day to day. worked w/ PT today - did ok. Review of Systems Constitutional: no fever Respiratory: no cough Cardiovascular: no chest pain Gastrointestinal: no nausea and no vomiting Physical Exam Constitutional: + morbidly obese; no acute distress ENMT: external ear and nose normal, oropharynx normal Respiratory: normal respiratory effort, lungs clear to auscultation Cardiovascular: Rate/Rhythm: regular rate and regular rhythm Heart Sounds: normal S1 and normal S2 Vessels: posterior tibial pulses present and dorsalis pedis pulses present; no JVD Extremities: + edema (2+ b/l ) Gastrointestinal (Abdomen): Inspection/Auscultation: + abdomen distended Percussion/Palpation: abdomen soft and + ascites; abdomen nontender and no hepatosplenomegaly Skin: + ecchymosis (limbs, other regions) former site of paracentesis - LLQ - leaking clear peritoneal fluid cellulitis b/l LEs nearly resolved Neurologic: Motor/Sensory: no asterixis Psychiatric: A+Ox3, euthymic affect Results & Data Vital Signs (Past 12 Hours) Vital Signs Temp Pulse Resp BP Pulse Ox 12/07/18 15:08 36.7 C 80 19 97/61 L 100 12/07/18 11:19 36.6 C 80 12 96/59 L 96 Laboratory Results Laboratory Results - last 24 hr 12/07/18 12/07/18 12/07/18 07:38 07:57 07:57 WBC 2.23 L RBC 2.85 L Hgb 7.2 L Hct 23.1 L MCV 81.1 MCH 25.3 MCHC 31.2 L RDW Std Deviation 55.5 H RDW Coeff of [place] 18.6 H Plt Count 64 L MPV 9.5 Sodium 136 Potassium 3.8 Chloride 102 Carbon Dioxide 28 Anion Gap 6.0 BUN 22 H Creatinine 1.19 Est Cr Clr Drug Dosing 89.9 Est GFR ( Amer) 73.3 Est GFR (Non-Af Amer) 63.3 BUN/Creatinine Ratio 18.2 Glucose 126 H POC Glucose 157 H Calcium 8.1 L Magnesium 2.0 Stone Source Stone Weight Stone Composition Stone Composition 2 Major Stone Nidus 12/07/18 12/07/18 12/07/18 11:12 15:16 16:38 WBC RBC Hgb Hct MCV MCH MCHC RDW Std Deviation RDW Coeff of [place] Plt Count MPV Sodium Potassium Chloride Carbon Dioxide Anion Gap BUN Creatinine Est Cr Clr Drug Dosing Est GFR ( Amer) Est GFR (Non-Af Amer) BUN/Creatinine Ratio Glucose POC Glucose 142 H 143 H Calcium Magnesium Stone Source Pending Stone Weight Pending Stone Composition Pending Stone Composition 2 Pending Major Stone Nidus Pending PG Care Time/CCT Total # of Minutes Spent Total Time Spent with Patient: Total time spent is greater than 50% in coordination of care (as documented) at patient's floor/unit and/or counseling patient: (1) Ascites Ascites type: other type Qualified Code(s): R18.8 - Other ascites (2) Hypothyroidism Hypothyroidism type: acquired Qualified Code(s): E03.9 - Hypothyroidism, unspecified (3) Cirrhosis Ascites presence: with ascites Hepatic cirrhosis type: unspecified hepatic cirrhosis Qualified Code(s): K74.60 - Unspecified cirrhosis of liver; R18.8 - Other ascites
[2018-12-07] MEDS: cefTRIAXone SODIUM 2,000 MG in DEXTROSE 5% 50 ML IV SCH (21:05)
[2018-12-08] MEDS: LEVOTHYROXINE SODIUM 25 MCG TABLET PO SCH (05:53)
[2018-12-08] MEDS: HEPARIN SOD 5,000 UNIT/0.5 ML VIAL SQ SCH ×3 (05:53→20:56)
[2018-12-08] MEDS: FUROSEMIDE 40 MG in SYRINGE 0 ML IV SCH ×3 (05:53→21:42)
[2018-12-08] MEDS: OXYCODONE HCL IR 5 MG TAB (IMMEDIATE RELEASE) PO PRN ×3 (06:04→23:38)
[2018-12-08] MEDS ORDERED: HEPARIN 100 UNIT/ML 5ML FLUSH ONE (07:09)
[2018-12-08 07:33] LABS: Hematocrit (blood only) 22.6 % (42-52); Hemoglobin 7.2 g/dL (14.0-18.0); Mean Corpuscular Hemoglobin 25.6 pg (25-34); Mean Corpuscular Hgb Conc 31.9 g/dL (32-36); Mean Corpuscular Volume 80.4 fL (80-100); RDW Coefficient of Variation 18.5 % (11.5-14.5); Red Blood Count 2.81 M/uL (4.7-6.1); White Blood Count 2.18 K/uL (4.8-10.8)
[2018-12-08 07:41] LABS: Platelet Count 59 K/uL (130-400)
[2018-12-08 07:57] LABS: BUN Creatinine Ratio 19.3 (10-20); Est GFR (African American) 76.4; Est GFR (Non-African American) 65.9; Potassium 3.8 mmol/L (3.5-5.1)
[2018-12-08] MEDS: SPIRONOLACTONE 100 MG TAB PO SCH (08:21)
[2018-12-08] MEDS: DOXYCYCLINE HYCLATE 100 MG CAP PO SCH ×2 (08:21→21:02)
[2018-12-08] MEDS: CITALOPRAM 20 MG TAB PO SCH (08:21)
[2018-12-08] MEDS: FLINTSTONES COMPLETE CHEWABLE TAB PO SCH (08:21)
[2018-12-08] MEDS: POTASSIUM CHLORIDE 10 MEQ TABCR PO SCH ×2 (08:21→21:02)
[2018-12-08] MEDS: MAGNESIUM OXIDE 400 MG TAB PO SCH ×2 (08:21→21:02)
[2018-12-08] MEDS: RIFAXIMIN 550 MG TABLET PO SCH ×2 (08:21→21:02)
[2018-12-08] MEDS: INSULIN ASPART 100 UNITS/ML 3 ML PEN SC SCH ×4 (08:33→20:58)
[2018-12-08] MEDS: INSULIN HUMAN NPH SQ SCH (08:34)
--- NOTE | 2018-12-08 20:18 | Hospitalist Progress Note ---
Date of Service December 08, 2018 Assessment & Plan (1) Bilateral lower leg cellulitis: improved/resolving. stop rocephin after tonight's dose. then transition to keflex with doxy PO for another 1-2 weeks. cont to diurese to help with severe edema. (2) Cirrhosis: follows with Dr Bill. decompensated but volume status cont to improve with IV lasix and aldactone with stable BUN and Cr. cont such. s/p diagnostic and therapeutic paracentesis - 4 L removed - no evidence of SBP. transudative fluid on fluid studies. culture still negative. no evidence of hepatic encephalopathy. cont rifaximin. the entry site of paracentesis will need a suture closure - will do this tomorrow if there is still a leak; cont ostomy bag in meantime. (3) Ascites: s/p paracentesis 12/06/18 cont diuretics (4) Diabetes mellitus with insulin therapy: Continue current insulin regimen. Control cont to be acceptable at this time. (5) Pancytopenia: 2nd to cirrhosis b12/folate wnl mild hypothyroidism can contribute to this CBC in am Tx if Hb <7 (6) Morbid obesity with BMI of 40.0-44.9, adult: BMI 43 (7) Hypothyroidism: last 2 TSHs high. started synthroid 25mcg daily. repeat TSH 6 weeks. (8) DVT prophylaxis: heparin TID progressing PT eval completed - cleared for return home at discharge hopefully home next 1-2 days Subjective no new issues or complaints. the ostomy bag that was applied to catch drainage from the paracentesis entry site continues to collect copious amounts of fluid. feeling good. no abd pain or nausea. eating well. Review of Systems Constitutional: no fever Respiratory: no dyspnea and no dyspnea on exertion Cardiovascular: no chest pain Physical Exam Constitutional: + morbidly obese; no acute distress ENMT: external ear and nose normal, oropharynx normal Respiratory: normal respiratory effort, lungs clear to auscultation Auscultation: + diminished lung sounds (bases) Cardiovascular: Rate/Rhythm: regular rate and regular rhythm Heart Sounds: normal S1 and normal S2 Vessels: posterior tibial pulses present and dorsalis pedis pulses present; no JVD Extremities: + edema (1+ b/l ) Gastrointestinal (Abdomen): Inspection/Auscultation: + abdomen distended Percussion/Palpation: abdomen soft and + ascites; abdomen nontender and no hepatosplenomegaly ostomy bag, left side of abdomen, collecting clear peritoneal fluid from prior paracentesis site Skin: + ecchymosis (limbs, other regions) nearly resolved cellulitis both shins, a little worse on right Neurologic: Motor/Sensory: no asterixis Psychiatric: A+Ox3, euthymic affect Results & Data Vital Signs (Past 12 Hours) Vital Signs Temp Pulse Resp BP Pulse Ox 12/08/18 15:34 36.7 C 78 14 95/60 L 99 Laboratory Results Laboratory Results - last 24 hr 12/08/18 12/08/18 12/08/18 07:09 07:09 07:33 WBC 2.18 L RBC 2.81 L Hgb 7.2 L Hct 22.6 L MCV 80.4 MCH 25.6 MCHC 31.9 L RDW Std Deviation 55.0 H RDW Coeff of [place] 18.5 H Plt Count 59 L MPV 10.0 Sodium 138 Potassium 3.8 Chloride 104 Carbon Dioxide 29 Anion Gap 5.0 BUN 22 H Creatinine 1.15 Est Cr Clr Drug Dosing 93.0 Est GFR ( Amer) 76.4 Est GFR (Non-Af Amer) 65.9 BUN/Creatinine Ratio 19.3 Glucose 155 H POC Glucose 158 H Calcium 8.0 L 12/08/18 12/08/18 17:01 20:03 WBC RBC Hgb Hct MCV MCH MCHC RDW Std Deviation RDW Coeff of [place] Plt Count MPV Sodium Potassium Chloride Carbon Dioxide Anion Gap BUN Creatinine Est Cr Clr Drug Dosing Est GFR ( Amer) Est GFR (Non-Af Amer) BUN/Creatinine Ratio Glucose POC Glucose 128 H 183 H Calcium PG Care Time/CCT Total # of Minutes Spent Total Time Spent with Patient: Total time spent is greater than 50% in coordination of care (as documented) at patient's floor/unit and/or counseling patient: (1) Ascites Ascites type: other type Qualified Code(s): R18.8 - Other ascites (2) Hypothyroidism Hypothyroidism type: acquired Qualified Code(s): E03.9 - Hypothyroidism, unspecified (3) Cirrhosis Ascites presence: with ascites Hepatic cirrhosis type: unspecified hepatic cirrhosis Qualified Code(s): K74.60 - Unspecified cirrhosis of liver; R18.8 - Other ascites
[2018-12-08] MEDS: cefTRIAXone SODIUM 2,000 MG in DEXTROSE 5% 50 ML IV SCH (20:52)
[2018-12-09] MEDS: FUROSEMIDE 40 MG in SYRINGE 0 ML IV SCH ×3 (06:17→21:08)
[2018-12-09] MEDS: LEVOTHYROXINE SODIUM 25 MCG TABLET PO SCH (06:17)
[2018-12-09] MEDS: OXYCODONE HCL IR 5 MG TAB (IMMEDIATE RELEASE) PO PRN ×2 (06:17→18:00)
[2018-12-09] MEDS: HEPARIN SOD 5,000 UNIT/0.5 ML VIAL SQ SCH ×3 (06:17→21:12)
[2018-12-09 07:46] LABS: Hematocrit (blood only) 23.8 % (42-52); Hemoglobin 7.4 g/dL (14.0-18.0); Mean Corpuscular Hemoglobin 25.3 pg (25-34); Mean Corpuscular Hgb Conc 31.1 g/dL (32-36); Mean Corpuscular Volume 81.2 fL (80-100); RDW Coefficient of Variation 18.9 % (11.5-14.5); RDW Standard Deviation 56.4 fL (36.4-46.3); Red Blood Count 2.93 M/uL (4.7-6.1); White Blood Count 2.75 K/uL (4.8-10.8)
[2018-12-09 07:49] LABS: Mean Platelet Volume 10.3 fL (7.4-10.4); Platelet Count 64 K/uL (130-400)
[2018-12-09 08:00] LABS: BUN Creatinine Ratio 20.4 (10-20); Calcium 7.6 mg/dl (8.5-10.1); Creatinine Clr Calc Pharmacy 100.9 ml/min; Est GFR (African American) 84.3; Est GFR (Non-African American) 72.8; Potassium 3.9 mmol/L (3.5-5.1)
[2018-12-09] MEDS: FLINTSTONES COMPLETE CHEWABLE TAB PO SCH (08:36)
[2018-12-09] MEDS: CITALOPRAM 20 MG TAB PO SCH (08:36)
[2018-12-09] MEDS: POTASSIUM CHLORIDE 10 MEQ TABCR PO SCH ×2 (08:36→21:08)
[2018-12-09] MEDS: DOXYCYCLINE HYCLATE 100 MG CAP PO SCH ×2 (08:36→21:08)
[2018-12-09] MEDS: SPIRONOLACTONE 100 MG TAB PO SCH (08:36)
[2018-12-09] MEDS: RIFAXIMIN 550 MG TABLET PO SCH ×2 (08:37→21:08)
[2018-12-09] MEDS: MAGNESIUM OXIDE 400 MG TAB PO SCH ×2 (08:37→21:08)
[2018-12-09] MEDS: INSULIN ASPART 100 UNITS/ML 3 ML PEN SC SCH ×4 (08:41→21:03)
[2018-12-09] MEDS: INSULIN HUMAN NPH SQ SCH (08:42)
--- NOTE | 2018-12-09 14:22 | XRay Report ---
XR abdomen 2V w PA chest HISTORY: 68 years-old Male abd distension, ileus? SBO? Acute abdominal distention with ileus versus small bowel obstruction COMPARISON: Chest radiograph 12/03/2018 TECHNIQUE: PA view the chest with left lateral decubitus and supine views of the abdomen FINDINGS: Cardiac silhouette is mildly enlarged, unchanged. Small left pleural effusion with persistent left ba silar opacities. Mild right hemidiaphragm elevation. No pneumothorax or overt pulmonary edema. The ri ght lung appears clear. Degenerative changes of the shoulders and spine. No pneumatosis or pneumoperitoneum surgical suture material is noted about the epigastric distributio n. Moderate formed stool about the descending colon and rectum. Vascular calcifications are noted. No definite urolith. Air is noted within the large bowel. Air-filled mildly dilated loops of small kay l are seen about the right midabdomen measuring up to 3.9 cm. Degenerative changes of the spine, pelv is and hips. IMPRESSION: 1. Mildly dilated air-filled loops of small bowel in the right mid abdomen measure up to 3.9 cm. Foca l ileus versus developing low-grade small bowel obstruction are the differential considerations. No h igh-grade small bowel obstruction. Follow-up recommended. 2. No pneumatosis or pneumoperitoneum. 3. Moderate fecal retention of the descending colon and rectum. 4. Small left pleural effusion with persistent left lung base opacities. The above report was generated using voice recognition software. It may contain grammatical, syntax o r spelling errors. Electronically signed by: Denis Perla M.D. 12/09/2018 2:21 PM
[2018-12-09] MEDS ORDERED: LIDOCAINE HCL 1% 20 ML VIAL INFIL ONE (19:30)
--- NOTE | 2018-12-09 20:28 | Hospitalist Progress Note ---
Date of Service December 09, 2018 Assessment & Plan (1) Bilateral lower leg cellulitis: nearly resolved. stop rocephin. transition to po omnicef. continue doxy. cont to diurese to help with severe edema. (2) Cirrhosis: follows with Dr Bill. decompensated but volume status cont to improve with IV lasix and aldactone with stable BUN and Cr. cont such. s/p diagnostic and therapeutic paracentesis - 4 L removed - no evidence of SBP. transudative fluid on fluid studies. culture negative. no evidence of hepatic encephalopathy. cont rifaximin. the entry site of paracentesis needed a suture closure due to ongoing leak - Procedure note: Verbal consent obtained from patient to procede with 1-stitch closure of 2mm paracentesis entry site on abdominal wall, left side of abdomen. Time out - performed at 1830. Description - after sterile prep with providine, and using 1% lidocaine for local analgesia, a single 3-0 prolene suture was placed across the entry hole. Tolerated well. Scant bleeding. No leaking of peritoneal fluid following the suture placement. Covered with band-aid. (3) Ascites: s/p paracentesis 12/06/18 cont diuretics - lasix / aldactone (4) Diabetes mellitus with insulin therapy: Continue current insulin regimen. Control cont to be acceptable at this time. (5) Pancytopenia: 2nd to cirrhosis b12/folate wnl mild hypothyroidism can contribute to this CBC in am Tx if Hb <7 (6) Morbid obesity with BMI of 40.0-44.9, adult: BMI 43 (7) Hypothyroidism: last 2 TSHs high. started synthroid 25mcg daily. repeat TSH 6 weeks. (8) Abdominal distension (gaseous): xrays w/o SBO focal ileus upper abdomen moderate constipation uncertain etiology either way he was improved by the evening today repeat x-rays in am follow carefully (9) DVT prophylaxis: heparin TID progressing PT eval completed - cleared for return home at discharge hopefully home next few days Subjective previous paracentesis site continues to leak fluid. ostomy bag in place catching the fluid -- >1500cc out over the last 2 days. c/o lack of appetite and abdominal bloating/distension. despite such continues to pass flatus. has had some diarrhea. no nausea no vomiting Review of Systems Constitutional: no fever and no chills Respiratory: no cough and no dyspnea Cardiovascular: no chest pain Gastrointestinal: no abdominal pain Physical Exam Constitutional: + morbidly obese; no acute distress ENMT: external ear and nose normal, oropharynx normal Respiratory: normal respiratory effort, lungs clear to auscultation Auscultation: + diminished lung sounds (bases) Cardiovascular: Rate/Rhythm: regular rate and regular rhythm Heart Sounds: normal S1 and normal S2 Vessels: posterior tibial pulses present and dorsalis pedis pulses present; no JVD Extremities: + edema (2+ right; 1+ left ) Gastrointestinal (Abdomen): Inspection/Auscultation: + abdomen distended (focal - upper abdomen, near midline scar; palpable gas ) P ercussion/Palpation: + ascites; abdomen nontender and no hepatosplenomegaly previous paracentesis site still leaking clear peritoneal fluid Skin: + ecchymosis (limbs, other regions) mild pink erythema distal right avila; none on left Neurologic: Motor/Sensory: no asterixis Psychiatric: A+Ox3, euthymic affect Results & Data Vital Signs (Past 12 Hours) Vital Signs Temp Pulse Resp BP Pulse Ox 12/09/18 15:26 37.0 C 77 18 103/63 100 Laboratory Results Laboratory Results - last 24 hr 12/07/18 12/08/18 12/09/18 20:16 11:19 07:22 WBC 2.75 L RBC 2.93 L Hgb 7.4 L Hct 23.8 L MCV 81.2 MCH 25.3 MCHC 31.1 L RDW Std Deviation 56.4 H RDW Coeff of [place] 18.9 H Plt Count 64 L MPV 10.3 Sodium Potassium Chloride Carbon Dioxide Anion Gap BUN Creatinine Est Cr Clr Drug Dosing Est GFR ( Amer) Est GFR (Non-Af Amer) BUN/Creatinine Ratio Glucose POC Glucose 130 H 183 H Calcium 12/09/18 12/09/18 12/09/18 07:22 07:38 11:22 WBC RBC Hgb Hct MCV MCH MCHC RDW Std Deviation RDW Coeff of [place] Plt Count MPV Sodium 138 Potassium 3.9 Chloride 105 Carbon Dioxide 27 Anion Gap 6.0 BUN 22 H Creatinine 1.06 Est Cr Clr Drug Dosing 100.9 Est GFR ( Amer) 84.3 Est GFR (Non-Af Amer) 72.8 BUN/Creatinine Ratio 20.4 H Glucose 128 H POC Glucose 144 H 172 H Calcium 7.6 L 12/09/18 16:54 WBC RBC Hgb Hct MCV MCH MCHC RDW Std Deviation RDW Coeff of [place] Plt Count MPV Sodium Potassium Chloride Carbon Dioxide Anion Gap BUN Creatinine Est Cr Clr Drug Dosing Est GFR ( Amer) Est GFR (Non-Af Amer) BUN/Creatinine Ratio Glucose POC Glucose 91 Calcium PG Care Time/CCT Total # of Minutes Spent Total Time Spent with Patient: Total time spent is greater than 50% in coordination of care (as documented) at patient's floor/unit and/or counseling patient: (1) Ascites Ascites type: other type Qualified Code(s): R18.8 - Other ascites (2) Hypothyroidism Hypothyroidism type: acquired Qualified Code(s): E03.9 - Hypothyroidism, unspecified (3) Cirrhosis Ascites presence: with ascites Hepatic cirrhosis type: unspecified hepatic cirrhosis Qualified Code(s): K74.60 - Unspecified cirrhosis of liver; R18.8 - Other ascites
[2018-12-09] MEDS: CEFDINIR 300 MG CAP PO SCH (21:50)
[2018-12-10] MEDS: OXYCODONE HCL IR 5 MG TAB (IMMEDIATE RELEASE) PO PRN ×3 (00:15→17:08)
[2018-12-10 05:35] LABS: Hematocrit (blood only) 23.3 % (42-52); Hemoglobin 7.3 g/dL (14.0-18.0); Mean Corpuscular Hemoglobin 25.2 pg (25-34); Mean Corpuscular Hgb Conc 31.3 g/dL (32-36); Mean Corpuscular Volume 80.3 fL (80-100); RDW Standard Deviation 56.2 fL (36.4-46.3)
[2018-12-10 05:57] LABS: Mean Platelet Volume 9.4 fL (7.4-10.4); Platelet Count 55 K/uL (130-400)
[2018-12-10] MEDS: FUROSEMIDE 40 MG in SYRINGE 0 ML IV SCH ×3 (05:58→21:44)
[2018-12-10] MEDS: LEVOTHYROXINE SODIUM 25 MCG TABLET PO SCH (05:58)
[2018-12-10] MEDS: HEPARIN SOD 5,000 UNIT/0.5 ML VIAL SQ SCH ×3 (05:59→21:44)
[2018-12-10 06:05] LABS: BUN Creatinine Ratio 20.7 (10-20); Calcium 7.8 mg/dl (8.5-10.1); Creatinine Clr Calc Pharmacy 106.9 ml/min; Est GFR (African American) 90.5; Est GFR (Non-African American) 78.1; Potassium 3.8 mmol/L (3.5-5.1)
[2018-12-10] MEDS: SPIRONOLACTONE 100 MG TAB PO SCH (08:17)
[2018-12-10] MEDS: CITALOPRAM 20 MG TAB PO SCH (08:17)
[2018-12-10] MEDS: CEFDINIR 300 MG CAP PO SCH ×2 (08:17→20:13)
[2018-12-10] MEDS: RIFAXIMIN 550 MG TABLET PO SCH ×2 (08:17→20:14)
[2018-12-10] MEDS: FLINTSTONES COMPLETE CHEWABLE TAB PO SCH (08:17)
[2018-12-10] MEDS: MAGNESIUM OXIDE 400 MG TAB PO SCH ×2 (08:18→20:13)
[2018-12-10] MEDS: POTASSIUM CHLORIDE 10 MEQ TABCR PO SCH ×2 (08:18→20:13)
[2018-12-10] MEDS: DOXYCYCLINE HYCLATE 100 MG CAP PO SCH ×2 (08:18→20:13)
[2018-12-10] MEDS: INSULIN HUMAN NPH SQ SCH (08:19)
[2018-12-10] MEDS: INSULIN ASPART 100 UNITS/ML 3 ML PEN SC SCH ×4 (08:21→20:11)
--- NOTE | 2018-12-10 09:20 | Hospitalist Progress Note ---
Date of Service December 10, 2018 Assessment & Plan (1) Bilateral lower leg cellulitis: cont omnicef BID with doxy PO for another 1-2 weeks. cont to diurese to help with severe edema. cellulitis largely resolved. (2) Cirrhosis: follows with Dr Bill. decompensated but volume status cont to improve with IV lasix and aldactone with stable BUN and Cr. cont such today; stop LASIX IV tonight and transition back to PO lasix (or bumex, etc) tomorrow. s/p diagnostic and therapeutic paracentesis - 4 L removed - no evidence of SBP. transudative fluid on fluid studies. culture still negative. no evidence of hepatic encephalopathy. cont rifaximin. the entry site of paracentesis needed suture closure yesterday - I completed such and this site continues to look good. remove suture in 10 days. (3) Ascites: s/p paracentesis 12/06/18 cont diuretics (4) Diabetes mellitus with insulin therapy: Continue current insulin regimen. Control cont to be acceptable at this time. (5) Pancytopenia: 2nd to cirrhosis b12/folate wnl mild hypothyroidism can contribute to this CBC in am Tx if Hb <7 (6) Morbid obesity with BMI of 40.0-44.9, adult: BMI 42 (7) Hypothyroidism: last 2 TSHs high. started synthroid 25mcg daily. repeat TSH 6 weeks. (8) Abdominal distension (gaseous): improved clinically x-rays today also improved eating fine no nausea/emesis follow (9) DVT prophylaxis: heparin TID progressing PT eval completed - cleared for return home at discharge d/c home tomorrow Subjective pt feels good today abd distension/gaseous distension improved passing plenty of flatus only 1 stool today no nausea/emesis eating well no further leaking of fluid from abdomen s/p suture closure yesterday of former paracentesis entry site Review of Systems Constitutional: no fever Respiratory: no cough and no dyspnea Cardiovascular: no chest pain Gastrointestinal: no abdominal pain Physical Exam Constitutional: + morbidly obese; no acute distress ENMT: external ear and nose normal, oropharynx normal Respiratory: normal respiratory effort, lungs clear to auscultation Auscultation: + diminished lung sounds (bases) Cardiovascular: Rate/Rhythm: regular rate and regular rhythm Heart Sounds: normal S1 and normal S2 Vessels: posterior tibial pulses present and dorsalis pedis pulses present; no JVD Extremities: + edema (2+ right; <1+ left) Gastrointestinal (Abdomen): Inspection/Auscultation: + abdomen distended Percussion/Palpation: abdomen soft and + ascites; abdomen nontender and no hepatosplenomegaly Skin: + ecchymosis (limbs, other regions) suture intact llq on abdomen; clean. scant cellulitis RLE; none on left. Neurologic: Motor/Sensory: no asterixis Psychiatric: A+Ox3, euthymic affect Results & Data Vital Signs (Past 12 Hours) Vital Signs Temp Pulse Resp BP BP Pulse Ox 12/10/18 07:09 36.7 C 86 20 115/70 95 12/10/18 00:19 36.7 C 76 16 115/65 97 Laboratory Results Laboratory Results - last 24 hr 12/09/18 12/09/18 12/09/18 11:22 16:54 20:49 WBC RBC Hgb Hct MCV MCH MCHC RDW Std Deviation RDW Coeff of [place] Plt Count MPV Sodium Potassium Chloride Carbon Dioxide Anion Gap BUN Creatinine Est Cr Clr Drug Dosing Est GFR ( Amer) Est GFR (Non-Af Amer) BUN/Creatinine Ratio Glucose POC Glucose 172 H 91 192 H Calcium 12/10/18 12/10/18 12/10/18 05:19 05:19 07:38 WBC 2.40 L RBC 2.90 L Hgb 7.3 L Hct 23.3 L MCV 80.3 MCH 25.2 MCHC 31.3 L RDW Std Deviation 56.2 H RDW Coeff of [place] 19.0 H Plt Count 55 L MPV 9.4 Sodium 139 Potassium 3.8 Chloride 106 Carbon Dioxide 28 Anion Gap 5.0 BUN 21 H Creatinine 1.00 Est Cr Clr Drug Dosing 106.9 Est GFR ( Amer) 90.5 Est GFR (Non-Af Amer) 78.1 BUN/Creatinine Ratio 20.7 H Glucose 143 H POC Glucose 153 H Calcium 7.8 L PG Care Time/CCT Total # of Minutes Spent Total Time Spent with Patient: Total time spent is greater than 50% in coordination of care (as documented) at patient's floor/unit and/or counseling patient: (1) Ascites Ascites type: other type Qualified Code(s): R18.8 - Other ascites (2) Hypothyroidism Hypothyroidism type: acquired Qualified Code(s): E03.9 - Hypothyroidism, unspecified (3) Cirrhosis Ascites presence: with ascites Hepatic cirrhosis type: unspecified hepatic cirrhosis Qualified Code(s): K74.60 - Unspecified cirrhosis of liver; R18.8 - Other ascites
--- NOTE | 2018-12-10 09:32 | XRay Report ---
XR abdomen min 2V HISTORY: 68 years-old Male focal ileus, interval change acute abdominal pain with possible ileus radha fabi obstruction COMPARISON: Acute abdominal series radiographs 12/09/2018 TECHNIQUE: 2 views of the abdomen FINDINGS: Scattered air-fluid levels are noted within nondilated loops of large and small bowel. Postoperative changes are noted within the epigastric region. No significant bowel distention to suggest obstructio n. No pneumatosis or pneumoperitoneum. No definite urolith. Degenerative changes of the spine, pelvis and hips. No acute fracture or dislocation identified. IMPRESSION: 1. Nonobstructive bowel gas pattern without pneumatosis or pneumoperitoneum. 2. Scattered air-fluid levels within nondilated loops of large and small bowel are suggestive of ente ritis with diarrheal illness. The above report was generated using voice recognition software. It may contain grammatical, syntax o r spelling errors. Electronically signed by: Denis Perla M.D. 12/10/2018 9:31 AM
[2018-12-11] MEDS: HEPARIN SOD 5,000 UNIT/0.5 ML VIAL SQ SCH ×2 (05:57→12:28)
[2018-12-11] MEDS: FUROSEMIDE 40 MG in SYRINGE 0 ML IV SCH (05:58)
[2018-12-11] MEDS: LEVOTHYROXINE SODIUM 25 MCG TABLET PO SCH (05:58)
[2018-12-11 07:02] LABS: Hematocrit (blood only) 23.8 % (42-52); Hemoglobin 7.6 g/dL (14.0-18.0); Mean Corpuscular Hemoglobin 25.8 pg (25-34); Mean Corpuscular Hgb Conc 31.9 g/dL (32-36); Mean Corpuscular Volume 80.7 fL (80-100); RDW Standard Deviation 55.9 fL (36.4-46.3); Red Blood Count 2.95 M/uL (4.7-6.1); White Blood Count 2.47 K/uL (4.8-10.8)
[2018-12-11 07:40] LABS: Mean Platelet Volume 9.4 fL (7.4-10.4); Platelet Count 58 K/uL (130-400)
[2018-12-11 07:45] LABS: BUN Creatinine Ratio 19.7 (10-20); Calcium 7.6 mg/dl (8.5-10.1); Est GFR (African American) 96.3; Est GFR (Non-African American) 83.1; Magnesium 1.9 mg/dl (1.8-2.4); Potassium 3.7 mmol/L (3.5-5.1)
[2018-12-11] MEDS: RIFAXIMIN 550 MG TABLET PO SCH ×2 (08:57→20:32)
[2018-12-11] MEDS: MAGNESIUM OXIDE 400 MG TAB PO SCH ×2 (08:57→20:31)
[2018-12-11] MEDS: SPIRONOLACTONE 100 MG TAB PO SCH (08:57)
[2018-12-11] MEDS: POTASSIUM CHLORIDE 10 MEQ TABCR PO SCH ×2 (08:57→20:30)
[2018-12-11] MEDS: FLINTSTONES COMPLETE CHEWABLE TAB PO SCH (08:58)
[2018-12-11] MEDS: INSULIN HUMAN NPH SQ SCH (08:58)
[2018-12-11] MEDS: DOXYCYCLINE HYCLATE 100 MG CAP PO SCH ×2 (08:58→20:31)
[2018-12-11] MEDS: CEFDINIR 300 MG CAP PO SCH ×2 (08:58→20:31)
[2018-12-11] MEDS: CITALOPRAM 20 MG TAB PO SCH (08:58)
[2018-12-11] MEDS: INSULIN ASPART 100 UNITS/ML 3 ML PEN SC SCH ×4 (09:01→20:31)
[2018-12-11] MEDS ORDERED: FUROSEMIDE 40 MG TAB PO ONE ×2 (14:15→19:00)
--- NOTE | 2018-12-11 15:55 | Discharge Summary ---
Date of Service date of admission - December 03, 2018 date of discharge - December 11, 2018 Admission HPI Per Admitting Provider Patient is a 68-year-old male most recently admitted to [facility] from 11/12- 11/19/2018, then discharged to [facility], and has been home for about 1 week with home health care. When seen today by home health care, they called his physician who advised to come to the emergency department for assessment. Apparently he has had worsening abdominal swelling and bilateral leg swelling, worse on right. Principal Diagnosis decompensated cirrhosis Discharge Exam Constitutional + morbidly obese; no acute distress ENMT external ear and nose normal, oropharynx normal Respiratory normal respiratory effort, lungs clear to auscultation Auscultation: + diminished lung sounds (bases) Cardiovascular Rate/Rhythm: regular rate and regular rhythm Heart Sounds: normal S1 and normal S2 Vessels: posterior tibial pulses present and dorsalis pedis pulses present; no JVD Extremities: + edema (2+ right; <1+ left) Gastrointestinal (Abdomen) Inspection/Auscultation: + abdomen distended (2nd to ascites and intestinal gas as well ) Percussion/Palpation: + ascites; abdomen nontender and no hepatosplenomegaly Skin + ecchymosis (limbs, other regions) nearly resolved cellulitis of RLE with minimal pink skin on anterior avila; resolved cellulitis of LLE; suture in place LLQ of abdominal wall without drainage or erythema Neurologic Motor/Sensory: no asterixis Psychiatric A+Ox3, euthymic affect Discharge Data Allergies Allergy/AdvReac Type Severity Reaction Status Date / Time [id number] Reductase Allergy Unknown Verified 11/29/18 14:01 Inhibitor Sulfa (Sulfonamide AdvReac Intermediate NAUSEA AND Verified 11/29/18 14:01 Antibiotics) VOMITING adhesive AdvReac Mild REDNESS, Verified 11/29/18 14:01 TAPE WILSON Consultations PT, OT Wound Care Ordered Studies 1. b/l LE venous dopplers negative for DVT 2. ultrasound-guided paracentesis by radiology with removal of 4 liters of transudative fluid 3. suture closure of paracentesis site Hospital Course (1) Bilateral lower leg cellulitis: Received IV rocephin along with PO doxycycline during his stay with improvement/resolution. Transitioned to omnicef BID with doxycycline BID for another week at discharge. Improved edema of both legs with aggressive IV diuresis likely hastened the re solution of the cellulitis. (2) Cirrhosis: Follows with Dr Bill - [facility]. Decompensated at time of admission but volume status improved significantly with IV lasix and aldactone. BUN and Cr remained stable his entire stay. At discharge he was transitioned to the following diuretic regimen - * lasix 80mg BID * aldactone 100mg daily Discharge weight was 138.8 kg. s/p diagnostic and therapeutic paracentesis this admission - 4 L removed - no evidence of SBP. transudative fluid on fluid studies. culture negative the entire stay. He had no evidence of hepatic encephalopathy while hospitalized. He will cont rifaximin. The entry site of his paracentesis needed suture closure due to ongoing leaking of fluid. The suture will need removal in 10 days after discharge. (3) Ascites: s/p paracentesis 12/06/18 cont diuretics - lasix / aldactone at discharge (4) Diabetes mellitus with insulin therapy: Continue insulin regimen. Control acceptable during the hospitalization. (5) Pancytopenia: 2nd to cirrhosis mild hypothyroidism can contribute to this as well b12 / folate levels were normal (6) Morbid obesity with BMI of 40.0-44.9, adult: BMI 41.5 (7) Hypothyroidism: last 2 TSH levels have been high. started synthroid 25mcg daily this hospitalization. repeat TSH 6 weeks recommended. (8) Abdominal distension (gaseous): Transient. improved clinically and radiographically. following resolution he was able to eat/drink without difficulty. Total Time Total Time Spent Total Time Spent (In Minutes): 40 Total Time Includes: Examination of the Patient, Discharge Planning, Medication Reconciliation and Communication With Other Providers Discharge Plan Discharge Items Patient Disposition: Home - Self-Care Reason For Visit: CELLULITIS of legs; fluid overload Discharge Diagnosis: 1. cellulitis of legs - nearly resolved. 2. fluid overload due to cirrhosis of the liver - improved; discharge weight of 305 pounds. Goals: 1. improve fluid issues 2. resolve skin infection of legs Activity: Resume your previous activity Activity Comment: as tolerated Non-emergency contact: Primary Care Provider and [employer] Compliance Manager Call non-emergency contact if: you have any medication questions, your symptoms worsen, your pain is not controlled, your pain is worsening and you have a fever Follow-up/Referrals: Obdulio Bill, DO [Physician] - (see Dr Bill or his physician assistant professor in family studies THIS WEEK) Florencio Kapoor III, MD [Primary Care Provider] - (see Dr Kapoor within 1 week) Diet: Carb Consistent or DM2 and Low Sodium (2gm) Fluids: 1800ml (7 cups) Addtl Attending Provider Instructions: You were treated for bilateral leg cellulitis (skin infection) with IV antibiotics. This improved nicely while hospitalized. You also had significant volume overload (fluid retention) due to your cirrhosis. You were given IV diuretics to remove this fluid and you also underwent a paracentesis to remove fluid from the abdomen. The fluid from the abdomen was NOT infected. Your weight at time of discharge is 305 pounds. Recommendations: 1. check your weight EVERY MORNING on the same scale. Write your weights down on a piece of paper. If your weight rises more than 3-4 pounds in 1-2 days this could be a sign of fluid retention. As your weight rises your abdomen may become more swollen and your legs may develop worsening edema. If you see this happen please contact your doctors right away. 2. for your leg skin infection - * take cefdinir 300mg twice daily for 7 days * take doxycycline 100mg twice daily for 7 days; the doxycycline can cause heartburn; it can also cause a rash if you go out in the sun while you are taking it; thus, cover up and use sunscreen 3. for prevention and treatment of fluid retention - * take furosemide 80mg twice daily EVERY DAY (take it first thing in morning, and take the 2nd dose in the afternoon) * take spironolactone 100mg once daily EVERY DAY * DO NOT take bumetanide or torsemide (these have been prescribed to you in the past - do not take these any longer unless your outpatient doctors recommend going back to them) 4. continue on your potassium supplement. Please take 20meq twice daily every day. 5. continue on your rifaximin twice daily EVERY DAY for prevention of elevated ammonia levels from your cirrhosis. 6. we have diagnosed you with hypothyroidism. This is when your thyroid gland is UNDERACTIVE. This condition is treated with synthetic thyroid hormone s upplement. Please take 25mcg once daily every morning before breakfast. You will need your TSH (thyroid level) repeated in 6 weeks as an outpatient. 7. Please cover any skin tear with "optifoam" dressings. Replace them every 2 days. 8. You have a stitch in your abdomen that was placed over the drainage procedure site in the left side of your abdomen. This will need to be removed in about 10 days. Your family doctor can do it. Follow-up -- see separate section. Return to [facility] if -- * you have fevers over 100.5 degrees * you have worsening swelling in your abdomen or legs * you have any concerns about the recent skin infection in your legs * you have worsening shortness of breath * you have severe/worsening diarrhea * you have confusion, extreme lethargy, etc. * any other concerns Pending Studies at Discharge: No Stand-Alone Forms: [facility] Medications and DC Order Prescriptions: New levothyroxine [Synthroid] 25 mcg Tablet 25 mcg PO DAILYBB Qty: 30 RF: 5 potassium chloride 20 mEq tablet extended release 20 meq PO BID Qty: 60 RF: 2 rifaximin 550 mg tablet 550 mg PO BID Qty: 60 RF: 2 furosemide [Lasix] 80 mg tablet 80 mg PO BID Qty: 60 RF: 5 Continued cyanocobalamin (vitamin B-12) 1,000 mcg/mL solution 1,000 mcg IM MONTHLY RF: 0 Flintstones Complete tablet,chewable 1 tab PO DAILY RF: 0 Novolog U-100 Insulin aspart 100 unit/mL Solution 6 - 8 unit SUBCUT AC RF: 0 citalopram 20 mg tablet 20 mg PO QAM RF: 0 Novolin N NPH U-100 Insulin 100 unit/mL suspension 21 units SQ QAM RF: 0 spironolactone 100 mg Tablet 100 mg PO QAM Qty: 30 RF: 0 magnesium oxide 400 mg (241.3 mg magnesium) Tablet 400 mg PO BID Qty: 30 RF: 0 oxycodone 5 mg tablet 5 mg PO DAILY PRN (Reason: Pain) RF: 0 Discontinued potassium chloride 10 mEq capsule, extended release 10 - 20 meq PO DAILY RF: 0 torsemide [Demadex] 20 mg tablet 40 mg PO BID RF: 0 Discharge Orders: Discharge Order (Routine); Ordered 12/11/18 Ordered By: Sanjay Ruiz Admission Data Admit Date/Time: 12/03/18 22:46 Attending Provider: Sanjay Ruiz Admit Provider: Evans Bocanegra Primary Care Provider: Florencio Kapoor III Other Providers: Evans Bocanegra Other Interventions: Discharge Summary Assessment (RN) Last Done: 12/11/18 17:53 DC Date/Time DO NOT enter until pt leaves facility: 12/11/18 21:54
[2018-12-16 07:52] LABS: Component 2 DNR; Source Kidney
== END 2018-12-11 21:54 | disposition home or self-care (01) | DRG 433 ==
LOC: ED 18:08 → SUATTDRO 22:46 → 2S 22:46 → 2W 12-04 15:14

== ENCOUNTER 2019-04-09 17:41 | Inpatient (IN) ==
[2019-04-09] MEDS ORDERED: THIAMINE HCL 200 MG in SODIUM CHLORIDE 0.9% 50 ML IV STA (18:03)
--- NOTE | 2019-04-09 18:31 | XRay Report ---
SINGLE VIEW CHEST CLINICAL HISTORY: Generalized weakness. FINDINGS: 2 AP, portable, upright chest radiographs are compared to study dated 12/09/2018. The examin ation is degraded by portable technique and patient rotation. The heart is top normal for projection. The pulmonary vasculature is noncongested. There is a layering left pleural effusion with left basil ar consolidation. No pneumothorax is seen. The skeletal structures are osteopenic. The bony thorax is grossly intact. IMPRESSION: There is a layering left pleural effusion with left basilar consolidation. Correlate clin ically for evidence of pneumonia/aspiration pneumonitis. Radiographic follow-up to resolution is yaima mmended. ACT 112: Negative or not required by law. Electronically signed by: Zion Conrad M.D. 04/09/2019 6:30 PM
[2019-04-09 18:45] LABS: Hematocrit (blood only) 27.4 % (42-52); Hemoglobin 8.9 g/dL (14.0-18.0); Mean Corpuscular Hemoglobin 25.4 pg (25-34); Mean Corpuscular Hgb Conc 32.5 g/dL (32-36); Mean Corpuscular Volume 78.3 fL (80-100); RDW Coefficient of Variation 19.4 % (11.5-14.5); White Blood Count 3.17 K/uL (4.8-10.8)
--- NOTE | 2019-04-09 18:49 | CT Scan Report ---
CT SCAN OF THE BRAIN WITHOUT IV CONTRAST CLINICAL HISTORY: Generalized weakness. COMPARISON STUDY: CT of the brain dated 11/12/2018. TECHNIQUE: Unenhanced axial CT scan of the brain is performed from the vertex to the skull base. A do se lowering technique was utilized adhering to the principles of ALARA. FINDINGS: Brain parenchyma: There are age-related involutional changes noting mild subcortical and periventric ular microangiopathic change. There is no hemorrhage, mass effect, or evidence of acute territorial i schemia by CT criteria. Yadav-white matter differentiation is preserved. No extra-axial fluid collecti on is seen. Ventricles, sulci, cisterns: Prominent secondary to involutional change. Intracranial vasculature: There is atherosclerotic calcification of the cavernous carotid and vertebr al arteries. Calvarium: Unremarkable. Sinuses and mastoids: The visualized paranasal sinuses are clear. The mastoid air cells are well pneu matized. Orbits: The bony orbits are grossly intact. There are bilateral ocular lens implants. IMPRESSION: There is no hemorrhage, mass effect, or evidence of acute territorial ischemia by CT maria isabel gill. ACT 112: Negative or not required by law. Electronically signed by: Zion Conrad M.D. 04/09/2019 6:47 PM
--- NOTE | 2019-04-09 18:58 | CT Scan Report ---
CT SCAN OF THE ABDOMEN AND PELVIS WITHOUT IV CONTRAST CLINICAL HISTORY: Abdominal distention. COMPARISON STUDY: Abdominal CT dated 02/14/2018. TECHNIQUE: CT scan of the abdomen and pelvis is performed from the lung bases to the proximal femora. Images are reviewed in the axial, sagittal, and coronal planes. IV contrast was not administered for this examination as per the referring clinician. Note that the examination was performed in suboptim al fashion without oral and IV contrast. The examination is also degraded by streak artifact from the arms which could not be elevated above the abdomen. A dose lowering technique was utilized adhering to the principles of ALARA. CT DOSE: 3392.46 mGy.cm FINDINGS: Lung bases: The heart is normal in size and without pericardial effusion. The coronary arteries are d ensely calcified. There is diminished attenuation of the cardiac blood pool as compared to the myocar dium suggesting anemia. There is a moderate left pleural effusion with associated consolidation. Ther e is a small hiatal hernia. Liver: Evaluation of the liver is degraded by streak artifact. The unenhanced liver is cirrhotic in m orphology and heterogeneous in attenuation. There is hypertrophy of the left lobe and nodularity of t he hepatic surface contour. There is no intrahepatic biliary ductal dilatation. Gallbladder: There are numerous calcified gallstones, with no CT evidence of acute cholecystitis. Spleen: Normal in size and attenuation. Pancreas: The unenhanced pancreas is atrophic and grossly unremarkable. Adrenal glands: Unremarkable. Kidneys: The unenhanced kidneys are normal in size and without hydronephrosis. There are no renal sara culi identified. There is no evidence of contour deforming renal mass lesion. Abdominal vasculature: The abdominal aorta is normal in course and caliber noting mild to moderate at herosclerotic calcification. Bowel: Postoperative changes consistent with a history of Mary-en-Y gastric bypass surgery. No bowel obstruction is seen. The appendix is not visualized. Peritoneum: There is no intraperitoneal free air. There is a large volume of abdominal ascites. Lymphadenopathy: None. Pelvic viscera: The bladder is distended but otherwise normal in appearance. The prostate gland is di minutive and heterogeneous. Skeletal structures: The skeletal structures are osteopenic. The skeletal structures are osteopenic. There is advanced lumbosacral spondylosis with evidence of DISH. No lytic or blastic lesions are seen . Soft tissues: Gynecomastia is noted. There is anasarca of the body wall. IMPRESSION: 1. There is a moderate left pleural effusion with associated consolidation. This likely represents at electasis. Clinical correlation will be required. 2. No acute infectious or inflammatory findings are identified in the abdomen or pelvis. 3. Cirrhotic liver morphology. 4. Large volume of abdominal ascites. 5. There is anasarca of the body wall. 6. Postoperative change is consistent with a history of Mary-en-Y gastric bypass surgery. No bowel ob struction is seen. 7. Cholelithiasis. 8. Additional findings as above. ACT 112: Negative or not required by law. Electronically signed by: Zion Conrad M.D. 04/09/2019 6:56 PM
[2019-04-09 19:01] LABS: INR 1.4 (0.9-1.1); Partial Thromboplastin Ratio 1.3; Partial Thromboplastin Time 34.2 Seconds (21.0-31.0); Prothrombin Time 13.9 Seconds (9.0-12.0)
--- NOTE | 2019-04-09 19:06 | Emergency Department Note ---
Entered by Luann Geronimo acting as a scribe for History of Present Illness General Chief complaint: Leg Weakness, Bilateral Stated complaint: WEAKNESS Time Seen by Provider: 04/09/19 17:48 Source: patient History of Present Illness Onset (ago): day(s) 2 Location: lower extremity (bilateral leg weakness ) Pain Consistency: + constant Associated symptoms: + denies other symptoms (leg pain, frequent urination, weight gain ), + weakness (bilateral legs, could not get up today ) and + other (recent abdominal pain); no chest pain, no fever/chills, no nausea/vomiting and no shortness of breath The patient is a 68 year old male with a history of lower extremity edema, anasarca, DVT of LE, LVH, second degree AV block, cirrhosis, uncontrolled DM2 with insulin therapy, peripheral neuropathy, loss of protective sensation of skin of foot, pancytopenia, thrombocytopenia, hypokalemia, anemia, hypothyroidism, morbid obesity, and alcohol abuse who presents to the Emergency Room with complaints of bilateral leg weakness. The patient states that 2 days ago he began to experience bilateral leg weakness. Today he could not get up due to this weakness. He also complains of some recent abdominal pain. Of note, the patient lives alone and drinks ETOH every 4-5 days including use today. He denies leg pain, shortness of breath, chest pain, nausea, vomiting, fevers, frequent urination, and weight gain. The patient offers no further concerns at this time. Home Medications Home Medications Medication Instructions Recorded Confirmed Type cyanocobalamin (vitamin B-12) 1,000 mcg IM MONTHLY ml 11/23/18 04/09/19 History 1,000 mcg/mL injection solution furosemide [Lasix] 80 mg PO BID #60 tab 12/11/18 04/09/19 Rx citalopram [Celexa] 40 mg PO DAILY 03/14/19 04/09/19 History spironolactone [Aldactone] 100 mg PO QAM 03/14/19 04/09/19 History insulin NPH isoph U-100 human 0 unit SUBCUT DAILY 04/09/19 04/09/19 History [Novolin N NPH U-100 Insulin] insulin glargine [Lantus U-100 18 unit SUBCUT QAM 04/09/19 04/09/19 History Insulin] potassium chloride 20 meq PO QAM 04/09/19 04/09/19 History Allergies Allergy/AdvReac Type Severity Reaction Status Date / Time Sulfa (Sulfonamide AdvReac Intermediate NAUSEA AND Verified 04/09/19 20:06 Antibiotics) VOMITING adhesive AdvReac Mild REDNESS, Verified 04/09/19 20:07 TAPE WILSON Past Med/Surg History Medical History Alcoholic cirrhosis of liver (Chronic) Anal ulceration (Acute) Pedroza's esophagus (Acute) Benign prostatic hyperplasia with urinary obstruction (Acute) Bilateral edema of lower extremity (Resolved) Bleeding ulcer (Resolved) Bright red rectal bleeding (Resolved) Cervical spinal stenosis (Chronic) Cervical spinal stenosis Depression (Chronic) Diabetes (Chronic) Diabetes mellitus with insulin therapy Diabetic neuropathy (Acute) Glaucoma (Acute) Gout (Chronic) HLD (hyperlipidemia) (Chronic) HTN (hypertension) (Chronic) Hyperammonemia (Acute) Infected sebaceous cyst (Resolved) Intertrigo (Resolved) Obesity (Acute) MARILYN on CPAP (Chronic) Pancytopenia (Acute) Panniculitis (Resolved) Paroxysmal supraventricular tachycardia (Acute) Pseudogynecomastia (Acute) Psoriasis (Chronic) Skin tear of lower leg without complication (Resolved) Splenomegaly (Chronic) Statin intolerance (Chronic) T2DM (type 2 diabetes mellitus) (Chronic) Thrombocytopenia (Chronic) Tubular adenoma of colon (Acute) Surgical History H/O gastric bypass (Resolved) History of cataract extraction (Resolved) S/P gastric bypass (Chronic) "2002" Family History Father Cancer Lung disease Barretts syndrome Brother Brain cancer Diabetes Overdose Myocardial infarction Daughter , age 29 Overdose Suicide Unknown Cancer Hypertension Diabetes Heart disease Social History Preferred Language: Greek Communication Ability: Effective Visual Impairment: Limited Hearing Ability: Normal Bass Fisher Required: No Beliefs That Will Affect Care: None marital status: Single marital status details: has, "lady friend" Current Living Situation: Alone Current Living Situation Comment: own home current occupational 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 Other Information That Helps Us Care for You: No Feels Safe at Home: Yes and No Is there a partner from a previous relationship who is making you feel unsafe now?: No Any Concerns about Your Family Situation: No Would You Like to Speak to Someone About Your Situation: Yes (WOULD LIKE OFFICE OF AGING CONSULT) Safety Concerns: Feels Safe At This Time Smoking Status: Never smoker Tobacco Type: smokeless tobacco ; Cigarettes Per Day: 1 can snuff a week ; Do You Dip or Chew Tobacco: Yes ; Second Hand Exposure: No ; Hx Alcohol Use: Yes Alcohol type: hard liquor Alcohol Intake Frequency: Weekly Alcohol Intake Frequency Comment: 4-5x per week Hx Substance Use: No Childhood Exposure to Second-Hand Smoke: Yes Seatbelt Use: always Sunscreen Use: No Review of Systems See HPI for pertinent positives & negatives. and A total of 10 systems reviewed and were otherwise negative Physical Exam Vital Signs Vital Signs - 24 hr 04/09/19 17:51 04/09/19 20:58 Temperature 36.5 C Temperature Source Oral Pulse Rate 86 Pulse Rate [Right Finger] 93 H Pulse Rhythm Regular Pulse Strength Normal Respiratory Rate 19 19 Respiratory Effort / Characteristics Non-Labored Respiratory Depth Normal Blood Pressure 128/70 Blood Pressure [Right Arm] 112/70 Blood Pressure Mean 89 Blood Pressure Mean [Right Arm] 84 Blood Pressure Position Lying Pulse Oximetry 100 99 Oxygen Delivery Method Room Air Sepsis Recent Fever Within 48 Hours No Sepsis Action Taken by Nursing No Action Required GENERAL: The patient is awake and alert. He is somewhat anxious appearing. EYES: The conjunctivae are clear. The pupils are round and reactive. EARS, NOSE, MOUTH AND THROAT: The nose is without any evidence of any deformity. Mucous membranes are moist. Tongue is midline. NECK: The neck is nontender and supple. RESPIRATORY: Diminished breath sounds are noted at both bases. There are rales at the left base. CARDIOVASCULAR: Heart sounds are distant. Regular rate and rhythm was noted to auscultation. GASTROINTESTINAL: Abdomen is very distended. There is no specific tenderness or guarding. There is a large fluid wave noted. MUSCULOSKELETAL/EXTREMITIES: There is no evidence of gross deformity full range of motion is noted in the hips and shoulders. SKIN: Significant lower extremity edema was noted. There was erythema in both lower extremities likely representing venous stasis changes. NEUROLOGIC: Patient is awake alert and oriented x3. Strength was diminished in both lower extremities. Patient is symmetric with his strength. 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 Course Course 175: Past medical records reviewed. The patient was evaluated in room B04B. A complete history and physical exam was performed. 1899: I checked on the patient and updated him on test results. 2108: I spoke to Dr. Bocanegra who will further evaluate the patient for admission. 2129: I re-checked the patient and updated him on plan to admit. The patient verbally expressed understanding and agreement of the treatment plan. The patient will be evaluated for further treatment. Administered Medications Citalopram Hydrobromide (Celexa) 40 mg PO DAILY KATELYN Stop: 05/10/19 08:59 Last Admin: 04/10/19 09:11 Dose: 40 mg Documented by: [id number] Folic Acid (Folvite) 1 mg PO QAM KATELYN Stop: 05/10/19 08:59 Last Admin: 04/10/19 09:10 Dose: 1 mg Documented by: [id number] Furosemide 40 mg/ Albumin (Human) 54 mls @ 54 mls/hr IV Q6H KATELYN Stop: 04/10/19 18:59 Last Infusion: 04/10/19 13:36 Dose: 0 mls/hr Documented by: [id number] Admin: 04/10/19 12:12 Dose: 54 mls/hr Documented by: [id number] Infusion: 04/10/19 07:01 Dose: 0 mls/hr Documented by: [id number] Admin: 04/10/19 05:52 Dose: 54 mls/hr Documented by: [id number] Infusion: 04/10/19 01:29 Dose: 0 mls/hr Documented by: [id number] Admin: 04/10/19 00:29 Dose: 54 mls/hr Documented by: [id number] Insulin Aspart (Novolog Flexpen) 0 units SC ACHS KATELYN Stop: 05/10/19 07:29 Last Admin: 04/10/19 12:09 Dose: 5 units Documented by: [id number] Cosigned by: [id number] Admin: 04/10/19 09:04 Dose: 4 units Documented by: [id number] Cosigned by: [id number] Insulin Glargine (Lantus Solostar Pen) 10 units SC QAM KATELYN Stop: 05/10/19 08:59 Last Admin: 04/10/19 09:10 Dose: 10 units Documented by: [id number] Cosigned by: [id number] Magnesium Oxide (Mag-Ox) 400 mg PO BID KATELYN Stop: 05/10/19 10:29 Last Admin: 04/10/19 12:07 Dose: 400 mg Documented by: [id number] Potassium Chloride (Klor-Con M20) 40 meq PO QID KATELYN Stop: 05/10/19 12:59 Last Admin: 04/10/19 12:07 Dose: 40 meq Documented by: [id number] Spironolactone (Aldactone) 100 mg PO QAM KATELYN Stop: 05/10/19 08:59 Last Admin: 04/10/19 09:11 Dose: 100 mg Documented by: [id number] Thiamine HCl (Vitamin B-1) 100 mg PO QAM KATELYN Stop: 05/10/19 08:59 Last Admin: 04/10/19 09:10 Dose: 100 mg Documented by: [id number] Discontinued Medications Thiamine HCl 200 mg/ Sodium (Chloride) 52 mls @ 208 mls/hr IV NOW STA Stop: 04/09/19 18:17 Last Infusion: 04/09/19 19:25 Dose: 0 mls/hr Documented by: [id number] Admin: 04/09/19 19:05 Dose: 208 mls/hr Documented by: [id number] Magnesium Sulfate/Dextrose (Magnesium Sulfate / D5w) 1 gm in 100 mls @ 100 mls/hr IV Q1H KATELYN Stop: 04/09/19 23:14 Last Infusion: 04/10/19 02:33 Dose: 0 mls/hr Documented by: [id number] Admin: 04/10/19 01:30 Dose: 100 mls/hr Documented by: [id number] Infusion: 04/09/19 22:57 Dose: 0 mls/hr Documented by: [id number] Admin: 04/09/19 21:56 Dose: 100 mls/hr Documented by: [id number] Potassium Chloride (K Bob / Wtr) 10 meq in 100 mls @ 100 mls/hr IV Q1H KATELYN Stop: 04/09/19 23:29 Last Infusion: 04/10/19 01:48 Dose: 0 mls/hr Documented by: [id number] Admin: 04/09/19 23:32 Dose: 100 mls/hr Documented by: [id number] Infusion: 04/09/19 22:57 Dose: 0 mls/hr Documented by: [id number] Admin: 04/09/19 21:56 Dose: 100 mls/hr Documented by: [id number] Piperacillin Sod/Tazobactam (Sod 4.5 gm/ Dextrose) 120 mls @ 240 mls/hr IV ONE ONE; Protocol Stop: 04/10/19 01:14 Last Infusion: 04/10/19 02:33 Dose: 0 mls/hr Documented by: [id number] Admin: 04/10/19 01:57 Dose: 240 mls/hr Documented by: [id number] Vancomycin HCl 2,750 mg/ (Sodium Chloride) 555 mls @ 200 mls/hr IV ONE ONE Stop: 04/10/19 03:46 Last Infusion: 04/10/19 05:51 Dose: 0 mls/hr Documented by: [id number] Admin: 04/10/19 01:57 Dose: 200 mls/hr Documented by: [id number] Piperacillin Sod/Tazobactam (Sod 4.5 gm/ Dextrose) 120 mls @ 30 mls/hr IV Q8H KATELYN; Protocol Stop: 04/17/19 05:59 Last Infusion: 04/10/19 10:22 Dose: 0 mls/hr Documented by: [id number] Admin: 04/10/19 05:52 Dose: 30 mls/hr Documented by: [id number] Potassium Chloride (Klor-Con M10) 20 meq PO NOW STA Stop: 04/09/19 21:14 Last Admin: 04/09/19 21:56 Dose: 20 meq Documented by: [id number] Potassium Chloride (Klor-Con M20) 40 meq PO BID KATELYN Stop: 05/09/19 23:30 Last Admin: 04/10/19 09:11 Dose: 40 meq Documented by: [id number] Admin: 04/10/19 01:35 Dose: 40 meq Documented by: [id number] Medical Decision Making Differential Diagnosis Differential diagnosis includes but is not limited to etiologies such as metabolic, infection, hypo/hyperglycemia, electrolyte abnormalities, cardiac sources, intracerebral event, toxicologic, neurologic, as well as others were entertained. Medical Records Attestation: I reviewed the patient's medical records. Home Medications Current Medication List: was personally reviewed by me Laboratory Data Attestation: I reviewed the patient's lab results. Result diagrams: 04/10/19 10:13 04/10/19 10:13 Lab Results 01/25/20 01/25/20 01/25/20 Range/Units 18:28 18:28 18:28 WBC 3.17 L (4.8-10.8) K/uL RBC 3.50 L (4.7-6.1) M/uL Hgb 8.9 L (14.0-18.0) g/dL Hct 27.4 L (42-52) % MCV 78.3 L (80-100) fL MCH 25.4 (25-34) pg MCHC 32.5 (32-36) g/dL RDW Std Deviation 56.0 H (36.4-46.3) fL RDW Coeff of Santiago 19.4 H (11.5-14.5) % Plt Count 74 L (130-400) K/uL MPV 9.3 (7.4-10.4) fL Immature Gran % (Auto) 0.3 % Neut % (Auto) 65.7 % Lymph % (Auto) 20.8 % [place] % (Auto) 8.2 % Eos % (Auto) 4.4 % Baso % (Auto) 0.6 % Immature Gran # (Auto) 0.01 (0.00-0.02) K/uL Neut # (Auto) 2.08 (1.4-6.5) K/uL Lymph # (Auto) 0.66 L (1.2-3.4) K/uL [place] # (Auto) 0.26 (0.11-0.59) K/uL Eos # (Auto) 0.14 (0-0.5) K/uL Baso # (Auto) 0.02 (0-0.2) K/uL Echinocytes 1+ Schistocytes Occasional ESR 60 H (0-14) mm/hr PT 13.9 H (9.0-12.0) Seconds INR 1.4 H (0.9-1.1) APTT 34.2 H (21.0-31.0) Seconds PTT Ratio 1.3 Sodium (136-145) mmol/L Potassium (3.5-5.1) mmol/L Chloride (98-107) mmol/L Carbon Dioxide (21-32) mmol/L Anion Gap (3-11) BUN (7-18) mg/dl Creatinine (0.6-1.4) mg/dl Est Cr Clr Drug Dosing ml/min Est GFR ( Amer) Est GFR (Non-Af Amer) BUN/Creatinine Ratio (10-20) Glucose (70-99) mg/dl Calcium (8.5-10.1) mg/dl Magnesium (1.8-2.4) mg/dl Total Bilirubin (0.2-1) mg/dl AST (15-37) U/L ALT (12-78) U/L Alkaline Phosphatase (45-117) U/L Total Creatine Kinase (39-308) U/L Troponin I (0-0.045) ng/ml C-Reactive Protein (0-0.29) mg/dl Total Protein (6.4-8.2) gm/dl Albumin (3.4-5.0) gm/dl Globulin (2.5-4.0) gm/dl Albumin/Globulin Ratio (0.9-2) Procalcitonin (0-0.5) ng/ml TSH (0.300-4.500) uIu/ml Free T4 (0.8-1.6) ng/dl Ethyl Alcohol mg/dL (0-3) mg/dl Hep Bs Antigen (Neg) Hepatitis C Antibody (Neg) 04/09/19 04/09/19 04/09/19 Range/Units 18:28 18:28 18:28 WBC (4.8-10.8) K/uL RBC (4.7-6.1) M/uL Hgb (14.0-18.0) g/dL Hct (42-52) % MCV (80-100) fL MCH (25-34) pg MCHC (32-36) g/dL RDW Std Deviation (36.4-46.3) fL RDW Coeff of Santiago (11.5-14.5) % Plt Count (130-400) K/uL MPV (7.4-10.4) fL Immature Gran % (Auto) % Neut % (Auto) % Lymph % (Auto) % [place] % (Auto) % Eos % (Auto) % Baso % (Auto) % Immature Gran # (Auto) (0.00-0.02) K/uL Neut # (Auto) (1.4-6.5) K/uL Lymph # (Auto) (1.2-3.4) K/uL [place] # (Auto) (0.11-0.59) K/uL Eos # (Auto) (0-0.5) K/uL Baso # (Auto) (0-0.2) K/uL Echinocytes Schistocytes ESR (0-14) mm/hr PT (9.0-12.0) Seconds INR (0.9-1.1) APTT (21.0-31.0) Seconds PTT Ratio Sodium 129 L (136-145) mmol/L Potassium (3.5-5.1) mmol/L Chloride 96 L (98-107) mmol/L Carbon Dioxide 26 (21-32) mmol/L Anion Gap 7.0 (3-11) BUN 10 (7-18) mg/dl Creatinine 0.83 (0.6-1.4) mg/dl Est Cr Clr Drug Dosing 125.0 ml/min Est GFR ( Amer) 106.3 Est GFR (Non-Af Amer) 91.7 BUN/Creatinine Ratio 11.8 (10-20) Glucose 160 H (70-99) mg/dl Calcium 7.5 L (8.5-10.1) mg/dl Magnesium (1.8-2.4) mg/dl Total Bilirubin 1.2 H (0.2-1) mg/dl AST (15-37) U/L ALT 13 (12-78) U/L Alkaline Phosphatase 86 (45-117) U/L Total Creatine Kinase (39-308) U/L Troponin I < 0.015 (0-0.045) ng/ml C-Reactive Protein 0.46 H (0-0.29) mg/dl Total Protein 7.6 (6.4-8.2) gm/dl Albumin 2.1 L (3.4-5.0) gm/dl Globulin 5.5 H (2.5-4.0) gm/dl Albumin/Globulin Ratio 0.4 L (0.9-2) Procalcitonin < 0.05 (0-0.5) ng/ml TSH 4.760 H (0.300-4.500) uIu/ml Free T4 1.32 (0.8-1.6) ng/dl Ethyl Alcohol mg/dL 239.9 H (0-3) mg/dl Hep Bs Antigen (Neg) Hepatitis C Antibody (Neg) 04/09/19 04/09/19 04/09/19 Range/Units 19:52 19:52 19:52 WBC (4.8-10.8) K/uL RBC (4.7-6.1) M/uL Hgb (14.0-18.0) g/dL Hct (42-52) % MCV (80-100) fL MCH (25-34) pg MCHC (32-36) g/dL RDW Std Deviation (36.4-46.3) fL RDW Coeff of Santiago (11.5-14.5) % Plt Count (130-400) K/uL MPV (7.4-10.4) fL Immature Gran % (Auto) % Neut % (Auto) % Lymph % (Auto) % [place] % (Auto) % Eos % (Auto) % Baso % (Auto) % Immature Gran # (Auto) (0.00-0.02) K/uL Neut # (Auto) (1.4-6.5) K/uL Lymph # (Auto) (1.2-3.4) K/uL [place] # (Auto) (0.11-0.59) K/uL Eos # (Auto) (0-0.5) K/uL Baso # (Auto) (0-0.2) K/uL Echinocytes Schistocytes ESR (0-14) mm/hr PT (9.0-12.0) Seconds INR (0.9-1.1) APTT (21.0-31.0) Seconds PTT Ratio Sodium (136-145) mmol/L Potassium 2.9 L (3.5-5.1) mmol/L Chloride (98-107) mmol/L Carbon Dioxide (21-32) mmol/L Anion Gap (3-11) BUN (7-18) mg/dl Creatinine (0.6-1.4) mg/dl Est Cr Clr Drug Dosing ml/min Est GFR ( Amer) Est GFR (Non-Af Amer) BUN/Creatinine Ratio (10-20) Glucose (70-99) mg/dl Calcium (8.5-10.1) mg/dl Magnesium 1.6 L (1.8-2.4) mg/dl Total Bilirubin (0.2-1) mg/dl AST 21 (15-37) U/L ALT (12-78) U/L Alkaline Phosphatase (45-117) U/L Total Creatine Kinase (39-308) U/L Troponin I (0-0.045) ng/ml C-Reactive Protein (0-0.29) mg/dl Total Protein (6.4-8.2) gm/dl Albumin (3.4-5.0) gm/dl Globulin (2.5-4.0) gm/dl Albumin/Globulin Ratio (0.9-2) Procalcitonin (0-0.5) ng/ml TSH (0.300-4.500) uIu/ml Free T4 (0.8-1.6) ng/dl Ethyl Alcohol mg/dL (0-3) mg/dl Hep Bs Antigen (Neg) Hepatitis C Antibody (Neg) 04/09/19 04/09/19 Range/Units 21:19 21:19 WBC (4.8-10.8) K/uL RBC (4.7-6.1) M/uL Hgb (14.0-18.0) g/dL Hct (42-52) % MCV (80-100) fL MCH (25-34) pg MCHC (32-36) g/dL RDW Std Deviation (36.4-46.3) fL RDW Coeff of Santiago (11.5-14.5) % Plt Count (130-400) K/uL MPV (7.4-10.4) fL Immature Gran % (Auto) % Neut % (Auto) % Lymph % (Auto) % [place] % (Auto) % Eos % (Auto) % Baso % (Auto) % Immature Gran # (Auto) (0.00-0.02) K/uL Neut # (Auto) (1.4-6.5) K/uL Lymph # (Auto) (1.2-3.4) K/uL [place] # (Auto) (0.11-0.59) K/uL Eos # (Auto) (0-0.5) K/uL Baso # (Auto) (0-0.2) K/uL Echinocytes Schistocytes ESR (0-14) mm/hr PT (9.0-12.0) Seconds INR (0.9-1.1) APTT (21.0-31.0) Seconds PTT Ratio Sodium (136-145) mmol/L Potassium (3.5-5.1) mmol/L Chloride (98-107) mmol/L Carbon Dioxide (21-32) mmol/L Anion Gap (3-11) BUN (7-18) mg/dl Creatinine (0.6-1.4) mg/dl Est Cr Clr Drug Dosing ml/min Est GFR ( Amer) Est GFR (Non-Af Amer) BUN/Creatinine Ratio (10-20) Glucose (70-99) mg/dl Calcium (8.5-10.1) mg/dl Magnesium 1.6 L (1.8-2.4) mg/dl Total Bilirubin (0.2-1) mg/dl AST (15-37) U/L ALT (12-78) U/L Alkaline Phosphatase (45-117) U/L Total Creatine Kinase (39-308) U/L Troponin I (0-0.045) ng/ml C-Reactive Protein (0-0.29) mg/dl Total Protein (6.4-8.2) gm/dl Albumin (3.4-5.0) gm/dl Globulin (2.5-4.0) gm/dl Albumin/Globulin Ratio (0.9-2) Procalcitonin (0-0.5) ng/ml TSH (0.300-4.500) uIu/ml Free T4 (0.8-1.6) ng/dl Ethyl Alcohol mg/dL (0-3) mg/dl Hep Bs Antigen Neg (Neg) Hepatitis C Antibody Neg (Neg) Imaging Data Radiologist's Impression: Radiology results as stated below per my review and the radiologist's interpretation: CT SCAN OF THE ABDOMEN AND PELVIS WITHOUT IV CONTRAST CLINICAL HISTORY: Abdominal distention. COMPARISON STUDY: Abdominal CT dated 02/14/2018. TECHNIQUE: CT scan of the abdomen and pelvis is performed from the lung bases to the proximal femora. Images are reviewed in the axial, sagittal, and coronal planes. IV contrast was not administered for this examination as per the referring clinician. Note that the examination was performed in suboptimal fashion without oral and IV contrast. The examination is also degraded by streak artifact from the arms which could not be elevated above the abdomen. A dose lowering technique was utilized adhering to the principles of ALARA. CT DOSE: 3392.46 mGy.cm FINDINGS: Lung bases: The heart is normal in size and without pericardial effusion. The coronary arteries are densely calcified. There is diminished attenuation of the cardiac blood pool as compared to the myocardium suggesting anemia. There is a moderate left pleural effusion with associated consolidation. There is a small hiatal hernia. Liver: Evaluation of the liver is degraded by streak artifact. The unenhanced liver is cirrhotic in morphology and heterogeneous in attenuation. There is hypertrophy of the left lobe and nodularity of the hepatic surface contour. There is no intrahepatic biliary ductal dilatation. Gallbladder: There are numerous calcified gallstones, with no CT evidence of acute cholecystitis. Spleen: Normal in size and attenuation. Pancreas: The unenhanced pancreas is atrophic and grossly unremarkable. Adrenal glands: Unremarkable. Kidneys: The unenhanced kidneys are normal in size and without hydronephrosis. There are no renal calculi identified. There is no evidence of contour deforming renal mass lesion. Abdominal vasculature: The abdominal aorta is normal in course and caliber noting mild to moderate atherosclerotic calcification. Bowel: Postoperative changes consistent with a history of Mary-en-Y gastric bypass surgery. No bowel obstruction is seen. The appendix is not visualized. Peritoneum: There is no intraperitoneal free air. There is a large volume of abdominal ascites. Lymphadenopathy: None. Pelvic viscera: The bladder is distended but otherwise normal in appearance. The prostate gland is diminutive and heterogeneous. Skeletal structures: The skeletal structures are osteopenic. The skeletal structures are osteopenic. There is advanced lumbosacral spondylosis with evidence of DISH. No lytic or blastic lesions are seen. Soft tissues: Gynecomastia is noted. There is anasarca of the body wall. IMPRESSION: 1. There is a moderate left pleural effusion with associated consolidation. This likely represents atelectasis. Clinical correlation will be required. 2. No acute infectious or inflammatory findings are identified in the abdomen or pelvis. 3. Cirrhotic liver morphology. 4. Large volume of abdominal ascites. 5. There is anasarca of the body wall. 6. Postoperative change is consistent with a history of Mary-en-Y gastric bypass surgery. No bowel obstruction is seen. 7. Cholelithiasis. 8. Additional findings as above. ACT 112: Negative or not required by law. Electronically signed by: Zion Conrad M.D. 04/09/2019 6:56 PM SINGLE VIEW CHEST CLINICAL HISTORY: Generalized weakness. FINDINGS: 2 AP, portable, upright chest radiographs are compared to study dated 12/09/2018. The examination is degraded by portable technique and patient rotation. The heart is top normal for projection. The pulmonary vasculature is noncongested. There is a layering left pleural effusion with left basilar consolidation. No pneumothorax is seen. The skeletal structures are osteopenic. The bony thorax is grossly intact. IMPRESSION: There is a layering left pleural effusion with left basilar consolidation. Correlate clinically for evidence of pneumonia/aspiration pneumonitis. Radiographic follow-up to resolution is recommended. ACT 112: Negative or not required by law. Electronically signed by: Zion Conrad M.D. 04/09/2019 6:[address] SCAN OF THE BRAIN WITHOUT IV CONTRAST CLINICAL HISTORY: Generalized weakness. COMPARISON STUDY: CT of the brain dated 11/12/2018. TECHNIQUE: Unenhanced axial CT scan of the brain is performed from the vertex to the skull base. A dose lowering technique was utilized adhering to the princi ples of ALARA. FINDINGS: Brain parenchyma: There are age-related involutional changes noting mild subcortical and periventricular microangiopathic change. There is no hemorrhage, mass effect, or evidence of acute territorial ischemia by CT criteria. Yadav- white matter differentiation is preserved. No extra-axial fluid collection is seen. Ventricles, sulci, cisterns: Prominent secondary to involutional change. Intracranial vasculature: There is atherosclerotic calcification of the cavernous carotid and vertebral arteries. Calvarium: Unremarkable. Sinuses and mastoids: The visualized paranasal sinuses are clear. The mastoid air cells are well pneumatized. Orbits: The bony orbits are grossly intact. There are bilateral ocular lens implants. IMPRESSION: There is no hemorrhage, mass effect, or evidence of acute territorial ischemia by CT criteria. ACT 112: Negative or not required by law. Electronically signed by: Zion Conrad M.D. 04/09/2019 6:47 PM ECG Data Attestation: I personally reviewed and interpreted this ECG as follows: Indication: + other (bilateral leg weakness ) Rate (beats per minute): 85 Rhythm: + sinus rhythm ECG Findings: + Other (low voltage noted throughout ); no PACs and no PVCs Comparison ECG Date: from (12/03/18) Change: no significant change Blood Pressure Blood Pressure Findings: Low blood pressure Blood Pressure Disposition: further management by hospitalist PACO Narrative The patient is a 68-year-old male who presented to the emergency department for an evaluation of generalized lower extremity weakness. The patient has a history of alcoholic cirrhosis. He has very severe ascites as well as pleural effusions. The patient has been noticing worsening lower extremity edema with erythema. The patient has very severe anasarca with ascites. He has stasis dermatitis which could actually be the beginnings of cellulitis. The patient was also found to have an elevated alcohol level in the emergency department. I discussed the patient's laboratory and radiographic studies with him. Given the degrees of symptoms as well as the involvement with [facility] I do feel the patient would benefit from inpatient management. For this reason I discussed his case with the on-call bertha Fowler hospitalist. They have agreed to evaluate the patient in the emergency department for further management and disposition. Impression & Plan Weakness, Cirrhosis, Hypokalemia, Hypomagnesemia, Ascites, Edema, peripheral, Alcohol intoxication Discharge Plan Visit Data *Final* Discharge Date/Time: 04/09/19 22:40 Chief Complaint: Leg Weakness, Bilateral Stated Complaint: WEAKNESS ED Provider: Abdias Caldwell Discharge Problem: Weakness, Cirrhosis, Hypokalemia, Hypomagnesemia, Ascites, Edema, peripheral, Alcohol intoxication Patient Disposition: Admitted As Inpatient Discharge Instructions Interventions: ED Discharge Assessment Last Done: 04/09/19 22:40 Discharge Problem: Cirrhosis Qualifiers: Hepatic cirrhosis type: alcoholic cirrhosis Ascites presence: with ascites Qualified Code(s): K70.31 - Alcoholic cirrhosis of liver with ascites Ascites Qualifiers: Ascites type: due to alcoholic cirrhosis Qualified Code(s): K70.31 - Alcoholic cirrhosis of liver with ascites Alcohol intoxication Qualifiers: Complication of substance-induced condition: uncomplicated Qualified Code(s): F10.920 - Alcohol use, unspecified with intoxication, uncomplicated The scribe's documentation has been prepared under my direction and personally reviewed by me in its entirety. I confirm that the note above accurately re flects all work, treatment, procedures, and medical decision making performed by me.
[2019-04-09 19:12] LABS: Mean Platelet Volume 9.3 fL (7.4-10.4); Platelet Count 74 K/uL (130-400)
[2019-04-09 19:19] LABS: Basophils # (auto) 0.02 K/uL (0-0.2); Basophils % (auto) 0.6 %; Echinocytes 1+; Eosinophils # (auto) 0.14 K/uL (0-0.5); Eosinophils % (auto) 4.4 %; Immature Granulocytes # (auto) 0.01 K/uL (0.00-0.02); Immature Granulocytes % (auto) 0.3 %; Lymphocytes # (auto) 0.66 K/uL (1.2-3.4); Lymphocytes % (auto) 20.8 %; Monocytes # (auto) 0.26 K/uL (0.11-0.59); Monocytes % (auto) 8.2 %; Neutrophils # (auto) 2.08 K/uL (1.4-6.5); Neutrophils % (auto) 65.7 %
[2019-04-09 19:20] LABS: Schistocytes Occasional
[2019-04-09 19:31] LABS: Alanine Aminotransferase 13 U/L (12-78); Albumin Globulin Ratio 0.4 (0.9-2); Albumin Level 2.1 gm/dl (3.4-5.0); Alkaline Phosphatase 86 U/L (45-117); BUN Creatinine Ratio 11.8 (10-20); Bilirubin,Total 1.2 mg/dl (0.2-1); Blood Urea Nitrogen 10 mg/dl (7-18); C Reactive Protein 0.46 mg/dl (0-0.29); Calcium 7.5 mg/dl (8.5-10.1); Carbon Dioxide 26 mmol/L (21-32); Chloride 96 mmol/L (98-107); Est GFR (African American) 106.3; Est GFR (Non-African American) 91.7; Globulin 5.5 gm/dl (2.5-4.0); Glucose 160 mg/dl (70-99); Sodium 129 mmol/L (136-145); Total Protein 7.6 gm/dl (6.4-8.2); Troponin I < 0.015 ng/ml (0-0.045)
[2019-04-09 19:41] LABS: Appearance Urine Clear (Clear); Bilirubin Urine Negative (Negative); Blood Urine Negative (Negative); Color Urine Dark Yellow; Glucose Urine UA Negative (Negative); Ketones Urine Negative (Negative); Leukocyte Esterase Urine Negative (Negative); Nitrite Urine Negative (Negative); Protein Urine Negative (Negative); Specific Gravity Urine 1.013 (1.000-1.030); Urobilinogen Urine Negative (Negative); pH Urine 5.5 (4.5-7.5)
[2019-04-09 20:22] LABS: T4 Free Thyroxine 1.32 ng/dl (0.8-1.6)
[2019-04-09] MEDS ORDERED: POTASSIUM CHLORIDE 10 MEQ TABCR PO STA (21:13)
[2019-04-09] MEDS ORDERED: POTASSIUM ACETATE 10 MEQ in 0.9 % SODIUM CHLORIDE 100 ML IV SCH (21:15)
[2019-04-09] MEDS: POTASSIUM CHLORIDE / WTR 10 MEQ/100 ML PLCT IV SCH ×2 (21:56→23:32)
[2019-04-09] MEDS: MAGNESIUM SULFATE / D5W 1 GM/100 ML BAG IV SCH (21:56)
[2019-04-09] MEDS ORDERED: GLUCOSE 40% GEL 15 GM TUBE PO PRN (23:31)
[2019-04-09] MEDS ORDERED: GLUCOSE 10 TABS/TUBE PO PRN (23:31)
[2019-04-09] MEDS ORDERED: GLUCAGON FOR INJ 1 MG VIAL SQ PRN (23:31)
[2019-04-09] MEDS ORDERED: ONDANSETRON INJ 2 MG/ML 2 ML VIAL IV PRN (23:31)
[2019-04-09] MEDS ORDERED: CARBOHYDRATES FOR HYPOGLYCEMIA PO PRN (23:31)
[2019-04-09] MEDS ORDERED: DEXTROSE 50% 50 ML SYRINGE IV PRN (23:31)
--- NOTE | 2019-04-09 23:46 | History & Physical Report ---
Date of Service April 09, 2019 Assessment & Plan (1) Cirrhosis: Liver cirrhosis secondary to alcoholism/anasarca/ascites- Give albumin 25 g IV with Lasix 40 mg IV every 6 hours x4 doses. Consult radiology for therapeutic paracentesis for tomorrow. Patient reports that he gets paracentesis approximately every 2 to 3 weeks, averaging 12 L removal at a time Present on Admission?: Yes (2) Anasarca: See above Present on Admission?: Yes (3) Ascites: See above Present on Admission?: Yes (4) Diabetes mellitus type 2 in obese: Has had a decreased appetite. Reduce a.m. Lantus from 18 to 10 units. Hold NPH. Patient Accu-Cheks before meals and at bedtime with NovoLog coverage per scale Present on Admission?: Yes (5) Hypomagnesemia: Magnesium level 1.6, and given 2 g magnesium sulfate IV in ED Repeat in a.m. Present on Admission?: Yes (6) Hypokalemia: Klor-Con 40 mEq p.o. twice daily, with first dose in ED Repeat in a.m. with BMP Present on Admission?: Yes (7) Alcohol abuse: Place on AWSS with oral Ativan. Thiamine 100 mg p.o. daily. Folic acid 1 mg p.o. daily. Present on Admission?: Yes (8) Pneumonia: Pneumonia/parapneumonic effusion- Healthcare associated. Placed on vancomycin IV and Zosyn IV. Albumin with Lasix IV as noted. Present on Admission?: Yes (9) Parapneumonic effusion: See above Present on Admission?: Yes History of Present Illness Chief Complaint: The patient presents to the emergency department with generalized weakness, with worsening lower extremity edema, abdominal girth, and overall fluid retention. Primary Care Provider: Rocío Herzog MD The patient is a 68-year-old male with a past medical history including liver cirrhosis, ascites, anasarca, alcohol dependency, diabetes mellitus, lower extremity DVT, dyslipidemia, ankylosing spondylitis, peripheral neuropathy, mood disorder, hypothyroidism, status post gastric bypass, hepatic encephalopathy, diastolic heart dysfunction, LVH, PSVT, BPH with LUTS. He presents to the emergency department with worsening symptoms of fluid overload, and imaging and physical exam suggesting anasarca, ascites and left lower lobe pneumonia and parapneumonic effusion. Allergies Allergy/AdvReac Type Severity Reaction Status Date / Time Sulfa (Sulfonamide AdvReac Intermediate NAUSEA AND Verified 04/09/19 20:06 Antibiotics) VOMITING adhesive AdvReac Mild REDNESS, Verified 04/09/19 20:07 TAPE WILSON Home Medications Home Medications Medication Instructions Recorded Confirmed Type cyanocobalamin (vitamin B-12) 1,000 mcg IM MONTHLY ml 11/23/18 04/09/19 History 1,000 mcg/mL injection solution furosemide [Lasix] 80 mg PO BID #60 tab 12/11/18 04/09/19 Rx citalopram [Celexa] 40 mg PO DAILY 03/14/19 04/09/19 History spironolactone [Aldactone] 100 mg PO QAM 03/14/19 04/09/19 History insulin NPH isoph U-100 human 0 unit SUBCUT DAILY 04/09/19 04/09/19 History [Novolin N NPH U-100 Insulin] insulin glargine [Lantus U-100 18 unit SUBCUT QAM 04/09/19 04/09/19 History Insulin] potassium chloride 20 meq PO QAM 04/09/19 04/09/19 History Past Med/Surg History Medical History Alcoholic cirrhosis of liver (Chronic) Anal ulceration (Acute) Pedroza's esophagus (Acute) Benign prostatic hyperplasia with urinary obstruction (Acute) Bilateral edema of lower extremity (Resolved) Bleeding ulcer (Resolved) Bright red rectal bleeding (Resolved) Cervical spinal stenosis (Chronic) Cervical spinal stenosis Depression (Chronic) Diabetes (Chronic) Diabetes mellitus with insulin therapy Diabetic neuropathy (Acute) Glaucoma (Acute) Gout (Chronic) HLD (hyperlipidemia) (Chronic) HTN (hypertension) (Chronic) Hyperammonemia (Acute) Infected sebaceous cyst (Resolved) Intertrigo (Resolved) Obesity (Acute) MARILYN on CPAP (Chronic) Pancytopenia (Acute) Panniculitis (Resolved) Paroxysmal supraventricular tachycardia (Acute) Pseudogynecomastia (Acute) Psoriasis (Chronic) Skin tear of lower leg without complication (Resolved) Splenomegaly (Chronic) Statin intolerance (Chronic) T2DM (type 2 diabetes mellitus) (Chronic) Thrombocytopenia (Chronic) Tubular adenoma of colon (Acute) Surgical History H/O gastric bypass (Resolved) History of cataract extraction (Resolved) S/P gastric bypass (Chronic) "2002" Family History Father Cancer Lung disease Barretts syndrome Brother Brain cancer Diabetes Overdose Myocardial infarction Daughter , age 29 Overdose Suicide Unknown Cancer Hypertension Diabetes Heart disease Social History Preferred Language: Maltese Communication Ability: Effective Visual Impairment: Limited Hearing Ability: Normal Paste Up Worker Required: No Beliefs That Will Affect Care: None marital status: Single marital status details: has, "lady friend" Current Living Situation: Alone Current Living Situation Comment: own home current occupational 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 Feels Safe at Home: Yes Smoking Status: Never smoker Tobacco Type: cigarettes ; Cigarettes Per Day: 1 can snuff a week ; Second Hand Exposure: Yes ; Hx Alcohol Use: Yes Alcohol type: beer Alcohol Intake Frequency: Weekly Alcohol Intake Frequency Comment: 4-5x per week Hx Substance Use: No Childhood Exposure to Second-Hand Smoke: Yes Seatbelt Use: always Sunscreen Use: No Review of Systems Review of Systems: The patient denies chest pain, palpitations, cough, sore throat, fevers, chills, sweats, vomiting, diarrhea , constipation, blood in urine or stool, dysuria, urinary frequency or urgency, headache, memory loss, loss of consciousness, rash, abnormal bruising or bleeding, imbalance, focal weakness, numbness or tingling in arms or legs, neck pain, or night sweats. The review of systems is otherwise negative other than for that already noted above, and at least 10 systems have been reviewed. Physical Exam Physical Exam: The patient is awake, alert and oriented 3, normocephalic and atraumatic, lying in bed and in no acute distress. HEENT--PERRL, EOMI, mucous membranes and oropharynx dry. Neck--supple. No JVD. No bruits. Thyroid normal, trachea midline, no adenopathy. Heart--normal S1 and S2. No murmurs, rubs or gallops. Lungs--clear bilaterally, no respiratory distress, no accessory muscle use. Abdomen--normal bowel sounds and soft. Nontender. Distended. Extremities--anasarca Dermatologic--anasarca Neurologic--cranial nerves II through XII grossly intact. Rheumatologic--normal range of motion. Psychiatric--normal affect. Results & Data Vital Signs (Past 12 Hours) Vital Signs Temp Pulse Pulse Resp BP BP Pulse Ox 04/09/19 20:58 93 H 19 112/70 99 04/09/19 17:51 97.7 F 86 19 128/70 100 Laboratory Results Laboratory Results WBC 3.17 K/uL (4.8-10.8) L 04/09/19 18: RBC 3.50 M/uL (4.7-6.1) L 04/09/19 18: Hgb 8.9 g/dL (14.0-18.0) L 04/09/19 18: Hct 27.4 % (42-52) L 04/09/19 18: MCV 78.3 fL (80-100) L 04/09/19 18: MCH 25.4 pg (25-34) 04/09/19 18: MCHC 32.5 g/dL (32-36) 04/09/19 18: RDW Std Deviation 56.0 fL (36.4-46.3) H 04/09/19 18: RDW Coeff of [place] 19.4 % (11.5-14.5) H 04/09/19 18: Plt Count 74 K/uL (130-400) L 04/09/19 18:28 MPV 9.3 fL (7.4-10.4) 04/09/19 18: Immature Gran % (Auto) 0.3 % 04/09/19 18: Neut % (Auto) 65.7 % 04/09/19 18: Lymph % (Auto) 20.8 % 04/09/19 18: [place] % (Auto) 8.2 % 04/09/19 18: Eos % (Auto) 4.4 % 04/09/19 18: Baso % (Auto) 0.6 % 04/09/19 18: Immature Gran # (Auto) 0.01 K/uL (0.00-0.02) 04/09/19 18: Neut # (Auto) 2.08 K/uL (1.4-6.5) 04/09/19 18:28 Lymph # (Auto) 0.66 K/uL (1.2-3.4) L 04/09/19 18:28 [place] # (Auto) 0.26 K/uL (0.11-0.59) 04/09/19 18: Eos # (Auto) 0.14 K/uL (0-0.5) 04/09/19 18: Baso # (Auto) 0.02 K/uL (0-0.2) 04/09/19 18: Echinocytes 1+ 04/09/19 18: Schistocytes Occasional 04/09/19 18: ESR 60 mm/hr (0-14) H 04/09/19 18: PT 13.9 Seconds (9.0-12.0) H 04/09/19 18: INR 1.4 (0.9-1.1) H 04/09/19 18: APTT 34.2 Seconds (21.0-31.0) H 04/09/19 18: PTT Ratio 1.3 04/09/19 18: Sodium 129 mmol/L (136-145) L 04/09/19 18: Potassium 2.9 mmol/L (3.5-5.1) L 04/09/19 19:52 Chloride 96 mmol/L (98-107) L 04/09/19 18: Carbon Dioxide 26 mmol/L (21-32) 04/09/19 18: Anion Gap 7.0 (3-11) 04/09/19 18: BUN 10 mg/dl (7-18) 04/09/19 18: Creatinine 0.83 mg/dl (0.6-1.4) 04/09/19 18: Est Cr Clr Drug Dosing 125.0 ml/min 04/09/19 18:28 Est GFR ( Amer) 106.3 04/09/19 18: Est GFR (Non-Af Amer) 91.7 04/09/19 18: BUN/Creatinine Ratio 11.8 (10-20) 04/09/19 18: Glucose 160 mg/dl (70-99) H 04/09/19 18:28 POC Glucose 203 mg/dl (70-99) H 04/09/19 23:28 Calcium 7.5 mg/dl (8.5-10.1) L 04/09/19 18:28 Magnesium 1.6 mg/dl (1.8-2.4) L 04/09/19 21:19 Total Bilirubin 1.2 mg/dl (0.2-1) H 04/09/19 18:28 AST 21 U/L (15-37) 04/09/19 19:52 ALT 13 U/L (12-78) 04/09/19 18:28 Alkaline Phosphatase 86 U/L (45-117) 04/09/19 18:28 Total Creatine Kinase U/L (39-308) 04/09/19 18:28 Troponin I < 0.015 ng/ml (0-0.045) 04/09/19 18: C-Reactive Protein 0.46 mg/dl (0-0.29) H 04/09/19 18:28 Total Protein 7.6 gm/dl (6.4-8.2) 04/09/19 18: Albumin 2.1 gm/dl (3.4-5.0) L 04/09/19 18:28 Globulin 5.5 gm/dl (2.5-4.0) H 04/09/19 18:28 Albumin/Globulin Ratio 0.4 (0.9-2) L 04/09/19 18:28 Procalcitonin < 0.05 ng/ml (0-0.5) 04/09/19 18:28 TSH 4.760 uIu/ml (0.300-4.500) H 04/09/19 18: Free T4 1.32 ng/dl (0.8-1.6) 04/09/19 18: Urine Color Dark Yellow 04/09/19 Unknown Urine Appearance Clear (Clear) 04/09/19 Unknown Urine pH 5.5 (4.5-7.5) 04/09/19 Unknown Ur Specific [place] 1.013 (1.000-1.030) 04/09/19 Unknown Urine Protein Negative (Negative) 04/09/19 Unknown Urine Glucose (UA) Negative (Negative) 04/09/19 Unknown Urine Ketones Negative (Negative) 04/09/19 Unknown Urine Blood Negative (Negative) 04/09/19 Unknown Urine Nitrite Negative (Negative) 04/09/19 Unknown Urine Bilirubin Negative (Negative) 04/09/19 Unknown Urine Urobilinogen Negative (Negative) 04/09/19 Unknown Ur Leukocyte Esterase Negative (Negative) 04/09/19 Unknown Ethyl Alcohol mg/dL 239.9 mg/dl (0-3) H 04/09/19 18:28 Hep Bs Antigen Neg (Neg) 04/09/19 21:19 Diagnostic Findings [place], [place] [phone] CT Scan Report Patient: GUNNER BLACK Date: 04/09/19 MR#: [id number]: [address] [facility] Acct ID:[id number]: [address] Date: 1950[facility] Zip: [place] [address] Age: 68Location: ED Sex: M Room/Bed: Att Phy:Diagnosis: WEAKNESS Giselle Phy: RV. Sierra, MDService Date: 04/09/19 Fam Phy:Interpreting Phy: Zion Conrad MD Admit Phy: Ordering Phy: Abdias Caldwell DO cc: ~ CT SCAN OF THE ABDOMEN AND PELVIS WITHOUT IV CONTRAST CLINICAL HISTORY: Abdominal distention. COMPARISON STUDY: Abdominal CT dated 02/14/2018. TECHNIQUE: CT scan of the abdomen and pelvis is performed from the lung bases to the proximal femora. Images are reviewed in the axial, sagittal, and coronal planes. IV contrast was not administered for this examination as per the referring clinician. Note that the examination was performed in suboptimal fashion without oral and IV contrast. The examination is also degraded by streak artifact from the arms which could not be elevated above the abdomen. A dose lowering technique was utilized adhering to the principles of ALARA. CT DOSE: 3392.46 mGy.cm FINDINGS: Lung bases: The heart is normal in size and without pericardial effusion. The coronary arteries are densely calcified. There is diminished attenuation of the cardiac blood pool as compared to the myocardium suggesting anemia. There is a moderate left pleural effusion with associated consolidation. There is a small hiatal hernia. Liver: Evaluation of the liver is degraded by streak artifact. The unenhanced liver is cirrhotic in morphology and heterogeneous in attenuation. There is hy pertrophy of the left lobe and nodularity of the hepatic surface contour. There is no intrahepatic biliary ductal dilatation. Gallbladder: There are numerous calcified gallstones, with no CT evidence of acute cholecystitis. Spleen: Normal in size and attenuation. Pancreas: The unenhanced pancreas is atrophic and grossly unremarkable. Adrenal glands: Unremarkable. Kidneys: The unenhanced kidneys are normal in size and without hydronephrosis. There are no renal calculi identified. There is no evidence of contour deforming renal mass lesion. Abdominal vasculature: The abdominal aorta is normal in course and caliber noting mild to moderate atherosclerotic calcification. Bowel: Postoperative changes consistent with a history of Mary-en-Y gastric bypass surgery. No bowel obstruction is seen. The appendix is not visualized. Peritoneum: There is no intraperitoneal free air. There is a large volume of abdominal ascites. Lymphadenopathy: None. Pelvic viscera: The bladder is distended but otherwise normal in appearance. The prostate gland is diminutive and heterogeneous. Skeletal structures: The skeletal structures are osteopenic. The skeletal structures are osteopenic. There is advanced lumbosacral spondylosis with evidence of DISH. No lytic or blastic lesions are seen. Soft tissues: Gynecomastia is noted. There is anasarca of the body wall. IMPRESSION: 1. There is a moderate left pleural effusion with associated consolidation. This likely represents atelectasis. Clinical correlation will be required. 2. No acute infectious or inflammatory findings are identified in the abdomen or pelvis. 3. Cirrhotic liver morphology. 4. Large volume of abdominal ascites. 5. There is anasarca of the body wall. 6. Postoperative change is consistent with a history of Mary-en-Y gastric bypass surgery. No bowel obstruction is seen. 7. Cholelithiasis. 8. Additional findings as above. ACT 112: Negative or not required by law. Electronically signed by: Zion Conrad M.D. 04/09/2019 6:56 PM Dictated: 04/09/191846 Transcribed: 04/09/191846 [place], [place] [phone] XRay Report Patient: GUNNER BLACK EAdmit Date: 04/09/19 MR#: [id number]: [facility] Acct ID:[id number]: [address] Date: [address] [place] [address] Zip: [place] [address] Age: 68Location: ED Sex: M Room/Bed: Att Phy:Diagnosis: WEAKNESS Giselle Phy: RV. Sierra, MDService Date: 04/09/19 Fam Phy:Interpreting Phy: Zion Conrad MD Admit Phy: Ordering Phy: Abdias Caldwell DO cc: ~ SINGLE VIEW CHEST CLINICAL HISTORY: Generalized weakness. FINDINGS: 2 AP, portable, upright chest radiographs are compared to study dated 12/09/2018. The examination is degraded by portable technique and patient rotation. The heart is top normal for projection. The pulmonary vasculature is noncongested. There is a layering left pleural effusion with left basilar consolidation. No pneumothorax is seen. The skeletal structures are osteopenic. The bony thorax is grossly intact. IMPRESSION: There is a layering left pleural effusion with left basilar consolidation. Correlate clinically for evidence of pneumonia/aspiration pne umonitis. Radiographic follow-up to resolution is recommended. ACT 112: Negative or not required by law. Electronically signed by: Zion Conrad M.D. 04/09/2019 6:30 PM Dictated: 04/09/191827 Transcribed: 04/09/191827 [place], [place] [phone] CT Scan Report Patient: GUNNER BLACK EAdmit Date: 04/09/19 MR#: [id number]: [address] [place] [address] Acct ID:[id number]: [address] Date: 1950[facility] Zip: [place] [address] Age: 68Location: ED Sex: M Room/Bed: Att Phy:Diagnosis: WEAKNESS Giselle Phy: MICKY Esquivel., MDService Date: 04/09/19 Fam Phy:Interpreting Phy: Zion Conrad MD Admit Phy: Ordering Phy: Abdias Caldwell DO cc: ~ CT SCAN OF THE BRAIN WITHOUT IV CONTRAST CLINICAL HISTORY: Generalized weakness. COMPARISON STUDY: CT of the brain dated 11/12/2018. TECHNIQUE: Unenhanced axial CT scan of the brain is performed from the vertex to the skull base. A dose lowering technique was utilized adhering to the principles of ALARA. FINDINGS: Brain parenchyma: There are age-related involutional changes noting mild subcortical and periventricular microangiopathic change. There is no hemorrhage, mass effect, or evidence of acute territorial ischemia by CT criteria. Yadav- white matter differentiation is preserved. No extra-axial fluid collection is seen. Ventricles, sulci, cisterns: Prominent secondary to involutional change. Intracranial vasculature: There is atherosclerotic calcification of the cavernous carotid and vertebral arteries. Calvarium: Unremarkable. Sinuses and mastoids: The visualized paranasal sinuses are clear. The mastoid air cells are well pneumatized. Orbits: The bony orbits are grossly intact. There are bilateral ocular lens implants. IMPRESSION: There is no hemorrhage, mass effect, or evidence of acute territorial ischemia by CT criteria. ACT 112: Negative or not required by law. Electronically signed by: Zion Conrad M.D. 04/09/2019 6:47 PM Dictated: 04/09/191843 Transcribed: 04/09/191843 Code Status & VTE Plan Code Status Full code VTE Prophylaxis Plan VTE Prophylaxis will be ordered: Yes PG Care Time/CCT Total # of Minutes Spent Total Time Spent with Patient: Total time spent is greater than 50% in coordination of care (as documented) at patient's floor/unit and/or counseling patient: Coding Level of Care Code 42522 Initial Inpt Care Lvl 3 Diagnoses Cirrhosis K70.31 Ascites presence: with ascites Hepatic cirrhosis type: alcoholic cirrhosis Anasarca R60.1 Ascites K70.31 Ascites type: due to alcoholic cirrhosis Diabetes mellitus type 2 in obese E11.69; E66.9 Hypomagnesemia E83.42 Hypokalemia E87.6 Alcohol abuse F10.10 Pneumonia J18.9 Parapneumonic effusion J18.9; J91.8 (1) Cirrhosis Ascites presence: with ascites Hepatic cirrhosis type: alcoholic cirrhosis Qualified Code(s): K70.31 - Alcoholic cirrhosis of liver with ascites (2) Ascites Ascites type: due to alcoholic cirrhosis Qualified Code(s): K70.31 - Alcoholic cirrhosis of liver with ascites
[2019-04-10 00:28] LABS: Hepatitis B Surface Antigen Neg (Neg)
[2019-04-10] MEDS: ALBUMIN 25% 50 ML with FUROSEMIDE 40 MG IV SCH ×4 (00:29→18:15)
[2019-04-10] MEDS ORDERED: VANCOMYCIN CONSULT ACTIVE PRN (00:43)
[2019-04-10] MEDS ORDERED: LORazepam 1 MG TAB PO PRN (00:43)
[2019-04-10] MEDS ORDERED: PIPERACILL/TAZOBAC CONSULT ACTIVE PRN (00:43)
[2019-04-10] MEDS ORDERED: VANCOMYCIN HCL 1,000 MG in SODIUM CHLORIDE 0.9% 250 ML IV SCH (00:45)
[2019-04-10] MEDS ORDERED: PIPERACILLIN/TAZOBACTAM 4.5 GM in DEXTROSE 5% 100 ML IV ONE (00:45)
[2019-04-10 00:57] LABS: Hepatitis C IgG 13Yrs+Old_Rflx Neg (Neg)
[2019-04-10] MEDS ORDERED: VANCOMYCIN HCL 2,750 MG in SODIUM CHLORIDE 0.9% 500 ML IV ONE (01:00)
[2019-04-10] MEDS: MAGNESIUM SULFATE / D5W 1 GM/100 ML BAG IV SCH (01:30)
[2019-04-10] MEDS: POTASSIUM CHLORIDE 20 MEQ TABCR PO SCH ×3 (01:35→21:17)
[2019-04-10] MEDS ORDERED: PIPERACILLIN/TAZOBACTAM 4.5 GM in DEXTROSE 5% 100 ML IV SCH (06:00)
[2019-04-10] MEDS: INSULIN ASPART 100 UNITS/ML 3 ML PEN SC SCH ×4 (09:04→21:18)
[2019-04-10] MEDS: THIAMINE HCL 100 MG TAB PO SCH (09:10)
[2019-04-10] MEDS: FOLIC ACID 1 MG TAB PO SCH (09:10)
[2019-04-10] MEDS: INSULIN GLARGINE SOLOSTAR 100 UNITS/ML 3 ML PEN SC SCH (09:10)
[2019-04-10] MEDS: CITALOPRAM 40 MG TAB PO SCH (09:11)
[2019-04-10] MEDS: SPIRONOLACTONE 100 MG TAB PO SCH (09:11)
[2019-04-10 10:28] LABS: Hematocrit (blood only) 26.6 % (42-52); Hemoglobin 8.5 g/dL (14.0-18.0); Mean Corpuscular Hemoglobin 25.1 pg (25-34); Mean Corpuscular Volume 78.7 fL (80-100); RDW Coefficient of Variation 19.7 % (11.5-14.5); RDW Standard Deviation 56.6 fL (36.4-46.3); Red Blood Count 3.38 M/uL (4.7-6.1); White Blood Count 3.24 K/uL (4.8-10.8)
[2019-04-10 10:37] LABS: Mean Platelet Volume 9.2 fL (7.4-10.4); Platelet Count 56 K/uL (130-400)
[2019-04-10 10:39] LABS: INR 1.5 (0.9-1.1); Partial Thromboplastin Ratio 1.4; Partial Thromboplastin Time 37.9 Seconds (21.0-31.0)
[2019-04-10 11:12] LABS: Albumin Globulin Ratio 0.4 (0.9-2); Albumin Level 2.1 gm/dl (3.4-5.0); BUN Creatinine Ratio 11.5 (10-20); Bilirubin,Total 1.2 mg/dl (0.2-1); Calcium 7.8 mg/dl (8.5-10.1); Creatinine Clr Calc Pharmacy 119.4 ml/min; Est GFR (African American) 105.7; Est GFR (Non-African American) 91.2; Globulin 4.9 gm/dl (2.5-4.0); Potassium 3.7 mmol/L (3.5-5.1)
[2019-04-10 11:23] LABS: Anisocytosis Present; Basophils # (auto) 0.03 K/uL (0-0.2); Basophils % (auto) 0.9 %; Eosinophils # (auto) 0.16 K/uL (0-0.5); Eosinophils % (auto) 4.9 %; Lymphocytes # (auto) 0.45 K/uL (1.2-3.4); Lymphocytes % (auto) 13.9 %; Monocytes # (auto) 0.36 K/uL (0.11-0.59); Monocytes % (auto) 11.1 %; Neutrophils # (auto) 2.24 K/uL (1.4-6.5); Neutrophils % (auto) 69.2 %
[2019-04-10] MEDS: MAGNESIUM OXIDE 400 MG TAB PO SCH ×2 (12:07→21:17)
[2019-04-10] MEDS ORDERED: POTASSIUM CHLORIDE 20 MEQ TABCR PO SCH (13:00)
--- NOTE | 2019-04-10 14:45 | Hospitalist Progress Note ---
Date of Service April 10, 2019 Assessment & Plan (1) Cirrhosis: Liver cirrhosis secondary to alcoholism/anasarca/ascites- patient continues to drink periodically, was drinking just prior to admission treat ascites and volume overload with albumin 25 g IV with Lasix 40 mg IV every 6 hours x4 doses. Consult radiology for therapeutic paracentesis, can wait until Tuesday 04/11 Patient reports that he gets paracentesis approximately every 2 to 3 weeks, averaging 12 L removal at a time follows with Dr. Bill, no clear reason for GI consult while inpatient the patient is non-compliant with sodium and fluid restrictions, he continues to drink MELD score at this time is only 16 educated patient on importance of sobriety and following salt and fluid restriction (2) Anasarca: due to cirrhosis continue Lasix IV today, change to Lasix 80mg BID tomorrow continue Spironolactone 100mg qAM (3) Ascites: See above (4) Diabetes mellitus type 2 in obese: Has had a decreased appetite. Reduce a.m. Lantus from 18 to 10 units. Novolog diabetic diet monitor for hypoglycemia can resume home regimen on discharge (5) Hypomagnesemia: Magnesium level 1.6, and given 2 g magnesium sulfate IV in ED place on Mag oxide bid check magnesium tomorrow (6) Hypokalemia: K is up to 3.7 continue BID replacement (7) Alcohol abuse: Place on AWSS with oral Ativan. Thiamine 100 mg p.o. daily. Folic acid 1 mg p.o. daily. no signs of withdrawal again, educated him on need to be sober due to cirrhosis (8) Pneumonia: left sided effusion with compression atelectasis thought to be pneumonia, but no fever, WBC normal will stop antibiotics and monitor pneumonia ruled out for now (9) Parapneumonic effusion: likely due to volume overload, anasaraca in setting of cirrhosis PT OT consulted likely home in 2 days, plan for therapeutic paracentesis tomorrow Subjective patient doing well today, breathing well, no chest pain c/o significant abdominal ascites, legs are swollen admits that he had a few drinks yesterday, he was sitting around the house, felt depressed discussed with him that drinking alcohol will make cirrhosis worse, he knows this no fever/chills, no cough, no clinical signs of pneumonia, will stop antibiotics after discussing with pharmacy reviewed labs, has pancytopenia which is chronic for him, due to cirrhosis INR slightly high K is 3.7, Cr 0.8 discussed that we would delay the therapeutic paracentesis until tomorrow due to it being Thursday discussed with CM, requesting, PT/OT, orders placed the patient lives independently, 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 up 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 recently now has license revoked Review of Systems Review of Systems: All systems reviewed & are unremarkable except as noted in HPI & below Constitutional: + fatigue and + weakness; no fever and no sweats Respiratory: + dyspnea on exertion; no cough and no dyspnea Cardiovascular: + dyspnea on exertion and + edema; no chest pain Gastrointestinal: + problem reported (ascites); no abdominal pain, no nausea, no vomiting, no constipation and no diarrhea/loose stools Physical Exam Constitutional: WD/WN, vitals as above + thin (upper body, has edema and ascites otherwise) Eyes: PERRL, conjunctivae normal, anicteric sclerae ENMT: external ear and nose normal, oropharynx normal Neck: trachea midline, no thyromegaly Respiratory: normal respiratory effort, lungs clear to auscultation Auscultation: + diminished lung sounds (left base due to effusion) Cardiovascular: Rate/Rhythm: regular rate and regular rhythm Heart Sounds: normal S1 and normal S2; no murmur Vessels: no JVD Extremities: normal capillary refill and + edema (pitting edema entire legs bilaterally) Gastrointestinal (Abdomen): Inspection/Auscultation: + abdomen distended and normal bowel sounds Percussion/Palpation: abdomen soft, + ascites and + fluid wave; abdomen nontender, no guarding and abdomen not rigid Musculoskeletal: no cyanosis or clubbing, extremities motor strength 5/5 Skin: no rashes, warm and dry (mild erythema in legs, no signs of cellulitis) Neurologic: patellar DTR's 2+ bilat, sensation intact and PERRL, EOMI, accommodation nl, no face palsy, no dysarthria Psychiatric: A+Ox3, euthymic affect Lymphatic: no cervical or axillary lymphadenopathy Results & Data Vital Signs (Past 12 Hours) Vital Signs Temp Pulse Pulse Resp BP Pulse Ox 04/10/19 11:43 37.1 C 97 H 22 106/67 97 04/10/19 11:33 93 H 04/10/19 06:51 36.9 C 96 H 18 109/65 96 Laboratory Results Laboratory Results - last 24 hr 04/09/19 04/09/19 04/09/19 18:28 18:28 18:28 WBC 3.17 L RBC 3.50 L Hgb 8.9 L Hct 27.4 L MCV 78.3 L MCH 25.4 MCHC 32.5 RDW Std Deviation 56.0 H RDW Coeff of [place] 19.4 H Plt Count 74 L MPV 9.3 Immature Gran % (Auto) 0.3 Neut % (Auto) 65.7 Lymph % (Auto) 20.8 [place] % (Auto) 8.2 Eos % (Auto) 4.4 Baso % (Auto) 0.6 Immature Gran # (Auto) 0.01 Neut # (Auto) 2.08 Lymph # (Auto) 0.66 L [place] # (Auto) 0.26 Eos # (Auto) 0.14 Baso # (Auto) 0.02 Anisocytosis Echinocytes 1+ Schistocytes Occasional ESR 60 H PT 13.9 H INR 1.4 H APTT 34.2 H PTT Ratio 1.3 Sodium Potassium Chloride Carbon Dioxide Anion Gap BUN Creatinine Est Cr Clr Drug Dosing Est GFR ( Amer) Est GFR (Non-Af Amer) BUN/Creatinine Ratio Glucose POC Glucose Calcium Magnesium Total Bilirubin AST ALT Alkaline Phosphatase Total Creatine Kinase Troponin I C-Reactive Protein Total Protein Albumin Globulin Albumin/Globulin Ratio Folate Procalcitonin TSH Free T4 Urine Color Urine Appearance Urine pH Ur Specific [place] Urine Protein Urine Glucose (UA) Urine Ketones Urine Blood Urine Nitrite Urine Bilirubin Urine Urobilinogen Ur Leukocyte Esterase Ethyl Alcohol mg/dL Hepatitis A IgM Ab Hep Bs Antigen Hep B Core IgM Ab Hepatitis C Antibody 04/09/19 04/09/19 04/09/19 18:28 18:28 18:28 WBC RBC Hgb Hct MCV MCH MCHC RDW Std Deviation RDW Coeff of [place] Plt Count MPV Immature Gran % (Auto) Neut % (Auto) Lymph % (Auto) [place] % (Auto) Eos % (Auto) Baso % (Auto) Immature Gran # (Auto) Neut # (Auto) Lymph # (Auto) [place] # (Auto) Eos # (Auto) Baso # (Auto) Anisocytosis Echinocytes Schistocytes ESR PT INR APTT PTT Ratio Sodium 129 L Potassium Chloride 96 L Carbon Dioxide 26 Anion Gap 7.0 BUN 10 Creatinine 0.83 Est Cr Clr Drug Dosing 125.0 Est GFR ( Amer) 106.3 Est GFR (Non-Af Amer) 91.7 BUN/Creatinine Ratio 11.8 Glucose 160 H POC Glucose Calcium 7.5 L Magnesium Total Bilirubin 1.2 H AST ALT 13 Alkaline Phosphatase 86 Total Creatine Kinase Troponin I < 0.015 C-Reactive Protein 0.46 H Total Protein 7.6 Albumin 2.1 L Globulin 5.5 H Albumin/Globulin Ratio 0.4 L Folate Procalcitonin < 0.05 TSH 4.760 H Free T4 1.32 Urine Color Urine Appearance Urine pH Ur Specific [place] Urine Protein Urine Glucose (UA) Urine Ketones Urine Blood Urine Nitrite Urine Bilirubin Urine Urobilinogen Ur Leukocyte Esterase Ethyl Alcohol mg/dL 239.9 H Hepatitis A IgM Ab Hep Bs Antigen Hep B Core IgM Ab Hepatitis C Antibody 04/09/19 04/09/19 04/09/19 19:52 19:52 19:52 WBC RBC Hgb Hct MCV MCH MCHC RDW Std Deviation RDW Coeff of [place] Plt Count MPV Immature Gran % (Auto) Neut % (Auto) Lymph % (Auto) [place] % (Auto) Eos % (Auto) Baso % (Auto) Immature Gran # (Auto) Neut # (Auto) Lymph # (Auto) [place] # (Auto) Eos # (Auto) Baso # (Auto) Anisocytosis Echinocytes Schistocytes ESR PT INR APTT PTT Ratio Sodium Potassium 2.9 L Chloride Carbon Dioxide Anion Gap BUN Creatinine Est Cr Clr Drug Dosing Est GFR ( Amer) Est GFR (Non-Af Amer) BUN/Creatinine Ratio Glucose POC Glucose Calcium Magnesium 1.6 L Total Bilirubin AST 21 ALT Alkaline Phosphatase Total Creatine Kinase Troponin I C-Reactive Protein Total Protein Albumin Globulin Albumin/Globulin Ratio Folate Procalcitonin TSH Free T4 Urine Color Urine Appearance Urine pH Ur Specific [place] Urine Protein Urine Glucose (UA) Urine Ketones Urine Blood Urine Nitrite Urine Bilirubin Urine Urobilinogen Ur Leukocyte Esterase Ethyl Alcohol mg/dL Hepatitis A IgM Ab Hep Bs Antigen Hep B Core IgM Ab Hepatitis C Antibody 04/09/19 04/09/19 04/09/19 21:19 21:19 21:19 WBC RBC Hgb Hct MCV MCH MCHC RDW Std Deviation RDW Coeff of [place] Plt Count MPV Immature Gran % (Auto) Neut % (Auto) Lymph % (Auto) [place] % (Auto) Eos % (Auto) Baso % (Auto) Immature Gran # (Auto) Neut # (Auto) Lymph # (Auto) [place] # (Auto) Eos # (Auto) Baso # (Auto) Anisocytosis Echinocytes Schistocytes ESR PT INR APTT PTT Ratio Sodium Potassium Chloride Carbon Dioxide Anion Gap BUN Creatinine Est Cr Clr Drug Dosing Est GFR ( Amer) Est GFR (Non-Af Amer) BUN/Creatinine Ratio Glucose POC Glucose Calcium Magnesium 1.6 L Total Bilirubin AST ALT Alkaline Phosphatase Total Creatine Kinase Troponin I C-Reactive Protein Total Protein Albumin Globulin Albumin/Globulin Ratio Folate Procalcitonin TSH Free T4 Urine Color Urine Appearance Urine pH Ur Specific [place] Urine Protein Urine Glucose (UA) Urine Ketones Urine Blood Urine Nitrite Urine Bilirubin Urine Urobilinogen Ur Leukocyte Esterase Ethyl Alcohol mg/dL Hepatitis A IgM Ab Pending Hep Bs Antigen Neg Hep B Core IgM Ab Pending Hepatitis C Antibody Neg 04/09/19 04/09/19 04/10/19 23:28 Unknown 00:54 WBC RBC Hgb Hct MCV MCH MCHC RDW Std Deviation RDW Coeff of [place] Plt Count MPV Immature Gran % (Auto) Neut % (Auto) Lymph % (Auto) [place] % (Auto) Eos % (Auto) Baso % (Auto) Immature Gran # (Auto) Neut # (Auto) Lymph # (Auto) [place] # (Auto) Eos # (Auto) Baso # (Auto) Anisocytosis Echinocytes Schistocytes ESR PT INR APTT PTT Ratio Sodium Potassium Chloride Carbon Dioxide Anion Gap BUN Creatinine Est Cr Clr Drug Dosing Est GFR ( Amer) Est GFR (Non-Af Amer) BUN/Creatinine Ratio Glucose POC Glucose 203 H Calcium Magnesium Total Bilirubin AST ALT Alkaline Phosphatase Total Creatine Kinase Troponin I C-Reactive Protein Total Protein Albumin Globulin Albumin/Globulin Ratio Folate 2.97 L Procalcitonin TSH Free T4 Urine Color Dark Yellow Urine Appearance Clear Urine pH 5.5 Ur Specific [place] 1.013 Urine Protein Negative Urine Glucose (UA) Negative Urine Ketones Negative Urine Blood Negative Urine Nitrite Negative Urine Bilirubin Negative Urine Urobilinogen Negative Ur Leukocyte Esterase Negative Ethyl Alcohol mg/dL Hepatitis A IgM Ab Hep Bs Antigen Hep B Core IgM Ab Hepatitis C Antibody 04/10/19 04/10/19 04/10/19 07:23 10:13 10:13 WBC 3.24 L RBC 3.38 L Hgb 8.5 L Hct 26.6 L MCV 78.7 L MCH 25.1 MCHC 32.0 RDW Std Deviation 56.6 H RDW Coeff of [place] 19.7 H Plt Count 56 L MPV 9.2 Immature Gran % (Auto) 0.0 Neut % (Auto) 69.2 Lymph % (Auto) 13.9 [place] % (Auto) 11.1 Eos % (Auto) 4.9 Baso % (Auto) 0.9 Immature Gran # (Auto) 0.00 Neut # (Auto) 2.24 Lymph # (Auto) 0.45 L [place] # (Auto) 0.36 Eos # (Auto) 0.16 Baso # (Auto) 0.03 Anisocytosis Present Echinocytes Schistocytes ESR PT 15.0 H INR 1.5 H APTT 37.9 H PTT Ratio 1.4 Sodium Potassium Chloride Carbon Dioxide Anion Gap BUN Creatinine Est Cr Clr Drug Dosing Est GFR ( Amer) Est GFR (Non-Af Amer) BUN/Creatinine Ratio Glucose POC Glucose 196 H Calcium Magnesium Total Bilirubin AST ALT Alkaline Phosphatase Total Creatine Kinase Troponin I C-Reactive Protein Total Protein Albumin Globulin Albumin/Globulin Ratio Folate Procalcitonin TSH Free T4 Urine Color Urine Appearance Urine pH Ur Specific [place] Urine Protein Urine Glucose (UA) Urine Ketones Urine Blood Urine Nitrite Urine Bilirubin Urine Urobilinogen Ur Leukocyte Esterase Ethyl Alcohol mg/dL Hepatitis A IgM Ab Hep Bs Antigen Hep B Core IgM Ab Hepatitis C Antibody 04/10/19 04/10/19 10:13 11:46 WBC RBC Hgb Hct MCV MCH MCHC RDW Std Deviation RDW Coeff of [place] Plt Count MPV Immature Gran % (Auto) Neut % (Auto) Lymph % (Auto) [place] % (Auto) Eos % (Auto) Baso % (Auto) Immature Gran # (Auto) Neut # (Auto) Lymph # (Auto) [place] # (Auto) Eos # (Auto) Baso # (Auto) Anisocytosis Echinocytes Schistocytes ESR PT INR APTT PTT Ratio Sodium 133 L Potassium 3.7 D Chloride 100 Carbon Dioxide 28 Anion Gap 6.0 BUN 10 Creatinine 0.84 Est Cr Clr Drug Dosing 119.4 Est GFR ( Amer) 105.7 Est GFR (Non-Af Amer) 91.2 BUN/Creatinine Ratio 11.5 Glucose 154 H POC Glucose 139 H Calcium 7.8 L Magnesium Total Bilirubin 1.2 H AST 20 ALT 12 Alkaline Phosphatase 85 Total Creatine Kinase Troponin I C-Reactive Protein Total Protein 7.0 Albumin 2.1 L Globulin 4.9 H Albumin/Globulin Ratio 0.4 L Folate Procalcitonin TSH Free T4 Urine Color Urine Appearance Urine pH Ur Specific [place] Urine Protein Urine Glucose (UA) Urine Ketones Urine Blood Urine Nitrite Urine Bilirubin Urine Urobilinogen Ur Leukocyte Esterase Ethyl Alcohol mg/dL Hepatitis A IgM Ab Hep Bs Antigen Hep B Core IgM Ab Hepatitis C Antibody Medications Administered Current Inpatient Medications Citalopram Hydrobromide (Celexa) 40 mg PO DAILY [facility] Stop: 05/10/19 08:59 Last Admin: 04/10/19 09:11 Dose: 40 mg Documented by: Dextrose (Dextrose 50%) 25 - 50 ml IV UD PRN; Protocol PRN Reason: Hypoglycemia Protocol Stop: 05/09/19 23:30 Folic Acid (Folvite) 1 mg PO QAM KATELYN Stop: 05/10/19 08:59 Last Admin: 04/10/19 09:10 Dose: 1 mg Documented by: Glucagon (Glucagen) 1 mg SQ UD PRN; Protocol PRN Reason: Hypoglycemia Protocol Stop: 05/09/19 23:30 Glucose (Dex4 Glucose) 4 - 8 tabs PO UD PRN; Protocol PRN Reason: Hypoglycemia Protocol Stop: 05/09/19 23:30 Glucose (Glucose 40%) 15 - 30 gm PO UD PRN; Protocol PRN Reason: Hypoglycemia Protocol Stop: 05/09/19 23:30 Furosemide 40 mg/ Albumin (Human) 54 mls @ 54 mls/hr IV Q6H [facility] Stop: 04/10/19 18:59 Last Infusion: 04/10/19 13:36 Dose: Infused Documented by: Insulin Aspart (Novolog Flexpen) 0 units SC ACHS [facility] Stop: 05/10/19 07:29 Last Admin: 04/10/19 12:09 Dose: 5 units Documented by: Insulin Glargine (Lantus Solostar Pen) 10 units SC QAM [facility] Stop: 05/10/19 08:59 Last Admin: 04/10/19 09:10 Dose: 10 units Documented by: Lorazepam (Ativan) 1 - 3 mg PO UD PRN; Protocol PRN Reason: EtoH Withdrawal AWSS 6-10+ Stop: 05/10/19 00:42 Magnesium Oxide (Mag-Ox) 400 mg PO BID [facility] Stop: 05/10/19 10:29 Last Admin: 04/10/19 12:07 Dose: 400 mg Documented by: Miscellaneous (Carbohydrates For Hypoglycemia) 15 - 30 gm PO UD PRN PRN Reason: Hypoglycemia Protocol Stop: 05/09/19 23:30 Ondansetron HCl (Zofran) 4 mg IV Q6H PRN PRN Reason: Nausea Stop: 05/09/19 23:30 Potassium Chloride (Klor-Con M20) 40 meq PO QID [facility] Stop: 05/10/19 12:59 Last Admin: 04/10/19 12:07 Dose: 40 meq Documented by: Spironolactone (Aldactone) 100 mg PO QAM [facility] Stop: 05/10/19 08:59 Last Admin: 04/10/19 09:11 Dose: 100 mg Documented by: Thiamine HCl (Vitamin B-1) 100 mg PO QAM [facility] Stop: 05/10/19 08:59 Last Admin: 04/10/19 09:10 Dose: 100 mg Documented by: PG Care Time/CCT Total # of Minutes Spent Total Time Spent with Patient: Total time spent is greater than 50% in coordination of care (as documented) at patient's floor/unit and/or counseling patient: Coding Level of Care Code 55880 Subseq Hosp Care Lvl 3 Diagnoses Cirrhosis K70.31 Ascites presence: with ascites Hepatic cirrhosis type: alcoholic cirrhosis Anasarca R60.1 Ascites K70.31 Ascites type: due to alcoholic cirrhosis Diabetes mellitus type 2 in obese E11.69; E66.9 Hypomagnesemia E83.42 Hypokalemia E87.6 Alcohol abuse F10.10 Pneumonia J18.9 Parapneumonic effusion J18.9; J91.8 (1) Cirrhosis Ascites presence: with ascites Hepatic cirrhosis type: alcoholic cirrhosis Qualified Code(s): K70.31 - Alcoholic cirrhosis of liver with ascites (2) Ascites Ascites type: due to alcoholic cirrhosis Qualified Code(s): K70.31 - Alcoholic cirrhosis of liver with ascites
--- NOTE | 2019-04-10 18:08 | Electrocardiogram Report ---
Test Reason : Blood Pressure : / mmHG Vent. Rate : 085 BPM Atrial Rate : 086 BPM P-R Int : 000 ms QRS Dur : 082 ms QT Int : 370 ms P-R-T Axes : 000 -10 038 degrees QTc Int : 440 ms Poor data quality, interpretation may be adversely affected Probably sinus rhythm Low voltage QRS Abnormal ECG Confirmed by Oc Chavarria ([id number]) on 04/10/2019 6:07:46 PM Referred By: REFERRED SELF Confirmed By:Maurice Chavarria
[2019-04-11] MEDS: INSULIN ASPART 100 UNITS/ML 3 ML PEN SC SCH ×4 (08:53→22:21)
[2019-04-11] MEDS: INSULIN GLARGINE SOLOSTAR 100 UNITS/ML 3 ML PEN SC SCH (08:56)
[2019-04-11] MEDS: THIAMINE HCL 100 MG TAB PO SCH (08:58)
[2019-04-11] MEDS: CITALOPRAM 40 MG TAB PO SCH (08:58)
[2019-04-11] MEDS: FOLIC ACID 1 MG TAB PO SCH (08:58)
[2019-04-11] MEDS: POTASSIUM CHLORIDE 20 MEQ TABCR PO SCH ×2 (08:59→21:17)
[2019-04-11] MEDS: MAGNESIUM OXIDE 400 MG TAB PO SCH ×2 (09:00→21:17)
[2019-04-11] MEDS ORDERED: FOLIC ACID 1 MG TAB PO SCH (09:00)
[2019-04-11] MEDS: FUROSEMIDE 80 MG TAB PO SCH ×2 (09:00→16:47)
[2019-04-11] MEDS: SPIRONOLACTONE 100 MG TAB PO SCH (09:01)
[2019-04-11 09:03] LABS: Hematocrit (blood only) 25.1 % (42-52); Mean Corpuscular Hemoglobin 25.5 pg (25-34); Mean Corpuscular Hgb Conc 31.9 g/dL (32-36); Mean Corpuscular Volume 79.9 fL (80-100); RDW Coefficient of Variation 20.1 % (11.5-14.5); RDW Standard Deviation 59.3 fL (36.4-46.3); Red Blood Count 3.14 M/uL (4.7-6.1); White Blood Count 1.99 K/uL (4.8-10.8)
[2019-04-11 09:04] LABS: Mean Platelet Volume 9.6 fL (7.4-10.4); Platelet Count 46 K/uL (130-400)
[2019-04-11 09:22] LABS: Anisocytosis Present; Basophils # (auto) 0.02 K/uL (0-0.2); Eosinophils # (auto) 0.11 K/uL (0-0.5); Eosinophils % (auto) 5.5 %; Hypochromasia Present; INR 1.6 (0.9-1.1); Lymphocytes # (auto) 0.47 K/uL (1.2-3.4); Lymphocytes % (auto) 23.6 %; Monocytes # (auto) 0.22 K/uL (0.11-0.59); Monocytes % (auto) 11.1 %; Neutrophils # (auto) 1.17 K/uL (1.4-6.5); Neutrophils % (auto) 58.8 %; Poikilocytosis Present; Prothrombin Time 16.1 Seconds (9.0-12.0)
[2019-04-11 09:24] LABS: BUN Creatinine Ratio 14.3 (10-20); Calcium 7.8 mg/dl (8.5-10.1); Creatinine Clr Calc Pharmacy 124.5 ml/min; Est GFR (African American) 105.7; Est GFR (Non-African American) 91.2; Potassium 3.8 mmol/L (3.5-5.1)
[2019-04-11 09:26] LABS: Albumin Globulin Ratio 0.5 (0.9-2); Bilirubin,Total 1.7 mg/dl (0.2-1); Globulin 4.4 gm/dl (2.5-4.0); Total Protein 6.4 gm/dl (6.4-8.2)
--- NOTE | 2019-04-11 09:27 | Gastrointestinal Consultation ---
Date of Consultation April 11, 2019 Assessment & Plan (1) Alcoholic cirrhosis of liver: Decompensated alcoholic cirrhosis with portal hypertension contributing to large volume ascites. MELD 16. Patient is non-compliant with alcohol avoidance as well as non-compliant with office follow-up. He reports compliance with his outpatient diuretics, though it does not seem as though he complies with a low- sodium diet. Given age and continued alcohol use, he has not been targeted as a candidate for liver transplantation. He has been requiring large volume taps every few weeks--last on 03/14/2019 during which time 11.5 L were removed. -Agree with hospitalist team. Proceed with paracentesis today and replace albumin as indicated pending volume of ascitic fluid removed. -Continue Lasix 80 mg BID with supplemental potassium -Continue Aldactone 100 mg q AM -Up to date with HCC surveillance imaging -Patient continues to use alcohol and is not a transplant candidate, however given frequency and volume of paracentesis--could consider a formal hepatology evaluation to assess for TIPS candidacy (Again, compliance and alcohol use may influence this decision). -Continue Xifaxan 550 mg BID for hepatic encephalopathy -2 gm sodium restricted diet -Further follow-up as an outpatient Supervising Physician Co-Signing Physician Notes Agree with CEZAR Mcmahan as above Abd: Soft, Distended, +BS Continue current therapy Patient had 11.5 L of ascitic fluid removed today via Paracentesis, therefore, I would recommend Albumin 50 g of albumin IV now. Consider TIPS due to continued large volume paracentesis, however, will need to ensure that he is complying with medication regimen prior to this. History of Present Illness Reason for Consultation: Cirrhosis, ascites Attending Physician: Prachi Ramon MD History of Present Illness Patient is a 68 yo male with a PMH of alcoholic cirrhosis with portal hypertension who requires frequent paracentesis. Patient was scheduled for an outpatient appointment in our clinic last week, however did not show up. In fact, he has been noncompliant with office follow-up since May 2018 when he last saw Bhavana VANCE. He has been seen since that time during hospitalizations. His current MELD score is 16. INR 1.5. Platelets are at 56,000. T Bili 1.2. AST/ALT wnl. Na 133. BUN/Cr 10/0.84. Last paracentesis was on 03/14/2019 and 11.5 L were removed at that time. The patient endorses co ntinued alcohol use. He reports compliance with his Lasix & Aldactone at home, however it is unclear from his answers if he is actively following a 2 gm sodium restricted diet. He reports that though his abdomen feels full, he notes that it is softer than usual. He reports his BLLE edema is at baseline. CT scan indicates a large volume ascites. Hospitalist service has scheduled him for a therapeutic paracentesis today. There is currently no evidence of SBP clinically. He is up to date with HCC surveillance at present. 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 His last EGD & colonoscopy were unremarkable in February 2018. There was no evidence of esophageal varices at that time. Allergies Allergy/AdvReac Type Severity Reaction Status Date / Time Sulfa (Sulfonamide AdvReac Intermediate NAUSEA AND Verified 04/09/19 20:06 Antibiotics) VOMITING adhesive AdvReac Mild REDNESS, Verified 04/09/19 20:07 TAPE WILSON Home Medications Home Medications Medication Instructions Recorded Confirmed Type cyanocobalamin (vitamin B-12) 1,000 mcg IM MONTHLY ml 11/23/18 04/09/19 History 1,000 mcg/mL injection solution furosemide [Lasix] 80 mg PO BID #60 tab 12/11/18 04/09/19 Rx citalopram [Celexa] 40 mg PO DAILY 03/14/19 04/09/19 History spironolactone [Aldactone] 100 mg PO QAM 03/14/19 04/09/19 History insulin glargine [Lantus U-100 10 unit SUBCUT QAM 04/09/19 04/10/19 History Insulin] potassium chloride 20 meq PO QAM 04/09/19 04/09/19 History insulin NPH isoph U-100 human 100 See Rx Instructions SUBCUT DAILY 04/11/19 04/11/19 History unit/mL subcutaneous suspension Patient History Medical History Alcoholic cirrhosis of liver (Chronic) Anal ulceration (Acute) Pedroza's esophagus (Acute) Benign prostatic hyperplasia with urinary obstruction (Acute) Bilateral edema of lower extremity (Resolved) Bleeding ulcer (Resolved) Bright red rectal bleeding (Resolved) Cervical spinal stenosis (Chronic) Cervical spinal stenosis Depression (Chronic) Diabetes (Chronic) Diabetes mellitus with insulin therapy Diabetic neuropathy (Acute) Glaucoma (Acute) Gout (Chronic) HLD (hyperlipidemia) (Chronic) HTN (hypertension) (Chronic) Hyperammonemia (Acute) Infected sebaceous cyst (Resolved) Intertrigo (Resolved) Obesity (Acute) MARILYN on CPAP (Chronic) Pancytopenia (Acute) Panniculitis (Resolved) Paroxysmal supraventricular tachycardia (Acute) Pseudogynecomastia (Acute) Psoriasis (Chronic) Skin tear of lower leg without complication (Resolved) Splenomegaly (Chronic) Statin intolerance (Chronic) T2DM (type 2 diabetes mellitus) (Chronic) Thrombocytopenia (Chronic) Tubular adenoma of colon (Acute) Surgical History H/O gastric bypass (Resolved) History of cataract extraction (Resolved) S/P gastric bypass (Chronic) "2002" Family History Father Cancer Lung disease Barretts syndrome Brother Brain cancer Diabetes Overdose Myocardial infarction Daughter , age 29 Overdose Suicide Unknown Cancer Hypertension Diabetes Heart disease Social History Preferred Language: Divehi Communication Ability: Effective Visual Impairment: Limited Hearing Ability: Normal 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: No Beliefs That Will Affect Care: None marital status: Single marital status details: has, "lady friend" Current Living Situation: Alone Current Living Situation Comment: own home current occupational 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 Other Information That Helps Us Care for You: No Feels Safe at Home: Yes and No Is there a partner from a previous relationship who is making you feel unsafe now?: No Any Concerns about Your Family Situation: No Would You Like to Speak to Someone About Your Situation: Yes (WOULD LIKE OFFICE OF AGING CONSULT) Safety Concerns: Feels Safe At This Time Smoking Status: Never smoker Tobacco Type: smokeless tobacco ; Cigarettes Per Day: 1 can snuff a week ; Do You Dip or Chew Tobacco: Yes ; Second Hand Exposure: No ; Hx Alcohol Use: Yes Alcohol type: hard liquor Alcohol Intake Frequency: Weekly Alcohol Intake Frequency Comment: 4-5x per week Hx Substance Use: No Childhood Exposure to Second-Hand Smoke: Yes Seatbelt Use: always Sunscreen Use: No Review of Systems Constitutional: no fever and no chills Eyes: no acute issues Ear, Nose, Mouth, Throat: no acute issues Respiratory: no cough and no dyspnea Cardiovascular: no chest pain Gastrointestinal: + abdominal pain and + bloating ascites Musculoskeletal: + swelling Integumentary: no rash Neurologic: no dizziness Psychiatric: no acute issues Endocrine: no fatigue Physical Exam Constitutional: WD/WN, vitals as above Eyes: PERRL, normal conjunctivae ENMT: external ear and nose normal, oropharynx normal Neck: normal visual inspection Respiratory: normal respiratory effort, lungs clear to auscultation Cardiovascular: RRR, no murmur, no edema Gastrointestinal (Abdomen): normal bowel sounds, soft, nontender, no hepatosplenomegaly Skin: no rashes, warm and dry Psychiatric: A+Ox3, euthymic affect Results & Data Vital Signs (Past 12 Hours) Vital Signs Temp Pulse Resp BP BP Pulse Ox 04/11/19 07:21 36.6 C 97 H 20 105/68 98 04/11/19 04:00 36.9 C 93 H 20 97/61 L 97 04/10/19 23:11 37.2 C 101 H 20 108/67 96 PG Care Time/CCT Total # of Minutes Spent Total Time Spent with Patient: Total time spent is greater than 50% in coordination of care (as documented) at patient's floor/unit and/or counseling patient: Coding Level of Care Code 46065 Inpt Consult Level 4 Diagnoses Alcoholic cirrhosis of liver K70.31 Ascites presence: with ascites (1) Alcoholic cirrhosis of liver Ascites presence: with ascites Qualified Code(s): K70.31 - Alcoholic cirrhosis of liver with ascites
[2019-04-11] MEDS ORDERED: FAMOTIDINE 20 MG in SYRINGE 3 ML IV ONE (10:00)
--- NOTE | 2019-04-11 11:27 | Ultrasound Report ---
ULTRASOUND-GUIDED THERAPEUTIC PARACENTESIS: HISTORY: Ascites. Procedure: The procedure and its risks, benefits and alternatives were discussed with the patient and written informed consent was obtained. Preliminary ultrasound of the abdomen was performed to determ ine a safe needle entry site. The left lower quadrant was prepped and draped in the usual sterile fashion. 1% Lidocaine was used fo r local anesthesia. A paracentesis needle-sheath was inserted into the peritoneal space using ultraso und guidance. The needle was removed and the sheath was connected to tubing and a vacuum suction aly ce. A total of 11.5 liters of straw-colored ascites was aspirated. The sheath was removed and a steri le dressing applied. The patient tolerated the procedure well and there were no immediate complications. IMPRESSION: Ultrasound-guided therapeutic paracentesis with aspiration of 11.5 liters of ascites. ACT 112: Negative or not required by law. Electronically signed by: Shaun Calvert M.D. 04/11/2019 11:26 AM
[2019-04-11] MEDS: PANTOprazole 40 MG TAB PO SCH (11:53)
--- NOTE | 2019-04-11 19:00 | Hospitalist Progress Note ---
Date of Service April 11, 2019 Assessment & Plan (1) Cirrhosis: Liver cirrhosis secondary to alcoholism/anasarca/ascites- patient continues to drink periodically, was drinking just prior to admission, but otherwise states he only drank 2 drinks at [place] and nothing else in the last 6 months treated ascites and volume overload with albumin 25 g IV with Lasix 40 mg IV every 6 hours x4 doses, followed by large volume paracentesis of 11.5L on 04/11/19. Appreciated Consult radiology for therapeutic paracentesis BPS stable Albumin 2.0 Patient reports that he gets paracentesis approximately every 2 to 3 weeks, averaging 12 L removal at a time follows with Dr. Bill, appreciate GI consult while inpatient the patient is non-compliant with sodium and fluid restrictions, he continues to drink MELD score at this time is only 16 educated patient on importance of sobriety and following salt and fluid restriction at home GI recommends possibly looking into TIPS procedure F/u with GI as outpt (2) Anasarca: due to cirrhosis, improved with diuresis IV -continue Lasix 80mg BID -continue Spironolactone 100mg qAM (3) Ascites: See above (4) Diabetes mellitus type 2 in obese: Has had a decreased appetite. -continue Lantus 10 units daily Novolog SS diabetic diet monitor for hypoglycemia can resume home regimen on discharge (5) Hypomagnesemia: Magnesium level 1.6, and given 2 g magnesium sulfate IV in ED place on Mag oxide bid check magnesium tomorrow (6) Hypokalemia: K is up to 3.8 continue BID replacement (7) Alcohol abuse: Place on AWSS with oral Ativan. Thiamine 100 mg p.o. daily. Folic acid 1 mg p.o. daily. Folate level here is low at 2.97 no signs of withdrawal again, educated him on need to be sober due to cirrhosis (8) Pneumonia: left sided effusion with compression atelectasis thought to be pneumonia initially but is not clinically consistent with this, but no fever, WBC normal have since stopped antibiotics and continue to monitor (9) Parapneumonic effusion: likely due to volume overload, anasaraca in setting of cirrhosis (10) Pancytopenia: secondary to cirrhosis, fairly stable from previous no evidence of bleeding MCV 79, low, and with h/o gastric bypass could also have Fe-deficiency anemia -check iron studies in AM follow CBC in AM (11) Status post gastric bypass for obesity: avoid NSAIDs continue PPI (12) DVT prophylaxis: SCDs Dispo-remain overnight for BP monitoring after large volume paracentesis, dc to home tomorrow Subjective Feeling much better since his paracentesis today for 11.5L of fluid. Denies abd pain.Says his legs are much less swollen, R is always greater than left. Denies CP or SOB. Was a little lightheaded earlier but now not. Is eating. Tele with NSR, 1st degree AVB, rates 90s Review of Systems Review of Systems: All systems reviewed & are unremarkable except as noted in HPI & below Physical Exam Constitutional: + ill appearing (chronically ill appearing); no acute distress (sitting in bedsie chair) Eyes: + anicteric sclerae Neck: trachea midline, no thyromegaly Respiratory: normal respiratory effort, lungs clear to auscultation Cardiovascular: Rate/Rhythm: regular rate and regular rhythm Extremities: + edema (1-2+ pitting edema legs bilat R>L) Chest (Breasts): Chest: normal inspection of chest Gastrointestinal (Abdomen): normal bowel sounds, soft, nontender, no hepatosplenomegaly Musculoskeletal: Extremities: no cyanosis and no clubbing Skin: no rashes, warm and dry Neurologic: moves all extremities and awake; no focal motor deficits Psychiatric: A+Ox3, euthymic affect Lymphatic: no lymphedema Results & Data Vital Signs (Past 12 Hours) Vital Signs Temp Pulse Pulse Resp BP Pulse Ox 04/11/19 16:00 88 04/11/19 15:58 36.8 C 83 16 103/64 99 04/11/19 12:07 36.8 C 04/11/19 10:38 91 H 04/11/19 07:21 36.6 C 97 H 20 105/68 98 Laboratory Results 04/11/19 04/11/19 04/11/19 Range/Units 16:32 11:43 08:44 WBC (4.8-10.8) K/uL RBC (4.7-6.1) M/uL Hgb (14.0-18.0) g/dL Hct (42-52) % MCV (80-100) fL MCH (25-34) pg MCHC (32-36) g/dL RDW Std Deviation (36.4-46.3) fL RDW Coeff of Santiago (11.5-14.5) % Plt Count (130-400) K/uL MPV (7.4-10.4) fL Immature Gran % (Auto) % Neut % (Auto) % Lymph % (Auto) % [place] % (Auto) % Eos % (Auto) % Baso % (Auto) % Immature Gran # (Auto) (0.00-0.02) K/uL Neut # (Auto) (1.4-6.5) K/uL Lymph # (Auto) (1.2-3.4) K/uL [place] # (Auto) (0.11-0.59) K/uL Eos # (Auto) (0-0.5) K/uL Baso # (Auto) (0-0.2) K/uL Hypochromasia Poikilocytosis Anisocytosis PT (9.0-12.0) Seconds INR (0.9-1.1) Sodium 135 L (136-145) mmol/L Potassium 3.8 (3.5-5.1) mmol/L Chloride 101 (98-107) mmol/L Carbon Dioxide 28 (21-32) mmol/L Anion Gap 6.0 (3-11) BUN 12 (7-18) mg/dl Creatinine 0.84 (0.6-1.4) mg/dl Est Cr Clr Drug Dosing 124.5 ml/min Est GFR ( Amer) 105.7 Est GFR (Non-Af Amer) 91.2 BUN/Creatinine Ratio 14.3 (10-20) Glucose 167 H (70-99) mg/dl POC Glucose 123 H 141 H (70-99) mg/dl Calcium 7.8 L (8.5-10.1) mg/dl Total Bilirubin 1.7 H (0.2-1) mg/dl AST 18 (15-37) U/L ALT 8 L (12-78) U/L Alkaline Phosphatase 76 (45-117) U/L Total Protein 6.4 (6.4-8.2) gm/dl Albumin 2.0 L (3.4-5.0) gm/dl Globulin 4.4 H (2.5-4.0) gm/dl Albumin/Globulin Ratio 0.5 L (0.9-2) 04/11/19 04/11/19 04/11/19 Range/Units 08:44 08:44 07:09 WBC 1.99 L (4.8-10.8) K/uL RBC 3.14 L (4.7-6.1) M/uL Hgb 8.0 L (14.0-18.0) g/dL Hct 25.1 L (42-52) % MCV 79.9 L (80-100) fL MCH 25.5 (25-34) pg MCHC 31.9 L (32-36) g/dL RDW Std Deviation 59.3 H (36.4-46.3) fL RDW Coeff of [place] 20.1 H (11.5-14.5) % Plt Count 46 L (130-400) K/uL MPV 9.6 (7.4-10.4) fL Immature Gran % (Auto) 0.0 % Neut % (Auto) 58.8 % Lymph % (Auto) 23.6 % [place] % (Auto) 11.1 % Eos % (Auto) 5.5 % Baso % (Auto) 1.0 % Immature Gran # (Auto) 0.00 (0.00-0.02) K/uL Neut # (Auto) 1.17 L (1.4-6.5) K/uL Lymph # (Auto) 0.47 L (1.2-3.4) K/uL [place] # (Auto) 0.22 (0.11-0.59) K/uL Eos # (Auto) 0.11 (0-0.5) K/uL Baso # (Auto) 0.02 (0-0.2) K/uL Hypochromasia Present Poikilocytosis Present Anisocytosis Present PT 16.1 H (9.0-12.0) Seconds INR 1.6 H (0.9-1.1) Sodium (136-145) mmol/L Potassium (3.5-5.1) mmol/L Chloride (98-107) mmol/L Carbon Dioxide (21-32) mmol/L Anion Gap (3-11) BUN (7-18) mg/dl Creatinine (0.6-1.4) mg/dl Est Cr Clr Drug Dosing ml/min Est GFR ( Amer) Est GFR (Non-Af Amer) BUN/Creatinine Ratio (10-20) Glucose (70-99) mg/dl POC Glucose 154 H (70-99) mg/dl Calcium (8.5-10.1) mg/dl Total Bilirubin (0.2-1) mg/dl AST (15-37) U/L ALT (12-78) U/L Alkaline Phosphatase (45-117) U/L Total Protein (6.4-8.2) gm/dl Albumin (3.4-5.0) gm/dl Globulin (2.5-4.0) gm/dl Albumin/Globulin Ratio (0.9-2) / Range/Units 19:06 WBC (4.8-10.8) K/uL RBC (4.7-6.1) M/uL Hgb (14.0-18.0) g/dL Hct (42-52) % MCV (80-100) fL MCH (25-34) pg MCHC (32-36) g/dL RDW Std Deviation (36.4-46.3) fL RDW Coeff of [place] (11.5-14.5) % Plt Count (130-400) K/uL MPV (7.4-10.4) fL Immature Gran % (Auto) % Neut % (Auto) % Lymph % (Auto) % [place] % (Auto) % Eos % (Auto) % Baso % (Auto) % Immature Gran # (Auto) (0.00-0.02) K/uL Neut # (Auto) (1.4-6.5) K/uL Lymph # (Auto) (1.2-3.4) K/uL [place] # (Auto) (0.11-0.59) K/uL Eos # (Auto) (0-0.5) K/uL Baso # (Auto) (0-0.2) K/uL Hypochromasia Poikilocytosis Anisocytosis PT (9.0-12.0) Seconds INR (0.9-1.1) Sodium (136-145) mmol/L Potassium (3.5-5.1) mmol/L Chloride (98-107) mmol/L Carbon Dioxide (21-32) mmol/L Anion Gap (3-11) BUN (7-18) mg/dl Creatinine (0.6-1.4) mg/dl Est Cr Clr Drug Dosing ml/min Est GFR ( Amer) Est GFR (Non-Af Amer) BUN/Creatinine Ratio (10-20) Glucose (70-99) mg/dl POC Glucose 84 (70-99) mg/dl Calcium (8.5-10.1) mg/dl Total Bilirubin (0.2-1) mg/dl AST (15-37) U/L ALT (12-78) U/L Alkaline Phosphatase (45-117) U/L Total Protein (6.4-8.2) gm/dl Albumin (3.4-5.0) gm/dl Globulin (2.5-4.0) gm/dl Albumin/Globulin Ratio (0.9-2) PG Care Time/CCT Total # of Minutes Spent Total Time Spent with Patient: Total time spent is greater than 50% in coordination of care (as documented) at patient's floor/unit and/or counseling patient: Coding Level of Care Code 75194 Subseq Hosp Care Lvl 2 Diagnoses Cirrhosis K70.31 Ascites presence: with ascites Hepatic cirrhosis type: alcoholic cirrhosis Anasarca R60.1 Ascites K70.31 Ascites type: due to alcoholic cirrhosis Diabetes mellitus type 2 in obese E11.69; E66.9 Hypomagnesemia E83.42 Hypokalemia E87.6 Alcohol abuse F10.10 Pneumonia J18.9 Parapneumonic effusion J18.9; J91.8 Pancytopenia D61.818 Status post gastric bypass for obesity Z98.84 DVT prophylaxis Z29.9 (1) Cirrhosis Ascites presence: with ascites Hepatic cirrhosis type: alcoholic cirrhosis Qualified Code(s): K70.31 - Alcoholic cirrhosis of liver with ascites (2) Ascites Ascites type: due to alcoholic cirrhosis Qualified Code(s): K70.31 - Alcoholic cirrhosis of liver with ascites
[2019-04-11] MEDS: ALBUMIN 25% 50 ML IV SCH ×3 (21:19→23:35)
[2019-04-12] MEDS: ALBUMIN 25% 50 ML IV SCH (00:44)
[2019-04-12 05:39] LABS: Hematocrit (blood only) 24.5 % (42-52); Hemoglobin 7.8 g/dL (14.0-18.0); Mean Corpuscular Hemoglobin 25.8 pg (25-34); Mean Corpuscular Hgb Conc 31.8 g/dL (32-36); Mean Corpuscular Volume 81.1 fL (80-100); Red Blood Count 3.02 M/uL (4.7-6.1); White Blood Count 2.07 K/uL (4.8-10.8)
[2019-04-12 05:43] LABS: Mean Platelet Volume 10.1 fL (7.4-10.4); Platelet Count 42 K/uL (130-400)
[2019-04-12 06:02] LABS: Anisocytosis Present; Basophils # (auto) 0.02 K/uL (0-0.2); Eosinophils # (auto) 0.18 K/uL (0-0.5); Eosinophils % (auto) 8.7 %; Hypochromasia Present; Lymphocytes # (auto) 0.59 K/uL (1.2-3.4); Lymphocytes % (auto) 28.5 %; Monocytes # (auto) 0.26 K/uL (0.11-0.59); Monocytes % (auto) 12.6 %; Neutrophils # (auto) 1.02 K/uL (1.4-6.5); Neutrophils % (auto) 49.2 %
[2019-04-12 06:13] LABS: BUN Creatinine Ratio 21.8 (10-20); Calcium 7.7 mg/dl (8.5-10.1); Creatinine Clr Calc Pharmacy 137.6 ml/min; Est GFR (African American) 110.2; Est GFR (Non-African American) 95.1; Magnesium 1.2 mg/dl (1.8-2.4); Potassium 3.6 mmol/L (3.5-5.1)
[2019-04-12 06:17] LABS: Albumin Globulin Ratio 0.5 (0.9-2); Bilirubin,Total 1.2 mg/dl (0.2-1); Ferritin 32.8 ng/ml (8-388); Globulin 3.8 gm/dl (2.5-4.0); Total Protein 5.8 gm/dl (6.4-8.2)
[2019-04-12] MEDS: INSULIN ASPART 100 UNITS/ML 3 ML PEN SC SCH ×4 (08:23→20:31)
[2019-04-12] MEDS: CITALOPRAM 40 MG TAB PO SCH (08:28)
[2019-04-12] MEDS: SPIRONOLACTONE 100 MG TAB PO SCH (08:28)
[2019-04-12] MEDS: FOLIC ACID 1 MG TAB PO SCH (08:29)
[2019-04-12] MEDS: POTASSIUM CHLORIDE 20 MEQ TABCR PO SCH ×2 (08:29→20:33)
[2019-04-12] MEDS: INSULIN GLARGINE SOLOSTAR 100 UNITS/ML 3 ML PEN SC SCH (08:30)
[2019-04-12] MEDS: FUROSEMIDE 80 MG TAB PO SCH ×2 (08:32→17:10)
[2019-04-12] MEDS: MAGNESIUM OXIDE 400 MG TAB PO SCH (08:32)
[2019-04-12] MEDS: PANTOprazole 40 MG TAB PO SCH (08:33)
[2019-04-12] MEDS: THIAMINE HCL 100 MG TAB PO SCH (08:33)
[2019-04-12] MEDS ORDERED: IRON SUCROSE 300 MG in SODIUM CHLORIDE 0.9% 250 ML IV ONE (10:00)
[2019-04-12] MEDS: MAGNESIUM SULFATE / D5W 1 GM/100 ML BAG IV SCH ×3 (10:53→12:38)
[2019-04-12 14:14] LABS: Hepatitis A Antibody IgM NON-REACTIVE (NON-REACTIVE); Hepatitis B Core Antibody IgM NON-REACTIVE (NON-REACTIVE)
--- NOTE | 2019-04-12 14:14 | Hospitalist Progress Note ---
Date of Service April 12, 2019 Assessment & Plan (1) Cirrhosis: Liver cirrhosis secondary to alcoholism/anasarca/ascites- patient continues to drink periodically, was drinking just prior to admission, but otherwise states he only drank 2 drinks at [place] and nothing else in the last 6 months treated ascites and volume overload with albumin 25 g IV with Lasix 40 mg IV every 6 hours x4 doses, followed by large volume paracentesis of 11.5L on 04/11/19. Appreciated Consult radiology for therapeutic paracentesis BPs stable Albumin 2.0 Patient reports that he gets paracentesis approximately every 2 to 3 weeks, averaging 12 L removal at a time follows with Dr. Bill, appreciate GI consult while inpatient the patient is non-compliant with sodium and fluid restrictions, he continues to drink MELD score at this time is only 16 educated patient on importance of sobriety and following salt and fluid restriction at home GI recommends possibly looking into TIPS procedure F/u with GI as outpt (2) Anasarca: due to cirrhosis, improved with diuresis IV -continue Lasix 80mg BID -continue Spironolactone 100mg qAM (3) Ascites: See above (4) Diabetes mellitus type 2 in obese: Has had a decreased appetite. -continue Lantus 10 units daily Novolog SS diabetic diet monitor for hypoglycemia can resume home regimen on discharge (5) Hypomagnesemia: Magnesium level down to 1.2, may be due to loose stools -Replaced with IV magnesium today Discontinue magnesium oxide p.o. due to loose stools check magnesium tomorrow (6) Hypokalemia: Replaced and resolved continue BID replacement (7) Alcohol abuse: Place on AWSS with oral Ativan. Thiamine 100 mg p.o. daily. Folic acid 1 mg p.o. daily. Folate level here is low at 2.97 no signs of withdrawal again, educated him on need to be sober due to cirrhosis (8) Pneumonia: left sided effusion with compression atelectasis thought to be pneumonia initially but is not clinically consistent with this, but no fever, WBC normal have since stopped antibiotics and continue to monitor (9) Parapneumonic effusion: likely due to volume overload, anasaraca in setting of cirrhosis (10) Pancytopenia: secondary to cirrhosis, fairly stable from previous, hemoglobin down to 7.8 no evidence of bleeding MCV 79, low, and with h/o gastric bypass could also have Fe-deficiency anemia Iron studies show iron deficiency anemia with ferritin low at 32, transferrin saturation 18% follow CBC in AM -Start Venofer 300 mg IV once daily x3 days -Start on oral iron on discharge -Try to avoid transfusion if possible due to volume overload (11) Status post gastric bypass for obesity: avoid NSAIDs continue PPI -Needs iron replacement as above -Gets B12 injections once monthly (12) DVT prophylaxis: SCDs Dispo-remain overnight for electrolyte abnormalities, severe anemia, needs rehab placement Case management involved Subjective Patient had a large foul-smelling bowel movement today. He denies abdominal pains. Still feels very tired and weak, OT recommended rehab placement for him and he is agreeable to this. Denies chest pain or shortness of breath. Telemetry with normal sinus rhythm, first-degree AV block, rate 70s to 80s Review of Systems Review of Systems: All systems reviewed & are unremarkable except as noted in HPI & below Physical Exam Constitutional: + ill appearing (chronically ill appearing); no acute distress (sitting in bedsie chair) Eyes: + anicteric sclerae Neck: trachea midline, no thyromegaly Respiratory: normal respiratory effort, lungs clear to auscultation Cardiovascular: Rate/Rhythm: regular rate and regular rhythm Extremities: + edema (1-2+ pitting edema legs bilat R>L) Chest (Breasts): Chest: normal inspection of chest Gastrointestinal (Abdomen): normal bowel sounds, soft, nontender, no hepatosplenomegaly Musculoskeletal: Extremities: no cyanosis and no clubbing Skin: no rashes, warm and dry Neurologic: moves all extremities and awake; no focal motor deficits Psychiatric: A+Ox3, euthymic affect Lymphatic: no lymphedema Results & Data Vital Signs (Past 12 Hours) Vital Signs Temp Pulse Pulse Resp BP Pulse Ox 04/12/19 11:30 36.9 C 75 14 93/61 L 99 04/12/19 08:00 80 04/12/19 07:37 36.5 C 77 13 99/60 L 99 04/12/19 04:10 36.8 C 77 20 98/64 L 99 Laboratory Results Labs reviewed PG Care Time/CCT Total # of Minutes Spent Total Time Spent with Patient: Total time spent is greater than 50% in coordination of care (as documented) at patient's floor/unit and/or counseling patient: Coding Level of Care Code 81323 Subseq Hosp Care Lvl 3 Diagnoses Cirrhosis K70.31 Ascites presence: with ascites Hepatic cirrhosis type: alcoholic cirrhosis Anasarca R60.1 Ascites K70.31 Ascites type: due to alcoholic cirrhosis Diabetes mellitus type 2 in obese E11.69; E66.9 Hypomagnesemia E83.42 Hypokalemia E87.6 Alcohol abuse F10.10 Pneumonia J18.9 Parapneumonic effusion J18.9; J91.8 Pancytopenia D61.818 Status post gastric bypass for obesity Z98.84 DVT prophylaxis Z29.9 (1) Ascites Ascites type: due to alcoholic cirrhosis Qualified Code(s): K70.31 - Alcoholic cirrhosis of liver with ascites (2) Cirrhosis Ascites presence: with ascites Hepatic cirrhosis type: alcoholic cirrhosis Qualified Code(s): K70.31 - Alcoholic cirrhosis of liver with ascites
[2019-04-13 07:25] LABS: Hemoglobin 7.5 g/dL (14.0-18.0); Mean Corpuscular Hgb Conc 31.3 g/dL (32-36); RDW Coefficient of Variation 19.8 % (11.5-14.5); RDW Standard Deviation 60.4 fL (36.4-46.3); Red Blood Count 2.89 M/uL (4.7-6.1); White Blood Count 1.98 K/uL (4.8-10.8)
[2019-04-13 07:30] LABS: Mean Platelet Volume 9.7 fL (7.4-10.4); Platelet Count 47 K/uL (130-400)
[2019-04-13 07:46] LABS: Basophils # (auto) 0.02 K/uL (0-0.2); Eosinophils # (auto) 0.22 K/uL (0-0.5); Eosinophils % (auto) 11.1 %; Lymphocytes # (auto) 0.59 K/uL (1.2-3.4); Lymphocytes % (auto) 29.8 %; Monocytes # (auto) 0.18 K/uL (0.11-0.59); Monocytes % (auto) 9.1 %; Neutrophils # (auto) 0.97 K/uL (1.4-6.5)
[2019-04-13 07:49] LABS: BUN Creatinine Ratio 24.6 (10-20); Calcium 7.8 mg/dl (8.5-10.1); Creatinine Clr Calc Pharmacy 130.8 ml/min; Est GFR (African American) 107.9; Est GFR (Non-African American) 93.1; Magnesium 1.5 mg/dl (1.8-2.4); Potassium 4.1 mmol/L (3.5-5.1)
[2019-04-13] MEDS ORDERED: SODIUM CHLORIDE 0.9% 250 ML IV PRN (08:21)
[2019-04-13] MEDS: POTASSIUM CHLORIDE 20 MEQ TABCR PO SCH ×2 (08:26→20:43)
[2019-04-13] MEDS: THIAMINE HCL 100 MG TAB PO SCH (08:26)
[2019-04-13] MEDS: SPIRONOLACTONE 100 MG TAB PO SCH (08:26)
[2019-04-13] MEDS: PANTOprazole 40 MG TAB PO SCH (08:27)
[2019-04-13] MEDS: FOLIC ACID 1 MG TAB PO SCH (08:27)
[2019-04-13] MEDS: FUROSEMIDE 80 MG TAB PO SCH ×2 (08:27→17:29)
[2019-04-13] MEDS: CITALOPRAM 40 MG TAB PO SCH (08:27)
[2019-04-13] MEDS: INSULIN GLARGINE SOLOSTAR 100 UNITS/ML 3 ML PEN SC SCH (09:13)
[2019-04-13] MEDS: INSULIN ASPART 100 UNITS/ML 3 ML PEN SC SCH ×4 (09:13→20:45)
[2019-04-13] MEDS: MAGNESIUM SULFATE / D5W 1 GM/100 ML BAG IV SCH ×2 (09:13→10:18)
[2019-04-13] MEDS: IRON SUCROSE 300 MG in SODIUM CHLORIDE 0.9% 250 ML IV SCH (09:24)
--- NOTE | 2019-04-13 12:00 | Hospitalist Progress Note ---
Date of Service April 13, 2019 Assessment & Plan (1) Cirrhosis: Liver cirrhosis secondary to alcoholism/anasarca/ascites- patient continues to drink periodically, was drinking just prior to admission, but otherwise states he only drank 2 drinks at [place] and nothing else in the last 6 months treated ascites and volume overload with albumin 25 g IV with Lasix 40 mg IV every 6 hours x4 doses, followed by large volume paracentesis of 11.5L on 04/11/19. Appreciated Consult radiology for therapeutic paracentesis BPs stable Albumin 2.0 Patient reports that he gets paracentesis approximately every 2 to 3 weeks, averaging 12 L removal at a time Weight trending back upward, no abd distension significnat follows with Dr. Bill, appreciate GI consult while inpatient the patient is non-compliant with sodium and fluid restrictions, he continues to drink MELD score at this time is only 16 educated patient on importance of sobriety and following salt and fluid restriction at home GI recommends possibly looking into TIPS procedure F/u with GI as outpt (2) Anasarca: due to cirrhosis, improved with diuresis IV -continue Lasix 80mg BID -continue Spironolactone 100mg qAM (3) Ascites: See above (4) Diabetes mellitus type 2 in obese: Has had a decreased appetite. -continue Lantus 10 units daily Novolog SS diabetic diet monitor for hypoglycemia can resume home regimen on discharge (5) Hypomagnesemia: Magnesium level down to 1.2, may be due to loose stools--> now improved to 1.5 after replacement -Replaced with IV magnesium today Discontinue magnesium oxide p.o. due to loose stools check magnesium tomorrow (6) Hypokalemia: Replaced and resolved continue BID replacement (7) Alcohol abuse: Place on AWSS with oral Ativan. Thiamine 100 mg p.o. daily. Folic acid 1 mg p.o. daily. Folate level here is low at 2.97 no signs of withdrawal again, educated him on need to be sober due to cirrhosis (8) Pneumonia: left sided effusion with compression atelectasis thought to be pneumonia initially but is not clinically consistent with this, but no fever, WBC normal have since stopped antibiotics and continue to monitor (9) Parapneumonic effusion: likely due to volume overload, anasaraca in setting of cirrhosis (10) Pancytopenia: secondary to cirrhosis, fairly stable from previous, hemoglobin down to 7.5 no evidence of bleeding MCV 79, low, and with h/o gastric bypass could also have Fe-deficiency anemia Iron studies show iron deficiency anemia with ferritin low at 32, transferrin saturation 18% follow CBC in AM -continue Venofer 300 mg IV once daily x3 days-today day #2 -Start on oral iron on discharge -give PRBC transfusion x 1 unit now (11) Status post gastric bypass for obesity: avoid NSAIDs continue PPI -Needs iron replacement as above -Gets B12 injections once monthly (12) DVT prophylaxis: SCDs Dispo-remain overnight for electrolyte abnormalities, severe anemia, now refusing rehab but will reassess tomorrow Case management involved Subjective Feeling tired, no bleeding from anywhere. He is agreeable to PRBC transfusion. Denies CP or SOB, no abd pain. Review of Systems Review of Systems: All systems reviewed & are unremarkable except as noted in HPI & below Physical Exam Constitutional: + ill appearing (chronically ill appearing); no acute distress (sitting in bedside chair) Eyes: + anicteric sclerae Neck: trachea midline, no thyromegaly Respiratory: normal respiratory effort, lungs clear to auscultation Cardiovascular: Rate/Rhythm: regular rate and regular rhythm Extremities: + edema (1-2+ pitting edema legs bilat R>L) Chest (Breasts): Chest: normal inspection of chest Gastrointestinal (Abdomen): normal bowel sounds, soft, nontender, no hepatosplenomegaly Musculoskeletal: Extremities: no cyanosis and no clubbing Skin: no rashes, warm and dry Neurologic: moves all extremities and awake; no focal motor deficits Psychiatric: A+Ox3, euthymic affect Lymphatic: no lymphedema Results & Data Vital Signs (Past 12 Hours) Vital Signs Temp Pulse Resp BP Pulse Ox 04/13/19 07:08 36.7 C 77 20 94/56 L 95 04/13/19 00:01 36.8 C 75 20 98/61 L 96 Laboratory Results labs reviewed PG Care Time/CCT Total # of Minutes Spent Total Time Spent with Patient: Total time spent is greater than 50% in coordination of care (as documented) at patient's floor/unit and/or counseling patient: Coding Level of Care Code 96379 Subseq Hosp Care Lvl 2 Diagnoses Cirrhosis K70.31 Ascites presence: with ascites Hepatic cirrhosis type: alcoholic cirrhosis Anasarca R60.1 Ascites K70.31 Ascites type: due to alcoholic cirrhosis Diabetes mellitus type 2 in obese E11.69; E66.9 Hypomagnesemia E83.42 Hypokalemia E87.6 Alcohol abuse F10.10 Pneumonia J18.9 Parapneumonic effusion J18.9; J91.8 Pancytopenia D61.818 Status post gastric bypass for obesity Z98.84 DVT prophylaxis Z29.9 (1) Ascites Ascites type: due to alcoholic cirrhosis Qualified Code(s): K70.31 - Alcoholic cirrhosis of liver with ascites (2) Cirrhosis Ascites presence: with ascites Hepatic cirrhosis type: alcoholic cirrhosis Qualified Code(s): K70.31 - Alcoholic cirrhosis of liver with ascites
[2019-04-14 06:56] LABS: Hematocrit (blood only) 25.2 % (42-52); Mean Corpuscular Hemoglobin 26.5 pg (25-34); Mean Corpuscular Hgb Conc 31.7 g/dL (32-36); Mean Corpuscular Volume 83.4 fL (80-100); RDW Coefficient of Variation 19.9 % (11.5-14.5); RDW Standard Deviation 60.4 fL (36.4-46.3); Red Blood Count 3.02 M/uL (4.7-6.1); White Blood Count 2.21 K/uL (4.8-10.8)
[2019-04-14 07:06] LABS: Mean Platelet Volume 10.1 fL (7.4-10.4); Platelet Count 50 K/uL (130-400)
[2019-04-14 07:24] LABS: Anisocytosis Present; Basophils # (auto) 0.02 K/uL (0-0.2); Basophils % (auto) 0.9 %; Eosinophils # (auto) 0.24 K/uL (0-0.5); Eosinophils % (auto) 10.9 %; Hypochromasia Present; Lymphocytes % (auto) 27.1 %; Monocytes # (auto) 0.18 K/uL (0.11-0.59); Monocytes % (auto) 8.1 %; Neutrophils # (auto) 1.17 K/uL (1.4-6.5); Platelet Estimate SIGNIFIC DECREASED (Normal)
[2019-04-14 07:27] LABS: BUN Creatinine Ratio 22.8 (10-20); Creatinine Clr Calc Pharmacy 121.6 ml/min; Est GFR (African American) 104.7; Est GFR (Non-African American) 90.4; Magnesium 1.7 mg/dl (1.8-2.4)
[2019-04-14] MEDS ORDERED: MAGNESIUM SULFATE / D5W 1 GM/100 ML BAG IV ONE (07:59)
[2019-04-14] MEDS: POTASSIUM CHLORIDE 20 MEQ TABCR PO SCH ×2 (08:35→20:43)
[2019-04-14] MEDS: SPIRONOLACTONE 100 MG TAB PO SCH (08:36)
[2019-04-14] MEDS: PANTOprazole 40 MG TAB PO SCH (08:36)
[2019-04-14] MEDS: FOLIC ACID 1 MG TAB PO SCH (08:36)
[2019-04-14] MEDS: FUROSEMIDE 80 MG TAB PO SCH ×2 (08:36→17:47)
[2019-04-14] MEDS: CITALOPRAM 40 MG TAB PO SCH (08:36)
[2019-04-14] MEDS: THIAMINE HCL 100 MG TAB PO SCH (08:36)
[2019-04-14] MEDS: INSULIN ASPART 100 UNITS/ML 3 ML PEN SC SCH ×4 (08:41→20:57)
[2019-04-14] MEDS: INSULIN GLARGINE SOLOSTAR 100 UNITS/ML 3 ML PEN SC SCH (08:42)
[2019-04-14] MEDS: IRON SUCROSE 300 MG in SODIUM CHLORIDE 0.9% 250 ML IV SCH (09:47)
--- NOTE | 2019-04-14 15:01 | Hospitalist Progress Note ---
Date of Service April 14, 2019 Assessment & Plan (1) Cirrhosis: Liver cirrhosis secondary to alcoholism/anasarca/ascites- patient continues to drink periodically, was drinking just prior to admission, but otherwise states he only drank 2 drinks at [place] and nothing else in the last 6 months treated ascites and volume overload with albumin 25 g IV with Lasix 40 mg IV every 6 hours x4 doses, followed by large volume paracentesis of 11.5L on 04/11/19. Appreciated Consult radiology for therapeutic paracentesis BPs stable Albumin 2.0 Patient reports that he gets paracentesis approximately every 2 to 3 weeks, averaging 12 L removal at a time Weight trending back upward, no abd distension -pt requesting fluid restriction be raised-agreed to go up to 1800mL/day but advised this is why he builds back up with fluid so quickly (he reports drinking "a hell of a lot more than that at home") follows with Dr. Bill, appreciate GI consult while inpatient the patient is non-compliant with sodium and fluid restrictions, he continues to drink MELD score at this time is only 16 educated patient on importance of sobriety and following salt and fluid restriction at home GI recommends possibly looking into TIPS procedure F/u with GI as outpt (2) Anasarca: due to cirrhosis, improved with diuresis IV -continue Lasix 80mg BID -continue Spironolactone 100mg qAM (3) Ascites: See above (4) Diabetes mellitus type 2 in obese: Has had a decreased appetite, poor po intake. -continue Lantus 10 units daily Novolog SS diabetic diet monitor for hypoglycemia can resume home regimen on discharge (5) Hypomagnesemia: Improving after replacement but remains mildly low -Replaced with IV magnesium today Discontinued magnesium oxide p.o. due to loose stools check magnesium tomorrow (6) Hypokalemia: Replaced and resolved continue BID replacement (7) Alcohol abuse: Place on AWSS with oral Ativan. Thiamine 100 mg p.o. daily. Folic acid 1 mg p.o. daily. Folate level here is low at 2.97 no signs of withdrawal again, educated him on need to be sober due to cirrhosis (8) Pneumonia: left sided effusion with compression atelectasis thought to be pneumonia initially but is not clinically consistent with this, but no fever, WBC normal have since stopped antibiotics and continue to monitor (9) Parapneumonic effusion: likely due to volume overload, anasaraca in setting of cirrhosis (10) Pancytopenia: secondary to cirrhosis, fairly stable from previous, hemoglobin down to 7.5 on 04/13 no evidence of bleeding MCV 79, low, and with h/o gastric bypass could also have Fe-deficiency anemia Iron studies show iron deficiency anemia with ferritin low at 32, transferrin saturation 18% Transfused 1 unit PRBC on 04/13--> hgb now up to 8.0 -continue Venofer 300 mg IV once daily x3 days-today day #3 -Start on oral iron on discharge -follow CBC in AM (11) Status post gastric bypass for obesity: avoid NSAIDs continue PPI -Needs iron replacement as above -Gets B12 injections once monthly (12) DVT prophylaxis: SCDs Dispo-medically stable for discharge but needs rehab placement--> CM informed me no bed available till Thursday Case management involved Subjective Walked with PT and felt ok but recommending SNF and he is agreeable again now. Denies SOC or CP, no abd pains. Low appetite today Review of Systems Review of Systems: All systems reviewed & are unremarkable except as noted in HPI & below Physical Exam Constitutional: + ill appearing (chronically ill appearing); no acute distress (sitting in bedside chair) Eyes: + anicteric sclerae Neck: trachea midline, no thyromegaly Respiratory: normal respiratory effort, lungs clear to auscultation Cardiovascular: Rate/Rhythm: regular rate and regular rhythm Extremities: + edema (1-2+ pitting edema legs bilat R>L) Chest (Breasts): Chest: normal inspection of chest Gastrointestinal (Abdomen): normal bowel sounds, soft, nontender, no hepatosplenomegaly Musculoskeletal: Extremities: no cyanosis and no clubbing Skin: no rashes, warm and dry Neurologic: moves all extremities and awake; no focal motor deficits Psychiatric: A+Ox3, euthymic affect Lymphatic: no lymphedema Results & Data ([facility]) Vital Signs (Past 12 Hours) Vital Signs Temp Pulse Resp BP Pulse Ox 04/14/19 07:17 36.6 C 70 16 96/54 L 95 Laboratory Results 04/14/19 04/14/19 04/14/19 Range/Units 11:51 08:06 06:41 WBC (4.8-10.8) K/uL RBC (4.7-6.1) M/uL Hgb (14.0-18.0) g/dL Hct (42-52) % MCV (80-100) fL MCH (25-34) pg MCHC (32-36) g/dL RDW Std Deviation (36.4-46.3) fL RDW Coeff of Santiago (11.5-14.5) % Plt Count (130-400) K/uL MPV (7.4-10.4) fL Immature Gran % (Auto) % Neut % (Auto) % Lymph % (Auto) % [place] % (Auto) % Eos % (Auto) % Baso % (Auto) % Immature Gran # (Auto) (0.00-0.02) K/uL Neut # (Auto) (1.4-6.5) K/uL Lymph # (Auto) (1.2-3.4) K/uL [place] # (Auto) (0.11-0.59) K/uL Eos # (Auto) (0-0.5) K/uL Baso # (Auto) (0-0.2) K/uL Platelet Estimate (Normal) Hypochromasia Anisocytosis Sodium 138 (136-145) mmol/L Potassium 4.0 (3.5-5.1) mmol/L Chloride 103 (98-107) mmol/L Carbon Dioxide 31 (21-32) mmol/L Anion Gap 3.0 (3-11) BUN 20 H (7-18) mg/dl Creatinine 0.86 (0.6-1.4) mg/dl Est Cr Clr Drug Dosing 121.6 ml/min Est GFR ( Amer) 104.7 Est GFR (Non-Af Amer) 90.4 BUN/Creatinine Ratio 22.8 H (10-20) Glucose 112 H (70-99) mg/dl POC Glucose 170 H 139 H (70-99) mg/dl Calcium 8.0 L (8.5-10.1) mg/dl Magnesium 1.7 L (1.8-2.4) mg/dl Crossmatch 04/14/19 04/13/19 04/13/19 Range/Units 06:41 20:30 16:08 WBC 2.21 L (4.8-10.8) K/uL RBC 3.02 L (4.7-6.1) M/uL Hgb 8.0 L (14.0-18.0) g/dL Hct 25.2 L (42-52) % MCV 83.4 (80-100) fL MCH 26.5 (25-34) pg MCHC 31.7 L (32-36) g/dL RDW Std Deviation 60.4 H (36.4-46.3) fL RDW Coeff of Santiago 19.9 H (11.5-14.5) % Plt Count 50 L (130-400) K/uL MPV 10.1 (7.4-10.4) fL Immature Gran % (Auto) 0.0 % Neut % (Auto) 53.0 % Lymph % (Auto) 27.1 % [place] % (Auto) 8.1 % Eos % (Auto) 10.9 % Baso % (Auto) 0.9 % Immature Gran # (Auto) 0.00 (0.00-0.02) K/uL Neut # (Auto) 1.17 L (1.4-6.5) K/uL Lymph # (Auto) 0.60 L (1.2-3.4) K/uL [place] # (Auto) 0.18 (0.11-0.59) K/uL Eos # (Auto) 0.24 (0-0.5) K/uL Baso # (Auto) 0.02 (0-0.2) K/uL Platelet Estimate SIGNIFIC DECREASED (Normal) Hypochromasia Present Anisocytosis Present Sodium (136-145) mmol/L Potassium (3.5-5.1) mmol/L Chloride (98-107) mmol/L Carbon Dioxide (21-32) mmol/L Anion Gap (3-11) BUN (7-18) mg/dl Creatinine (0.6-1.4) mg/dl Est Cr Clr Drug Dosing ml/min Est GFR ( Amer) Est GFR (Non-Af Amer) BUN/Creatinine Ratio (10-20) Glucose (70-99) mg/dl POC Glucose 149 H 107 H (70-99) mg/dl Calcium (8.5-10.1) mg/dl Magnesium (1.8-2.4) mg/dl Crossmatch 04/13/19 Range/Units 09:54 WBC (4.8-10.8) K/uL RBC (4.7-6.1) M/uL Hgb (14.0-18.0) g/dL Hct (42-52) % MCV (80-100) fL MCH (25-34) pg MCHC (32-36) g/dL RDW Std Deviation (36.4-46.3) fL RDW Coeff of Santiago (11.5-14.5) % Plt Count (130-400) K/uL MPV (7.4-10.4) fL Immature Gran % (Auto) % Neut % (Auto) % Lymph % (Auto) % [place] % (Auto) % Eos % (Auto) % Baso % (Auto) % Immature Gran # (Auto) (0.00-0.02) K/uL Neut # (Auto) (1.4-6.5) K/uL Lymph # (Auto) (1.2-3.4) K/uL [place] # (Auto) (0.11-0.59) K/uL Eos # (Auto) (0-0.5) K/uL Baso # (Auto) (0-0.2) K/uL Platelet Estimate (Normal) Hypochromasia Anisocytosis Sodium (136-145) mmol/L Potassium (3.5-5.1) mmol/L Chloride (98-107) mmol/L Carbon Dioxide (21-32) mmol/L Anion Gap (3-11) BUN (7-18) mg/dl Creatinine (0.6-1.4) mg/dl Est Cr Clr Drug Dosing ml/min Est GFR ( Amer) Est GFR (Non-Af Amer) BUN/Creatinine Ratio (10-20) Glucose (70-99) mg/dl POC Glucose (70-99) mg/dl Calcium (8.5-10.1) mg/dl Magnesium (1.8-2.4) mg/dl Crossmatch See Detail PG Care Time/CCT Total # of Minutes Spent Total Time Spent with Patient: Total time spent is greater than 50% in coordinat ion of care (as documented) at patient's floor/unit and/or counseling patient: Coding Level of Care Code 43871 Subseq Hosp Care Lvl 2 Diagnoses Cirrhosis K70.31 Ascites presence: with ascites Hepatic cirrhosis type: alcoholic cirrhosis Anasarca R60.1 Ascites K70.31 Ascites type: due to alcoholic cirrhosis Diabetes mellitus type 2 in obese E11.69; E66.9 Hypomagnesemia E83.42 Hypokalemia E87.6 Alcohol abuse F10.10 Pneumonia J18.9 Parapneumonic effusion J18.9; J91.8 Pancytopenia D61.818 Status post gastric bypass for obesity Z98.84 DVT prophylaxis Z29.9 (1) Cirrhosis Ascites presence: with ascites Hepatic cirrhosis type: alcoholic cirrhosis Qualified Code(s): K70.31 - Alcoholic cirrhosis of liver with ascites (2) Ascites Ascites type: due to alcoholic cirrhosis Qualified Code(s): K70.31 - Alcoholic cirrhosis of liver with ascites
[2019-04-15 06:33] LABS: Hematocrit (blood only) 26.1 % (42-52); Hemoglobin 8.3 g/dL (14.0-18.0); Mean Corpuscular Hemoglobin 26.7 pg (25-34); Mean Corpuscular Hgb Conc 31.8 g/dL (32-36); Mean Corpuscular Volume 83.9 fL (80-100); RDW Coefficient of Variation 20.3 % (11.5-14.5); Red Blood Count 3.11 M/uL (4.7-6.1); White Blood Count 2.27 K/uL (4.8-10.8)
[2019-04-15 06:54] LABS: Mean Platelet Volume 9.4 fL (7.4-10.4); Platelet Count 54 K/uL (130-400)
[2019-04-15 06:57] LABS: Anisocytosis Present; Basophils # (auto) 0.02 K/uL (0-0.2); Basophils % (auto) 0.9 %; Eosinophils # (auto) 0.28 K/uL (0-0.5); Eosinophils % (auto) 12.3 %; Hypochromasia Present; Lymphocytes % (auto) 26.4 %; Monocytes # (auto) 0.25 K/uL (0.11-0.59); Neutrophils # (auto) 1.12 K/uL (1.4-6.5); Neutrophils % (auto) 49.4 %; Poikilocytosis Present
[2019-04-15 07:03] LABS: BUN Creatinine Ratio 26.2 (10-20); Calcium 7.7 mg/dl (8.5-10.1); Creatinine Clr Calc Pharmacy 119.8 ml/min; Est GFR (African American) 106.8; Est GFR (Non-African American) 92.1; Potassium 3.9 mmol/L (3.5-5.1)
[2019-04-15] MEDS: PANTOprazole 40 MG TAB PO SCH (07:54)
[2019-04-15] MEDS: FOLIC ACID 1 MG TAB PO SCH (07:54)
[2019-04-15] MEDS: POTASSIUM CHLORIDE 20 MEQ TABCR PO SCH ×2 (07:54→20:46)
[2019-04-15] MEDS: THIAMINE HCL 100 MG TAB PO SCH (07:54)
[2019-04-15] MEDS: FUROSEMIDE 80 MG TAB PO SCH ×2 (07:55→17:41)
[2019-04-15] MEDS: CITALOPRAM 40 MG TAB PO SCH (07:55)
[2019-04-15] MEDS: SPIRONOLACTONE 100 MG TAB PO SCH (07:55)
[2019-04-15] MEDS: INSULIN ASPART 100 UNITS/ML 3 ML PEN SC SCH ×4 (09:05→20:45)
[2019-04-15] MEDS: INSULIN GLARGINE SOLOSTAR 100 UNITS/ML 3 ML PEN SC SCH (09:06)
--- NOTE | 2019-04-15 19:06 | Hospitalist Progress Note ---
Date of Service April 15, 2019 Assessment & Plan (1) Cirrhosis: Liver cirrhosis secondary to alcoholism/anasarca/ascites- patient continues to drink periodically, was drinking just prior to admission, but otherwise states he only drank 2 drinks at [place] and nothing else in the last 6 months treated ascites and volume overload with albumin 25 g IV with Lasix 40 mg IV every 6 hours x4 doses, followed by large volume paracentesis of 11.5L on 04/11/19. Appreciated Consult radiology for therapeutic paracentesis BPs stable Albumin 2.0 Patient reports that he gets paracentesis approximately every 2 to 3 weeks, averaging 12 L removal at a time Weight trending back upward, no significant abd distension -pt requesting fluid restriction be raised-agreed to go up to 1800mL/day but advised this is why he builds back up with fluid so quickly (he reports drinking "a hell of a lot more than that at home") follows with Dr. Bill, appreciate GI consult while inpatient the patient is non-compliant with sodium and fluid restrictions, he continues to drink alcohol in excess amounts of fluid at home MELD score at this time is only 16 educated patient on importance of sobriety and following salt and fluid restriction at home GI recommends possibly looking into TIPS procedure F/u with GI as outpt (2) Anasarca: due to cirrhosis, improved with diuresis IV -continue Lasix 80mg BID -continue Spironolactone 100mg qAM (3) Ascites: See above (4) Diabetes mellitus type 2 in obese: Blood sugars well controlled -continue Lantus 10 units daily Novolog SS diabetic diet monitor for hypoglycemia (5) Hypomagnesemia: Replaced and improved Discontinued magnesium oxide p.o. due to loose stools (6) Hypokalemia: Replaced and resolved continue BID replacement (7) Alcohol abuse: Place on AWSS with oral Ativan. Has not required any Continue thiamine 100 mg p.o. daily. Continue folic acid 1 mg p.o. daily. Folate level here is low at 2.97 no signs of withdrawal again, educated him on need to be sober due to cirrhosis (8) Pneumonia: left sided effusion with compression atelectasis thought to be pneumonia initially but is not clinically consistent with this, but no fever, WBC normal have since stopped antibiotics and continue to monitor (9) Parapneumonic effusion: likely due to volume overload, anasaraca in setting of cirrhosis (10) Pancytopenia: secondary to cirrhosis, fairly stable from previous, hemoglobin down to 7.5 on 04/13 no evidence of bleeding MCV 79, low, and with h/o gastric bypass could also have Fe-deficiency anemia Iron studies show iron deficiency anemia with ferritin low at 32, transferrin saturation 18% Transfused 1 unit PRBC on 04/13--> hgb now up to 8.3 -Received Venofer 300 mg IV once daily x3 days -Start on oral iron on discharge -follow CBC periodically (11) Status post gastric bypass for obesity: avoid NSAIDs continue PPI -Needs iron replacement as above -Gets B12 injections once monthly (12) Folic acid deficiency: Folate level only 2.9 Continue folic acid 1 mg p.o. once daily (13) DVT prophylaxis: SCDs Dispo-medically stable for discharge but needs rehab placement--> CM informed me no bed available till Thursday at [facility] Case management involved Subjective Patient walked with PT today, felt okay but easily fatigued. Denies abdominal pain. Denies chest pain. He was short of breath with ambulation. No bleeding from anywhere, still awaiting placement. Review of Systems Review of Systems: All systems reviewed & are unremarkable except as noted in HPI & below Physical Exam Constitutional: + ill appearing (chronically ill appearing); no acute distress (sitting in bedside chair) Eyes: + anicteric sclerae Neck: trachea midline, no thyromegaly Respiratory: normal respiratory effort, lungs clear to auscultation Cardiovascular: Rate/Rhythm: regular rate and regular rhythm Extremities: + edema (1-2+ pitting edema legs bilat R>L) Chest (Breasts): Chest: normal inspection of chest Gastrointestinal (Abdomen): normal bowel sounds, soft, nontender, no hepatosplenomegaly Inspection/Auscultation: + abdomen distended (Mild) Percussion/Palpation: + ascites Musculoskeletal: Extremities: no cyanosis and no clubbing Skin: no rashes, warm and dry Neurologic: moves all extremities and awake; no focal motor deficits Psychiatric: Orientation: alert, oriented to person, oriented to place and cooperative Lymphatic: no lymphedema Results & Data ([facility]) Vital Signs (Past 12 Hours) Vital Signs Temp Pulse Resp BP BP Pulse Ox 04/15/19 15:30 36.7 C 76 20 91/53 L 95 04/15/19 07:26 36.7 C 67 16 93/55 L 96 Laboratory Results 04/15/19 04/15/19 04/15/19 Range/Units 20:16 16:37 11:50 WBC (4.8-10.8) K/uL RBC (4.7-6.1) M/uL Hgb (14.0-18.0) g/dL Hct (42-52) % MCV (80-100) fL MCH (25-34) pg MCHC (32-36) g/dL RDW Std Deviation (36.4-46.3) fL RDW Coeff of Santiago (11.5-14.5) % Plt Count (130-400) K/uL MPV (7.4-10.4) fL Immature Gran % (Auto) % Neut % (Auto) % Lymph % (Auto) % [place] % (Auto) % Eos % (Auto) % Baso % (Auto) % Immature Gran # (Auto) (0.00-0.02) K/uL Neut # (Auto) (1.4-6.5) K/uL Lymph # (Auto) (1.2-3.4) K/uL [place] # (Auto) (0.11-0.59) K/uL Eos # (Auto) (0-0.5) K/uL Baso # (Auto) (0-0.2) K/uL Hypochromasia Poikilocytosis Anisocytosis Sodium (136-145) mmol/L Potassium (3.5-5.1) mmol/L Chloride (98-107) mmol/L Carbon Dioxide (21-32) mmol/L Anion Gap (3-11) BUN (7-18) mg/dl Creatinine (0.6-1.4) mg/dl Est Cr Clr Drug Dosing ml/min Est GFR ( Amer) Est GFR (Non-Af Amer) BUN/Creatinine Ratio (10-20) Glucose (70-99) mg/dl POC Glucose 106 H 110 H 139 H (70-99) mg/dl Calcium (8.5-10.1) mg/dl 04/15/19 04/15/19 04/15/19 Range/Units 07:51 05:57 05:57 WBC 2.27 L (4.8-10.8) K/uL RBC 3.11 L (4.7-6.1) M/uL Hgb 8.3 L (14.0-18.0) g/dL Hct 26.1 L (42-52) % MCV 83.9 (80-100) fL MCH 26.7 (25-34) pg MCHC 31.8 L (32-36) g/dL RDW Std Deviation 61.0 H (36.4-46.3) fL RDW Coeff of Santiago 20.3 H (11.5-14.5) % Plt Count 54 L (130-400) K/uL MPV 9.4 (7.4-10.4) fL Immature Gran % (Auto) 0.0 % Neut % (Auto) 49.4 % Lymph % (Auto) 26.4 % [place] % (Auto) 11.0 % Eos % (Auto) 12.3 % Baso % (Auto) 0.9 % Immature Gran # (Auto) 0.00 (0.00-0.02) K/uL Neut # (Auto) 1.12 L (1.4-6.5) K/uL Lymph # (Auto) 0.60 L (1.2-3.4) K/uL [place] # (Auto) 0.25 (0.11-0.59) K/uL Eos # (Auto) 0.28 (0-0.5) K/uL Baso # (Auto) 0.02 (0-0.2) K/uL Hypochromasia Present Poikilocytosis Present Anisocytosis Present Sodium 139 (136-145) mmol/L Potassium 3.9 (3.5-5.1) mmol/L Chloride 104 (98-107) mmol/L Carbon Dioxide 33 H (21-32) mmol/L Anion Gap 2.0 L (3-11) BUN 22 H (7-18) mg/dl Creatinine 0.82 (0.6-1.4) mg/dl Est Cr Clr Drug Dosing 119.8 ml/min Est GFR ( Amer) 106.8 Est GFR (Non-Af Amer) 92.1 BUN/Creatinine Ratio 26.2 H (10-20) Glucose 102 H (70-99) mg/dl POC Glucose 120 H (70-99) mg/dl Calcium 7.7 L (8.5-10.1) mg/dl PG Care Time/CCT Total # of Minutes Spent Total Time Spent with Patient: Total time spent is greater than 50% in coordination of care (as documented) at patient's floor/unit and/or counseling patient: Coding Level of Care Code 30907 Subseq Hosp Care Lvl 1 Diagnoses Cirrhosis K70.31 Ascites presence: with ascites Hepatic cirrhosis type: alcoholic cirrhosis Anasarca R60.1 Ascites K70.31 Ascites type: due to alcoholic cirrhosis Diabetes mellitus type 2 in obese E11.69; E66.9 Hypomagnesemia E83.42 Hypokalemia E87.6 Alcohol abuse F10.10 Pneumonia J18.9 Parapneumonic effusion J18.9; J91.8 Pancytopenia D61.818 Status post gastric bypass for obesity Z98.84 Folic acid deficiency E53.8 DVT prophylaxis Z29.9 (1) Ascites Ascites type: due to alcoholic cirrhosis Qualified Code(s): K70.31 - Alcoholic cirrhosis of liver with ascites (2) Cirrhosis Ascites presence: with ascites Hepatic cirrhosis type: alcoholic cirrhosis Qualified Code(s): K70.31 - Alcoholic cirrhosis of liver with ascites
[2019-04-16] MEDS: SPIRONOLACTONE 100 MG TAB PO SCH (07:56)
[2019-04-16] MEDS: FOLIC ACID 1 MG TAB PO SCH (07:56)
[2019-04-16] MEDS: CITALOPRAM 40 MG TAB PO SCH (07:56)
[2019-04-16] MEDS: PANTOprazole 40 MG TAB PO SCH (07:57)
[2019-04-16] MEDS: THIAMINE HCL 100 MG TAB PO SCH (07:57)
[2019-04-16] MEDS: FUROSEMIDE 80 MG TAB PO SCH ×2 (07:57→17:54)
[2019-04-16] MEDS: POTASSIUM CHLORIDE 20 MEQ TABCR PO SCH ×2 (07:57→20:49)
[2019-04-16] MEDS: INSULIN ASPART 100 UNITS/ML 3 ML PEN SC SCH ×4 (09:05→20:43)
[2019-04-16] MEDS: INSULIN GLARGINE SOLOSTAR 100 UNITS/ML 3 ML PEN SC SCH (09:05)
--- NOTE | 2019-04-16 15:19 | Hospitalist Progress Note ---
Date of Service April 16, 2019 Assessment & Plan (1) Cirrhosis: Liver cirrhosis secondary to alcoholism patient continues to drink alcohol periodically, was drinking just prior to admission, but otherwise states he only drank 2 drinks at [place] and nothing else in the last 6 months treated ascites and volume overload with albumin 25 g IV with Lasix 40 mg IV every 6 hours x4 doses, followed by large volume paracentesis of 11.5L on 04/11/19. Appreciated Consult radiology for therapeutic paracentesis BPs stable Albumin 2.0 Patient reports that he gets paracentesis approximately every 2 to 3 weeks, averaging 12 L removal at a time-he does not feel that he needs one at this time but he is starting to get a little bit more distended Weight trending back upward, patient declines repeat paracentesis at this time -pt requesting fluid restriction be raised-agreed to go up to 1800mL/day but advised this is why he builds back up with fluid so quickly (he reports drinking "a hell of a lot more than that at home") follows with Dr. Bill, appreciate GI consult while inpatient the patient is non-compliant with sodium and fluid restrictions, he continues to drink alcohol in excess amounts of fluid at home MELD score at this time is only 16 educated patient on importance of sobriety and following salt and fluid restriction at home GI recommends possibly looking into TIPS procedure F/u with GI as outpt -Follow LFTs, INR, CBC periodically (2) Anasarca: due to cirrhosis, improved with diuresis IV -continue Lasix 80mg BID -continue Spironolactone 100mg qAM (3) Ascites: See above (4) Diabetes mellitus type 2 in obese: Blood sugars well controlled -continue Lantus 10 units daily Novolog diabetic diet monitor for hypoglycemia (5) Hypomagnesemia: Replaced and improved Discontinued magnesium oxide p.o. due to loose stools Check magnesium level in the morning (6) Hypokalemia: Replaced and resolved continue BID replacement (7) Alcohol abuse: Place on AWSS with oral Ativan. Has not required any Continue thiamine 100 mg p.o. daily. Continue folic acid 1 mg p.o. daily. Folate level here is low at 2.97 no signs of withdrawal again, educated him on need to be sober due to cirrhosis (8) Pneumonia: left sided effusion with compression atelectasis thought to be pneumonia initially but is not clinically consistent with this, but no fever, WBC normal have since stopped antibiotics and continue to monitor (9) Parapneumonic effusion: likely due to volume overload, anasaraca in setting of cirrhosis (10) Pancytopenia: secondary to cirrhosis, fairly stable from previous, hemoglobin down to 7.5 on 04/13 no evidence of bleeding MCV 79, low, and with h/o gastric bypass could also have Fe-deficiency anemia Iron studies show iron deficiency anemia with ferritin low at 32, transferrin saturation 18% Transfused 1 unit PRBC on 04/13--> hgb now up to 8.3 -Received Venofer 300 mg IV once daily x3 days -Start on oral iron on discharge -follow CBC periodically (11) Status post gastric bypass for obesity: avoid NSAIDs continue PPI -Needs iron replacement as above -Gets B12 injections once monthly (12) Folic acid deficiency: Folate level only 2.9 Continue folic acid 1 mg p.o. once daily (13) DVT prophylaxis: SCDs Dispo-medically stable for discharge but needs rehab placement--> CM informed me no bed available till Thursday at [facility] Case management involved Subjective Patient complains of having to be woken up to be weighed in the morning. Denies abdominal pain or distention, denies chest pain or shortness of breath. He is eating well today. He has happy about his fluid restriction being lessened. Otherwise, remains weak and awaiting placement Review of Systems Review of Systems: All systems reviewed & are unremarkable except as noted in HPI & below Physical Exam Constitutional: + ill appearing (chronically ill appearing); no acute distress (sitting in bedside chair) Eyes: + anicteric sclerae Neck: trachea midline, no thyromegaly Respiratory: normal respiratory effort, lungs clear to auscultation Cardiovascular: Rate/Rhythm: regular rate and regular rhythm Extremities: + edema (2-3+ pitting edema legs bilat R>L) Chest (Breasts): Chest: normal inspection of chest Gastrointestinal (Abdomen): normal bowel sounds, soft, nontender, no hepa tosplenomegaly Inspection/Auscultation: + abdomen distended (Mild) Percussion/Palpation: + ascites Musculoskeletal: Extremities: no cyanosis and no clubbing Skin: no rashes, warm and dry Neurologic: moves all extremities and awake; no focal motor deficits Psychiatric: A+Ox3, euthymic affect Orientation: alert, oriented to person, oriented to place and cooperative Lymphatic: no lymphedema Results & Data ([facility]) Vital Signs (Past 12 Hours) Vital Signs Temp Pulse Resp BP Pulse Ox 04/16/19 07:45 36.9 C 76 18 103/62 96 Laboratory Results No labs PG Care Time/CCT Total # of Minutes Spent Total Time Spent with Patient: Total time spent is greater than 50% in coordination of care (as documented) at patient's floor/unit and/or counseling patient: Coding Level of Care Code 81126 Subseq Hosp Care Lvl 2 Diagnoses Cirrhosis K70.31 Ascites presence: with ascites Hepatic cirrhosis type: alcoholic cirrhosis Anasarca R60.1 Ascites K70.31 Ascites type: due to alcoholic cirrhosis Diabetes mellitus type 2 in obese E11.69; E66.9 Hypomagnesemia E83.42 Hypokalemia E87.6 Alcohol abuse F10.10 Pneumonia J18.9 Parapneumonic effusion J18.9; J91.8 Pancytopenia D61.818 Status post gastric bypass for obesity Z98.84 Folic acid deficiency E53.8 DVT prophylaxis Z29.9 (1) Ascites Ascites type: due to alcoholic cirrhosis Qualified Code(s): K70.31 - Alcoholic cirrhosis of liver with ascites (2) Cirrhosis Ascites presence: with ascites Hepatic cirrhosis type: alcoholic cirrhosis Qualified Code(s): K70.31 - Alcoholic cirrhosis of liver with ascites
[2019-04-17] MEDS: PANTOprazole 40 MG TAB PO SCH (08:52)
[2019-04-17] MEDS: CITALOPRAM 40 MG TAB PO SCH (08:52)
[2019-04-17] MEDS: SPIRONOLACTONE 100 MG TAB PO SCH (08:52)
[2019-04-17] MEDS: POTASSIUM CHLORIDE 20 MEQ TABCR PO SCH ×2 (08:52→21:02)
[2019-04-17] MEDS: FOLIC ACID 1 MG TAB PO SCH (08:52)
[2019-04-17] MEDS: THIAMINE HCL 100 MG TAB PO SCH (08:52)
[2019-04-17] MEDS: FUROSEMIDE 80 MG TAB PO SCH ×2 (08:52→16:56)
[2019-04-17] MEDS: INSULIN ASPART 100 UNITS/ML 3 ML PEN SC SCH ×4 (08:54→21:18)
[2019-04-17] MEDS: INSULIN GLARGINE SOLOSTAR 100 UNITS/ML 3 ML PEN SC SCH (08:55)
[2019-04-17 10:56] LABS: Hematocrit (blood only) 30.8 % (42-52); Hemoglobin 9.5 g/dL (14.0-18.0); Mean Corpuscular Hemoglobin 26.5 pg (25-34); Mean Corpuscular Hgb Conc 30.8 g/dL (32-36); RDW Coefficient of Variation 21.5 % (11.5-14.5); RDW Standard Deviation 65.1 fL (36.4-46.3); Red Blood Count 3.58 M/uL (4.7-6.1); White Blood Count 2.22 K/uL (4.8-10.8)
[2019-04-17 11:07] LABS: INR 1.3 (0.9-1.1); Prothrombin Time 12.7 Seconds (9.0-12.0)
[2019-04-17 11:15] LABS: Mean Platelet Volume 9.6 fL (7.4-10.4); Platelet Count 61 K/uL (130-400)
[2019-04-17 11:16] LABS: Basophils # (auto) 0.03 K/uL (0-0.2); Basophils % (auto) 1.4 %; Eosinophils # (auto) 0.16 K/uL (0-0.5); Eosinophils % (auto) 7.2 %; Lymphocytes # (auto) 0.51 K/uL (1.2-3.4); Monocytes # (auto) 0.23 K/uL (0.11-0.59); Monocytes % (auto) 10.4 %; Neutrophils # (auto) 1.29 K/uL (1.4-6.5)
[2019-04-17 11:20] LABS: Albumin Level 2.3 gm/dl (3.4-5.0); BUN Creatinine Ratio 22.2 (10-20); Calcium 8.2 mg/dl (8.5-10.1); Creatinine Clr Calc Pharmacy 95.8 ml/min; Est GFR (African American) 87.3; Est GFR (Non-African American) 75.3; Magnesium 1.8 mg/dl (1.8-2.4); Potassium 3.7 mmol/L (3.5-5.1)
[2019-04-17 11:23] LABS: Albumin Globulin Ratio 0.5 (0.9-2); Bilirubin,Total 0.9 mg/dl (0.2-1); Globulin 4.6 gm/dl (2.5-4.0); Total Protein 6.9 gm/dl (6.4-8.2)
--- NOTE | 2019-04-17 15:53 | Hospitalist Progress Note ---
Date of Service April 17, 2019 Assessment & Plan (1) Cirrhosis: Liver cirrhosis secondary to alcoholism patient continues to drink alcohol periodically, was drinking just prior to admission, but otherwise states he only drank 2 drinks at [place] and nothing else in the last 6 months treated ascites and volume overload with albumin 25 g IV with Lasix 40 mg IV every 6 hours x4 doses initially, then another round of 4 bags of IV albumin, followed by large volume paracentesis of 11.5L on 04/11/19. Appreciated Consult radiology for therapeutic paracentesis BPs stable Albumin 2.3 now Patient reports that he gets paracentesis approximately every 2 to 3 weeks, averaging 12 L removal at a time Weight trending back upward, abd more distended-he feels he needs another tap before discharge -pt requested fluid restriction be raised-agreed to go up to 1800mL/day but advised this is why he builds back up with fluid so quickly (he reports drinking "a hell of a lot more than that at home") follows with Dr. Bill, appreciate GI consult while inpatient the patient is non-compliant with sodium and fluid restrictions, he continues to drink alcohol in excess amounts of fluid at home -give another 4 bags of IV albumin 1 bag q4hrs and then repeat paracentesis Thursday AM INR down to 1.3 now MELD score at this time is now down to 10, indicating 6% mortality risk in next 3 months educated patient on importance of sobriety and following salt and fluid restriction at home GI recommends possibly looking into TIPS procedure F/u with GI as outpt -Follow LFTs, INR, CBC periodically (2) Anasarca: due to cirrhosis, improved with diuresis IV and albumin initially -continue Lasix 80mg BID -continue Spironolactone 100mg qAM -worsening, giving albumin again now (3) Ascites: See above (4) Diabetes mellitus type 2 in obese: Blood sugars well controlled -continue Lantus 10 units daily Novolog diabetic diet monitor for hypoglycemia (5) Hypomagnesemia: Replaced and resolved Discontinued magnesium oxide p.o. due to loose stools (6) Hypokalemia: Replaced and resolved continue BID replacement (7) Alcohol abuse: Place on AWSS with oral Ativan. Has not required any the entire stay Continue thiamine 100 mg p.o. daily. Continue folic acid 1 mg p.o. daily. Folate level here is low at 2.97 no signs of withdrawal again, educated him on need to be sober due to cirrhosis (8) Pneumonia: left sided effusion with compression atelectasis thought to be pneumonia initially but is not clinically consistent with this, but no fever, WBC normal have since stopped antibiotics and continue to monitor (9) Parapneumonic effusion: likely due to volume overload, anasaraca in setting of cirrhosis (10) Pancytopenia: secondary to cirrhosis, fairly stable from previous, hemoglobin down to 7.5 on 04/13 no evidence of bleeding MCV 79, low, and with h/o gastric bypass could also have Fe-deficiency anemia Iron studies show iron deficiency anemia with ferritin low at 32, transferrin saturation 18% -Transfused 1 unit PRBC on 04/13 -Received Venofer 300 mg IV once daily x3 days -Start on oral iron on discharge -follow CBC periodically--> -> hgb now up to 9.5 (11) Status post gastric bypass for obesity: avoid NSAIDs continue PPI -Needs iron replacement as above -Gets B12 injections once monthly (12) Folic acid deficiency: Folate level only 2.9 Continue folic acid 1 mg p.o. once daily (13) DVT prophylaxis: SCDs Dispo-initially was kept for significant generalized weakness and anemia requiring transfusion. Then pt wavered about going to rehab--> decided to go to rehab on but no beds available until at least Thursday. Plan for dc to [facility] hopefully Thursday after paracentesis Case management involved Subjective Feels stronger than before, but feels like he needs to be tapped again before he goes to the rehab facility. Is eating well. AMbulating with assistance to the bathroom. Review of Systems Review of Systems: All systems reviewed & are unremarkable except as noted in HPI & below (no chest pain, no SOB) Physical Exam Constitutional: + ill appearing (chronically ill appearing); no acute distress (sitting in bedside chair) Eyes: + anicteric sclerae Neck: trachea midline, no thyromegaly Respiratory: normal respiratory effort, lungs clear to auscultation Cardiovascular: Rate/Rhythm: regular rate and regular rhythm Extremities: + edema (2-3+ pitting edema legs bilat R>L) Chest (Breasts): Chest: normal inspection of chest Gastrointestinal (Abdomen): normal bowel sounds, soft, nontender, no hepatosplenomegaly Inspection/Auscultation: + abdomen distended (Mild) Percussion/Palpation: + ascites Musculoskeletal: Extremities: no cyanosis and no clubbing Skin: no rashes, warm and dry Neurologic: moves all extremities and awake; no focal motor deficits Psychiatric: A+Ox3, euthymic affect Orientation: alert, oriented to person, oriented to place and cooperative Lymphatic: no lymphedema Results & Data ([facility]) Vital Signs (Past 12 Hours) Vital Signs Temp Pulse Resp BP Pulse Ox 04/17/19 14:59 36.9 C 70 20 93/57 L 95 04/17/19 07:47 36.6 C 69 20 97/59 L 95 Laboratory Results 04/17/19 04/17/19 04/17/19 Range/Units 11:26 10:42 10:42 WBC (4.8-10.8) K/uL RBC (4.7-6.1) M/uL Hgb (14.0-18.0) g/dL Hct (42-52) % MCV (80-100) fL MCH (25-34) pg MCHC (32-36) g/dL RDW Std Deviation (36.4-46.3) fL RDW Coeff of Santiago (11.5-14.5) % Plt Count (130-400) K/uL MPV (7.4-10.4) fL Immature Gran % (Auto) % Neut % (Auto) % Lymph % (Auto) % [place] % (Auto) % Eos % (Auto) % Baso % (Auto) % Immature Gran # (Auto) (0.00-0.02) K/uL Neut # (Auto) (1.4-6.5) K/uL Lymph # (Auto) (1.2-3.4) K/uL [place] # (Auto) (0.11-0.59) K/uL Eos # (Auto) (0-0.5) K/uL Baso # (Auto) (0-0.2) K/uL PT 12.7 H (9.0-12.0) Seconds INR 1.3 H (0.9-1.1) Sodium 140 (136-145) mmol/L Potassium 3.7 (3.5-5.1) mmol/L Chloride 103 (98-107) mmol/L Carbon Dioxide 31 (21-32) mmol/L Anion Gap 5.0 (3-11) BUN 23 H (7-18) mg/dl Creatinine 1.03 (0.6-1.4) mg/dl Est Cr Clr Drug Dosing 95.8 ml/min Est GFR ( Amer) 87.3 Est GFR (Non-Af Amer) 75.3 BUN/Creatinine Ratio 22.2 H (10-20) Glucose 148 H (70-99) mg/dl POC Glucose 133 H (70-99) mg/dl Calcium 8.2 L (8.5-10.1) mg/dl Magnesium 1.8 (1.8-2.4) mg/dl Total Bilirubin 0.9 (0.2-1) mg/dl AST 19 (15-37) U/L ALT 9 L (12-78) U/L Alkaline Phosphatase 90 (45-117) U/L Total Protein 6.9 (6.4-8.2) gm/dl Albumin 2.3 L (3.4-5.0) gm/dl Globulin 4.6 H (2.5-4.0) gm/dl Albumin/Globulin Ratio 0.5 L (0.9-2) 04/17/19 04/17/19 04/16/19 Range/Units 10:42 08:08 20:11 WBC 2.22 L (4.8-10.8) K/uL RBC 3.58 L (4.7-6.1) M/uL Hgb 9.5 L (14.0-18.0) g/dL Hct 30.8 L (42-52) % MCV 86.0 (80-100) fL MCH 26.5 (25-34) pg MCHC 30.8 L (32-36) g/dL RDW Std Deviation 65.1 H (36.4-46.3) fL RDW Coeff of [place] 21.5 H (11.5-14.5) % Plt Count 61 L (130-400) K/uL MPV 9.6 (7.4-10.4) fL Immature Gran % (Auto) 0.0 % Neut % (Auto) 58.0 % Lymph % (Auto) 23.0 % [place] % (Auto) 10.4 % Eos % (Auto) 7.2 % Baso % (Auto) 1.4 % Immature Gran # (Auto) 0.00 (0.00-0.02) K/uL Neut # (Auto) 1.29 L (1.4-6.5) K/uL Lymph # (Auto) 0.51 L (1.2-3.4) K/uL [place] # (Auto) 0.23 (0.11-0.59) K/uL Eos # (Auto) 0.16 (0-0.5) K/uL Baso # (Auto) 0.03 (0-0.2) K/uL PT (9.0-12.0) Seconds INR (0.9-1.1) Sodium (136-145) mmol/L Potassium (3.5-5.1) mmol/L Chloride (98-107) mmol/L Carbon Dioxide (21-32) mmol/L Anion Gap (3-11) BUN (7-18) mg/dl Creatinine (0.6-1.4) mg/dl Est Cr Clr Drug Dosing ml/min Est GFR ( Amer) Est GFR (Non-Af Amer) BUN/Creatinine Ratio (10-20) Glucose (70-99) mg/dl POC Glucose 112 H 93 (70-99) mg/dl Calcium (8.5-10.1) mg/dl Magnesium (1.8-2.4) mg/dl Total Bilirubin (0.2-1) mg/dl AST (15-37) U/L ALT (12-78) U/L Alkaline Phosphatase (45-117) U/L Total Protein (6.4-8.2) gm/dl Albumin (3.4-5.0) gm/dl Globulin (2.5-4.0) gm/dl Albumin/Globulin Ratio (0.9-2) 04/16/19 Range/Units 17:14 WBC (4.8-10.8) K/uL RBC (4.7-6.1) M/uL Hgb (14.0-18.0) g/dL Hct (42-52) % MCV (80-100) fL MCH (25-34) pg MCHC (32-36) g/dL RDW Std Deviation (36.4-46.3) fL RDW Coeff of [place] (11.5-14.5) % Plt Count (130-400) K/uL MPV (7.4-10.4) fL Immature Gran % (Auto) % Neut % (Auto) % Lymph % (Auto) % [place] % (Auto) % Eos % (Auto) % Baso % (Auto) % Immature Gran # (Auto) (0.00-0.02) K/uL Neut # (Auto) (1.4-6.5) K/uL Lymph # (Auto) (1.2-3.4) K/uL [place] # (Auto) (0.11-0.59) K/uL Eos # (Auto) (0-0.5) K/uL Baso # (Auto) (0-0.2) K/uL PT (9.0-12.0) Seconds INR (0.9-1.1) Sodium (136-145) mmol/L Potassium (3.5-5.1) mmol/L Chloride (98-107) mmol/L Carbon Dioxide (21-32) mmol/L Anion Gap (3-11) BUN (7-18) mg/dl Creatinine (0.6-1.4) mg/dl Est Cr Clr Drug Dosing ml/min Est GFR ( Amer) Est GFR (Non-Af Amer) BUN/Creatinine Ratio (10-20) Glucose (70-99) mg/dl POC Glucose 148 H (70-99) mg/dl Calcium (8.5-10.1) mg/dl Magnesium (1.8-2.4) mg/dl Total Bilirubin (0.2-1) mg/dl AST (15-37) U/L ALT (12-78) U/L Alkaline Phosphatase (45-117) U/L Total Protein (6.4-8.2) gm/dl Albumin (3.4-5.0) gm/dl Globulin (2.5-4.0) gm/dl Albumin/Globulin Ratio (0.9-2) PG Care Time/CCT Total # of Minutes Spent Total Time Spent with Patient: Total time spent is greater than 50% in coordination of care (as documented) at patient's floor/unit and/or counseling patient: Coding Level of Care Code 78514 Subseq Hosp Care Lvl 2 Diagnoses Cirrhosis K70.31 Ascites presence: with ascites Hepatic cirrhosis type: alcoholic cirrhosis Anasarca R60.1 Ascites K70.31 Ascites type: due to alcoholic cirrhosis Diabetes mellitus type 2 in obese E11.69; E66.9 Hypomagnesemia E83.42 Hypokalemia E87.6 Alcohol abuse F10.10 Pneumonia J18.9 Parapneumonic effusion J18.9; J91.8 Pancytopenia D61.818 Status post gastric bypass for obesity Z98.84 Folic acid deficiency E53.8 DVT prophylaxis Z29.9 (1) Cirrhosis Ascites presence: with ascites Hepatic cirrhosis type: alcoholic cirrhosis Qualified Code(s): K70.31 - Alcoholic cirrhosis of liver with ascites (2) Ascites Ascites type: due to alcoholic cirrhosis Qualified Code(s): K70.31 - Alcoholic cirrhosis of liver with ascites
[2019-04-17] MEDS ORDERED: ALBUMIN 25% 50 ML IV SCH (16:00)
[2019-04-17] MEDS: ALBUMIN 25% 50 ML IV SCH ×2 (16:59→21:03)
[2019-04-18] MEDS: ALBUMIN 25% 50 ML IV SCH ×2 (00:03→04:51)
[2019-04-18] MEDS: INSULIN ASPART 100 UNITS/ML 3 ML PEN SC SCH ×4 (09:02→21:05)
[2019-04-18] MEDS: POTASSIUM CHLORIDE 20 MEQ TABCR PO SCH ×2 (09:04→20:41)
[2019-04-18] MEDS: THIAMINE HCL 100 MG TAB PO SCH (09:04)
[2019-04-18] MEDS: PANTOprazole 40 MG TAB PO SCH (09:04)
[2019-04-18] MEDS: INSULIN GLARGINE SOLOSTAR 100 UNITS/ML 3 ML PEN SC SCH (09:04)
[2019-04-18] MEDS: FOLIC ACID 1 MG TAB PO SCH (09:04)
[2019-04-18] MEDS: FUROSEMIDE 80 MG TAB PO SCH ×2 (09:05→18:21)
[2019-04-18] MEDS: SPIRONOLACTONE 100 MG TAB PO SCH (09:05)
[2019-04-18] MEDS: CITALOPRAM 40 MG TAB PO SCH (09:05)
--- NOTE | 2019-04-18 14:38 | Ultrasound Report ---
ULTRASOUND GUIDED THERAPEUTIC PARACENTESIS CLINICAL HISTORY: ascites COMPARISON STUDY: Ultrasound guided paracentesis April 11, 2019. PROCEDURE: The risks, benefits, and alternatives to the procedure were discussed with the patient inc luding the risk of bleeding, infection and injury to adjacent structures. The patient agreed to the procedure and informed written consent was obtained. Following real-time ultrasound localization, the skin to left lower quadrant was prepped and draped. Following local anesthesia with Xylocaine, the s [place] paracentesis needle was inserted and approximately 10 liters of straw-colored fluid was removed by vacuum suction. The patient tolerated the procedure well and no immediate complications were evident. IMPRESSION: Ultrasound-guided therapeutic paracentesis with removal of 10 liters of ascites. ACT 112: Negative or not required by law. Electronically signed by: Renan Fregoso M.D. 04/18/2019 2:37 PM
--- NOTE | 2019-04-18 19:36 | Hospitalist Progress Note ---
Date of Service April 18, 2019 Assessment & Plan (1) Cirrhosis: Liver cirrhosis secondary to alcoholism patient continues to drink alcohol periodically, was drinking just prior to admission, but otherwise states he only drank 2 drinks at [place] and nothing else in the last 6 months treated ascites and volume overload with albumin 25 g IV with Lasix 40 mg IV every 6 hours x4 doses initially, then another round of 4 bags of IV albumin, followed by large volume paracentesis of 11.5L on 04/11/19. Had an additional paracentesis on 04/18 with removal of 10 L. Appreciated Consult radiology for therapeutic paracentesis BPs stable/low normal Albumin 2.3 now Patient reports that he gets paracentesis approximately every 2 to 3 weeks, averaging 12 L removal at a time -Pt requested fluid restriction - 1800mL/day, was advised this is why he builds back up with fluid so quickly (he reports drinking "a hell of a lot more than that at home") follows with Dr. Bill, appreciate GI consult while inpatient the patient is non-compliant with sodium and fluid restrictions, he continues to drink alcohol in excess amounts of fluid at home; continue education on importance of sobriety/salt/fluid restriction - Was given IV Albumin night prior to paracentesis. Will hold additional Albumin at this time - INR down to 1.3 now; MELD score at this time is now down to 10, indicating 6% mortality risk in next 3 months - GI recommends possibly looking into TIPS procedure - ball machine operator referral - Recommend outpatien GI F/U; periodically follow LFTs, INR, CBC (2) Anasarca: -Due to cirrhosis, improved with diuresis IV and albumin initially; will be an ongoing issue due to patient non-compliance -Continue Lasix 80mg BID -Continue Spironolactone 100mg qAM (3) Ascites: See above (4) Diabetes mellitus type 2 in obese: - Blood sugars well controlled - continue Lantus 10 units daily; Novolog SS - diabetic diet; monitor for hypoglycemia (5) Alcohol abuse: - Place on AWSS with oral Ativan. Has not required any the entire stay; no signs of withdrawal - Continue thiamine 100 mg p.o. daily. - Continue folic acid 1 mg p.o. daily. Folate level here is low at 2.97 (6) Pneumonia: - L sided effusion with compressive atelectasis - thought to be pneumonia initially but not clinically consistent with this - Holding further antibiotics at this time (7) Parapneumonic effusion: - likely due to volume overload, anasarca in setting of cirrhosis (8) Pancytopenia: - secondary to cirrhosis, fairly stable - currently at 9.5 -- No evidence of bleeding -- MCV 79, low, and with h/o gastric bypass could also have Fe-deficiency anemia - Iron studies show iron deficiency anemia with ferritin low at 32, transferrin saturation 18% - Transfused 1 unit PRBC on 04/13; Venofer IV x 3 days - Start oral iron on D/C; follow periodic CBC (9) Status post gastric bypass for obesity: - Avoid NSAIDs, Continue PPI -Needs iron replacement as above -Gets B12 injections once monthly (10) Folic acid deficiency: - Folate level only 2.9 - Continue folic acid 1 mg p.o. once daily (11) DVT prophylaxis: SCDs Disposition: Plan on [place] tomorrow Subjective Reports feeling pretty good today. He feels that he is a few days shy of feeling completely back to his normal self. However feels that he would benefit from a short stay at rehab. He underwent another paracentesis this afternoon and removed 10 L of ascites. He states he feels well after this procedure and no lightheadedness. His only complaint is he would like more food with his dinner meals. He should have a bed at rehab tomorrow and is anticipating discharge at that time. Review of Systems Constitutional: + weakness (Improving); no fever, no chills and no fatigue Respiratory: no cough and no dyspnea Cardiovascular: + edema; no chest pain, no palpitations and no lightheadedness Gastrointestinal: no abdominal pain, no nausea, no vomiting, no constipation and no diarrhea/loose stools Genitourinary: no dysuria Musculoskeletal: no body aches Integumentary: no rash Physical Exam Constitutional: no acute distress Eyes: + anicteric sclerae ENMT: Ears: no hearing impairment Neck: trachea midline Respiratory: normal respiratory effort, lungs clear to auscultation Cardiovascular: Rate/Rhythm: regular rate and regular rhythm Extremities: + edema Gastrointestinal (Abdomen): Inspection/Auscultation: normal bowel sounds Percussion/Palpation: abdomen soft and + ascites; abdomen nontender Pa racentesis site in left lower quadrant with bandage applied. Bandage is clean dry and intact. Musculoskeletal: Head/Neck/Chest: normocephalic and head atraumatic Skin: no rashes, warm and dry Neurologic: moves all extremities Psychiatric: A+Ox3, euthymic affect Results & Data ([facility]) Vital Signs (Past 12 Hours) Vital Signs Temp Pulse Resp BP Pulse Ox 04/18/19 15:01 36.6 C 67 18 81/49 L 96 04/18/19 07:33 36.7 C 69 16 91/53 L 93 PG Care Time/CCT Total # of Minutes Spent Total Time Spent with Patient: Total time spent is greater than 50% in coordination of care (as documented) at patient's floor/unit and/or counseling patient: Coding Level of Care Code 20202 Subseq Hosp Care Lvl 3 Diagnoses Cirrhosis K70.31 Ascites presence: with ascites Hepatic cirrhosis type: alcoholic cirrhosis Anasarca R60.1 Ascites K70.31 Ascites type: due to alcoholic cirrhosis Diabetes mellitus type 2 in obese E11.69; E66.9 Alcohol abuse F10.10 Pneumonia J18.9 Parapneumonic effusion J18.9; J91.8 Pancytopenia D61.818 Status post gastric bypass for obesity Z98.84 Folic acid deficiency E53.8 DVT prophylaxis Z29.9 (1) Cirrhosis Ascites presence: with ascites Hepatic cirrhosis type: alcoholic cirrhosis Qualified Code(s): K70.31 - Alcoholic cirrhosis of liver with ascites (2) Ascites Ascites type: due to alcoholic cirrhosis Qualified Code(s): K70.31 - Alcoholic cirrhosis of liver with ascites
[2019-04-19 08:19] LABS: Hematocrit (blood only) 29.3 % (42-52); Hemoglobin 9.1 g/dL (14.0-18.0); Mean Corpuscular Hemoglobin 26.8 pg (25-34); Mean Corpuscular Hgb Conc 31.1 g/dL (32-36); Mean Corpuscular Volume 86.2 fL (80-100); RDW Coefficient of Variation 21.9 % (11.5-14.5); RDW Standard Deviation 67.8 fL (36.4-46.3); White Blood Count 2.15 K/uL (4.8-10.8)
[2019-04-19 08:37] LABS: Mean Platelet Volume 10.4 fL (7.4-10.4); Platelet Count 50 K/uL (130-400)
[2019-04-19] MEDS: SPIRONOLACTONE 100 MG TAB PO SCH (08:44)
[2019-04-19] MEDS: FOLIC ACID 1 MG TAB PO SCH (08:45)
[2019-04-19] MEDS: PANTOprazole 40 MG TAB PO SCH (08:45)
[2019-04-19] MEDS: CITALOPRAM 40 MG TAB PO SCH (08:45)
[2019-04-19] MEDS: POTASSIUM CHLORIDE 20 MEQ TABCR PO SCH ×2 (08:46→20:38)
[2019-04-19] MEDS: FUROSEMIDE 80 MG TAB PO SCH ×2 (08:46→17:20)
[2019-04-19] MEDS: THIAMINE HCL 100 MG TAB PO SCH (08:46)
[2019-04-19] MEDS: INSULIN GLARGINE SOLOSTAR 100 UNITS/ML 3 ML PEN SC SCH (08:49)
[2019-04-19] MEDS: INSULIN ASPART 100 UNITS/ML 3 ML PEN SC SCH ×4 (08:52→20:34)
[2019-04-19 08:54] LABS: BUN Creatinine Ratio 26.2 (10-20); Creatinine Clr Calc Pharmacy 108.4 ml/min; Est GFR (African American) 104.2; Est GFR (Non-African American) 89.9; Potassium 3.8 mmol/L (3.5-5.1)
--- NOTE | 2019-04-19 16:18 | Hospitalist Progress Note ---
Date of Service April 19, 2019 Assessment & Plan (1) Cirrhosis: Liver cirrhosis secondary to alcoholism patient continues to drink alcohol periodically, was drinking just prior to admission, but otherwise states he only drank 2 drinks at [employer] and nothing else in the last 6 months treated ascites and volume overload with albumin 25 g IV with Lasix 40 mg IV every 6 hours x4 doses initially, then another round of 4 bags of IV albumin, followed by large volume paracentesis of 11.5L on 04/11/19. Had an additional paracentesis on 04/18 with removal of 10 L. Appreciated Consult radiology for therapeutic paracentesis BPs stable/low normal Albumin 2.3 now Patient reports that he gets paracentesis approximately every 2 to 3 weeks, averaging 12 L removal at a time -Fluid restriction - 1800mL/day, not compliant with this at home and was advised this is why he builds back up with fluid so quickly (he reports drinking "a hell of a lot more than that at home") follows with Dr. Bill, appreciate GI consult while inpatient the patient is non-compliant with sodium and fluid restrictions, he continues to drink alcohol and excess amounts of fluid at home; continue education on importance of sobriety/salt/fluid restriction - Was given IV Albumin night prior to paracentesis. Will hold additional Albumin at this time - INR down to 1.3 now; MELD score at this time is now down to 10, indicating 6% mortality risk in next 3 months - GI recommends possibly looking into TIPS procedure/rn triage referral - Recommend outpatient GI F/U; periodically follow LFTs, INR, CBC (2) Anasarca: -Due to cirrhosis, improved with diuresis IV and albumin initially; will be an ongoing issue due to patient non-compliance -Continue Lasix 80mg BID -Continue Spironolactone 100mg qAM (3) Ascites: - See above (4) Diabetes mellitus type 2 in obese: - Blood sugars well controlled - continue Lantus 10 units daily; Novolog SS - diabetic diet; monitor for hypoglycemia (5) Alcohol abuse: - Place on AWSS with oral Ativan. Has not required any the entire stay; no signs of withdrawal - Continue thiamine 100 mg p.o. daily. - Continue folic acid 1 mg p.o. daily. Folate level here is low at 2.97 (6) Pneumonia: - L sided effusion with compressive atelectasis - thought to be pneumonia initially but not clinically consistent with this - Holding further antibiotics at this time (7) Parapneumonic effusion: - likely due to volume overload, anasarca in setting of cirrhosis (8) Pancytopenia: - secondary to cirrhosis, fairly stable - currently at 9.5 -- No evidence of bleeding -- MCV 79, low, and with h/o gastric bypass could also have Fe-deficiency anemia - Iron studies show iron deficiency anemia with ferritin low at 32, transferrin saturation 18% - Transfused 1 unit PRBC on 04/13; Venofer IV x 3 days - Start oral iron on D/C; follow periodic CBC (9) Status post gastric bypass for obesity: - Avoid NSAIDs, Continue PPI -Needs iron replacement as above -Gets B12 injections once monthly (10) Folic acid deficiency: - Folate level only 2.9 - Continue folic acid 1 mg p.o. once daily (11) DVT prophylaxis: SCDs Disposition: Plan on [facility] tomorrow pending auth Patient asked about an electric scooter and lift chair. Discussed with case management. -- Scooter - patient would need to contact a DME and they can assist with obtaining one but this is typically done through PCP office -- Lift chairs are out of pocket up front then depending on insurance they sometimes cover the mechanical/motor part but normally is a small reimbursement and typically managed through PCP office as well due to the length of process Subjective Reports feeling well today. Feels like he went a little further with therapy today. Is awaiting auth for rehab. He verbalizes no new complaints Review of Systems Constitutional: + weakness (Improving); no fever, no chills and no fatigue Respiratory: no cough and no dyspnea Cardiovascular: + edema; no chest pain, no palpitations and no lightheadedness Gastrointestinal: no abdominal pain, no nausea, no vomiting, no constipation and no diarrhea/loose stools Genitourinary: no dysuria Integumentary: no rash Physical Exam Constitutional: no acute distress Eyes: + anicteric sclerae ENMT: Ears: no hearing impairment Neck: trachea midline Respiratory: normal respiratory effort, lungs clear to auscultation Cardiovascular: Rate/Rhythm: regular rate and regular rhythm Extremities: + edema Gastrointestinal (Abdomen): Inspection/Auscultation: normal bowel sounds Percussion/Palpation: abdomen soft and + ascites; abdomen nontender Musculoskeletal: Head/Neck/Chest: normocephalic and head atraumatic Skin: no rashes, warm and dry Neurologic: moves all extremities Psychiatric: A+Ox3, euthymic affect Results & Data ([facility]) Vital Signs (Past 12 Hours) Vital Signs Temp Pulse Resp BP BP Pulse Ox 04/19/19 14:50 36.7 C 74 20 99/63 L 98 04/19/19 07:09 36.5 C 68 20 90/50 L 96 PG Care Time/CCT Total # of Minutes Spent Total Time Spent with Patient: Total time spent is greater than 50% in coordination of care (as documented) at patient's floor/unit and/or counseling patient: Coding Level of Care Code 28808 Subseq Hosp Care Lvl 3 Diagnoses Cirrhosis K70.31 Ascites presence: with ascites Hepatic cirrhosis type: alcoholic cirrhosis Anasarca R60.1 Ascites K70.31 Ascites type: due to alcoholic cirrhosis Diabetes mellitus type 2 in obese E11.69; E66.9 Alcohol abuse F10.10 Pneumonia J18.9 Parapneumonic effusion J18.9; J91.8 Pancytopenia D61.818 Status post gastric bypass for obesity Z98.84 Folic acid deficiency E53.8 DVT prophylaxis Z29.9 (1) Cirrhosis Ascites presence: with ascites Hepatic cirrhosis type: alcoholic cirrhosis Qualified Code(s): K70.31 - Alcoholic cirrhosis of liver with ascites (2) Ascites Ascites type: due to alcoholic cirrhosis Qualified Code(s): K70.31 - Alcoholic cirrhosis of liver with ascites
[2019-04-20 09:01] LABS: Hematocrit (blood only) 29.9 % (42-52); Hemoglobin 9.5 g/dL (14.0-18.0); Mean Corpuscular Hemoglobin 26.8 pg (25-34); Mean Corpuscular Hgb Conc 31.8 g/dL (32-36); Mean Corpuscular Volume 84.5 fL (80-100); RDW Coefficient of Variation 22.3 % (11.5-14.5); RDW Standard Deviation 68.6 fL (36.4-46.3); Red Blood Count 3.54 M/uL (4.7-6.1); White Blood Count 2.73 K/uL (4.8-10.8)
[2019-04-20] MEDS: POTASSIUM CHLORIDE 20 MEQ TABCR PO SCH (09:01)
[2019-04-20] MEDS: THIAMINE HCL 100 MG TAB PO SCH (09:01)
[2019-04-20] MEDS: FOLIC ACID 1 MG TAB PO SCH (09:01)
[2019-04-20] MEDS: CITALOPRAM 40 MG TAB PO SCH (09:01)
[2019-04-20] MEDS: SPIRONOLACTONE 100 MG TAB PO SCH (09:01)
[2019-04-20 09:02] LABS: Mean Platelet Volume 9.9 fL (7.4-10.4); Platelet Count 61 K/uL (130-400)
[2019-04-20] MEDS: PANTOprazole 40 MG TAB PO SCH (09:02)
[2019-04-20] MEDS: FUROSEMIDE 80 MG TAB PO SCH ×2 (09:02→16:11)
[2019-04-20] MEDS: INSULIN ASPART 100 UNITS/ML 3 ML PEN SC SCH ×2 (09:04→13:16)
[2019-04-20] MEDS: INSULIN GLARGINE SOLOSTAR 100 UNITS/ML 3 ML PEN SC SCH (09:05)
[2019-04-20 09:37] LABS: Albumin Level 2.1 gm/dl (3.4-5.0); Calcium 7.9 mg/dl (8.5-10.1); Creatinine Clr Calc Pharmacy 97.9 ml/min; Est GFR (African American) 95.1; Potassium 3.7 mmol/L (3.5-5.1)
[2019-04-20 09:39] LABS: Albumin Globulin Ratio 0.5 (0.9-2); Bilirubin,Total 1.1 mg/dl (0.2-1); Globulin 4.1 gm/dl (2.5-4.0); Total Protein 6.2 gm/dl (6.4-8.2)
--- NOTE | 2019-04-20 15:59 | Discharge Summary ---
Date of Service April 20, 2019 Admission HPI Per Admitting Provider The patient is a 68-year-old male with a past medical history including liver cirrhosis, ascites, anasarca, alcohol dependency, diabetes mellitus, lower extremity DVT, dyslipidemia, ankylosing spondylitis, peripheral neuropathy, mood disorder, hypothyroidism, status post gastric bypass, hepatic encephalopathy, diastolic heart dysfunction, LVH, PSVT, BPH with LUTS. He presents to the emergency department with worsening symptoms of fluid overload, and imaging and physical exam suggesting anasarca, ascites and left lower lobe pneumonia and parapneumonic effusion. Admission Exam Per Admitting Provider The patient is awake, alert and oriented 3, normocephalic and atraumatic, lying in bed and in no acute distress. HEENT--PERRL, EOMI, mucous membranes and oropharynx dry. Neck--supple. No JVD. No bruits. Thyroid normal, trachea midline, no adenopathy. Heart--normal S1 and S2. No murmurs, rubs or gallops. Lungs--clear bilaterally, no respiratory distress, no accessory muscle use. Abdomen--normal bowel sounds and soft. Nontender. Distended. Extremities--anasarca Dermatologic--anasarca Neurologic--cranial nerves II through XII grossly intact. Rheumatologic--normal range of motion. Psychiatric--normal affect. Principal Diagnosis Cirrhosis, Ascites Discharge Exam General: Resting comfortably HEENT: NC/AT; PERRLA with EOMI; [place] conjunctiva, MMM. No erythema of posterior pharynx Neck: Supple and nontender Cardiac: RRR Lungs: CTA bilaterally Abdomen: Bowel normoactive X 4; Nontender to palpation Extremities: Warm. No edema present Neuro: No focal weakness Skin: No rash Discharge Data Allergies Allergy/AdvReac Type Severity Reaction Status Date / Time Sulfa (Sulfonamide AdvReac Intermediate NAUSEA AND Verified 04/09/19 20:06 Antibiotics) VOMITING adhesive AdvReac Mild REDNESS, Verified 04/09/19 20:07 TAPE WILSON Consultations 04/09/19 21:09 ED Decision to Admit Stat 04/09/19 23:31 Consult Case Management - Discharge Planning Routine Consult Gastroenterology Routine Ordered Studies 04/09/19 18:03 CT abd pelvis wo con Stat CT head/brain wo con Stat 04/11/19 23:31 US paracentesis abd w/image Routine 04/18/19 08:00 US paracentesis abd w/image Routine Hospital Course (1) Cirrhosis: Liver cirrhosis 2/2 ETOH abuse. Continues to drink periodically. Had large volume paracentesis on 04/11 with removal of 11.5L. Also had paracentesis on 04/18 with removal of 10L. Also received Albumin along with Lasix IV. Pt. has a paracentesis every 2-3 weeks, averaging 12L per procedure. On fluid restriction of 1800 cc during this admission. GI consulted, appreciate input. Pt. is non-compliant with sodium and fluid restriction; continues to drink ETOH. INR down to 1.3 now; MELD score at this time is now down to 10, indicating 6% mortality risk in next 3 months GI recommends possibly looking into TIPS procedure/[facility] referral Recommend outpatient GI F/U; periodically follow LFTs, INR, CBC (2) Anasarca: Due to cirrhosis, improved with diuresis IV and albumin initially; will be an ongoing issue due to patient non-compliance. Continued Lasix 80mg BID Continued Spironolactone 100mg qAM (3) Ascites: See above (4) Diabetes mellitus type 2 in obese: Blood sugar well controlled Continued Lantus 10 units daily; Novolog SS Diabetic diet. (5) Alcohol abuse: Placed on AWSS with oral Ativan. Has not required any the entire stay; no signs of withdrawal Continued thiamine 100 mg p.o. daily. Continued folic acid 1 mg p.o. daily. Folate level is low at 2.97 (6) Pneumonia: L sided effusion with compressive atelectasis - thought to be pneumonia initially but not clinically consistent with this Hold further antibiotics at this time (7) Parapneumonic effusion: Likely due to volume overload, anasarca in setting of cirrhosis (8) Pancytopenia: Secondary to cirrhosis, fairly stable. MCV 79, low, and with h/o gastric bypass could also have Fe-deficiency anemia Iron studies show iron deficiency anemia with ferritin low at 32, transferrin saturation 18% Transfused 1 unit PRBC on 04/13; Venofer IV x 3 days Started oral iron dailiy at discharge. Recommend to follow periodic CBCs. (9) Status post gastric bypass for obesity: Avoiding NSAIDs, Continue PPI. Iron replacement as above B12 injections once monthly (10) Folic acid deficiency: Folate level only 2.9 Continued folic acid 1 mg p.o. once daily (11) DVT prophylaxis: SCDs. Discharged to [facility] on 04/20/19. Patient asked about an electric scooter and lift chair. Will need to discuss with PCP. Total Time Total Time Spent Total Time Spent (In Minutes): >30 minutes Total Time Includes: Examination of the Patient, Discharge Planning, Medication Reconciliation, Communication With Other Providers and Other Discharge Plan Discharge Items Patient Disposition: Transfer [facility] Reason For Visit: LIVER CIRRHOSIS, ASCITES, ANASARCA Discharge Diagnosis: Liver cirrhosis, Ascites & Anasarca Condition on Discharge: Fair Goals: You have been hospitalized for an acute medical problem. During your stay at [facility], we have made an effort to correct the problem that brought you to the hospital while keeping you as comfortable as possible. Medications were used to bring your condition under control and your discharge instructions will include directions for any medications you should take after leaving the hospital. Please make sure you see your Primary Care Provider as part of your follow up plan. Activity: As commented below Exercise/Sports: Gradually increase as tolerated Non-emergency contact: Primary Care Provider and Senior Technical Support Engineer Call non-emergency contact if: you have any medication questions, your symptoms worsen, your pain is not controlled, your pain is worsening, your pain is unusual for you and you have a fever Follow-up/Referrals: Bhavana Osborne CRNP [Nurse Practitioner] - 05/04/19 1:00 pm (Please, follow up at [facility] Endocrinology Office with Bhavana VANCE on ThursdayMay 04 at 1:00 pm, as previously scheduled. *If you need to change this appointment, call the office at [phone].) Diet: Carb Count or DM1 Fluids: 1800ml (7 cups) Addtl Attending Provider Instructions: 1. Liver cirrhosis/Ascites & Anasarca * Please follow up with GI as scheduled on 05/04/19. * Please continue Lasix 80 mg twice daily and Spironolactone 100 mg daily. * Continue an 1800 cc fluid restriction. * You will likely require routine paracentesis procedures in the future due to re-accumulation of fluid. 2. Alcohol abuse * Please take folic acid 1 mg daily and thiamine 100 mg daily at home. * Discontinue use of all ETOH. 3. Anemia/Pancytopenia * In setting of ETOH abuse/cirrhosis. * Please continue monthly B12 injections. * Continue ferrous sulfate supplementation as well. Consider IV iron infusions if necessary. 4. Pt. has requested an electric scooter and lift chair -- discuss obtaining equipment with your primary care provider. Pending Studies at Discharge: No Stand-Alone Forms: My [facility] Skilled Items Patient informed of condition?: Yes DNR: No Discharge Level of Care: Skilled Communicable Disease: No Discharge Prognosis: Stable Lines: None Urinary Catheter: No Medications and DC Order Prescriptions: New ferrous sulfate 325 mg (65 mg iron) tablet 325 mg PO DAILY Qty: 1 RF: 0 potassium chloride [Klor-Con M20] 20 mEq Tablet,Er Particles/Crystals 20 meq PO BID Qty: 1 RF: 0 Continued cyanocobalamin (vitamin B-12) 1,000 mcg/mL solution 1,000 mcg IM MONTHLY RF: 0 furosemide [Lasix] 80 mg tablet 80 mg PO BID Qty: 60 RF: 5 citalopram [Celexa] 40 mg tablet 40 mg PO DAILY RF: 0 spironolactone [Aldactone] 100 mg tablet 100 mg PO QAM RF: 0 Lantus U-100 Insulin 100 unit/mL Solution 10 unit SUBCUT QAM RF: 0 Novolin N NPH U-100 Insulin 100 unit/mL suspension See Rx Instructions SUBCUT DAILY RF: 0 Discontinued potassium chloride 20 mEq tablet extended release 20 meq PO QAM RF: 0 Discharge Orders: Discharge Order (Routine); Ordered 04/20/19 Ordered By: Radha Shetty Admission Data Admit Date/Time: 04/09/19 22:19 Attending Provider: Doe Mercedes Admit Provider: Evans Bocanegra Primary Care Provider: Rocío Coronado V. Other Providers: [place] ; Evans Bocanegra ; Obdulio Bill ; [facility] ; [facility] Other Interventions: Discharge Summary Assessment (RN) Last Done: 04/20/19 12:12 DC Date/Time DO NOT enter until pt leaves facility: 04/20/19 16:31 Supervising Physician Co-Signing Physician Notes Attending note: patient seen and examined with Radha Shetty PA-C. I agree with her discharge summary. I personally reviewed the labs and imaging findings. patient resting comfortably, no respiratory distress continues to eat well discussed vital importance of low sodium diet and fluid restriction with his cirrhosis unsure he will comply plan to go to [facility] for rehab today - Cirrhosis with ascites and volume overload treated with aggressive Lasix IV and Spironolactone had therapeutic paracentesis twice with albumin replacement continues to fill up with fluid, needs to follow fluid restriction on discharge and salt restriction volume overload is his main issue with cirrhosis mental status is clear, no evidence of GI bleeding, renal function stable follows with Dr Bill he was drinking up until this admission, reminded several times that he will need to be sober educated on fact that alcohol will continue to damage liver, will rule him out for liver transplant Coding Level of Care Code D/C Day Management >30 mins Diagnoses Cirrhosis K70.31 Ascites presence: with ascites Hepatic cirrhosis type: alcoholic cirrhosis Anasarca R60.1 Ascites K70.31 Ascites type: due to alcoholic cirrhosis Diabetes mellitus type 2 in obese E11.69; E66.9 Alcohol abuse F10.10 Pneumonia J18.9 Parapneumonic effusion J18.9; J91.8 Pancytopenia D61.818 Status post gastric bypass for obesity Z98.84 Folic acid deficiency E53.8 DVT prophylaxis Z29.9
== END 2019-04-20 16:31 | DRG 433 ==
LOC: ED 17:41 → 2S 22:19 → SUATTDRO 22:19 → 2S 22:40 → 4W 04-12 14:08

== ENCOUNTER 2019-12-09 14:13 | Inpatient (IN) ==
[2019-12-09] MEDS ORDERED: ONDANSETRON INJ 2 MG/ML 2 ML VIAL IV PRN ×2 (15:28→19:23)
[2019-12-09] MEDS ORDERED: ACETAMINOPHEN 325 MG TAB PO PRN ×3 (15:28→23:49)
[2019-12-09] MEDS ORDERED: DIPHENOXYLATE/ATROPINE 2.5/0.025MG TAB PO PRN ×2 (15:34→19:24)
--- NOTE | 2019-12-09 15:36 | History & Physical Report ---
Date of Service December 09, 2019 Assessment & Plan (1) Severe protein-calorie malnutrition: 69-year-old male with a history of alcoholic cirrhosis of the liver, MARILYN, diabetic nephropathy, BPH, obesity status post gastric Mary-en-Y procedure was admitted for further severe protein calorie malnutrition, generalized weakness, and hypotension with inability to care for self at home. Appears severely cachectic on exam History of albumin 2.6, new level pending Concerning weight loss over the last few months (827 110 kg, 9-25 88 kg) Dietary consult for nutritional assessment Fluid restriction to 2 L, low-sodium diet per cirrhosis PT/OT consultations for generalized weakness and likely needs placement in senior living facility (2) Alcoholic cirrhosis of liver: As previously seen [facility] hepatology in June 2019 Liver panel pending Last drink in February 2019, patient has had multiple bouts of successful sobriety for 1 to 2 years and is on board with staying sober if necessary for transplant BMP plus lipid panel re-ordered for a.m.. Platelets 79, PT 13, INR 1.2 No varices on EGD-therefore no need for treatment for portal hypertension Already on 200 mg once daily of spironolactone Patient was previously on 80 mg p.o. twice daily of Lasix but was not taking it at home; restarted Withholding lactulose for cirrhosis in the setting of diarrhea Appreciate GI recommendations regarding possibility of transfer to tertiary center for TIPS procedure or other methods of optimizing patient care (3) Anemia: Likely secondary to B12 deficiency and malnutrition from Mary-en-Y procedure as well as cirrhosis Hemoglobin 9.9 today No concern at this time for active bleeding we will continue to monitor CBC in a.m. We will check iron studies, B12, folate in the morning (4) Thrombocytopenia: Most likely secondary to worsening cirrhosis, splenomegaly adjunct with chronic pancytopenia We will continue to follow with CBCs (5) Scrotal swelling: Secondary to worsening cirrhosis as above Patient says swelling has not improved despite paracentesis removal of 10 L of fluid Patient states swelling makes urinating and moving around very difficult (6) Encounter for tobacco use cessation counseling: Patient chews tobacco on a daily basis and has for most of his life. Says a can of chew lasting about 1/2 to 2 weeks (7) Diarrhea: Complaining of multiple bouts of loose watery diarrhea for many months, has previously taken Lomotil medication to help control it. C. difficile, stool culture, stool white blood cell count, stool ova parasites all ordered (8) Anasarca: Secondary to severe protein calorie malnutrition, volume overload from cirrhosis -Fluid restriction as above Lasix and Aldactone as above Low-salt diet (9) Obstructive sleep apnea: CPAP nightly (10) Benign prostatic hyperplasia with urinary obstruction: No acute issues (11) Diabetic neuropathy: With chronic leg pain (12) Obesity: Status post Mary-en-Y bypass No longer obese (13) Pancytopenia: Secondary to cirrhosis and splenomegaly (14) Frequent falls: PT/OT consultations placed for generalized weakness (15) Hypokalemia: Potassium of 3.1 on admission, 40 mEq potassium ordered p.o. Follow-up a.m. BMP replete as necessary Keep in mind that he is also on spironolactone (16) Localized swelling of both lower legs: Most likely secondary to anasarca/cirrhosis/increased overall body fluid status Doppler ultrasound of both legs ordered given patient's high degree of pain to palpation and questionable R > L swelling (17) LVH (left ventricular hypertrophy): Noted (18) Pedroza's esophagus: Seen on EGD in September 2019 No esophageal varices noted on EGD Protonix p.o. twice daily (19) Glaucoma: Continue home eyedrops (20) History of abdominal paracentesis: For refractory ascites, has large-volume paracentesis every 4 weeks Had 10 L removed on 12/08 with IV albumin given Follow studies of ascites fluid including cytology, culture No evidence of SBP today (21) H/O gastric bypass: As noted above (22) Hypothyroidism: TSH has been elevated in the past Check TSH with reflex to free T4 in the morning (23) Mood disorder: Stable -Continue home Celexa (24) DVT prophylaxis: DVT prophylaxis: SCDs, Lovenox as long as platelets remain greater than 50 FEN/GI: Fluid restriction less than 2 L, low-sodium diet CODE STATUS: Full code Dispo: MedSurg, PT OT ordered, appreciate case management recommendations for placement after hospital stay. Patient prefers [facility] Admission and Anticipated Discharge Date Admission Date: December 09, 2019 History of Present Illness 69-year-old male with a past medical history of alcoholic cirrhosis of the liver, thrombocytopenia, anasarca, MARILYN, BPH, diabetic Neuropathy, obesity, status post Mary-en-Y bypass surgery, LVH, hypothyroidism, dyslipidemia, Stinson ett's esophagus who presents after receiving a therapeutic paracentesis floated 10 L of fluid from his abdomen. He states that prior to receiving his paracenteses he feels terrible and feels much much better after the fluid is removed. He states that for a few months now he has not had much of an appetite and is increasingly unable to eat food or drink liquids when his abdomen gets so enlarged. He has not had any episodes of emesis. He does state that he has lost proximally 40 pounds in the last couple months without trying. He also has frequent episodes of watery diarrhea. He denies any chest pain or trouble breathing. He does have abdominal pain when it is full of fluid however does not experiencing any at this time. Denies any fevers or chills. With all the fluid retention he states that he also has a great degree of scrotal and bilateral leg swelling. Falling is so severe that he is unable to maneuver around his house on his own. Along with this because of the diarrhea he frequently is unable to get to the bathroom quickly enough on his own and will become incontinent of self at home to both bowel and bladder. Previous notes from [facility] hepatology reviewed: Patient be would be a candidate for a TIPS procedure versus transplantation of cirrhotic liver if he meets transplant guidelines and is interested. He will be admitted for severe protein calorie malnutrition, global weakness, hypotension, inability to take care of himself at home. Primary Care Provider: Rocío Coronado MD Allergies Allergy/AdvReac Type Severity Reaction Status Date / Time adhesive AdvReac Mild REDNESS, Verified 12/09/19 08:50 TAPE WILSON Sulfa (Sulfonamide AdvReac Mild NAUSEA AND Verified 12/09/19 08:50 Antibiotics) VOMITING Home Medications Home Medications Medication Instructions Recorded Confirmed Type cyanocobalamin (vitamin B-12) 1,000 mcg IM MONTHLY ml 11/23/18 12/09/19 History 1,000 mcg/mL injection solution spironolactone [Aldactone] 200 mg PO BID 03/14/19 12/09/19 History citalopram [Celexa] 40 mg PO DAILY 05/24/19 12/09/19 History lancets 33 gauge #400 ea 10/26/19 Rx furosemide 80 mg tablet 80 mg PO BID #60 tab 11/01/19 12/09/19 Rx diphenoxylate-atropine 2.5 1 tab PO BID PRN #60 tab 11/22/19 12/09/19 Rx mg-0.025 mg tablet Past Med/Surg History Medical History (Updated 12/09/19 @ 23:37 by Prachi Ramon MD) Alcohol abuse Alcoholic cirrhosis of liver LAST DRINK FEBRUARY 2019 Anasarca Anemia with low platelet count Ankylosing spondylitis Ascites Pedroza's esophagus Benign prostatic hyperplasia with urinary obstruction Bilateral edema of lower extremity Calf swelling Deep vein thrombosis 10 YEARS AGO (? REASON) Deep venous thrombosis of lower extremity (08/14/12) Degenerative disc disease STEROID INJECTIONS Depression Diabetes mellitus type 2 in obese Diabetes mellitus, type 2 Diabetic neuropathy Diastolic dysfunction Dyslipidemia Fluid overload Folic acid deficiency Frequent falls GERD (gastroesophageal reflux disease) Glaucoma NO MEDS History of abdominal paracentesis LAST ONE 12/08 History of gout HLD (hyperlipidemia) HTN (hypertension) Hypokalemia Localized swelling of both lower legs LVH (left ventricular hypertrophy) Obstructive sleep apnea Osteoarthritis Pancytopenia Paroxysmal supraventricular tachycardia Peripheral neuropathy Pseudogynecomastia Psoriasis Second degree AV block, Mobitz type I Severe protein-calorie malnutrition Shortness of breath Sleep apnea NO DEVICE "LOST WEIGHT" Splenomegaly PT UNSURE Tubular adenoma of colon Uncontrolled type 2 diabetes mellitus with insulin therapy Surgical History H/O gastric bypass 2001 [facility], [place] History of cataract extraction RT/LEFT History of colonoscopy History of esophagogastroduodenoscopy (EGD) History of tooth extraction Status post gastric bypass for obesity Family History Father Cancer Lung disease Barretts syndrome Brother Brain cancer Diabetes Overdose Myocardial infarction Daughter , age 29 Overdose Suicide Unknown Cancer Hypertension Diabetes Heart disease Denies family history of Ovarian cancer Prostate cancer Breast cancer Colorectal cancer Social History Smoking Status: Never smoker Tobacco Type: Smokeless Tobacco (Dip or Chew) Cigarettes Per Day: 1 can snuff 1-2 weeks; Second Hand Exposure: No; Do You Dip or Chew Tobacco: Yes; Hx Alcohol Use: Yes (hx abuse, last drink feb 2019) Alcohol type: hard liquor Hx Substance Use: No Preferred Language: Uzbek Communication Ability: Effective Visual Impairment: Limited Hearing Ability: Normal Life Skills Trainer Required: No Beliefs That Will Affect Care: None marital status: Single marital status details: has, "lady friend" Current Living Situation: Alone Current Living Situation Comment: own home 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 occupational 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 Other Information That Helps Us Care for You: No Feels Safe at Home: Yes Safety Concerns: Feels Safe At This Time Childhood Exposure to Second-Hand Smoke: Yes Seatbelt Use: always Sunscreen Use: No Assistive Devices: Walker and Wheelchair Review of Systems Constitutional: + fatigue, + weakness, + anorexia and + weight loss; no fever, no chills and no sweats Respiratory: no cough, no dyspnea and no pain on inspiration Cardiovascular: + edema and + calf pain; no chest pain, no dyspnea on exertion, no orthopnea and no palpitations Gastrointestinal: + abdominal pain, + bloating and + diarrhea/loose stools; no nausea, no vomiting, no cramping, no constipation and no blood in stools Genitourinary: + urinary frequency, + urinary incontinence and + scrotal swelling; no dysuria and no genital pain Neurologic: + unsteadiness, + generalized weakness and + tingling; no dizziness Physical Exam Physical Exam: Constitutional:cachectic, unwell, ill appearing man who appears older than his age, resting in bed Eyes: EOMI, pupils equal and reactive bilaterally, mild scleral icterus Cardiac: RRR, blowing holosystolic murmur auscultated at PMI, normal S1,S2, no extra heart sounds Pulm: CTA BL, poor inspiratory effort, no focal wheezes/rhonchi/rales, ribs easily visible Abd: soft, excess skin and abdominal folds after paracentesis, TTP in suprapubic region and RUQ, hyperactive bowel sounds, no guarding, no rebound Extremities: BL chronic venous stasis changes, nonpitting edema to knees BL, poor LE pulses, good UE pulses, cap refill <2s Neuro: no focal deficits, moving all 4 limbs, A&Ox3 Results & Data Results & Data ([facility]) Vital Signs (Past 12 Hours) Vital Signs Temp Pulse Resp BP Pulse Ox 12/09/19 16:13 36.4 C L 79 16 97/60 L 100 12/09/19 14:30 36.6 C 83 16 97/56 L 99 Intake and Output 12/09/19 12/09/19 12/09/19 06:59 14:59 22:59 Other: Weight 88.2 kg Patient Weight 12/10/19 06:59 Weight 88.2 kg Laboratory Results Laboratory Results WBC 3.50 K/uL (4.8-10.8) L 12/09/19 15:56 RBC 3.33 M/uL (4.7-6.1) L 12/09/19 15:56 Hgb 9.9 g/dL (14.0-18.0) L 12/09/19 15:56 Hct 30.7 % (42-52) L 12/09/19 15:56 MCV 92.2 fL (80-100) 12/09/19 15:56 MCH 29.7 pg (25-34) 12/09/19 15:56 MCHC 32.2 g/dL (32-36) 12/09/19 15:56 RDW Std Deviation 56.2 fL (36.4-46.3) H 12/09/19 15:56 RDW Coeff of Santiago 16.7 % (11.5-14.5) H 12/09/19 15:56 Plt Count 79 K/uL (130-400) L 12/09/19 15:56 MPV 10.1 fL (7.4-10.4) 12/09/19 15:56 Immature Gran % (Auto) 0.0 % 12/09/19 15:56 Neut % (Auto) 68.6 % 12/09/19 15:56 Lymph % (Auto) 15.1 % 12/09/19 15:56 [place] % (Auto) 8.3 % 12/09/19 15:56 Eos % (Auto) 7.1 % 12/09/19 15:56 Baso % (Auto) 0.9 % 12/09/19 15:56 Neut # (Auto) 2.40 K/uL (1.4-6.5) 12/09/19 15:56 Lymph # (Auto) 0.53 K/uL (1.2-3.4) L 12/09/19 15:56 [place] # (Auto) 0.29 K/uL (0.11-0.59) 12/09/19 15:56 Eos # (Auto) 0.25 K/uL (0-0.5) 12/09/19 15:56 Baso # (Auto) 0.03 K/uL (0-0.2) 12/09/19 15:56 Immature Gran # (Auto) 0.00 K/uL (0.00-0.02) 12/09/19 15:56 Sodium 139 mmol/L (136-145) 12/09/19 15:56 Potassium 3.1 mmol/L (3.5-5.1) L 12/09/19 15:56 Chloride 101 mmol/L (98-107) 12/09/19 15:56 Carbon Dioxide 32 mmol/L (21-32) 12/09/19 15:56 Anion Gap 6.0 (3-11) 12/09/19 15:56 BUN 18 mg/dl (7-18) 12/09/19 15:56 Creatinine 0.83 mg/dl (0.6-1.4) 12/09/19 15:56 Est Cr Clr Drug Dosing Not Reportable 12/09/19 15:56 Est GFR ( Amer) 105.5 12/09/19 15:56 Est GFR (Non-Af Amer) 91.0 12/09/19 15:56 BUN/Creatinine Ratio 21.7 (10-20) H 12/09/19 15:56 Glucose 164 mg/dl (70-99) H 12/09/19 15:56 POC Glucose 204 mg/dl (70-99) H 12/09/19 17:18 Calcium 7.9 mg/dl (8.5-10.1) L 12/09/19 15:56 Supervising Physician Co-Signing Physician Notes I personally examined the patient and verified all olivarez points of history and exam, discussed case, and agree with decision making with Dr. Martinez with the following additions/exceptions: This patient is a 69-year-old male with history of ESLD with refractory ascites requiring serial large-volume paracenteses, DM 2, depression, chronic anemia, and anasarca as well as pancytopenia, here with generalized weakness and failure to thrive status post large-volume paracentesis in the same day surgery unit. I was contacted by his GI attending, Dr. Bill, regarding the fact that the patient can no longer ambulate well and has been having urinary and fecal incontinence at home. He is unable to care for himself and has a history of falls. He has severe protein calorie malnutrition. He had some hypotension after his paracentesis and was given IV albumin. Patient desires to go to senior living facility due to generalized weakness and inability to care for self. He mostly complains of chronic diarrhea and severe leg swelling and abdominal distention with pain which is always somewhat improved after paracentesis. He denies fevers or chills. His abdominal pain is relieved today after paracentesis. He denies shortness of breath or cough. No chest pain. History and ROS reviewed as above Vitals reviewed Gen: AAOx3, NAD, appears chronically ill, cachectic HEENT: Mild scleral icterus, EOMI, dry oral mucous membranes CV: RRR no mgr nl S1S2 Pulm: CTAB no wcr Abd: +BS soft NT ND no masses or hernias, large amounts of loose skin, some abdominal wall edema Ext: 3+ pitting edema right lower extremity to the thigh and 2+ pitting edema of the left lower extremity to the thigh, 1+ DP pulses Skin: Chronic venous stasis changes bilaterally with mild erythema of the legs Neuro: Generalized weakness with 4/5 strength throughout : Mild scrotal edema Laboratory values reviewed 69-year-old male with history as above here with cirrhosis and refractory ascites status post large volume paracentesis, with failure to thrive, generalized weakness, and inability to care for self. He is obviously chronically ill and approaching end-of-life. However, he is interested in pursuing further work-up with the liver transplant service at [facility]. He remains sober from alcohol. We will attempt to get him evaluated for support at a senior living facility and have GI see him to see if he is a candidate to return back to [facility] Continue diuretics Dietary consultation Check iron studies and B12, folate PT/OT consultations Case management consultation Resident Activity Tracking Resident Involvement: Resident Care Provided Care Provided: Adult Hospital Medicine (1) Anemia Anemia type: other cause Other causes of anemia: acute posthemorrhagic Qualified Code(s): D62 - Acute posthemorrhagic anemia (2) Hypothyroidism Hypothyroidism type: acquired Qualified Code(s): E03.9 - Hypothyroidism, unspecified
[2019-12-09] MEDS ORDERED: DEXTROSE 50% 50 ML SYRINGE IV PRN (15:37)
[2019-12-09] MEDS ORDERED: CARBOHYDRATES FOR HYPOGLYCEMIA PO PRN (15:37)
[2019-12-09] MEDS ORDERED: GLUCAGON FOR INJ 1 MG VIAL SQ PRN (15:37)
[2019-12-09] MEDS ORDERED: GLUCOSE 10 TABS/TUBE PO PRN (15:37)
[2019-12-09] MEDS ORDERED: GLUCOSE 40% GEL 15 GM TUBE PO PRN (15:37)
[2019-12-09 16:21] LABS: Hematocrit (blood only) 30.7 % (42-52); Hemoglobin 9.9 g/dL (14.0-18.0); Mean Corpuscular Hemoglobin 29.7 pg (25-34); Mean Corpuscular Hgb Conc 32.2 g/dL (32-36); Mean Corpuscular Volume 92.2 fL (80-100); RDW Coefficient of Variation 16.7 % (11.5-14.5); RDW Standard Deviation 56.2 fL (36.4-46.3); Red Blood Count 3.33 M/uL (4.7-6.1)
[2019-12-09 16:35] LABS: Mean Platelet Volume 10.1 fL (7.4-10.4); Platelet Count 79 K/uL (130-400)
[2019-12-09 16:42] LABS: BUN Creatinine Ratio 21.7 (10-20); Blood Urea Nitrogen 18 mg/dl (7-18); Calcium 7.9 mg/dl (8.5-10.1); Carbon Dioxide 32 mmol/L (21-32); Chloride 101 mmol/L (98-107); Est GFR (African American) 105.5; Glucose 164 mg/dl (70-99); Potassium 3.1 mmol/L (3.5-5.1); Sodium 139 mmol/L (136-145)
[2019-12-09] MEDS ORDERED: SPIRONOLACTONE 100 MG TAB PO SCH (17:00)
[2019-12-09] MEDS ORDERED: POTASSIUM CHLORIDE 20 MEQ TABCR PO STA (17:01)
[2019-12-09 17:08] LABS: Basophils # (auto) 0.03 K/uL (0-0.2); Basophils % (auto) 0.9 %; Eosinophils # (auto) 0.25 K/uL (0-0.5); Eosinophils % (auto) 7.1 %; Lymphocytes # (auto) 0.53 K/uL (1.2-3.4); Lymphocytes % (auto) 15.1 %; Monocytes # (auto) 0.29 K/uL (0.11-0.59); Monocytes % (auto) 8.3 %; Neutrophils % (auto) 68.6 %
[2019-12-09] MEDS ORDERED: INFLUENZA VACCINE HIGH DOSE 65+ 0.5 ML SYR IM ONE (17:11)
[2019-12-09] MEDS: FUROSEMIDE 80 MG TAB PO SCH (17:32)
[2019-12-09] MEDS: CITALOPRAM 40 MG TAB PO SCH (17:32)
[2019-12-09] MEDS: INSULIN ASPART 100 UNITS/ML 3 ML PEN SC SCH ×2 (18:11→22:17)
[2019-12-09 18:50] LABS: Albumin Level 2.3 gm/dl (3.4-5.0); Bilirubin Direct 0.5 mg/dl (0-0.2); Bilirubin,Total 1.4 mg/dl (0.2-1); Total Protein 6.7 gm/dl (6.4-8.2)
[2019-12-09] MEDS ORDERED: PROPRANOLOL HCL 10 MG TAB PO SCH (21:00)
--- NOTE | 2019-12-09 23:05 | Gastrointestinal Consultation ---
Date of Consultation December 09, 2019 Assessment & Plan (1) Alcoholic cirrhosis of liver: (2) Ascites due to alcoholic cirrhosis: Continue Aldactone 200 mg by mouth daily Continue Furosemide 80 mg by mouth daily Continue 2g Na reduced diet Last seen by [facility] Hepatology/Liver Transplant team in July 2019, and at that time, was not considered a good candidate for transplant. Also, they did not feel he needed TIPS at that time. He previously was taking Xifaxan and Lactulose for Hepatic encephalopathy, however, he was non-compliant with Lactulose, and could not afford Xifaxan therapy. Consider Hospice consult Recommend rehabilitation services coordinator consult for placement, as he does not feel capable of taking care of himself at home. History of Present Illness Attending Physician: Prachi Ramon MD History of Present Illness Mr. Bliss is a 69 yo CM who has an extensive PMHx including Laennec's cirrhosis, recurrent ascites, and history of hepatic encephalopathy, who presented to the radiology department today as an outpatient for large volume paracentesis. He receives a paracentesis approximately every 4 weeks, due to recurrent ascites. He has had difficulty in the past following a 2 g Na reduced diet at home, but does take his diuretic therapy daily. He was last seen by [facility]'s division of Transplant Hepatology in July of 2019, and they did not feel he was a candidate for Transplant at that time for various reasons including a low MELD score, and concerns about his social supports. They also did not feel that he needed a TIPS placement at that time, as he was having acceptable timing between paracentesis procedures. Today, following his paracentesis, during which 11 L of fluid was removed, he complained of weakness, and admitted to nursing staff that he was unable to live on his own. He stated that he is not able to care for himself in several ways including meal preparation, toileting, and other ADL's. At the time I saw him, he stated that he felt, "wore out, and not able to care for myself." Decision was made to admit the patient at that time. I discussed the case in detail with Dr. Ramon in arranging for a direct admission. Allergies Allergy/AdvReac Type Severity Reaction Status Date / Time adhesive AdvReac Mild REDNESS, Verified 12/09/19 08:50 TAPE WILSON Sulfa (Sulfonamide AdvReac Mild NAUSEA AND Verified 12/09/19 08:50 Antibiotics) VOMITING Home Medications Home Medications Medication Instructions Recorded Confirmed Type cyanocobalamin (vitamin B-12) 1,000 mcg IM MONTHLY ml 11/23/18 12/09/19 History 1,000 mcg/mL injection solution spironolactone [Aldactone] 200 mg PO BID 03/14/19 12/09/19 History citalopram [Celexa] 40 mg PO DAILY 05/24/19 12/09/19 History lancets 33 gauge #400 ea 10/26/19 Rx furosemide 80 mg tablet 80 mg PO BID #60 tab 11/01/19 12/09/19 Rx diphenoxylate-atropine 2.5 1 tab PO BID PRN #60 tab 11/22/19 12/09/19 Rx mg-0.025 mg tablet Patient History Medical History Alcoholic cirrhosis of liver LAST DRINK FEBRUARY 2019 Anemia with low platelet count Pedroza's esophagus Bilateral edema of lower extremity Calf swelling Deep vein thrombosis 10 YEARS AGO (? REASON) Degenerative disc disease STEROID INJECTIONS Depression Diabetes mellitus, type 2 Fluid overload GERD (gastroesophageal reflux disease) Glaucoma NO MEDS History of abdominal paracentesis LAST ONE 12/08 History of gout HLD (hyperlipidemia) HTN (hypertension) Osteoarthritis Psoriasis Severe protein-calorie malnutrition Shortness of breath Sleep apnea NO DEVICE "LOST WEIGHT" Splenomegaly PT UNSURE Surgical History H/O gastric bypass 2001 [facility], [place] History of cataract extraction RT/LEFT History of colonoscopy History of esophagogastroduodenoscopy (EGD) History of tooth extraction Family History Father Cancer Lung disease Barretts syndrome Brother Brain cancer Diabetes Overdose Myocardial infarction Daughter , age 29 Overdose Suicide Unknown Cancer Hypertension Diabetes Heart disease Denies family history of Ovarian cancer Prostate cancer Breast cancer Colorectal cancer Social History Smoking Status: Current every day smoker Tobacco Type: Smokeless Tobacco (Dip or Chew) Cigarettes Per Day: 1 can snuff 1-2 weeks; Second Hand Exposure: No; Do You Dip or Chew Tobacco: Yes; Hx Alcohol Use: Yes (hx abuse, last drink feb 2019) Alcohol type: hard liquor Alcohol Intake Frequency Comment: 4-5x per week Hx Substance Use: No Preferred Language: Lithuanian Communication Ability: Effective Visual Impairment: Limited Hearing Ability: Normal Patent Paralegal Required: No Beliefs That Will Affect Care: None marital status: Single marital status details: has, "lady friend" Current Living Situation: Alone Current Living Situation Comment: own home 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 occupational 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 Other Information That Helps Us Care for You: No Feels Safe at Home: Yes Safety Concerns: Feels Safe At This Time Childhood Exposure to Second-Hand Smoke: Yes Seatbelt Use: always Sunscreen Use: No Assistive Devices: Walker and Wheelchair Review of Systems Review of Systems: All systems reviewed & are unremarkable except as noted in HPI & below Physical Exam Constitutional: + ill appearing and + disheveled Eyes: + anicteric sclerae ENMT: external ear and nose normal, oropharynx normal Neck: trachea midline, no thyromegaly Gastrointestinal (Abdomen): Inspection/Auscultation: abdomen normal to inspection Percussion/Palpation: abdomen soft Psychiatric: A+Ox3, euthymic affect Results & Data ([facility]) Vital Signs (Past 12 Hours) Vital Signs Temp Pulse Resp BP Pulse Ox 12/09/19 18:51 36.4 C L 80 17 91/54 L 100 12/09/19 16:13 36.4 C L 79 16 97/60 L 100 12/09/19 14:30 36.6 C 83 16 97/56 L 99 PG Care Time/CCT Total # of Minutes Spent Total Time Spent with Patient: Total time spent is greater than 50% in coordination of care (as documented) at patient's floor/unit and/or counseling patient: Coding Level of Care Code 26998 Initial Inpt Care Lvl 3 Diagnoses Alcoholic cirrhosis of liver K70.30 Ascites due to alcoholic cirrhosis K70.31
--- NOTE | 2019-12-10 00:04 | Billing Data ---
Date of Service December 09, 2019 Coding Level of Care Code 43172 OBS Care - Level 3
[2019-12-10] MEDS: PANTOprazole 40 MG TAB PO SCH ×4 (04:13→20:44)
[2019-12-10 07:55] LABS: Ferritin 102.1 ng/ml (8-388); Thyroid Stimulating Hormone 2.06 uIu/ml (0.300-4.500)
[2019-12-10 08:05] LABS: Estimated Average Glucose 103 mg/dl; Hemoglobin A1C 5.2 % (4.5-5.6)
[2019-12-10 08:26] LABS: Hematocrit (blood only) 27.9 % (42-52); Hemoglobin 9.3 g/dL (14.0-18.0); Mean Corpuscular Hemoglobin 30.5 pg (25-34); Mean Corpuscular Hgb Conc 33.3 g/dL (32-36); Mean Corpuscular Volume 91.5 fL (80-100); RDW Coefficient of Variation 16.4 % (11.5-14.5); RDW Standard Deviation 54.9 fL (36.4-46.3); Red Blood Count 3.05 M/uL (4.7-6.1); White Blood Count 3.58 K/uL (4.8-10.8)
[2019-12-10 08:30] LABS: Albumin Globulin Ratio 0.5 (0.9-2); Albumin Level 1.9 gm/dl (3.4-5.0); Bilirubin,Total 1.2 mg/dl (0.2-1); Folate (Folic Acid) 2.78 ng/ml (>5.38); Globulin 3.9 gm/dl (2.5-4.0); Total Protein 5.8 gm/dl (6.4-8.2)
[2019-12-10 08:32] LABS: BUN Creatinine Ratio 31.7 (10-20); Calcium 8.2 mg/dl (8.5-10.1); Creatinine Clr Calc Pharmacy 103.2 ml/min; Est GFR (African American) 110.6; Est GFR (Non-African American) 95.4; Potassium 3.7 mmol/L (3.5-5.1)
[2019-12-10 08:34] LABS: Mean Platelet Volume 10.2 fL (7.4-10.4); Platelet Count 80 K/uL (130-400)
--- NOTE | 2019-12-10 08:36 | Ultrasound Report ---
BILATERAL LOWER EXTREMITY VENOUS DOPPLER CLINICAL HISTORY: R>L leg swelling COMPARISON STUDY: Bilateral lower extremity venous Doppler ultrasound September 19, 2019. TECHNIQUE: Sonography of the deep venous system of the bilateral lower extremities was performed. Co mpression and augmentation were evaluated. FINDINGS: The bilateral common femoral, superficial femoral and popliteal veins were compressible. A ugmentation was normal. Flow was shown within the deep calf vessels. IMPRESSION: No evidence of deep venous thrombus within the bilateral lower extremities. ACT 112: Negative or not required by law. Electronically signed by: Renan Fregoso M.D. 12/10/2019 8:35 AM
[2019-12-10] MEDS ORDERED: CITALOPRAM 40 MG TAB PO SCH (09:00)
[2019-12-10 09:22] LABS: Hematocrit (blood only) 29.9 % (42-52); Hemoglobin 10.1 g/dL (14.0-18.0); Mean Corpuscular Hemoglobin 30.9 pg (25-34); Mean Corpuscular Hgb Conc 33.8 g/dL (32-36); Mean Corpuscular Volume 91.4 fL (80-100); RDW Coefficient of Variation 16.4 % (11.5-14.5); RDW Standard Deviation 54.7 fL (36.4-46.3); Red Blood Count 3.27 M/uL (4.7-6.1); White Blood Count 3.79 K/uL (4.8-10.8)
[2019-12-10] MEDS: LIDOCAINE 5% 1 PATCH TD SCH (09:27)
[2019-12-10] MEDS: FUROSEMIDE 80 MG TAB PO SCH ×2 (09:28→16:23)
[2019-12-10] MEDS: CITALOPRAM 40 MG TAB PO SCH (09:28)
[2019-12-10] MEDS: SPIRONOLACTONE 100 MG TAB PO SCH (09:29)
[2019-12-10] MEDS: INSULIN ASPART 100 UNITS/ML 3 ML PEN SC SCH ×6 (09:30→21:00)
[2019-12-10 09:32] LABS: INR 1.3 (0.9-1.1); Prothrombin Time 13.8 Seconds (9.0-12.0)
[2019-12-10 09:43] LABS: Basophils # (auto) 0.01 K/uL (0-0.2); Basophils % (auto) 0.3 %; Eosinophils # (auto) 0.32 K/uL (0-0.5); Eosinophils % (auto) 8.4 %; Immature Granulocytes # (auto) 0.01 K/uL (0.00-0.02); Immature Granulocytes % (auto) 0.3 %; Lymphocytes # (auto) 0.49 K/uL (1.2-3.4); Lymphocytes % (auto) 12.9 %; Mean Platelet Volume 10.3 fL (7.4-10.4); Monocytes % (auto) 5.3 %; Neutrophils # (auto) 2.76 K/uL (1.4-6.5); Neutrophils % (auto) 72.8 %; Platelet Count 79 K/uL (130-400)
[2019-12-10 09:48] LABS: Albumin Level 2.1 gm/dl (3.4-5.0); Calcium 7.6 mg/dl (8.5-10.1); Creatinine Clr Calc Pharmacy 90.9 ml/min; Est GFR (Non-African American) 90.6; Potassium 3.8 mmol/L (3.5-5.1)
[2019-12-10 09:51] LABS: Albumin Globulin Ratio 0.5 (0.9-2); Bilirubin,Total 1.2 mg/dl (0.2-1); Total Protein 6.1 gm/dl (6.4-8.2)
[2019-12-10] MEDS: ENOXAPARIN INJ 40 MG/0.4 ML SYR SQ SCH (12:17)
[2019-12-10] MEDS ORDERED: LOPERAMIDE HCL 2 MG CAP PO PRN (14:09)
--- NOTE | 2019-12-10 14:09 | Hospitalist Progress Note ---
Date of Service December 10, 2019 Assessment & Plan (1) Alcoholic cirrhosis of liver: As previously seen [facility] hepatology in June 2019. Last drink in February 2019, patient has had multiple bouts of successful sobriety for 1 to 2 years and is on board with staying sober if necessary for transplant. - Continue spironolactone/Lasix - Withholding lactulose for cirrhosis in the setting of diarrhea - Appreciate GI recommendations regarding possibility of transfer to tertiary center for TIPS procedure or other methods of optimizing patient care (2) Severe protein-calorie malnutrition: Appears severely cachectic on exam. Concerning weight loss over the last few months (827 110 kg, 9 88 kg). - Dietary consult for nutritional assessment - Fluid restriction to 2 L, low-sodium diet per cirrhosis - PT/OT pending (3) Frequent falls: - PT/OT (4) Diarrhea: Complaining of multiple bouts of loose watery diarrhea for many months, has previously taken Lomotil medication to help control it. - C. difficile on 12/09 was negative. 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 - No concern at this time for active bleeding - Hemoglobin 9.9 on admission; 10.1 today. (6) Thrombocytopenia: Most likely secondary to worsening cirrhosis, splenomegaly adjunct with chronic pancytopenia. - Monitor (7) Obstructive sleep apnea: - CPAP nightly (8) Benign prostatic hyperplasia with urinary obstruction: No acute issues. - Monitor PVR if any symptoms. (9) Diabetic neuropathy: With chronic leg pain. 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 No esophageal varices noted on EGD. - Protonix p.o. twice daily (11) Glaucoma: - Continue home eyedrops (12) Hypothyroidism: TSH was 2.1 this admission. - Not on any levothyroxine as outpatient. (13) Mood disorder: Stable. - Continue home Celexa (14) DVT prophylaxis: Lovenox as long as plt > 50 Admission and Anticipated Discharge Date Admission Date: December 09, 2019 Subjective Largest concern today is his incontenence of bowel and bladder. At home, if he has an urge to either pass urine or defecate, he can rarely make it to the bathroom. Reports no fevers/chills, chest pain, shortness of breath, abdominal pain, nausea, or vomiting. Physical Exam Constitutional: WD/WN, vitals as above + frail appearing Eyes: EOM intact bilaterally; no conjunctival abnormality ENMT: external ear and nose normal, oropharynx normal Neck: trachea midline, no thyromegaly normal visual inspection Respiratory: normal respiratory effort, lungs clear to auscultation no respiratory distress Cardiovascular: RRR, no murmur, no edema Gastrointestinal (Abdomen): Inspection/Auscultation: abdomen normal to inspection and normal bowel sounds; abdomen not distended Percussion/Palpation: abdomen soft; abdomen nontender, no guarding, abdomen not rigid and no ascites Musculoskeletal: no cyanosis or clubbing, extremities motor strength 5/5 Skin: no rashes, warm and dry Neurologic: moves all extremities and awake Psychiatric: Orientation: alert, oriented to person and cooperative Results & Data Results & Data ([facility]) Vital Signs (Past 12 Hours) Vital Signs Temp Pulse Resp BP Pulse Ox 12/10/19 07:18 36.5 C 69 18 99/59 L 96 PG Care Time/CCT Total # of Minutes Spent Total Time Spent with Patient: Total time spent is greater than 50% in coordination of care (as documented) at patient's floor/unit and/or counseling patient: Coding Level of Care Code 19791 Subseq Hosp Care Lvl 2 Diagnoses Alcoholic cirrhosis of liver K70.30 Severe protein-calorie malnutrition E43 Frequent falls R29.6 Diarrhea R19.7 Anemia D62 Anemia type: other cause Other causes of anemia: acute posthemorrhagic Thrombocytopenia D69.6 Obstructive sleep apnea G47.33 Benign prostatic hyperplasia with urinary obstruction N40.1; N13.8 Diabetic neuropathy E11.40 Pedroza's esophagus K22.70 Glaucoma H40.9 Hypothyroidism E03.9 Hypothyroidism type: acquired Mood disorder F39 DVT prophylaxis Z29.9 (1) Anemia Anemia type: other cause Other causes of anemia: acute posthemorrhagic Qualified Code(s): D62 - Acute posthemorrhagic anemia (2) Hypothyroidism Hypothyroidism type: acquired Qualified Code(s): E03.9 - Hypothyroidism, unspecified
--- NOTE | 2019-12-10 18:39 | XCELERA ---
[id number] \\[id number]
[2019-12-10] MEDS: DICLOFENAC SOD 1% GEL 100 GM TUBE EXT PRN (20:46)
[2019-12-11] MEDS: DICLOFENAC SOD 1% GEL 100 GM TUBE EXT PRN ×2 (00:42→21:14)
[2019-12-11] MEDS: FUROSEMIDE 80 MG TAB PO SCH ×2 (07:40→18:07)
[2019-12-11] MEDS: CITALOPRAM 40 MG TAB PO SCH (07:42)
[2019-12-11] MEDS: PANTOprazole 40 MG TAB PO SCH ×2 (07:43→21:13)
[2019-12-11] MEDS: SPIRONOLACTONE 100 MG TAB PO SCH (07:43)
[2019-12-11] MEDS: ENOXAPARIN INJ 40 MG/0.4 ML SYR SQ SCH (07:43)
[2019-12-11] MEDS: LIDOCAINE 5% 1 PATCH TD SCH (07:44)
[2019-12-11] MEDS: INSULIN ASPART 100 UNITS/ML 3 ML PEN SC SCH ×4 (09:13→21:14)
--- NOTE | 2019-12-11 13:38 | Hospitalist Progress Note ---
Date of Service December 11, 2019 Assessment & Plan (1) Alcoholic cirrhosis of liver: As previously seen [facility] hepatology in June 2019. Last drink in February 2019, patient has had multiple bouts of successful sobriety for 1 to 2 years and is on board with staying sober if necessary for transplant. - Continue spironolactone/Lasix - Withholding lactulose for cirrhosis in the setting of diarrhea - Appreciate GI recommendations regarding possibility of transfer to tertiary center for TIPS procedure or other methods of optimizing patient care. - At this point, he is stable. No need for present transfer. (2) Severe protein-calorie malnutrition: Appears severely cachectic on exam. Concerning weight loss over the last few months (827 110 kg, 9- 88 kg). - Dietary consult for nutritional assessment - Fluid restriction to 2 L, low-sodium diet per cirrhosis - PT/OT: PT recommends SNF; OT pending. (3) Frequent falls: - PT/OT (4) Diarrhea: Complaining of multiple bouts of loose watery diarrhea for many months, has previously taken Lomotil medication to help control it. - C. difficile on 12/09 was negative. - Stool WBCs on 12/09 was negative. 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 - No concern at this time for active bleeding - Hemoglobin 9.9 on admission; 10.1 on 12/09. (6) Thrombocytopenia: Most likely secondary to worsening cirrhosis, splenomegaly adjunct with chronic pancytopenia. - Monitor (7) Obstructive sleep apnea: - CPAP nightly (8) Benign prostatic hyperplasia with urinary obstruction: No acute issues. - Monitor PVR if any symptoms. (9) Diabetic neuropathy: With chronic leg pain. 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 No esophageal varices noted on EGD. - Protonix p.o. twice daily (11) Glaucoma: - Continue home eyedrops (12) Hypothyroidism: TSH was 2.1 this admission. - Not on any levothyroxine as outpatient. (13) Mood disorder: Stable. - Continue home Celexa (14) DVT prophylaxis: Lovenox as long as plt > 50 Admission and Anticipated Discharge Date Admission Date: December 10, 2019 Subjective Feels fine. No complaints. Reports no fevers/chills, chest pain, shortness of breath, abdominal pain, nausea, or vomiting. Physical Exam Constitutional: WD/WN, vitals as above + frail appearing Eyes: EOM intact bilaterally; no conjunctival abnormality ENMT: external ear and nose normal, oropharynx normal Neck: trachea midline, no thyromegaly normal visual inspection Respiratory: normal respiratory effort, lungs clear to auscultation no respiratory distress Cardiovascular: RRR, no murmur, no edema Gastrointestinal (Abdomen): Inspection/Auscultation: abdomen normal to inspection and normal bowel sounds; abdomen not distended Percussion/Palpation: abdomen soft and + ascites (Mild); abdomen nontender, no guarding and abdomen not rigid Musculoskeletal: no cyanosis or clubbing, extremities motor strength 5/5 Skin: no rashes, warm and dry Neurologic: moves all extremities and awake Psychiatric: Orientation: alert, oriented to person and cooperative Results & Data Results & Data ([facility]) Vital Signs (Past 12 Hours) Vital Signs Temp Pulse Resp BP Pulse Ox 12/11/19 07:18 36.4 C L 65 16 87/50 L 95 PG Care Time/CCT Total # of Minutes Spent Total Time Spent with Patient: Total time spent is greater than 50% in coordination of care (as documented) at patient's floor/unit and/or counseling patient: Coding Level of Care Code 36233 Subseq Hosp Care Lvl 2 Diagnoses Alcoholic cirrhosis of liver K70.30 Severe protein-calorie malnutrition E43 Frequent falls R29.6 Diarrhea R19.7 Anemia D62 Anemia type: other cause Other causes of anemia: acute posthemorrhagic Thrombocytopenia D69.6 Obstructive sleep apnea G47.33 Benign prostatic hyperplasia with urinary obstruction N40.1; N13.8 Diabetic neuropathy E11.40 Pedroza's esophagus K22.70 Glaucoma H40.9 Hypothyroidism E03.9 Hypothyroidism type: acquired Mood disorder F39 DVT prophylaxis Z29.9 (1) Anemia Anemia type: other cause Other causes of anemia: acute posthemorrhagic Qualified Code(s): D62 - Acute posthemorrhagic anemia (2) Hypothyroidism Hypothyroidism type: acquired Qualified Code(s): E03.9 - Hypothyroidism, unspecified
[2019-12-12] MEDS: LIDOCAINE 5% 1 PATCH TD SCH ×2 (08:18→12:37)
[2019-12-12] MEDS: ENOXAPARIN INJ 40 MG/0.4 ML SYR SQ SCH (08:19)
[2019-12-12] MEDS: INSULIN ASPART 100 UNITS/ML 3 ML PEN SC SCH ×4 (08:58→20:50)
[2019-12-12] MEDS: CITALOPRAM 40 MG TAB PO SCH (09:35)
[2019-12-12] MEDS: SPIRONOLACTONE 100 MG TAB PO SCH (09:35)
[2019-12-12] MEDS: FUROSEMIDE 80 MG TAB PO SCH ×2 (09:35→17:27)
[2019-12-12] MEDS: PANTOprazole 40 MG TAB PO SCH ×2 (09:36→20:50)
--- NOTE | 2019-12-12 16:10 | Hospitalist Progress Note ---
Date of Service December 12, 2019 Assessment & Plan (1) Alcoholic cirrhosis of liver: As previously seen [facility] hepatology in June 2019. Last drink in February 2019, patient has had multiple bouts of successful sobriety for 1 to 2 years and is on board with staying sober if necessary for transplant. - Continue spironolactone/Lasix - Appreciate GI recommendations regarding possibility of transfer to tertiary center for TIPS procedure or other methods of optimizing patient care. - At this point, he is stable. No need for present transfer. - Withholding lactulose for cirrhosis in the setting of diarrhea -> Will aim for at least 1-2 soft BMs/day. (2) Severe protein-calorie malnutrition: Appears severely cachectic on exam. Concerning weight loss over the last few months (827 110 kg, 9- 88 kg). - Dietary consult for nutritional assessment - Fluid restriction to 2 L, low-sodium diet per cirrhosis - PT/OT: PT recommends SNF; OT pending. CM working on referral to [facility]. (3) Frequent falls: - PT/OT as above (4) Diarrhea: Complaining of multiple bouts of loose watery diarrhea for many months, has previously taken Lomotil medication to help control it. - C. difficile on 12/09 was negative. - Stool WBCs on 12/09 was negative. - Stool culture, stool ova parasites all pending - Imodium PRN, though will need to be careful to not slow things down too much and cause encephalopathy. 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 - No concern at this time for active bleeding - Hemoglobin 9.9 on admission; 10.1 on 12/09. (6) Thrombocytopenia: Most likely secondary to worsening cirrhosis, splenomegaly adjunct with chronic pancytopenia. - Monitor (7) Obstructive sleep apnea: - CPAP nightly (8) Benign prostatic hyperplasia with urinary obstruction: No acute issues. - Monitor PVR if any symptoms. (9) Diabetic neuropathy: With chronic leg pain. 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 No esophageal varices noted on EGD. - Protonix p.o. twice daily (11) Glaucoma: - Continue home eyedrops (12) Hypothyroidism: TSH was 2.1 this admission. - Not on any levothyroxine as outpatient. (13) Mood disorder: Stable. - Continue home Celexa (14) DVT prophylaxis: Lovenox as long as plt > 50 Admission and Anticipated Discharge Date Admission Date: December 10, 2019 Subjective Reports a mildly sore bottom. No other complaints today. He is ready to go to [facility]. Reports no fevers/chills, chest pain, shortness of breath, abdominal pain, nausea, or vomiting. Physical Exam Constitutional: WD/WN, vitals as above + frail appearing Eyes: EOM intact bilaterally; no conjunctival abnormality ENMT: external ear and nose normal, oropharynx normal Neck: trachea midline, no thyromegaly normal visual inspection Respiratory: normal respiratory effort, lungs clear to auscultation no respiratory distress Cardiovascular: RRR, no murmur, no edema Gastrointestinal (Abdomen): Inspection/Auscultation: abdomen normal to inspection and normal bowel sounds; abdomen not distended Percussion/Palpation: abdomen soft and + ascites (Mild); abdomen nontender, no guarding and abdomen not rigid Musculoskeletal: no cyanosis or clubbing, extremities motor strength 5/5 Skin: no rashes, warm and dry Neurologic: moves all extremities and awake Psychiatric: Orientation: alert, oriented to person and cooperative Results & Data Results & Data ([facility]) Vital Signs (Past 12 Hours) Vital Signs Temp Pulse Resp BP Pulse Ox 12/12/19 07:07 36.4 C L 68 14 92/58 L 97 PG Care Time/CCT Total # of Minutes Spent Total Time Spent with Patient: Total time spent is greater than 50% in coordination of care (as documented) at patient's floor/unit and/or counseling patient: Coding Level of Care Code 84553 Subseq Hosp Care Lvl 2 Diagnoses Alcoholic cirrhosis of liver K70.30 Severe protein-calorie malnutrition E43 Frequent falls R29.6 Diarrhea R19.7 Anemia D62 Anemia type: other cause Other causes of anemia: acute posthemorrhagic Thrombocytopenia D69.6 Obstructive sleep apnea G47.33 Benign prostatic hyperplasia with urinary obstruction N40.1; N13.8 Diabetic neuropathy E11.40 Pedroza's esophagus K22.70 Glaucoma H40.9 Hypothyroidism E03.9 Hypothyroidism type: acquired Mood disorder F39 DVT prophylaxis Z29.9 (1) Anemia Anemia type: other cause Other causes of anemia: acute posthemorrhagic Qualified Code(s): D62 - Acute posthemorrhagic anemia (2) Hypothyroidism Hypothyroidism type: acquired Qualified Code(s): E03.9 - Hypothyroidism, unspecified
[2019-12-13 07:28] LABS: Hemoglobin 9.4 g/dL (14.0-18.0); Mean Corpuscular Hemoglobin 30.3 pg (25-34); Mean Corpuscular Hgb Conc 32.4 g/dL (32-36); Mean Corpuscular Volume 93.5 fL (80-100); Mean Platelet Volume 10.1 fL (7.4-10.4); Platelet Count 75 K/uL (130-400); RDW Coefficient of Variation 16.6 % (11.5-14.5); RDW Standard Deviation 56.4 fL (36.4-46.3); White Blood Count 2.66 K/uL (4.8-10.8)
[2019-12-13 07:49] LABS: Albumin Level 1.8 gm/dl (3.4-5.0); BUN Creatinine Ratio 36.2 (10-20); Calcium 7.7 mg/dl (8.5-10.1); Creatinine Clr Calc Pharmacy 96.2 ml/min; Est GFR (African American) 96.8; Est GFR (Non-African American) 83.6; Magnesium 1.9 mg/dl (1.8-2.4); Potassium 4.1 mmol/L (3.5-5.1)
[2019-12-13 07:51] LABS: Albumin Globulin Ratio 0.4 (0.9-2); Globulin 4.2 gm/dl (2.5-4.0)
[2019-12-13] MEDS: INSULIN ASPART 100 UNITS/ML 3 ML PEN SC SCH ×4 (09:45→21:21)
[2019-12-13] MEDS: FUROSEMIDE 80 MG TAB PO SCH ×2 (09:46→17:02)
[2019-12-13] MEDS: CITALOPRAM 40 MG TAB PO SCH (09:46)
[2019-12-13] MEDS: PANTOprazole 40 MG TAB PO SCH ×2 (09:47→21:20)
[2019-12-13] MEDS: SPIRONOLACTONE 100 MG TAB PO SCH (09:47)
[2019-12-13] MEDS: ENOXAPARIN INJ 40 MG/0.4 ML SYR SQ SCH (09:52)
[2019-12-13] MEDS: LIDOCAINE 5% 1 PATCH TD SCH (09:52)
[2019-12-13] MEDS: MIDODRINE HCL 2.5 MG TAB PO SCH ×3 (14:15→17:56)
--- NOTE | 2019-12-13 23:29 | Hospitalist Progress Note ---
Date of Service December 13, 2019 Assessment & Plan (1) Alcoholic cirrhosis of liver: As previously seen [facility] hepatology in June 2019. Last drink in February 2019, patient has had multiple bouts of successful sobriety for 1 to 2 years and is on board with staying sober if necessary for transplant. - Continue spironolactone/Lasix - Appreciate GI recommendations regarding possibility of transfer to tertiary center for TIPS procedure or other methods of optimizing patient care. - At this point, he is stable. No need for present transfer. -Patient continues to have diarrhea today. - Withholding lactulose for cirrhosis in the setting of diarrhea -> Will aim for at least 1-2 soft BMs/day. (2) Severe protein-calorie malnutrition: Appears severely cachectic on exam. Concerning weight loss over the last few months (827 110 kg, 9- 88 kg). - Dietary consult for nutritional assessment - Fluid restriction to 2 L, low-sodium diet per cirrhosis - PT/OT: PT recommends SNF; OT pending. CM working on referral to [facility]. (3) Frequent falls: - PT/OT as above (4) Diarrhea: Complaining of multiple bouts of loose watery diarrhea for many months, has previously taken Lomotil medication to help control it. - C. difficile on 12/09 was negative. - Stool WBCs on 12/09 was negative. - Stool culture, stool ova parasites all pending - Imodium PRN, though will need to be careful to not slow things down too much and cause encephalopathy. 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 - No concern at this time for active bleeding - Hemoglobin 9.9 on admission; 10.1 on 12/09. (6) Thrombocytopenia: Most likely secondary to worsening cirrhosis, splenomegaly adjunct with chronic pancytopenia. - Monitor (7) Obstructive sleep apnea: - CPAP nightly (8) Benign prostatic hyperplasia with urinary obstruction: No acute issues. - Monitor PVR if any symptoms. (9) Diabetic neuropathy: With chronic leg pain. 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 No esophageal varices noted on EGD. - Protonix p.o. twice daily (11) Glaucoma: - Continue home eyedrops (12) Hypothyroidism: TSH was 2.1 this admission. - Not on any levothyroxine as outpatient. (13) Mood disorder: Stable. - Continue home Celexa (14) DVT prophylaxis: Lovenox as long as plt > 50 (15) Ascites: Continue lasix and spironolactone. Will add midodrine to improve renal perfusion, perhaps may help with BP and [place]. Admission and Anticipated Discharge Date Admission Date: December 10, 2019 Subjective 69 yo male reports feeling tired. Patient has been having loose stools today. Review of Systems Review of Systems: All systems reviewed & are unremarkable except as noted in HPI & below Physical Exam Physical Exam: Constitutional: WD/WN, vitals as above + frail appearing Eyes: EOM intact bilaterally; no conjunctival abnormality ENMT: external ear and nose normal, oropharynx normal Neck: trachea midline, no thyromegaly normal visual inspection Respiratory: normal respiratory effort, lungs clear to auscultation no respiratory distress Cardiovascular: RRR, no murmur, no edema Gastrointestinal (Abdomen): Inspection/Auscultation: abdomen normal to inspection and normal bowel sounds; abdomen not distended Percussion/Palpation: abdomen soft and + ascites (Mild); abdomen nontender, no guarding and abdomen not rigid Musculoskeletal: no cyanosis or clubbing, extremities motor strength 5/5 Skin: no rashes, warm and dry Neurologic: moves all extremities and awake Psychiatric: Orientation: alert, oriented to person and cooperative Results & Data Results & Data ([facility]) Vital Signs (Past 12 Hours) Vital Signs Temp Pulse Resp BP BP Pulse Ox 12/13/19 23:00 36.5 C 67 15 97/63 L 98 12/13/19 15:27 36.7 C 62 16 106/69 99 PG Care Time/CCT Total # of Minutes Spent Total Time Spent with Patient: Total time spent is greater than 50% in coordination of care (as documented) at patient's floor/unit and/or counseling patient: Coding Level of Care Code 39318 Subseq Hosp Care Lvl 3 Diagnoses Alcoholic cirrhosis of liver K70.30 Severe protein-calorie malnutrition E43 Frequent falls R29.6 Diarrhea R19.7 Anemia D62 Anemia type: other cause Other causes of anemia: acute posthemorrhagic Thrombocytopenia D69.6 Obstructive sleep apnea G47.33 Benign prostatic hyperplasia with urinary obstruction N40.1; N13.8 Diabetic neuropathy E11.40 Pedroza's esophagus K22.70 Glaucoma H40.9 Hypothyroidism E03.9 Hypothyroidism type: acquired Mood disorder F39 DVT prophylaxis Z29.9 Ascites K70.31 Ascites type: due to alcoholic cirrhosis Time Spent (min) 32 (1) Anemia Anemia type: other cause Other causes of anemia: acute posthemorrhagic Qualified Code(s): D62 - Acute posthemorrhagic anemia (2) Hypothyroidism Hypothyroidism type: acquired Qualified Code(s): E03.9 - Hypothyroidism, unspecified (3) Ascites Ascites type: due to alcoholic cirrhosis Qualified Code(s): K70.31 - Alc oholic cirrhosis of liver with ascites
[2019-12-14 08:34] LABS: Hematocrit (blood only) 32.1 % (42-52); Hemoglobin 10.6 g/dL (14.0-18.0); Mean Corpuscular Hemoglobin 30.6 pg (25-34); Mean Corpuscular Volume 92.8 fL (80-100); RDW Coefficient of Variation 16.6 % (11.5-14.5); RDW Standard Deviation 56.1 fL (36.4-46.3); Red Blood Count 3.46 M/uL (4.7-6.1); White Blood Count 2.49 K/uL (4.8-10.8)
[2019-12-14 08:35] LABS: Mean Platelet Volume 10.5 fL (7.4-10.4); Platelet Count 87 K/uL (130-400)
[2019-12-14 08:46] LABS: INR 1.2 (0.9-1.1)
[2019-12-14] MEDS: SPIRONOLACTONE 100 MG TAB PO SCH (08:51)
[2019-12-14] MEDS: MIDODRINE HCL 2.5 MG TAB PO SCH ×3 (08:52→16:04)
[2019-12-14] MEDS: PANTOprazole 40 MG TAB PO SCH ×2 (08:52→20:50)
[2019-12-14] MEDS: FUROSEMIDE 80 MG TAB PO SCH ×2 (08:52→16:04)
[2019-12-14] MEDS: CITALOPRAM 40 MG TAB PO SCH (08:52)
[2019-12-14] MEDS: LIDOCAINE 5% 1 PATCH TD SCH (08:53)
[2019-12-14] MEDS: ENOXAPARIN INJ 40 MG/0.4 ML SYR SQ SCH (08:53)
[2019-12-14 08:55] LABS: BUN Creatinine Ratio 34.1 (10-20); Calcium 8.6 mg/dl (8.5-10.1); Creatinine Clr Calc Pharmacy 84.5 ml/min; Est GFR (African American) 82.8; Est GFR (Non-African American) 71.5
[2019-12-14 08:57] LABS: Albumin Globulin Ratio 0.5 (0.9-2); Bilirubin,Total 0.8 mg/dl (0.2-1); Globulin 4.4 gm/dl (2.5-4.0); Total Protein 6.4 gm/dl (6.4-8.2)
[2019-12-14] MEDS: INSULIN ASPART 100 UNITS/ML 3 ML PEN SC SCH ×4 (08:57→21:20)
--- NOTE | 2019-12-14 21:41 | Hospitalist Progress Note ---
Date of Service December 14, 2019 Assessment & Plan (1) Alcoholic cirrhosis of liver: As previously seen [facility] hepatology in June 2019. Last drink in February 2019, patient has had multiple bouts of successful sobriety for 1 to 2 years and is on board with staying sober if necessary for transplant. - Continue spironolactone/Lasix - Appreciate GI recommendations regarding possibility of transfer to tertiary center for TIPS procedure or other methods of optimizing patient care. - At this point, he is stable. No need for present transfer. -Patient continues to have diarrhea today. - Withholding lactulose for cirrhosis in the setting of diarrhea -> Will aim for at least 1-2 soft BMs/day. will consult palliative care for goals of care conversation (2) Severe protein-calorie malnutrition: Appears severely cachectic on exam. Concerning weight loss over the last few months (827 110 kg, 9- 88 kg). - Dietary consult for nutritional assessment - Fluid restriction to 2 L, low-sodium diet per cirrhosis - PT/OT: PT recommends SNF; OT pending. CM working on referral to [facility]. (3) Frequent falls: - PT/OT as above (4) Diarrhea: Complaining of multiple bouts of loose watery diarrhea for many months, has previously taken Lomotil medication to help control it. - C. difficile on 12/09 was negative. - Stool WBCs on 12/09 was negative. - Stool culture, stool ova parasites all pending - Imodium PRN, though will need to be careful to not slow things down too much and cause encephalopathy. 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 - No concern at this time for active bleeding - Hemoglobin 9.9 on admission; 10.1 on 12/09. (6) Thrombocytopenia: Most likely secondary to worsening cirrhosis, splenomegaly adjunct with chronic pancytopenia. - Monitor (7) Obstructive sleep apnea: - CPAP nightly (8) Benign prostatic hyperplasia with urinary obstruction: No acute issues. - Monitor PVR if any symptoms. (9) Diabetic neuropathy: With chronic leg pain. 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 No esophageal varices noted on EGD. - Protonix p.o. twice daily (11) Glaucoma: - Continue home eyedrops (12) Hypothyroidism: TSH was 2.1 this admission. - Not on any levothyroxine as outpatient. (13) Mood disorder: Stable. - Continue home Celexa (14) DVT prophylaxis: Lovenox as long as plt > 50 (15) Ascites: Continue lasix and spironolactone. added midodrine to improve renal perfusion, perhaps may help with BP and asicities. Admission and Anticipated Discharge Date Admission Date: December 10, 2019 Subjective 69 yo male has less diarrhea today. Feeling better, and has more of an appetite. Review of Systems Review of Systems: All systems reviewed & are unremarkable except as noted in HPI & below Physical Exam Physical Exam: Constitutional: WD/WN, vitals as above + frail appearing Eyes: EOM intact bilaterally; no conjunctival abnormality ENMT: external ear and nose normal, oropharynx normal Neck: trachea midline, no thyromegaly normal visual inspection Respiratory: normal respiratory effort, lungs clear to auscultation no respiratory distress Cardiovascular: RRR, no murmur, no edema Gastrointestinal (Abdomen): Inspection/Auscultation: abdomen normal to inspection and normal bowel sounds; abdomen not distended Percussion/Palpation: abdomen soft and + ascites (Mild); abdomen nontender, no guarding and abdomen not rigid Musculoskeletal: no cyanosis or clubbing, extremities motor strength 5/5 Skin: no rashes, warm and dry Neurologic: moves all extremities and awake Psychiatric: Orientation: alert, oriented to person and cooperative Results & Data Results & Data ([facility]) Vital Signs (Past 12 Hours) Vital Signs Temp Pulse Resp BP Pulse Ox 12/14/19 15:11 36.7 C 64 16 104/67 98 PG Care Time/CCT Total # of Minutes Spent Total Time Spent with Patient: Total time spent is greater than 50% in coordination of care (as documented) at patient's floor/unit and/or counseling patient: Coding Level of Care Code 55780 Subseq Hosp Care Lvl 3 Diagnoses Alcoholic cirrhosis of liver K70.30 Severe protein-calorie malnutrition E43 Frequent falls R29.6 Diarrhea R19.7 Anemia D62 Anemia type: other cause Other causes of anemia: acute posthemorrhagic Thrombocytopenia D69.6 Obstructive sleep apnea G47.33 Benign prostatic hyperplasia with urinary obstruction N40.1; N13.8 Diabetic neuropathy E11.40 Pedroza's esophagus K22.70 Glaucoma H40.9 Hypothyroidism E03.9 Hypothyroidism type: acquired Mood disorder F39 DVT prophylaxis Z29.9 Ascites K70.31 Ascites type: due to alcoholic cirrhosis Time Spent (min) 35 Comment discussion about palliative care (1) Anemia Anemia type: other cause Other causes of anemia: acute posthemorrhagic Qualified Code(s): D62 - Acute posthemorrhagic anemia (2) Ascites Ascites type: due to alcoholic cirrhosis Qualified Code(s): K70.31 - Alcoholic cirrhosis of liver with ascites (3) Hypothyroidism Hypothyroidism type: acquired Qualified Code(s): E03.9 - Hypothyroidism, unspecified
[2019-12-15] MEDS ORDERED: MoRPHine SULFATE 2 MG/ML CARP IV STA (01:50)
--- NOTE | 2019-12-15 08:38 | Palliative Care Consultation ---
Date of Consultation December 15, 2019 Assessment & Plan (1) Palliative care encounter: This is a 69 year old male who presented to the [facility] from home with loss of appetite, ascites, and a 40 lb unintentiional weight loss. He had just received a therapeutic paracentesis with 10L fluid removal.. The patient has an extensive PMH that includes alcoholic cirrhosis of the liver, thrombocytopenia, anasarca, MARILYN, BPH, diabetic neuropathy, obesity, s/p Mary-en-Y bypass surgery, LVH, hypothyroidism, dyslipidemia, Ankylosing Spondylitis, and Pedroza's esophagus. . He also has frequent episodes of watery diarrhea. He denies any chest pain or trouble breathing. He does have abdominal pain when it is full of fluid however does not experiencing any at this time. Additionally, he has scrotal and bilateral leg edema. This gentleman lives alone at home and numerous falls have been self reported. Apparently, this patient has gone through cycles of sobriety; however, at this time, after discussion with the hospitalist, will not be suitable for a transplant candidate. Palliative Care was consulted to discuss goals of care. -I met with the pt in room 357-2. He was sitting upright in his bed in no apparent distress. -Patient just finished his breakfast and ate yogurt, granola, and a pancake without difficulty. -We discussed the patients chronic illness and treatment options. The patient has decided and understands that he will pursue conservative measures. He was able to discuss with me previous hospital stays [place] [facility] [place] -We discussed code status and he was clear that he would not want CPR/intubation if he would not return to baseline. With his fragility and extensive illness, his quality of life would be severely affected. Patient agreed to be changed to DNR/DNI which is now reflected in the computer. 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 -Patient was clear that he just wants to 'fall asleep' when the time comes. -He signed the POLST form and appointed his son, Leon Bliss as his decision maker. He is his official POA. The patients daughter in law, Lincoln,is an RN on [employer] here at [facility] and works table games shift manager. -I called Leon and discussed the above. We did discuss his life expectancy which is likely 6-8 months. -We discussed Hospice services that could be helpful at [facility] and he would like to pursue this upon his return. I said I would discuss with Case management. -Hospice diagnosis for this patient would be: Liver Failure Weakness and compromised ability perform activities of daily living (ADLs) Hepatic encephalopathy Serum Albumin < 2.5 gm/dl Elevated creatinine and BUN with Oliguria <400 ml/day Ascites Malnutrition Muscle wasting -Plan for D/C to [facility] today. After discussion with Yarely in Case management. Plan for Skillable service and transition to hospice. -PPS:40% (2) Severe protein-calorie malnutrition: (3) Ascites due to alcoholic cirrhosis: History of Present Illness Reason for Consultation: Goals of care Requesting Physician: Dr. Coronado Attending Physician: Cameron Coronado History of Present Illness This is a 69 year old male who presented to the [facility] from home with loss of appetite, ascites, and a 40 lb unintentiional weight loss. He had just received a therapeutic paracentesis with 10L fluid removal.. The patient has an extensive PMH that includes alcoholic cirrhosis of the liver, thrombocytopenia, anasarca, MARILYN, BPH, diabetic neuropathy, obesity, s/p Mary-en-Y bypass surgery, LVH, hypothyroidism, dyslipidemia, Ankylosing Spondylitis, and Pedroza's esophagus. . He also has frequent episodes of watery diarrhea. He denies any chest pain or trouble breathing. He does have abdominal pain when it is full of fluid however does not experiencing any at this time. Additionally, he has scrotal and bilateral leg edema. This gentleman lives alone at home and numerous falls have been self reported. Apparently, this patient has gone through cycles of sobriety; however, at this time, after discussion with the hospitalist, will not be suitable for a transplant candidate. Palliative Care was consulted to discuss goals of care. Please see A/P for further details. Thank you kindly for involving the palliative care team with this patient. Allergies Allergy/AdvReac Type Severity Reaction Status Date / Time adhesive AdvReac Mild REDNESS, Verified 12/09/19 08:50 TAPE WILSON Sulfa (Sulfonamide AdvReac Mild NAUSEA AND Verified 12/09/19 08:50 Antibiotics) VOMITING Home Medications Home Medications Medication Instructions Recorded Confirmed Type cyanocobalamin (vitamin B-12) 1,000 mcg IM MONTHLY ml 11/23/18 12/09/19 History 1,000 mcg/mL injection solution spironolactone [Aldactone] 200 mg PO DAILY 03/14/19 12/09/19 History citalopram [Celexa] 40 mg PO DAILY 05/24/19 12/09/19 History lancets 33 gauge #400 ea 10/26/19 12/09/19 Rx furosemide 80 mg tablet 80 mg PO BID #60 tab 11/01/19 12/09/19 Rx diphenoxylate-atropine 2.5 1 tab PO BID PRN #60 tab 11/22/19 12/09/19 Rx mg-0.025 mg tablet Patient History Medical History (Updated 12/15/19 @ 08:31 by RAJIV Deluna) Alcohol abuse Alcoholic cirrhosis of liver LAST DRINK FEBRUARY 2019 Anasarca Anemia with low platelet count Ankylosing spondylitis Ascites Pedroza's esophagus Benign prostatic hyperplasia with urinary obstruction Bilateral edema of lower extremity Calf swelling Deep vein thrombosis 10 YEARS AGO (? REASON) Deep venous thrombosis of lower extremity (08/14/12) Degenerative disc disease STEROID INJECTIONS Depression Diabetes mellitus type 2 in obese Diabetes mellitus, type 2 Diabetic neuropathy Diastolic dysfunction Dyslipidemia Fluid overload Folic acid deficiency Frequent falls GERD (gastroesophageal reflux disease) Glaucoma NO MEDS History of abdominal paracentesis LAST ONE 12/08 History of gout HLD (hyperlipidemia) HTN (hypertension) Hypokalemia Localized swelling of both lower legs LVH (left ventricular hypertrophy) Obstructive sleep apnea Osteoarthritis Palliative care encounter Pancytopenia Paroxysmal supraventricular tachycardia Peripheral neuropathy Pseudogynecomastia Psoriasis Second degree AV block, Mobitz type I Severe protein-calorie malnutrition Shortness of breath Sleep apnea NO DEVICE "LOST WEIGHT" Splenomegaly PT UNSURE Tubular adenoma of colon Uncontrolled type 2 diabetes mellitus with insulin therapy Surgical History H/O gastric bypass 2001 THIERRY GODDARD Mary-en-y History of cataract extraction RT/LEFT History of colonoscopy History of esophagogastroduodenoscopy (EGD) History of tooth extraction Status post gastric bypass for obesity Family History Father Cancer Lung disease Barretts syndrome Brother Brain cancer Diabetes Overdose Myocardial infarction Daughter , age 29 Overdose Suicide Unknown Cancer Hypertension Diabetes Heart disease Denies family history of Ovarian cancer Prostate cancer Breast cancer Colorectal cancer Social History Smoking Status: Never smoker Tobacco Type: Smokeless Tobacco (Dip or Chew) Cigarettes Per Day: 1 can snuff 1-2 weeks; Second Hand Exposure: No; Do You Dip or Chew Tobacco: Yes; Hx Alcohol Use: Yes (hx abuse, last drink feb 2019) Alcohol type: hard liquor Hx Substance Use: No Preferred Language: Khmer Communication Ability: Effective Visual Impairment: Limited Hearing Ability: Normal Animal Eviscerator Required: No Beliefs That Will Affect Care: None marital status: Single marital status details: has, "lady friend" Current Living Situation: Alone Current Living Situation Comment: own home current occupational 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 HEENT: Pt denies dizziness, VERDE, visual changes CV: pt denies Chest pain Resp: Pt denies SOB GI: Pt reports good appetite today. pt reports some abdominal distension : pt reports no difficulty with urinating Psych: AAO x3 with some forgetfullness Physical Exam Constitutional: + thin, + cachectic, + frail appearing, cooperative and comfortable Eyes: PERRL, conjunctivae normal, anicteric sclerae jaundiced sclera ENMT: external ear and nose normal, oropharynx normal Respiratory: normal respiratory effort, lungs clear to auscultation Cardiovascular: Rate/Rhythm: regular rate Vessels: dorsalis pedis pulses present and popliteal pulses present Extremities: normal capillary refill and + edema Gastrointestinal (Abdomen): Inspection/Auscultation: abdomen normal to inspection and + abdominal wall ecchymosis Percussion/Palpation: + abdomen rigid and + ascites Psychiatric: A+Ox3, euthymic affect Lymphatic: no cervical or axillary lymphadenopathy Results & Data ([facility]) Vital Signs (Past 12 Hours) Vital Signs Temp Pulse Resp BP Pulse Ox 12/15/19 00:18 36.7 C 58 L 18 102/66 98 PG Care Time/CCT Total # of Minutes Spent Total Time Spent with Patient: Total time spent is greater than 50% in coordination of care (as documented) at patient's floor/unit and/or counseling patient: 100 Coding Level of Care Code 62965 Inpt Consult Level 4 Diagnoses Palliative care encounter Z51.5 Severe protein-calorie malnutrition E43 Ascites due to alcoholic cirrhosis K70.31 Time Spent (min) 100 Time Spent Midlevel Total time spent 100 minutes with > 50% of that time spent assessing the patient, discussing goals of care, completing a POLST form, and discussing with the pt son over the phone and all IDT members involved
[2019-12-15] MEDS: INSULIN ASPART 100 UNITS/ML 3 ML PEN SC SCH ×4 (09:14→21:58)
[2019-12-15] MEDS: PANTOprazole 40 MG TAB PO SCH ×2 (09:15→21:51)
[2019-12-15] MEDS: LIDOCAINE 5% 1 PATCH TD SCH (09:15)
[2019-12-15] MEDS: CITALOPRAM 40 MG TAB PO SCH (09:15)
[2019-12-15] MEDS: SPIRONOLACTONE 100 MG TAB PO SCH (09:16)
[2019-12-15] MEDS: MIDODRINE HCL 2.5 MG TAB PO SCH ×3 (09:16→17:29)
[2019-12-15] MEDS: ENOXAPARIN INJ 40 MG/0.4 ML SYR SQ SCH (09:16)
[2019-12-15] MEDS: FUROSEMIDE 80 MG TAB PO SCH ×2 (09:17→17:29)
[2019-12-15] MEDS ORDERED: CYANOCOBALAMIN 1000 MCG/ML VIAL IM SCH (12:00)
[2019-12-22] MEDS ORDERED: INFLUENZA ADMINISTRATION CHARGE ONE (08:00)
--- NOTE | 2019-12-23 07:40 | Discharge Summary ---
Date of Service December 16, 2019 Principal Diagnosis Alcoholic cirrhosis of liver Discharge Exam Constitutional: WD/WN, vitals as above + frail appearing Eyes: EOM intact bilaterally; no conjunctival abnormality ENMT: external ear and nose normal, oropharynx normal Neck: trachea midline, no thyromegaly normal visual inspection Respiratory: normal respiratory effort, lungs clear to auscultation no respiratory distress Cardiovascular: RRR, no murmur, no edema Gastrointestinal (Abdomen): Inspection/Auscultation: abdomen normal to inspection and normal bowel sounds; abdomen not distended Percussion/Palpation: abdomen soft and + ascites (Mild); abdomen nontender, no guarding and abdomen not rigid Musculoskeletal: no cyanosis or clubbing, extremities motor strength 5/5 Skin: no rashes, warm and dry Neurologic: moves all extremities and awake Psychiatric: Orientation: alert, oriented to person and cooperative Discharge Data Allergies Allergy/AdvReac Type Severity Reaction Status Date / Time adhesive AdvReac Mild REDNESS, Verified 12/09/19 08:50 TAPE WILSON Sulfa (Sulfonamide AdvReac Mild NAUSEA AND Verified 12/09/19 08:50 Antibiotics) VOMITING Consultations 12/09/19 15:28 Consult Gastroenterology Routine 12/09/19 15:32 Consult Case Management - Discharge Planning Routine 12/14/19 23:00 Consult Palliative Care Routine Ordered Studies 12/09/19 17:01 US venous doppler LE Routine Hospital Course (1) Alcoholic cirrhosis of liver: As previously seen [facility] hepatology in June 2019. Last drink in February 2019, patient has had multiple bouts of successful sobriety for 1 to 2 years and is on board with staying sober if necessary for transplant. - Continue spironolactone/Lasix - Appreciate GI recommendations regarding possibility of transfer to tertiary center for TIPS procedure or other methods of optimizing patient care. - At this point, he is stable. No need for present transfer. -Patient continues to have diarrhea today. - Withholding lactulose for cirrhosis in the setting of diarrhea -> Will aim for at least 1-2 soft BMs/day. Patient had goals of care conversation with palliative care. Input for palliative care noted below: This is a 69 year old male who presented to the [facility] from home with loss of appetite, ascites, and a 40 lb unintentiional weight loss. He had just received a therapeutic paracentesis with 10L fluid removal.. The patient has an extensive PMH that includes alcoholic cirrhosis of the liver, thrombocytopenia, anasarca, MARILYN, BPH, diabetic neuropathy, obesity, s/p Mary-en-Y bypass surgery, LVH, hypothyroidism, dyslipidemia, Ankylosing Spondylitis, and Pedroza's esophagus. . He also has frequent episodes of watery diarrhea. He denies any chest pain or trouble breathing. He does have abdominal pain when it is full of fluid however does not experiencing any at this time. Additionally, he has scrotal and bilateral leg edema. This gentleman lives alone at home and numerous falls have been self reported. Apparently, this patient has gone through cycles of sobriety; however, at this time, after discussion with the hospitalist, will not be suitable for a transplant candidate. Palliative Care was consulted to discuss goals of care. -I met with the pt in room 357-2. He was sitting upright in his bed in no apparent distress. -Patient just finished his breakfast and ate yogurt, granola, and a pancake without difficulty. -We discussed the patients chronic illness and treatment options. The patient has decided and understands that he will pursue conservative measures. He was able to discuss with me previous hospital stays and encounters at [facility] [place] -We discussed code status and he was clear that he would not want CPR/intubation if he would not return to baseline. With his fragility and extensive illness, his quality of life would be severely affected. Patient agreed to be changed to DNR/DNI which is now reflected in the computer. 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 -Patient was clear that he just wants to 'fall asleep' when the time comes. -He signed the POLST form and appointed his son, Leon Bliss as his decision maker. He is his official POA. The patients daughter in law, Lincoln,is an RN on [employer] here at [facility] and works shift superintendent. -I called Leon and discussed the above. We did discuss his life expectancy which is likely 6-8 months. -We discussed Hospice services that could be helpful at [facility] and he would like to pursue this upon his return. I said I would discuss with Case management. -Hospice diagnosis for this patient would be: Liver Failure Weakness and compromised ability perform activities of daily living (ADLs) Hepatic encephalopathy Serum Albumin < 2.5 gm/dl Elevated creatinine and BUN with Oliguria <400 ml/day Ascites Malnutrition Muscle wasting -Plan for D/C to [facility] today. After discussion with Yarely in Case management. Plan for Skillable service and transition to hospice. -PPS:40% (2) Severe protein-calorie malnutrition: Appears severely cachectic on exam. Concerning weight loss over the last few months (827 110 kg, 9- 88 kg). - Dietary consult for nutritional assessment - Fluid restriction to 2 L, low-sodium diet per cirrhosis - PT/OT: PT recommends SNF; going to [facility]. (3) Frequent falls: - PT/OT as above (4) Diarrhea: Complaining of multiple bouts of loose watery diarrhea for many months, has previously taken Lomotil medication to help control it. - C. difficile on 12/09 was negative. - Stool WBCs on 12/09 was negative. - Stool culture, stool ova parasites all pending - Imodium PRN, though will need to be careful to not slow things down too much and cause encephalopathy. 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 - No concern at this time for active bleeding - Hemoglobin 9.9 on admission; 10.1 on 12/09. (6) Thrombocytopenia: Most likely secondary to worsening cirrhosis, splenomegaly adjunct with chronic pancytopenia. - Monitor (7) Obstructive sleep apnea: - CPAP nightly (8) Benign prostatic hyperplasia with urinary obstruction: No acute issues. - Monitor PVR if any symptoms. (9) Diabetic neuropathy: With chronic leg pain. 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 No esophageal varices noted on EGD. - Protonix p.o. twice daily (11) Glaucoma: - Continue home eyedrops (12) Hypothyroidism: TSH was 2.1 this admission. - Not on any levothyroxine as outpatient. (13) DVT prophylaxis: Lovenox as long as plt > 50 (14) Ascites: Continue lasix and spironolactone. added midodrine to improve renal perfusion, perhaps may help with BP and asicities. (15) Mood disorder: stable continue celexa Total Time Total Time Spent Total Time Spent (In Minutes): 32 Total Time Includes: Examination of the Patient, Discharge Planning and Medication Reconciliation Discharge Plan Discharge Items Patient Disposition: Transfer Correction Fac Reason For Visit: ALCOHOL INDUCED CIRRHOSIS, ASCITES Discharge Diagnosis: Alcohol induced cirrhosis, ascities Activity: Resume your previous activity Non-emergency contact: Primary Care Provider Call non-emergency contact if: you have any medication questions Follow-up/Referrals: Rocío Coronado MD [Primary Care Provider] - Diet: Carb Consistent or DM2 and Low Sodium (2gm) Fluids: 2000ml (8 cups) Addtl Attending Provider Instructions: will be discharged to SNF with likely transition to hospice. Can increase midodrin by 2.5 mg PO TID if MAP is below 82. currently at goal with 5mg PO TID. Pending Studies at Discharge: No Stand-Alone Forms: My [facility] Skilled Items Patient informed of condition?: No DNR: Yes (DNR) Discharge Level of Care: Skilled Communicable Disease: No Discharge Prognosis: Stable Lines: None Urinary Catheter: No Medications and DC Order Prescriptions: New lidocaine 5 % Adhesive Patch,Medicated 1 patch transdermal QAM Qty: 30 RF: 0 midodrine 2.5 mg Tablet 5 mg PO TID@0800,1200,1700 Qty: 90 RF: 0 Continued (DME) lancets [OneTouch Delica Lancets] 33 gauge misc See Rx Instructions .ROUTE .MEDSUPPLY Qty: 400 RF: 3 furosemide [Lasix] 80 mg tablet 80 mg PO BID Qty: 60 RF: 5 diphenoxylate-atropine [Lomotil] 2.5-0.025 mg tablet 1 tab PO BID PRN (Reason: diarrhea) Qty: 60 RF: 0 cyanocobalamin (vitamin B-12) 1,000 mcg/mL solution 1,000 mcg IM MONTHLY RF: 0 citalopram [Celexa] 40 mg Tablet 40 mg PO DAILY RF: 0 spironolactone [Aldactone] 100 mg tablet 200 mg PO DAILY RF: 0 Discharge Orders: Discharge Order (Routine); Ordered 12/15/19 Ordered By: Cameron Joyner/Other Patient Handouts: Understanding Cirrhosis Admission Data Admit Date/Time: 12/10/19 14:10 Attending Provider: Cameron Coronado Admit Provider: Prachi Ramon Primary Care Provider: Rocío Coronado V. Other Providers: Obdulio Bill ; Zeferino Gonzales ; Charlee Ovalles Other Interventions: Discharge Summary Assessment (RN) Last Done: 12/16/19 08:09 Coding Level of Care Code D/C Day Management >30 mins Diagnoses Alcoholic cirrhosis of liver K70.30 Severe protein-calorie malnutrition E43 Frequent falls R29.6 Diarrhea R19.7 Anemia D62 Anemia type: other cause Other causes of anemia: acute posthemorrhagic Thrombocytopenia D69.6 Obstructive sleep apnea G47.33 Benign prostatic hyperplasia with urinary obstruction N40.1; N13.8 Diabetic neuropathy E11.40 Pedroza's esophagus K22.70 Glaucoma H40.9 Hypothyroidism E03.9 Hypothyroidism type: acquired DVT prophylaxis Z29.9 Ascites K70.31 Ascites type: due to alcoholic cirrhosis Mood disorder F39
== END 2019-12-16 08:29 | DRG 432 ==
LOC: 3W 14:13 → INTOOBSV 14:13 → SUATTDRO 14:13